=== PATIENT | female | born 1950 | race Caucasian/White ===

== ENCOUNTER 2020-02-06 14:15 | Inpatient (IN) ==
--- NOTE | 2020-02-06 14:40 | Emergency Department Note ---
History of Present Illness General Chief complaint: Hypertension Time Seen by Provider: 02/06/20 14:18 Source: patient Mode of arrival: EMS Limitations: altered mental status History of Present Illness Provider complaint: chest pain Onset (ago): hour(s) 2 Location: chest Radiation: back and extremity Severity: moderate Pain Consistency: + now resolved Maximum Pain Intensity: 4 Current Pain Intensity: 0 Relieved By: + none Exacerbated By: + none Associated symptoms: + denies other symptoms Treatments prior to arrival: none This is a 69-year-old female from [facility] with a history of schizophrenia and bipolar disorder who presents after an episode of chest pain. Patient states shortly after eating lunch between 12:31 PM she developed central chest pain which lasted several minutes and then began to resolve spontaneously. She states during the episode of chest pain she did not feel short of breath, nauseated, or dizzy. Patient states the pain did radiate into her left arm and her back. Patient states she does intermittently have episodes of chest pain and she refers to these as "attacks". No exacerbating or alleviating factors, she has never noticed any trigger or pattern to them. Patient states when staff checked her out there she was found to have an elevated blood pressure reading and was sent in. Patient is unaware of any recent medication changes. She states she has not recently been ill. No known exposure to any coronavirus positive individuals. History is limited due to patient's cognitive status. Pt seen during a time of high acuity and national emergency pandemic while wearing PPE. Home Medications Home Medications Medication Instructions Recorded Confirmed Type Latuda 120 mg PO DAILY 02/06/20 02/06/20 History Therems-M 1 tab PO DAILY 02/06/20 02/06/20 History acetaminophen 650 mg PO QID PRN 02/06/20 02/06/20 History atorvastatin 80 mg PO HS 02/06/20 02/06/20 History calcium carbonate [Oyster Shell 500 mg PO BID 02/06/20 02/06/20 History Calcium 500] cholecalciferol (vitamin D3) 50 mcg PO DAILY 02/06/20 02/06/20 History [Vitamin D3] divalproex 250 mg PO DAILY 02/06/20 02/06/20 History divalproex 500 mg PO HS 02/06/20 02/06/20 History docusate sodium 100 mg PO BID PRN 02/06/20 02/06/20 History fluticasone propionate 1 spray INTRANASAL BID 02/06/20 02/06/20 History glipizide 5 mg PO DAILY 02/06/20 02/06/20 History levothyroxine 137 mcg PO DAILY 02/06/20 02/06/20 History olanzapine 5 mg PO HS 02/06/20 02/06/20 History perphenazine 8 mg PO BID 02/06/20 02/06/20 History trazodone 100 mg PO HS 02/06/20 02/06/20 History amlodipine [Norvasc] 10 mg PO DAILY #30 tab 02/09/20 Rx aspirin 81 mg PO HS #90 tab 02/09/20 Rx losartan 50 mg PO QAM #30 tab 02/09/20 Rx metoprolol tartrate 25 mg PO BID #60 tab 02/09/20 Rx Allergies Allergy/AdvReac Type Severity Reaction Status Date / Time No Known Allergies Allergy Unverified 02/06/20 14:44 Past Med/Surg History Medical History (Updated 02/09/20 @ 19:51 by Molly Worley DO) Bipolar disorder DM2 (diabetes mellitus, type 2) Hypertension (Acute) Hypothyroidism Leukopenia (Acute) Schizophrenia Surgical History Surgical history unknown Family History Unknown Unknown family medical history Social History Smoking Status: Former smoker Hx Alcohol Use: No Hx Substance Use: No Preferred Language: Arabic Communication Ability: Impaired Beliefs That Will Affect Care: None marital status: Single Current Living Situation: Detention How many Children do You have: 0 Feels Safe at Home: Yes Review of Systems See HPI for pertinent positives & negatives. and A total of 10 systems reviewed and were otherwise negative Physical Exam Vital Signs Vital Signs - 24 hr 02/06/20 14:21 02/06/20 14:41 02/06/20 14:58 Temperature 36.5 C Temperature Source Oral Pulse Rate 83 73 74 Pulse Rate from SpO2 Sensor 74 Respiratory Rate 20 19 19 Respiratory Effort / Characteristics Non-Labored Spontaneous Respiratory Depth Normal Respiratory Pattern Regular Blood Pressure 215/112 H 192/87 H 192/87 H Blood Pressure Mean 146 110 110 Blood Pressure Position Lying Pulse Oximetry 96 98 96 Oxygen Delivery Method Room Air Sepsis Recent Fever Within 48 Hours No Sepsis New/Unexplained Change in Mental Status No Sepsis Action Taken by Nursing No Action Required 02/06/20 15:00 02/06/20 15:30 02/06/20 16:00 Temperature Temperature Source Pulse Rate 74 73 76 Pulse Rate from SpO2 Sensor 74 73 78 Respiratory Rate 19 18 21 Respiratory Effort / Characteristics Respiratory Depth Respiratory Pattern Blood Pressure 165/82 H 168/87 H 186/95 H Blood Pressure Mean 114 130 129 Blood Pressure Position Pulse Oximetry 97 97 98 Oxygen Delivery Method Sepsis Recent Fever Within 48 Hours Sepsis New/Unexplained Change in Mental Status Sepsis Action Taken by Nursing 02/06/20 16:30 02/06/20 17:00 Temperature Temperature Source Pulse Rate 74 79 Pulse Rate from SpO2 Sensor 80 Respiratory Rate 21 20 Respiratory Effort / Characteristics Respiratory Depth Respiratory Pattern Blood Pressure 191/94 H 218/109 H Blood Pressure Mean 140 115 Blood Pressure Position Pulse Oximetry 98 100 Oxygen Delivery Method Sepsis Recent Fever Within 48 Hours Sepsis New/Unexplained Change in Mental Status Sepsis Action Taken by Nursing GENERAL: alert, well appearing, well nourished, no distress, non-toxic, obese EYE EXAM: normal conjunctiva, PERRL and EOM's grossly intact OROPHARYNX: no exudate, no erythema, lips, buccal mucosa, and tongue normal and mucous membranes are moist NECK: supple, no nuchal rigidity, no adenopathy, non-tender LUNGS: Clear to auscultation. Normal chest wall mechanics, no w/r/r HEART: no murmurs, S1 normal and S2 normal ABDOMEN: abdomen soft, non-tender, normo-active bowel sounds, no masses, no rebound or guarding. BACK: Back is symmetrical on inspection and there is no deformity, no midline tenderness, no CVA tenderness. SKIN: no rashes and no bruising UPPER EXTREMITIES: upper extremities are grossly normal. FROM, nml pulses b/l. LOWER EXTREMITIES: No pitting edema. FROM, nml pulses b/l. NEURO EXAM: Normal sensorium, cranial nerves II-XII grossly intact, normal speech, no gross weakness of arms, no gross weakness of legs. Gross sensation intact. Course Course 1801: Patient states she feels fine here and is asking to eat. Patient is still significantly hypertensive. Her blood pressure does respond to doses of labetalol, however then he continues to increase. Patient denies any recurrent episodes of chest pain or other symptoms while here. 1832: Case discussed with Dr. Carlos. Would like a CT head added additionally. Administered Medications Discontinued Medications Amlodipine Besylate (Norvasc) 10 mg PO NOW ONE Stop: 02/06/20 19:54 Last Admin: 02/06/20 20:40 Dose: 10 mg Documented by: [id number] Amlodipine Besylate (Norvasc) 10 mg PO [facility] Stop: 03/08/20 08:59 Last Admin: 02/09/20 08:15 Dose: 10 mg Documented by: [id number] Admin: 02/08/20 09:19 Dose: 10 mg Documented by: [id number] Admin: 02/07/20 09:17 Dose: 10 mg Documented by: [id number] Aspirin (Ecotrin Ectab) 81 mg PO [facility] Stop: 03/07/20 21:59 Last Admin: 02/08/20 20:24 Dose: 81 mg Documented by: [id number] Admin: 02/07/20 22:09 Dose: 81 mg Documented by: [id number] Admin: 02/06/20 22:51 Dose: 81 mg Documented by: [id number] Atorvastatin Calcium (Lipitor) 80 mg PO [facility] Stop: 03/07/20 21:40 Last Admin: 02/08/20 20:25 Dose: 80 mg Documented by: [id number] Admin: 02/07/20 22:07 Dose: 80 mg Documented by: [id number] Admin: 02/06/20 22:51 Dose: 80 mg Documented by: [id number] Divalproex Sodium (Depakote Sprinkle) 250 mg PO DAILY [facility] Stop: 03/08/20 08:59 Last Admin: 02/09/20 08:16 Dose: 250 mg Documented by: [id number] Admin: 02/08/20 09:19 Dose: 250 mg Documented by: [id number] Admin: 02/07/20 09:18 Dose: 250 mg Documented by: [id number] Divalproex Sodium (Depakote Sprinkle) 500 mg PO [facility] Stop: 03/07/20 21:40 Last Admin: 02/08/20 20:20 Dose: 500 mg Documented by: [id number] Admin: 02/07/20 22:09 Dose: 500 mg Documented by: [id number] Admin: 02/06/20 22:50 Dose: 500 mg Documented by: [id number] Fluticasone Propionate (Flonase) 1 sprays NA BID [facility] Stop: 03/07/20 21:40 Last Admin: 02/09/20 08:32 Dose: 1 sprays Documented by: [id number] Admin: 02/08/20 20:22 Dose: 1 sprays Documented by: [id number] Admin: 02/08/20 09:20 Dose: 1 sprays Documented by: [id number] Admin: 02/07/20 22:09 Dose: 1 sprays Documented by: [id number] Admin: 02/07/20 09:19 Dose: 1 sprays Documented by: [id number] Admin: 02/06/20 22:49 Dose: 1 sprays Documented by: [id number] Heparin Sodium (Porcine) (Heparin Sodium (Porcine)) 5,000 units SQ Q8 [facility] Stop: 03/07/20 21:59 Last Admin: 02/09/20 13:46 Dose: Not Given Documented by: [id number] Admin: 02/09/20 05:29 Dose: Not Given Documented by: [id number] Admin: 02/08/20 20:30 Dose: Not Given Documented by: [id number] Admin: 02/08/20 14:33 Dose: 5,000 units Documented by: [id number] Cosigned by: [id number] Admin: 02/08/20 05:33 Dose: 5,000 units Documented by: [id number] Cosigned by: [id number] Admin: 02/07/20 22:10 Dose: 5,000 units Documented by: [id number] Cosigned by: [id number] Admin: 02/07/20 14:16 Dose: 5,000 units Documented by: [id number] Cosigned by: [id number] Admin: 02/07/20 06:31 Dose: 5,000 units Documented by: [id number] Cosigned by: [id number] Admin: 02/06/20 23:11 Dose: 5,000 units Documented by: [id number] Cosigned by: [id number] Insulin Aspart (Novolog Flexpen) 0 units SC ACHS [facility] Stop: 03/07/20 21:40 Last Admin: 02/09/20 11:51 Dose: 4 units Documented by: [id number] Cosigned by: [id number] Admin: 02/09/20 08:31 Dose: 2 units Documented by: [id number] Cosigned by: [id number] Admin: 02/08/20 20:34 Dose: 1 units Documented by: [id number] Cosigned by: [id number] Admin: 02/08/20 17:27 Dose: 3 units Documented by: [id number] Cosigned by: [id number] Admin: 02/08/20 12:05 Dose: 2 units Documented by: [id number] Cosigned by: [id number] Admin: 02/08/20 08:00 Dose: 3 units Documented by: [id number] Cosigned by: [id number] Admin: 02/07/20 22:10 Dose: Not Given Documented by: [id number] Cosigned by: [id number] Admin: 02/07/20 17:57 Dose: 1 units Documented by: [id number] Cosigned by: [id number] Admin: 02/07/20 12:40 Dose: 1 units Documented by: [id number] Cosigned by: [id number] Admin: 02/07/20 09:18 Dose: 1 units Documented by: [id number] Cosigned by: [id number] Admin: 02/06/20 23:10 Dose: 3 units Documented by: [id number] Cosigned by: [id number] Insulin Glargine (Lantus Solostar Pen) 7 units SC BID [facility] Stop: 03/07/20 21:40 Last Admin: 02/09/20 08:31 Dose: 7 units Documented by: [id number] Cosigned by: [id number] Admin: 02/08/20 20:31 Dose: 7 units Documented by: [id number] Cosigned by: [id number] Admin: 02/08/20 08:00 Dose: 7 units Documented by: [id number] Cosigned by: [id number] Admin: 02/07/20 22:10 Dose: 7 units Documented by: [id number] Cosigned by: [id number] Admin: 02/07/20 09:18 Dose: 7 units Documented by: [id number] Cosigned by: [id number] Admin: 02/06/20 23:09 Dose: 7 units Documented by: [id number] Cosigned by: [id number] Labetalol HCl (Normodyne) 5 mg IV NOW STA Stop: 02/06/20 14:49 Last Admin: 02/06/20 14:55 Dose: 5 mg Documented by: [id number] Cosigned by: [id number] Labetalol HCl (Normodyne) 5 mg IV NOW STA Stop: 02/06/20 16:53 Last Admin: 02/06/20 16:59 Dose: 5 mg Documented by: [id number] Cosigned by: [id number] Labetalol HCl (Normodyne) 10 mg IV NOW STA Stop: 02/06/20 18:18 Last Admin: 02/06/20 18:38 Dose: 10 mg Documented by: [id number] Cosigned by: [id number] Levothyroxine Sodium (Levothyroxine Sodium) 137 mcg PO DAILYBB [facility] Stop: 03/08/20 06:29 Last Admin: 02/09/20 05:46 Dose: 137 mcg Documented by: [id number] Admin: 02/08/20 05:26 Dose: 137 mcg Documented by: [id number] Admin: 02/07/20 05:59 Dose: 137 mcg Documented by: [id number] Losartan Potassium (Cozaar) 50 mg PO QAM [facility] Stop: 03/08/20 09:29 Last Admin: 02/09/20 08:16 Dose: 50 mg Documented by: [id number] Admin: 02/08/20 09:20 Dose: 50 mg Documented by: [id number] Admin: 02/07/20 10:30 Dose: 50 mg Documented by: [id number] Lurasidone HCl (Latuda) 120 mg PO DAILY [facility] Stop: 03/08/20 08:59 Last Admin: 02/09/20 08:14 Dose: 120 mg Documented by: [id number] Admin: 02/08/20 09:20 Dose: 120 mg Documented by: [id number] Admin: 02/07/20 09:18 Dose: 120 mg Documented by: [id number] Metoprolol Tartrate (Lopressor) 25 mg PO BID [facility] Stop: 03/07/20 20:59 Last Admin: 02/09/20 08:16 Dose: 25 mg Documented by: [id number] Admin: 02/08/20 20:26 Dose: 25 mg Documented by: [id number] Admin: 02/08/20 09:19 Dose: 25 mg Documented by: [id number] Admin: 02/07/20 22:09 Dose: 25 mg Documented by: [id number] Admin: 02/07/20 10:35 Dose: 25 mg Documented by: [id number] Admin: 02/06/20 20:40 Dose: 25 mg Documented by: [id number] Olanzapine (Zyprexa) 5 mg PO HS [facility] Stop: 03/07/20 21:40 Last Admin: 02/08/20 20:28 Dose: 5 mg Documented by: [id number] Admin: 02/07/20 22:08 Dose: 5 mg Documented by: [id number] Admin: 02/06/20 22:52 Dose: 5 mg Documented by: [id number] Perphenazine (Trilafon) 8 mg PO BID [facility] Stop: 03/07/20 21:59 Last Admin: 02/09/20 08:15 Dose: 8 mg Documented by: [id number] Admin: 02/08/20 20:26 Dose: 8 mg Documented by: [id number] Admin: 02/08/20 09:20 Dose: 8 mg Documented by: [id number] Admin: 02/07/20 22:08 Dose: 8 mg Documented by: [id number] Admin: 02/07/20 09:18 Dose: 8 mg Documented by: [id number] Admin: 02/06/20 22:52 Dose: 8 mg Documented by: [id number] Trazodone HCl (Desyrel) 100 mg PO HS [facility] Stop: 03/07/20 21:40 Last Admin: 02/08/20 20:22 Dose: 100 mg Documented by: [id number] Admin: 02/07/20 22:08 Dose: 100 mg Documented by: [id number] Admin: 02/06/20 22:50 Dose: 100 mg Documented by: [id number] Critical Care Time Critical Care Time: Yes Total Critical Care Time: 46 Critical care of 46 min performed to assess and manage high likelihood of life- threatening hypertension, involving labs/imaging performed with assessment to evaluate hypertension diagnosis with frequent reassessment. This time includes bedside time, treatment discussions with patient/family/consultants, documentation time and excludes procedure time. Medical Decision Making Differential Diagnosis Differential diagnoses includes but is not limited to acute coronary syndrome, myocardial infarction, pericarditis, pulmonary embolus, aortic dissection, pneumonia, pneumothorax, musculoskeletal, shingles, esophageal. Medical Records Attestation: I reviewed the patient's medical records. Home Medications Current Medication List: was personally reviewed by me Laboratory Data Attestation: I reviewed the patient's lab results. Result diagrams: 02/08/20 07:32 02/08/20 07:32 Lab Results 02/06/20 02/06/20 02/06/20 Range/Units 14:46 14:46 14:46 WBC 2.71 L (4.8-10.8) K/uL RBC 4.16 L (4.2-5.4) M/uL Hgb 12.5 (12.0-16.0) g/dL Hct 36.0 L (37-47) % MCV 86.5 (80-100) fL MCH 30.0 (25-34) pg MCHC 34.7 (32-36) g/dL RDW Std Deviation 41.3 (36.4-46.3) fL RDW Coeff of Joe 13.0 (11.5-14.5) % Plt Count 208 (130-400) K/uL MPV 9.1 (7.4-10.4) fL Immature Gran % (Auto) 0.0 % Neut % (Auto) 24.0 % Lymph % (Auto) 49.4 % Ocean % (Auto) 22.9 % Eos % (Auto) 3.0 % Baso % (Auto) 0.7 % Neut # (Auto) 0.65 L* (1.4-6.5) K/uL Lymph # (Auto) 1.34 (1.2-3.4) K/uL Ocean # (Auto) 0.62 H (0.11-0.59) K/uL Eos # (Auto) 0.08 (0-0.5) K/uL Baso # (Auto) 0.02 (0-0.2) K/uL Immature Gran # (Auto) 0.00 (0.00-0.02) K/uL D-Dimer 270 (0-500) ug/L FEU Sodium 135 L (136-145) mmol/L Potassium 4.0 (3.5-5.1) mmol/L Chloride 102 (98-107) mmol/L Carbon Dioxide 28 (21-32) mmol/L Anion Gap 5.0 (3-11) BUN 8 (7-18) mg/dl Creatinine 0.76 (0.6-1.2) mg/dl Est Cr Clr Drug Dosing 80.9 ml/min Est GFR ( Amer) 94.1 Est GFR (Non-Af Amer) 81.2 BUN/Creatinine Ratio 10.3 (10-20) Glucose 117 H (70-99) mg/dl Calcium 9.2 (8.5-10.1) mg/dl Magnesium 1.8 (1.8-2.4) mg/dl Total Bilirubin 0.7 (0.2-1) mg/dl AST 15 (15-37) U/L ALT 29 (12-78) U/L Alkaline Phosphatase 91 (45-117) U/L Troponin I < 0.015 (0-0.045) ng/ml NT-Pro-B Natriuret Pep 77 (0-900) pg/ml Total Protein 7.5 (6.4-8.2) gm/dl Albumin 3.6 (3.4-5.0) gm/dl Globulin 3.9 (2.5-4.0) gm/dl Albumin/Globulin Ratio 0.9 (0.9-2) Lipase 104 (73-393) U/L TSH 1.240 (0.300-4.500) uIu/ml / Range/Units 17:30 WBC (4.8-10.8) K/uL RBC (4.2-5.4) M/uL Hgb (12.0-16.0) g/dL Hct (37-47) % MCV (80-100) fL MCH (25-34) pg MCHC (32-36) g/dL RDW Std Deviation (36.4-46.3) fL RDW Coeff of Joe (11.5-14.5) % Plt Count (130-400) K/uL MPV (7.4-10.4) fL Immature Gran % (Auto) % Neut % (Auto) % Lymph % (Auto) % Ocean % (Auto) % Eos % (Auto) % Baso % (Auto) % Neut # (Auto) (1.4-6.5) K/uL Lymph # (Auto) (1.2-3.4) K/uL Ocean # (Auto) (0.11-0.59) K/uL Eos # (Auto) (0-0.5) K/uL Baso # (Auto) (0-0.2) K/uL Immature Gran # (Auto) (0.00-0.02) K/uL D-Dimer (0-500) ug/L FEU Sodium (136-145) mmol/L Potassium (3.5-5.1) mmol/L Chloride (98-107) mmol/L Carbon Dioxide (21-32) mmol/L Anion Gap (3-11) BUN (7-18) mg/dl Creatinine (0.6-1.2) mg/dl Est Cr Clr Drug Dosing ml/min Est GFR ( Amer) Est GFR (Non-Af Amer) BUN/Creatinine Ratio (10-20) Glucose (70-99) mg/dl Calcium (8.5-10.1) mg/dl Magnesium (1.8-2.4) mg/dl Total Bilirubin (0.2-1) mg/dl AST (15-37) U/L ALT (12-78) U/L Alkaline Phosphatase (45-117) U/L Troponin I < 0.015 (0-0.045) ng/ml NT-Pro-B Natriuret Pep (0-900) pg/ml Total Protein (6.4-8.2) gm/dl Albumin (3.4-5.0) gm/dl Globulin (2.5-4.0) gm/dl Albumin/Globulin Ratio (0.9-2) Lipase (73-393) U/L TSH (0.300-4.500) uIu/ml Imaging Data Radiologist's Impression: XR chest 1V portable CLINICAL HISTORY: chest pain COMPARISON STUDY: No previous studies for comparison. FINDINGS: The bones soft tissues and hemidiaphragms are normal. The c ardiomediastinal silhouette is normal. The lungs are clear. The pulmonary vasculature is normal. IMPRESSION: Negative chest. ACT 112: Negative or not required by law. The above report was generated using voice recognition software. It may contain grammatical, syntax or spelling errors. Electronically signed by: Ulises Kenney M.D. 02/06/2020 2:57 PM ECG Data Attestation: I personally reviewed and interpreted this ECG as follows: Indication: + chest pain Rate (beats per minute): 75 Rhythm: + normal sinus ECG Intervals/blocks: + Normal QRS and + Normal QT ECG Taylor: + Normal ECG ST segments: + Normal ST segments Blood Pressure Blood Pressure Findings: Elevated blood pressure Blood Pressure Disposition: further management by hospitalist RG Mosley Patient here after episode of chest pain at [facility] and found to be significantly hypertensive. Patient's symptoms resolved prior to arrival. Patient had no recurrent chest pain or other symptoms while here. Patient's blood pressure would respond temporarily to labetalol however then it would increase again. Due to persistent hypertension despite IV medications, discussed with the hospitalist for additional inpatient management. Patient had a normal and nonfocal neuro exam, no other complaints of headaches, vision changes, dizziness. It is unclear if patient had an episode of high blood pressure that contributed to her symptoms thus suggesting a hypertensive urgency versus if the blood pressure was reactive to her pain and other ongoing process. Patient is a difficult historian due to mental health history and possible cognitive delay. Vital signs were otherwise stable. I do not suspect occult infectious etiology. Patient's troponin and dimer were negative. No evidence of hypertensive emergency. I do not suspect dissection, PE, ACS, tampo nade, effusion, perforation, GI bleed. Patient was found to have leukopenia which she has had previously. No other focal symptoms to suggest infectious etiology. An order was placed for continuous cardiac monitoring. The monitor shows a rate of _80 with normal sinus_ rhythm. Impression & Plan Hypertension, Chest pain, Leukopenia, Obesity Discharge Plan Visit Data *Final* Discharge Date/Time: 02/06/20 20:59 Chief Complaint: Hypertension ED Provider: Molly Worley Discharge Problem: Hypertension, Chest pain, Leukopenia, Obesity Patient Disposition: Admitted As Inpatient Condition: Good Discharge Instructions Interventions: ED Discharge Assessment Last Done: 02/06/20 20:59 Discharge Problem: Hypertension Qualifiers: Hypertension type: essential hypertension Qualified Code(s): I10 - Essential (primary) hypertension Chest pain Qualifiers: Chest pain type: unspecified Qualified Code(s): R07.9 - Chest pain, unspecified Leukopenia Qualifiers: Leukopenia type: neutropenia Neutropenia type: unspecified Qualified Code(s): D70.9 - Neutropenia, unspecified Obesity Qualifiers: Obesity type: unspecified obesity type Obesity classification: unspecified obesity classification Serious obesity comorbidity presence: unspecified whether serious comorbidity present Qualified Code(s): E66.9 - Obesity, unspecified
[2020-02-06] MEDS ORDERED: LABETALOL HCL IV 5 MG/ML 20ML IV STA ×3 (14:48→18:17)
--- NOTE | 2020-02-06 14:58 | XRay Report ---
XR chest 1V portable CLINICAL HISTORY: chest pain COMPARISON STUDY: No previous studies for comparison. FINDINGS: The bones soft tissues and hemidiaphragms are normal. The cardiomediastinal silhouette is n ormal. The lungs are clear. The pulmonary vasculature is normal. IMPRESSION: Negative chest. ACT 112: Negative or not required by law. The above report was generated using voice recognition software. It may contain grammatical, syntax or spelling errors. Electronically signed by: Ulises Kenney M.D. 02/06/2020 2:57 PM
[2020-02-06 15:00] LABS: Hemoglobin 12.5 g/dL (12.0-16.0); Mean Corpuscular Hgb Conc 34.7 g/dL (32-36); Mean Corpuscular Volume 86.5 fL (80-100); Mean Platelet Volume 9.1 fL (7.4-10.4); Platelet Count 208 K/uL (130-400); RDW Standard Deviation 41.3 fL (36.4-46.3); Red Blood Count 4.16 M/uL (4.2-5.4); White Blood Count 2.71 K/uL (4.8-10.8)
[2020-02-06 15:15] LABS: Alanine Aminotransferase 29 U/L (12-78); Albumin Level 3.6 gm/dl (3.4-5.0); Aspartate Aminotransferase 15 U/L (15-37); BUN Creatinine Ratio 10.3 (10-20); Blood Urea Nitrogen 8 mg/dl (7-18); Calcium 9.2 mg/dl (8.5-10.1); Carbon Dioxide 28 mmol/L (21-32); Chloride 102 mmol/L (98-107); Creatinine Clr Calc Pharmacy 80.9 ml/min; Est GFR (African American) 94.1; Est GFR (Non-African American) 81.2; Glucose 117 mg/dl (70-99); Lipase 104 U/L (73-393); Magnesium 1.8 mg/dl (1.8-2.4); Sodium 135 mmol/L (136-145)
[2020-02-06 15:24] LABS: Basophils # (auto) 0.02 K/uL (0-0.2); Basophils % (auto) 0.7 %; Eosinophils # (auto) 0.08 K/uL (0-0.5); Lymphocytes # (auto) 1.34 K/uL (1.2-3.4); Lymphocytes % (auto) 49.4 %; Monocytes # (auto) 0.62 K/uL (0.11-0.59); Monocytes % (auto) 22.9 %; Neutrophils # (auto) 0.65 K/uL (1.4-6.5)
[2020-02-06 15:26] LABS: Albumin Globulin Ratio 0.9 (0.9-2); Alkaline Phosphatase 91 U/L (45-117); Bilirubin,Total 0.7 mg/dl (0.2-1); Globulin 3.9 gm/dl (2.5-4.0); NT Pro B Type Natriuretic Pept 77 pg/ml (0-900); Total Protein 7.5 gm/dl (6.4-8.2); Troponin I < 0.015 ng/ml (0-0.045)
[2020-02-06 16:04] LABS: D Dimer 270 ug/L FEU (0-500)
--- NOTE | 2020-02-06 18:05 | Electrocardiogram Report ---
Test Reason : Blood Pressure : / mmHG Vent. Rate : 075 BPM Atrial Rate : 075 BPM P-R Int : 162 ms QRS Dur : 082 ms QT Int : 406 ms P-R-T Axes : 055 065 053 degrees QTc Int : 453 ms Normal sinus rhythm Normal ECG No previous ECGs available Confirmed by Derek Herrera ([id number]) on 02/06/2020 6:05:09 PM Referred By: PROTOCOL Confirmed By:Celso Herrera
--- NOTE | 2020-02-06 19:40 | CT Scan Report ---
CT head/brain wo con CLINICAL HISTORY: 69 years-old Female with hypertension. TECHNIQUE: Multiple axial CT images of the head were obtained without contrast. A dose lowering tech nique was utilized adhering to the principles of ALARA. CT DOSE: 537.48 mGy.cm COMPARISON: None. FINDINGS: No acute intracranial hemorrhage, midline shift, intracranial mass, hydrocephalus, territorial ischem ia or abnormal extra-axial collection. Age-related involutional changes. Mild patchy white matter hyp odensities suggest probable chronic microvascular ischemic disease. The calvarium is intact. Prior bilateral lens replacement. The paranasal sinuses, mastoid air cells, and middle ear cavities are clear. IMPRESSION: No acute intracranial abnormality. ACT 112: Negative or not required by law. The above report was generated using voice recognition software. It may contain grammatical, syntax o r spelling errors. Electronically signed by: Hubert Crowell M.D. 02/06/2020 7:38 PM
[2020-02-06] MEDS ORDERED: AMLODIPINE BESYLATE 5 MG TAB PO ONE (19:53)
--- NOTE | 2020-02-06 20:05 | History & Physical Report ---
Date of Service February 06, 2020 Assessment & Plan (1) Chest pain: Chest Pain: R/O ACS Risk factors: H/O HTN, HLP, DM II, Obesity Initial troponin:Negative EKG shows: No acute signs of Ischemia CXR: Negative chest. Trend serial cardiac enzymes, repeat EKG, fasting lipid panel in AM Start Aspirin 81mg daily Continue Metoprolol, statins Oxygen PRN NPO after midnight Cardiology consult Hypertensive Urgency CT head:No acute intracranial abnormality. Received IV labetalol in ED, which only transiently controlled BP Will increase Metoprolol to 25mg BID Added Amlodipine 10mg daily IV Vasotec PRN Leukopenia/Neutropenia--Chronic No signs of infection H/O autoimmune mediated neutropenia Followed with Dr. Rodriguez previously Monitor Schizophrenia Mood disorder Stable Continue home medications Hyperlipidemia Continue Statin Hypothyroidism TSH:1.2 Continue levothyroxine Diabetes mellitus Type II Will hold oral diabetic meds Last A1c:8.2 ISS, Accu checks, Diabetic diet update HbA1C DVT Px: Heparin SQ Code Status Full Code Disposition Expected discharge back to personal care facility when medically stable. History of Present Illness Chief Complaint: Chest Pain Primary Care Provider: Billy Eloyosmar Patient is a 69-year-old female with history of schizophrenia, mood disorder hyperlipidemia, hypothyroidism, diabetes mellitus, vitamin D deficiency and other medical problems presents with history of chest pain. Patient is a poor historian and likely have an underlying mild intellectual disability. Patient states that she had retrosternal chest pain after having lunch today afternoon. Chest pain is associated with brief shortness of breath, lasting for about 5 minutes, spontaneously resolved. Chest pain radiated to the back as per patient. Currently while in ED, patient is chest pain-free. She was noted to have uncontrolled blood pressure. She admits to having had dry cough intermitt ently for the last few days. She reports having similar chest pain episode 1 month ago. He denies any aggravating or alleviating factors. Denies any history of palpitations, dizziness, pedal edema, diaphoresis, wheezing, hemoptysis, fever, chills, headache, weakness, change in vision, nausea, vomiting, abdominal pain, diarrhea, change in appetite, weight loss, dysuria, hematuria, recent travel, sick contact, recent change in medications. Allergies Allergy/AdvReac Type Severity Reaction Status Date / Time No Known Allergies Allergy Unverified 02/06/20 14:44 Home Medications Home Medications Medication Instructions Recorded Confirmed Type acetaminophen 650 mg PO QID PRN 02/06/20 02/06/20 History atorvastatin 80 mg PO HS 02/06/20 02/06/20 History calcium carbonate [Oyster Shell 500 mg PO BID 02/06/20 02/06/20 History Calcium 500] cholecalciferol (vitamin D3) 50 mcg PO DAILY 02/06/20 02/06/20 History [Vitamin D3] divalproex 250 mg PO DAILY 02/06/20 02/06/20 History divalproex 500 mg PO HS 02/06/20 02/06/20 History docusate sodium 100 mg PO BID PRN 02/06/20 02/06/20 History fluticasone propionate 1 spray INTRANASAL BID 02/06/20 02/06/20 History glipizide 5 mg PO DAILY 02/06/20 02/06/20 History levothyroxine 137 mcg PO DAILY 02/06/20 02/06/20 History lurasidone [Latuda] 120 mg PO DAILY 02/06/20 02/06/20 History metoprolol tartrate 12.5 mg PO BID 02/06/20 02/06/20 History multivitamin,[id number] 1 tab PO DAILY 02/06/20 02/06/20 History [Therems-M] olanzapine 5 mg PO HS 02/06/20 02/06/20 History perphenazine 8 mg PO BID 02/06/20 02/06/20 History trazodone 100 mg PO HS 02/06/20 02/06/20 History Past Med/Surg History Medical History Bipolar disorder Schizophrenia Surgical History Surgical history unknown Family History Unknown Unknown family medical history Social History Feels Safe at Home: Yes Smoking Status: Former smoker Review of Systems Review of Systems: All systems reviewed & are unremarkable except as noted in HPI & below Physical Exam Physical Exam: Physical Exam: Vitals signs as noted above General Appearance:Obese, no apparent distress Head: normocephalic, Atraumatic Eyes: normal inspection, EOMI Neck: supple, Trachea midline Respiratory/Chest: Normal breath sounds, CTA, No accessory muscle use Cardiovascular: S1, S2, + murmur Abdomen/GI:Soft, Non tender, Bowel sounds present Extremities/Musculoskelatal:normal inspection, Trace edema Neurologic/Psych:AAOX3, grossly no focal neurological deficits Skin: normal color, warm Results & Data Results & Data ([facility]) Vital Signs (Past 12 Hours) Vital Signs Temp Pulse Resp BP Pulse Ox 02/06/20 19:34 95 H 18 204/100 H 98 02/06/20 18:38 87 21 190/99 H 97 02/06/20 18:31 212/114 H 02/06/20 18:13 228/123 H 02/06/20 18:01 82 20 181/98 H 98 02/06/20 17:56 79 20 180/95 H 99 02/06/20 17:31 80 20 204/97 H 99 02/06/20 17:00 79 20 218/109 H 100 02/06/20 16:30 74 21 191/94 H 98 02/06/20 16:00 76 21 186/95 H 98 02/06/20 15:30 73 18 168/87 H 97 02/06/20 15:00 74 19 165/82 H 97 02/06/20 14:58 74 19 192/87 H 96 02/06/20 14:41 73 19 192/87 H 98 02/06/20 14:21 36.5 C 83 20 215/112 H 96 Laboratory Results Short CBC 02/06/20 Range/Units 14:46 WBC 2.71 L (4.8-10.8) K/uL Hgb 12.5 (12.0-16.0) g/dL Hct 36.0 L (37-47) % Plt Count 208 (130-400) K/uL BMP 02/06/20 14:46 Sodium 135 L Potassium 4.0 Chloride 102 Carbon Dioxide 28 BUN 8 Creatinine 0.76 Glucose 117 H Calcium 9.2 Cardiac Enzymes 02/06/20 02/06/20 Range/Units 14:46 17:30 Troponin I < 0.015 < 0.015 (0-0.045) ng/ml Liver Function 02/06/20 Range/Units 14:46 Total Bilirubin 0.7 (0.2-1) mg/dl AST 15 (15-37) U/L ALT 29 (12-78) U/L Alkaline Phosphatase 91 (45-117) U/L Albumin 3.6 (3.4-5.0) gm/dl Diagnostic Findings head CT:No acute intracranial abnormality. CXR:Negative chest. ECG Additional Comments: EKG:Normal sinus rhythm, QTC:453 Code Status & VTE Plan VTE Prophylaxis Plan VTE Prophylaxis will be ordered: Yes (1) Chest pain Chest pain type: unspecified Qualified Code(s): R07.9 - Chest pain, unspecified
[2020-02-06] MEDS: METOPROLOL TARTRATE 25 MG TAB PO SCH (20:40)
[2020-02-06] MEDS ORDERED: DEXTROSE 50% 50 ML SYRINGE IV PRN (21:41)
[2020-02-06] MEDS ORDERED: CARBOHYDRATES FOR HYPOGLYCEMIA PO PRN (21:41)
[2020-02-06] MEDS ORDERED: DOCUSATE SODIUM 100 MG CAP PO PRN (21:41)
[2020-02-06] MEDS ORDERED: GLUCOSE 10 TABS/TUBE PO PRN (21:41)
[2020-02-06] MEDS ORDERED: GLUCOSE 40% GEL 15 GM TUBE PO PRN (21:41)
[2020-02-06] MEDS ORDERED: ONDANSETRON INJ 2 MG/ML 2 ML VIAL IV PRN (21:41)
[2020-02-06] MEDS ORDERED: ENALAPRILAT 1.25 MG in DEXTROSE 5% 25 ML IV PRN (21:41)
[2020-02-06] MEDS ORDERED: GLUCAGON FOR INJ 1 MG VIAL SQ PRN (21:41)
[2020-02-06] MEDS ORDERED: ACETAMINOPHEN 325 MG TAB PO PRN (21:41)
[2020-02-06] MEDS ORDERED: NITROGLYCERIN SL 0.4 MG/TAB TAB SL PRN (21:41)
[2020-02-06] MEDS ORDERED: POLYETHYLENE (MIRALAX) 17 GM PACK PO PRN (21:41)
[2020-02-06] MEDS: FLUTICASONE PROPIONATE NA SPR 16 GM BTL SCH (22:49)
[2020-02-06] MEDS: DIVALPROEX SODIUM SPRINKLE 125 MG CAP PO SCH (22:50)
[2020-02-06] MEDS: TRAZODONE HCL 100 MG TAB PO SCH (22:50)
[2020-02-06] MEDS: ATORVASTATIN 40 MG TAB PO SCH (22:51)
[2020-02-06] MEDS: ASPIRIN 81 MG ECTAB PO SCH (22:51)
[2020-02-06] MEDS: OLANZapine 5 MG TABLET PO SCH (22:52)
[2020-02-06] MEDS: PERPHENAZINE 2 MG TABLET PO SCH (22:52)
[2020-02-06] MEDS: INSULIN GLARGINE SOLOSTAR 100 UNITS/ML 3 ML PEN SC SCH (23:09)
[2020-02-06] MEDS: INSULIN ASPART 100 UNITS/ML 3 ML PEN SC SCH (23:10)
[2020-02-06] MEDS: HEPARIN SOD 5,000 UNIT/0.5 ML VIAL SQ SCH (23:11)
[2020-02-07] MEDS: LEVOTHYROXINE SODIUM 137 MCG TABLET PO SCH (05:59)
[2020-02-07] MEDS: HEPARIN SOD 5,000 UNIT/0.5 ML VIAL SQ SCH ×3 (06:31→22:10)
[2020-02-07] MEDS: AMLODIPINE BESYLATE 5 MG TAB PO SCH (09:17)
[2020-02-07] MEDS: PERPHENAZINE 2 MG TABLET PO SCH ×2 (09:18→22:08)
[2020-02-07] MEDS: DIVALPROEX SODIUM SPRINKLE 125 MG CAP PO SCH ×2 (09:18→22:09)
[2020-02-07] MEDS: LURASIDONE HCL 40 MG TAB PO SCH (09:18)
[2020-02-07] MEDS: INSULIN GLARGINE SOLOSTAR 100 UNITS/ML 3 ML PEN SC SCH ×2 (09:18→22:10)
[2020-02-07] MEDS: INSULIN ASPART 100 UNITS/ML 3 ML PEN SC SCH ×4 (09:18→22:10)
[2020-02-07] MEDS: FLUTICASONE PROPIONATE NA SPR 16 GM BTL SCH ×2 (09:19→22:09)
[2020-02-07 09:27] LABS: Hematocrit (blood only) 37.5 % (37-47); Hemoglobin 12.9 g/dL (12.0-16.0); Mean Corpuscular Hemoglobin 30.4 pg (25-34); Mean Corpuscular Hgb Conc 34.4 g/dL (32-36); Mean Corpuscular Volume 88.2 fL (80-100); Mean Platelet Volume 9.2 fL (7.4-10.4); Platelet Count 189 K/uL (130-400); RDW Coefficient of Variation 13.6 % (11.5-14.5); RDW Standard Deviation 43.6 fL (36.4-46.3); Red Blood Count 4.25 M/uL (4.2-5.4); White Blood Count 2.76 K/uL (4.8-10.8)
[2020-02-07 09:40] LABS: Estimated Average Glucose 134 mg/dl; Hemoglobin A1C 6.3 % (4.5-5.6)
[2020-02-07 09:54] LABS: BUN Creatinine Ratio 10.8 (10-20); Blood Urea Nitrogen 9 mg/dl (7-18); Calcium 9.2 mg/dl (8.5-10.1); Carbon Dioxide 26 mmol/L (21-32); Chloride 105 mmol/L (98-107); Cholesterol 170 mg/dl (0-200); Creatinine Clr Calc Pharmacy 75.1 ml/min; Est GFR (African American) 85.8; Glucose 155 mg/dl (70-99); Magnesium 1.9 mg/dl (1.8-2.4); Potassium 4.2 mmol/L (3.5-5.1); Sodium 138 mmol/L (136-145); Triglycerides 373 mg/dl (0-150); VLDL Cholesterol 75 mg/dl
[2020-02-07 09:55] LABS: Basophils # (auto) 0.01 K/uL (0-0.2); Basophils % (auto) 0.4 %; Eosinophils % (auto) 3.6 %; Lymphocytes % (auto) 43.5 %; Monocytes # (auto) 0.62 K/uL (0.11-0.59); Monocytes % (auto) 22.5 %; Neutrophils # (auto) 0.83 K/uL (1.4-6.5)
[2020-02-07 09:58] LABS: Chol HDL Ratio 5; HDL Cholesterol 37 mg/dl; LDL Cholesterol Calculated 58 mg/dl; Troponin I < 0.015 ng/ml (0-0.045)
[2020-02-07] MEDS: LOSARTAN POTASSIUM 50 MG TAB PO SCH (10:30)
[2020-02-07] MEDS: METOPROLOL TARTRATE 25 MG TAB PO SCH ×2 (10:35→22:09)
--- NOTE | 2020-02-07 13:32 | Cardiology Consultation ---
Date of Consultation February 07, 2020 Assessment & Plan (1) Hypertensive urgency: (2) Schizophrenia: (3) Bipolar disorder: (4) DM2 (diabetes mellitus, type 2): Patient presents with complaints of chest pain in the setting of elevated BP No further episodes of chest pain reported to nursing overnight. BP significantly improved with medication titration No signs of active ischemia with EKG or negative troponins. Echocardiogram to be performed once COVID ruled out I do not believe this represents an ischemic event rather hypertensive urgency. Her blood pressure is now well controlled with the addition of amlodipine, losartan and metoprolol Continue current medical regimen, okay to uptitrate losartan if necessary Continue to monitor on telemetry overnight Anticipate likely outpatient ischemic work-up History of Present Illness Reason for Consultation: chest pain Requesting Physician: Dr. Carlos Attending Physician: Jodi Zavala DO History of Present Illness Patient seen and examined, chart reviewed. Patient is a poor historian, majority of history obtained through review of medical records. Patient denies complaint currently. Reportedly complained of chest pain at the half-way and was brought into the ER. Upon arrival she was found to be significantly hypertensive which was treated medically and she was admitted to telemetry. EKG and cardiac enzymes have been unremarkable thus far. No further episodes of chest plain voiced Allergies Allergy/AdvReac Type Severity Reaction Status Date / Time No Known Allergies Allergy Unverified 02/06/20 14:44 Home Medications Home Medications Medication Instructions Recorded Confirmed Type acetaminophen 650 mg PO QID PRN 02/06/20 02/06/20 History atorvastatin 80 mg PO HS 02/06/20 02/06/20 History calcium carbonate [Oyster Shell 500 mg PO BID 02/06/20 02/06/20 History Calcium 500] cholecalciferol (vitamin D3) 50 mcg PO DAILY 02/06/20 02/06/20 History [Vitamin D3] divalproex 250 mg PO DAILY 02/06/20 02/06/20 History divalproex 500 mg PO HS 02/06/20 02/06/20 History docusate sodium 100 mg PO BID PRN 02/06/20 02/06/20 History fluticasone propionate 1 spray INTRANASAL BID 02/06/20 02/06/20 History glipizide 5 mg PO DAILY 02/06/20 02/06/20 History levothyroxine 137 mcg PO DAILY 02/06/20 02/06/20 History lurasidone [Latuda] 120 mg PO DAILY 02/06/20 02/06/20 History metoprolol tartrate 12.5 mg PO BID 02/06/20 02/06/20 History multivitamin,wk-jhaq-[id number] 1 tab PO DAILY 02/06/20 02/06/20 History [Therems-M] olanzapine 5 mg PO HS 02/06/20 02/06/20 History perphenazine 8 mg PO BID 02/06/20 02/06/20 History trazodone 100 mg PO HS 02/06/20 02/06/20 History Patient History Medical History Bipolar disorder Schizophrenia Surgical History Surgical history unknown Family History Unknown Unknown family medical history Social History Preferred Language: Serbian Communication Ability: Impaired Beliefs That Will Affect Care: None Current Living Situation: Care Home Other Information That Helps Us Care for You: No Feels Safe at Home: Yes Safety Concerns: Feels Safe At This Time Smoking Status: Former smoker Hx Alcohol Use: No Hx Substance Use: No Review of Systems Review of Systems: All systems reviewed & are unremarkable except as noted in HPI & below Physical Exam Physical Exam: General: Awake, alert and oriented x 3. No acute distress. HEENT: Normocephalic, atraumatic. Pupils equal, round and reactive to light and accommodation. Extraocular muscles are intact. Anicteric sclera. Moist mucous membranes. Neck: No JVD. No bruit. Cardiovascular: Regular. Positive S-4. Normal S-1 and S-2. No S-3. No murmurs or rubs. Pulmonary: Clear to auscultation B/L. No rales, rhonchi or wheezing Abdomen: Bowel sounds x 4, soft. No rebound, guarding or tenderness. No or ganomegaly. Extremities: No clubbing, cyanosis or edema. +2 pedal pulses bilaterally. Skin: Warm and dry. Results & Data ([facility]) Vital Signs (Past 12 Hours) Vital Signs Temp Pulse Resp BP BP Pulse Ox 02/07/20 08:30 36.7 C 82 18 125/78 97 02/07/20 04:00 36.6 C 78 18 163/77 H 97
--- NOTE | 2020-02-07 14:23 | Hospitalist Progress Note ---
Date of Service February 07, 2020 Assessment & Plan (1) Chest pain: ACS ruled out overnight. Outpatient stress test. Chest pain has resolved but was likely related to her uncontrolled blood pressure. According to her reports, she was getting upset with her roommate, and she frequently gets angry and upset. Would work with therapist on different coping strategies to deal with her current situation at home. Low salt diet. (2) Hypertensive urgency: BP improved after the addition of Norvasc and Losartan. Cont to monitor. BMP and recheck BP in two weeks. (3) DM2 (diabetes mellitus, type 2): Around goal. Cont basal bolus insulin while hospitalized. Carb control diet. (4) Schizophrenia: No active delusions at this time. Cont home mood stabilizing medications as ordered. (5) Bipolar disorder: appears stable. Cont home meds. (6) Obesity: Lifestyle modifications encouraged. (7) Hypothyroidism: Synthroid per home regimen. (8) Leukopenia: Chronic, follows with Hematology (9) DVT prophylaxis: Heparin Full Code Dispo-[facility] back to [facility] am. Monitor overnight on telemetry. Jodi Zavala DO [facility] Hospitalist Admission and Anticipated Discharge Date Admission Date: February 06, 2020 Subjective Feels well schizophrenic patient who states she hears voices that are nasty to her and this causes her BP to go up She reports frequent chest pain and points to substernal region. She said this episode was different, however, its not clear exactly how She became emotional and let me know she was done talking about the episode. No pain today and she is feeling better. BP is improved. Review of Systems Review of Systems: All systems reviewed & are unremarkable except as noted in Subjective Physical Exam Physical Exam: CONSTITUTIONAL: obese, vitals as above, generally well- appearing EYES: normal conjunctivae, no scleral icterus ENT: external ear and nose normal, oropharynx clear, MMM, poor dentition RESPIRATORY: clear to auscultation bilaterally, no crackles, rales or wheezes, normal respiratory effort CARDIOVASCULAR: regular rate and rhythm, S1 and 2 heard without murmurs, gallops or rubs, no JVD, no peripheral edema CHEST: inspection of chest was normal, no pain to palpation GASTROINTESTINAL: soft, nontender, nondistended MUSCULOSKELETAL: strength 5/5 throughout, head is normocephalic and atraumatic, ambulatory SKIN: warm and dry NEUROLOGIC: CN 2-12 grossly intact, normal cognition, normal speech, no tremor. No gross focal deficits. PSYCHIATRIC: alert cooperative and oriented to person, place and time. Results & Data Results & Data ([facility]) Vital Signs (Past 12 Hours) Vital Signs Temp Pulse Resp BP BP Pulse Ox 02/07/20 08:30 36.7 C 82 18 125/78 97 02/07/20 04:00 36.6 C 78 18 163/77 H 97 Laboratory Results Short CBC 02/06/20 02/07/20 Range/Units 14:46 09:14 WBC 2.71 L 2.76 L (4.8-10.8) K/uL Hgb 12.5 12.9 (12.0-16.0) g/dL Hct 36.0 L 37.5 (37-47) % Plt Count 208 189 (130-400) K/uL BMP 02/06/20 02/07/20 14:46 09:14 Sodium 135 L 138 Potassium 4.0 4.2 Chloride 102 105 Carbon Dioxide 28 26 BUN 8 9 Creatinine 0.76 0.82 Glucose 117 H 155 H Calcium 9.2 9.2 Cardiac Enzymes 02/06/20 02/06/20 02/07/20 Range/Units 14:46 17:30 09:14 Troponin I < 0.015 < 0.015 < 0.015 (0-0.045) ng/ml Liver Function 02/06/20 Range/Units 14:46 Total Bilirubin 0.7 (0.2-1) mg/dl AST 15 (15-37) U/L ALT 29 (12-78) U/L Alkaline Phosphatase 91 (45-117) U/L Albumin 3.6 (3.4-5.0) gm/dl Medications Administered Current Inpatient Medications Acetaminophen (Tylenol) 650 mg PO Q4H PRN PRN Reason: Pain or Fever Stop: 03/07/20 21:40 Amlodipine Besylate (Norvasc) 10 mg PO [facility] Stop: 03/08/20 08:59 Last Admin: 02/07/20 09:17 Dose: 10 mg Documented by: Aspirin (Ecotrin Ectab) 81 mg PO [facility] Stop: 03/07/20 21:59 Last Admin: 02/06/20 22:51 Dose: 81 mg Documented by: Atorvastatin Calcium (Lipitor) 80 mg PO [facility] Stop: 03/07/20 21:40 Last Admin: 02/06/20 22:51 Dose: 80 mg Documented by: Dextrose (Dextrose 50%) 25 - 50 ml IV UD PRN; Protocol PRN Reason: Hypoglycemia Protocol Stop: 03/07/20 21:40 Divalproex Sodium (Depakote Sprinkle) 250 mg PO DAILY [facility] Stop: 03/08/20 08:59 Last Admin: 02/07/20 09:18 Dose: 250 mg Documented by: Divalproex Sodium (Depakote Sprinkle) 500 mg PO HS [facility] Stop: 03/07/20 21:40 Last Admin: 02/06/20 22:50 Dose: 500 mg Documented by: Docusate Sodium (Colace) 100 mg PO BID PRN PRN Reason: Constipation Stop: 03/07/20 21:40 Fluticasone Propionate (Flonase) 1 sprays NA BID [facility] Stop: 03/07/20 21:40 Last Admin: 02/07/20 09:19 Dose: 1 sprays Documented by: Glucagon (Glucagen) 1 mg SQ UD PRN; Protocol PRN Reason: Hypoglycemia Protocol Stop: 03/07/20 21:40 Glucose (Dex4 Glucose) 4 - 8 tabs PO UD PRN; Protocol PRN Reason: Hypoglycemia Protocol Stop: 03/07/20 21:40 Glucose (Glucose 40%) 15 - 30 gm PO UD PRN; Protocol PRN Reason: Hypoglycemia Protocol Stop: 03/07/20 21:40 Heparin Sodium (Porcine) (Heparin Sodium (Porcine)) 5,000 units SQ Q8 [facility] Stop: 03/07/20 21:59 Last Admin: 02/07/20 14:16 Dose: 5,000 units Documented by: Enalaprilat 1.25 mg/ Dextrose 26 mls @ 100 mls/hr IV Q6H PRN PRN Reason: Hypertension Stop: 03/07/20 21:40 Insulin Aspart (Novolog Flexpen) 0 units SC ACHS [facility] Stop: 03/07/20 21:40 Last Admin: 02/07/20 12:40 Dose: 1 units Documented by: Insulin Glargine (Lantus Solostar Pen) 7 units SC BID [facility] Stop: 03/07/20 21:40 Last Admin: 02/07/20 09:18 Dose: 7 units Documented by: Levothyroxine Sodium (Levothyroxine Sodium) 137 mcg PO DAILYBB [facility] Stop: 03/08/20 06:29 Last Admin: 02/07/20 05:59 Dose: 137 mcg Documented by: Losartan Potassium (Cozaar) 50 mg PO QAM [facility] Stop: 03/08/20 09:29 Last Admin: 02/07/20 10:30 Dose: 50 mg Documented by: Lurasidone HCl (Latuda) 120 mg PO DAILY [facility] Stop: 03/08/20 08:59 Last Admin: 02/07/20 09:18 Dose: 120 mg Documented by: Metoprolol Tartrate (Lopressor) 25 mg PO BID [facility] Stop: 03/07/20 20:59 Last Admin: 02/07/20 10:35 Dose: 25 mg Documented by: Miscellaneous (Carbohydrates For Hypoglycemia) 15 - 30 gm PO UD PRN PRN Reason: Hypoglycemia Protocol Stop: 03/07/20 21:40 Nitroglycerin (Nitrostat) 0.4 mg SL UD PRN PRN Reason: Chest Pain Stop: 03/07/20 21:40 Olanzapine (Zyprexa) 5 mg PO HS [facility] Stop: 03/07/20 21:40 Last Admin: 02/06/20 22:52 Dose: 5 mg Documented by: Ondansetron HCl (Zofran) 4 mg IV Q6H PRN PRN Reason: Nausea Stop: 03/07/20 21:40 Perphenazine (Trilafon) 8 mg PO BID [facility] Stop: 03/07/20 21:59 Last Admin: 02/07/20 09:18 Dose: 8 mg Documented by: Polyethylene Glycol (Miralax Powder Packet) 17 gm PO DAILY PRN PRN Reason: Constipation Stop: 03/07/20 21:40 Trazodone HCl (Desyrel) 100 mg PO HS [facility] Stop: 03/07/20 21:40 Last Admin: 02/06/20 22:50 Dose: 100 mg Documented by: (1) Chest pain Chest pain type: unspecified Qualified Code(s): R07.9 - Chest pain, unspecified
[2020-02-07] MEDS: ATORVASTATIN 40 MG TAB PO SCH (22:07)
[2020-02-07] MEDS: OLANZapine 5 MG TABLET PO SCH (22:08)
[2020-02-07] MEDS: TRAZODONE HCL 100 MG TAB PO SCH (22:08)
[2020-02-07] MEDS: ASPIRIN 81 MG ECTAB PO SCH (22:09)
[2020-02-08] MEDS: LEVOTHYROXINE SODIUM 137 MCG TABLET PO SCH (05:26)
[2020-02-08] MEDS: HEPARIN SOD 5,000 UNIT/0.5 ML VIAL SQ SCH ×3 (05:33→20:30)
[2020-02-08 07:54] LABS: Hemoglobin 12.1 g/dL (12.0-16.0); Mean Corpuscular Hemoglobin 30.2 pg (25-34); Mean Corpuscular Hgb Conc 34.6 g/dL (32-36); Mean Corpuscular Volume 87.3 fL (80-100); Mean Platelet Volume 9.2 fL (7.4-10.4); Platelet Count 187 K/uL (130-400); RDW Coefficient of Variation 13.1 % (11.5-14.5); RDW Standard Deviation 42.5 fL (36.4-46.3); Red Blood Count 4.01 M/uL (4.2-5.4)
[2020-02-08] MEDS: INSULIN GLARGINE SOLOSTAR 100 UNITS/ML 3 ML PEN SC SCH ×2 (08:00→20:31)
[2020-02-08] MEDS: INSULIN ASPART 100 UNITS/ML 3 ML PEN SC SCH ×4 (08:00→20:34)
[2020-02-08 08:29] LABS: BUN Creatinine Ratio 15.3 (10-20); Calcium 8.8 mg/dl (8.5-10.1); Creatinine Clr Calc Pharmacy 81.1 ml/min; Est GFR (African American) 94.1; Est GFR (Non-African American) 81.2; Potassium 3.9 mmol/L (3.5-5.1)
[2020-02-08] MEDS: AMLODIPINE BESYLATE 5 MG TAB PO SCH (09:19)
[2020-02-08] MEDS: METOPROLOL TARTRATE 25 MG TAB PO SCH ×2 (09:19→20:26)
[2020-02-08] MEDS: DIVALPROEX SODIUM SPRINKLE 125 MG CAP PO SCH ×2 (09:19→20:20)
[2020-02-08] MEDS: LOSARTAN POTASSIUM 50 MG TAB PO SCH (09:20)
[2020-02-08] MEDS: PERPHENAZINE 2 MG TABLET PO SCH ×2 (09:20→20:26)
[2020-02-08] MEDS: LURASIDONE HCL 40 MG TAB PO SCH (09:20)
[2020-02-08] MEDS: FLUTICASONE PROPIONATE NA SPR 16 GM BTL SCH ×2 (09:20→20:22)
--- NOTE | 2020-02-08 14:47 | Hospitalist Progress Note ---
Date of Service February 08, 2020 Assessment & Plan (1) Chest pain: ACS ruled out this admission. Outpatient stress test. Chest pain has resolved but was likely related to her uncontrolled blood pressure. According to her reports, she was getting upset with her roommate, and she frequently gets angry and upset. She has felt improved today. Would work with therapist on different coping strategies to deal with her current situation at home. Low salt diet. (2) Hypertensive urgency: BP improved after the addition of Norvasc and Losartan. Cont to monitor on current therapy. BMP and recheck BP in two weeks. (3) DM2 (diabetes mellitus, type 2): At inpatient goal. A1C 6.3. Cont basal bolus insulin while hospitalized. Carb control diet. (4) Schizophrenia: No active delusions at this time. Cont home mood stabilizing medications as ordered. (5) Bipolar disorder: appears stable. Cont home meds. (6) Obesity: Lifestyle modifications encouraged. (7) Hypothyroidism: Synthroid per home regimen. (8) Leukopenia: Chronic, follows with Hematology (9) DVT prophylaxis: Heparin Full Code Dispo-likely back to personal senior living in am. Transfer to floor. Awaiting COVID-19 serology result. DO [facility] Hospitalist Admission and Anticipated Discharge Date Admission Date: February 06, 2020 Subjective Pt is feeling well today Denies any chest pain BP has remained controlled on current therapy Tolerating PO Ambulatory Still awaiting COVID serology to return Review of Systems Review of Systems: All systems reviewed & are unremarkable except as noted in Subjective Physical Exam Physical Exam: CONSTITUTIONAL: obese, vitals as above, generally well- appearing EYES: normal conjunctivae, no scleral icterus ENT: external ear and nose normal, oropharynx clear, MMM, poor dentition RESPIRATORY: clear to auscultation bilaterally, no crackles, rales or wheezes, normal respiratory effort CARDIOVASCULAR: regular rate and rhythm, S1 and 2 heard without murmurs, gallops or rubs, no JVD, no peripheral edema CHEST: inspection of chest was normal, no pain to palpation GASTROINTESTINAL: soft, nontender, nondistended MUSCULOSKELETAL: strength 5/5 throughout, head is normocephalic and atraumatic, ambulatory SKIN: warm and dry NEUROLOGIC: CN 2-12 grossly intact, normal cognition, normal speech, no tremor. No gross focal deficits. PSYCHIATRIC: alert cooperative and oriented to person, place and time. Results & Data Results & Data ([facility]) Vital Signs (Past 12 Hours) Vital Signs Temp Pulse Resp BP Pulse Ox 02/08/20 11:52 36.9 C 74 16 139/82 96 02/08/20 07:45 36.8 C 85 16 125/74 97 02/08/20 03:15 36.6 C 76 16 146/62 H 96 Laboratory Results Short CBC 02/08/20 Range/Units 07:32 WBC 2.60 L (4.8-10.8) K/uL Hgb 12.1 (12.0-16.0) g/dL Hct 35.0 L (37-47) % Plt Count 187 (130-400) K/uL BMP 02/08/20 07:32 Sodium 133 L Potassium 3.9 Chloride 100 Carbon Dioxide 25 BUN 12 Creatinine 0.76 Glucose 134 H Calcium 8.8 Medications Administered Current Inpatient Medications Acetaminophen (Tylenol) 650 mg PO Q4H PRN PRN Reason: Pain or Fever Stop: 03/07/20 21:40 [facility] Stop: 03/08/20 08:59 Last Admin: 02/08/20 09:19 Dose: 10 mg Documented by: Aspirin (Ecotrin Ectab) 81 mg PO HS [facility] Stop: 03/07/20 21:59 Last Admin: 02/07/20 22:09 Dose: 81 mg Documented by: Atorvastatin Calcium (Lipitor) 80 mg PO HS [facility] Stop: 03/07/20 21:40 Last Admin: 02/07/20 22:07 Dose: 80 mg Documented by: Dextrose (Dextrose 50%) 25 - 50 ml IV UD PRN; Protocol PRN Reason: Hypoglycemia Protocol Stop: 03/07/20 21:40 Divalproex Sodium (Depakote Sprinkle) 250 mg PO DAILY [facility] Stop: 03/08/20 08:59 Last Admin: 02/08/20 09:19 Dose: 250 mg Documented by: Divalproex Sodium (Depakote Sprinkle) 500 mg PO HS [facility] Stop: 03/07/20 21:40 Last Admin: 02/07/20 22:09 Dose: 500 mg Documented by: Docusate Sodium (Colace) 100 mg PO BID PRN PRN Reason: Constipation Stop: 03/07/20 21:40 Fluticasone Propionate (Flonase) 1 sprays NA BID [facility] Stop: 03/07/20 21:40 Last Admin: 02/08/20 09:20 Dose: 1 sprays Documented by: Glucagon (Glucagen) 1 mg SQ UD PRN; Protocol PRN Reason: Hypoglycemia Protocol Stop: 03/07/20 21:40 Glucose (Dex4 Glucose) 4 - 8 tabs PO UD PRN; Protocol PRN Reason: Hypoglycemia Protocol Stop: 03/07/20 21:40 Glucose (Glucose 40%) 15 - 30 gm PO UD PRN; Protocol PRN Reason: Hypoglycemia Protocol Stop: 03/07/20 21:40 Heparin Sodium (Porcine) (Heparin Sodium (Porcine)) 5,000 units SQ Q8 [facility] Stop: 03/07/20 21:59 Last Admin: 02/08/20 14:33 Dose: 5,000 units Documented by: Enalaprilat 1.25 mg/ Dextrose 26 mls @ 100 mls/hr IV Q6H PRN PRN Reason: Hypertension Stop: 03/07/20 21:40 Insulin Aspart (Novolog Flexpen) 0 units SC ACHS [facility] Stop: 03/07/20 21:40 Last Admin: 02/08/20 12:05 Dose: 2 units Documented by: Insulin Glargine (Lantus Solostar Pen) 7 units SC BID [facility] Stop: 03/07/20 21:40 Last Admin: 02/08/20 08:00 Dose: 7 units Documented by: Levothyroxine Sodium (Levothyroxine Sodium) 137 mcg PO DAILYBB [facility] Stop: 03/08/20 06:29 Last Admin: 02/08/20 05:26 Dose: 137 mcg Documented by: Losartan Potassium (Cozaar) 50 mg PO QAM [facility] Stop: 03/08/20 09:29 Last Admin: 02/08/20 09:20 Dose: 50 mg Documented by: Lurasidone HCl (Latuda) 120 mg PO DAILY [facility] Stop: 03/08/20 08:59 Last Admin: 02/08/20 09:20 Dose: 120 mg Documented by: Metoprolol Tartrate (Lopressor) 25 mg PO BID [facility] Stop: 03/07/20 20:59 Last Admin: 02/08/20 09:19 Dose: 25 mg Documented by: Miscellaneous (Carbohydrates For Hypoglycemia) 15 - 30 gm PO UD PRN PRN Reason: Hypoglycemia Protocol Stop: 03/07/20 21:40 Nitroglycerin (Nitrostat) 0.4 mg SL UD PRN PRN Reason: Chest Pain Stop: 03/07/20 21:40 Olanzapine (Zyprexa) 5 mg PO HS [facility] Stop: 03/07/20 21:40 Last Admin: 02/07/20 22:08 Dose: 5 mg Documented by: Ondansetron HCl (Zofran) 4 mg IV Q6H PRN PRN Reason: Nausea Stop: 03/07/20 21:40 Perphenazine (Trilafon) 8 mg PO BID [facility] Stop: 03/07/20 21:59 Last Admin: 02/08/20 09:20 Dose: 8 mg Documented by: Polyethylene Glycol (Miralax Powder Packet) 17 gm PO DAILY PRN PRN Reason: Constipation Stop: 03/07/20 21:40 Trazodone HCl (Desyrel) 100 mg PO HS [facility] Stop: 03/07/20 21:40 Last Admin: 02/07/20 22:08 Dose: 100 mg Documented by: (1) Chest pain Chest pain type: unspecified Qualified Code(s): R07.9 - Chest pain, unspecified
[2020-02-08] MEDS: TRAZODONE HCL 100 MG TAB PO SCH (20:22)
[2020-02-08] MEDS: ASPIRIN 81 MG ECTAB PO SCH (20:24)
[2020-02-08] MEDS: ATORVASTATIN 40 MG TAB PO SCH (20:25)
[2020-02-08] MEDS: OLANZapine 5 MG TABLET PO SCH (20:28)
[2020-02-09] MEDS: HEPARIN SOD 5,000 UNIT/0.5 ML VIAL SQ SCH ×2 (05:29→13:46)
[2020-02-09] MEDS: LEVOTHYROXINE SODIUM 137 MCG TABLET PO SCH (05:46)
[2020-02-09] MEDS: LURASIDONE HCL 40 MG TAB PO SCH (08:14)
[2020-02-09] MEDS: AMLODIPINE BESYLATE 5 MG TAB PO SCH (08:15)
[2020-02-09] MEDS: PERPHENAZINE 2 MG TABLET PO SCH (08:15)
[2020-02-09] MEDS: DIVALPROEX SODIUM SPRINKLE 125 MG CAP PO SCH (08:16)
[2020-02-09] MEDS: METOPROLOL TARTRATE 25 MG TAB PO SCH (08:16)
[2020-02-09] MEDS: LOSARTAN POTASSIUM 50 MG TAB PO SCH (08:16)
[2020-02-09] MEDS: INSULIN GLARGINE SOLOSTAR 100 UNITS/ML 3 ML PEN SC SCH (08:31)
[2020-02-09] MEDS: INSULIN ASPART 100 UNITS/ML 3 ML PEN SC SCH ×2 (08:31→11:51)
[2020-02-09] MEDS: FLUTICASONE PROPIONATE NA SPR 16 GM BTL SCH (08:32)
--- NOTE | 2020-02-09 08:50 | Cardiology Progress Note ---
Date of Service February 08, 2020 Assessment & Plan (1) Hypertensive urgency: (2) Schizophrenia: (3) Bipolar disorder: (4) DM2 (diabetes mellitus, type 2): BP significantly improved and no further symptoms. I do believe this represents an episode of hypertensive urgency but for completeness sake an ischemic work-up should be undertaken as an outpatient. We will arrange an outpatient nuclear stress test after discharge. Echo pending once COVID screen comes back negative Patient has a history of diabetes and not previously on PAM or ARB, losartan started with good blood pressure response. Will need to follow renal function. Continue current doses of aspirin, atorvastatin, metoprolol, amlodipine and losartan. Okay to DC telemetry from a cardiac standpoint. Subjective Late entry for 02/08/20: Patient seen and examined, chart reviewed. States that she feels relatively well today. And denies any complaints of chest pain, shortness of breath, palpitations, lightheadedness, dizziness or syncope. Is tolerating her new medical regimen well without any issues. Telemetry reviewed: Normal sinus rhythm without arrhythmia or significant ectopy. Review of Systems Review of Systems: All systems reviewed & are unremarkable except as noted in HPI & below Physical Exam Physical Exam: General: Awake, alert and oriented x 3. No acute distress. HEENT: Normocephalic, atraumatic. Pupils equal, round and reactive to light and accommodation. Extraocular muscles are intact. Anicteric sclera. Moist mucous membranes. Neck: No JVD. No bruit. Cardiovascular: Regular. Positive S-4. Normal S-1 and S-2. No S-3. No murmurs or rubs. Pulmonary: Clear to auscultation B/L. No rales, rhonchi or wheezing Abdomen: Bowel sounds x 4, soft. No rebound, guarding or tenderness. No organomegaly. Extremities: No clubbing, cyanosis or edema. +2 pedal pulses bilaterally. Skin: Warm and dry. Results & Data Vital Signs (Past 12 Hours) Vital Signs Temp Pulse Resp BP Pulse Ox 02/09/20 08:05 86 20 122/75 96 02/08/20 23:05 36.6 C 73 16 127/80 94
--- NOTE | 2020-02-09 12:36 | Discharge Summary ---
Date of Service February 09, 2020 Admission HPI Per Admitting Provider Patient is a 69-year-old female with history of schizophrenia, mood disorder hyperlipidemia, hypothyroidism, diabetes mellitus, vitamin D deficiency and other medical problems presents with history of chest pain. Patient is a poor historian and likely have an underlying mild intellectual disability. Patient states that she had retrosternal chest pain after having lunch today afternoon. Chest pain is associated with brief shortness of breath, lasting for about 5 minutes, spontaneously resolved. Chest pain radiated to the back as per patient. Currently while in ED, patient is chest pain-free. She was noted to have uncontrolled blood pressure. She admits to having had dry cough intermittently for the last few days. She reports having similar chest pain episode 1 month ago. He denies any aggravating or alleviating factors. Denies any history of palpitations, dizziness, pedal edema, diaphoresis, wheezing, hemoptysis, fever, chills, headache, weakness, change in vision, nausea, vomiting, abdominal pain, diarrhea, change in appetite, weight loss, dysuria, hematuria, recent travel, sick contact, recent change in medications. Admission Exam Per Admitting Provider Physical Exam: Vitals signs as noted above General Appearance:Obese, no apparent distress Head: normocephalic, Atraumatic Eyes: normal inspection, EOMI Neck: supple, Trachea midline Respiratory/Chest: Normal breath sounds, CTA, No accessory muscle use Cardiovascular: S1, S2, + murmur Abdomen/GI:Soft, Non tender, Bowel sounds present Extremities/Musculoskelatal:normal inspection, Trace edema Neurologic/Psych:AAOX3, grossly no focal neurological deficits Skin: normal color, warm Principal Diagnosis Hypertensive Urgency Discharge Exam CONSTITUTIONAL: obese, vitals as above, generally well-appearing EYES: normal conjunctivae, no scleral icterus ENT: external ear and nose normal, oropharynx clear, MMM, poor dentition RESPIRATORY: clear to auscultation bilaterally, no crackles, rales or wheezes, normal respiratory effort CARDIOVASCULAR: regular rate and rhythm, S1 and 2 heard without murmurs, gallops or rubs, no JVD, no peripheral edema CHEST: inspection of chest was normal, no pain to palpation GASTROINTESTINAL: soft, nontender, nondistended MUSCULOSKELETAL: strength 5/5 throughout, head is normocephalic and atraumatic, ambulatory SKIN: warm and dry NEUROLOGIC: CN 2-12 grossly intact, normal cognition, normal speech, no tremor. No gross focal deficits. PSYCHIATRIC: alert cooperative and oriented to person, place and time. Discharge Data Allergies Allergy/AdvReac Type Severity Reaction Status Date / Time No Known Allergies Allergy Unverified 02/06/20 14:44 Consultations 02/06/20 18:41 ED Decision to Admit Stat 02/06/20 21:41 Consult Case Management - Discharge Planning Routine 02/07/20 07:00 Consult Cardiology Routine Ordered Studies 02/06/20 18:35 CT head/brain wo con Stat Hospital Course (1) Chest pain: ACS ruled out this admission. Outpatient stress test is recommended. Chest pain has resolved but was likely related to her uncontrolled blood pressure. According to her reports, she was getting upset with her roommate, and she frequently gets angry and upset. She continued to feel better as her hospitalization progressed. Would recommend working with a therapist on different coping strategies to deal with her current situation at home. Low salt diet. (2) Hypertensive urgency: BP improved after the addition of Norvasc and Losartan. Cont to monitor on current therapy. BMP and recheck BP in two weeks. (3) DM2 (diabetes mellitus, type 2): At inpatient goal. A1C 6.3. Cont basal bolus insulin while hospitalized. Restarted home medications on discharge without changes. Carb control diet. (4) Schizophrenia: No active delusions at this time. Cont home mood stabilizing medications as ordered. (5) Bipolar disorder: appears stable. Cont home meds. (6) Obesity: Lifestyle modifications encouraged. (7) Hypothyroidism: Synthroid per home regimen. (8) Leukopenia: Chronic, follows with Hematology At time of discharge she was hemodynamically stable and afebrile. She was afebrile and oxygenating well on room air. She was mentating nad ambulating at baseline which was independently at time of discharge and was tolerating PO. She was sent back to personal group home in stable condition with close primary care follow-up recommended. Total Time Total Time Spent Total Time Spent (In Minutes): 60 Total Time Includes: Examination of the Patient, Discharge Planning, Medication Reconciliation and Communication With Other Providers Discharge Plan Discharge Items Patient Disposition: Personal [facility] Reason For Visit: CHEST PAIN Discharge Diagnosis: Hypertensive Urgency Condition on Discharge: Good Activity: Resume your previous activity Non-emergency contact: Primary Care Provider Call non-emergency contact if: you have any medication questions, your symptoms worsen, your pain is worsening and you have a fever Follow-up/Referrals: Billy Fuller [Primary Care Provider] - Diet: Carb Consistent or DM2 and Low Sodium (2gm) Addtl Attending Provider Instructions: Please take all medications as instructed below. Please note new medication changes, which requier close follow-up with primary care physician (PCP) within the next 1-2 weeks and repeat BASIC METABOLIC PANEL ordered by PCP for monitoring on these medications. It was a pleasure taking care of you! Please call if you have any questions or problems. You can reach a [facility] hospitalist on duty at [facility] 24 hours a day by calling [phone]. Take care of yourself. Jodi Zavala, [facility] Pending Studies at Discharge: No Stand-Alone Forms: My [facility] [employer], Smoking Cessation Skilled Items Patient informed of condition?: Yes DNR: No Discharge Level of Care: Other Communicable Disease: No Discharge Prognosis: Stable Lines: None Urinary Catheter: No Medications and DC Order Prescriptions: New metoprolol tartrate 25 mg Tablet 25 mg PO BID Qty: 60 RF: 1 amlodipine [Norvasc] 10 mg tablet 10 mg PO DAILY Qty: 30 RF: 1 losartan 50 mg Tablet 50 mg PO QAM Qty: 30 RF: 1 aspirin 81 mg Tablet,Delayed Release (Dr/Ec) 81 mg PO HS Qty: 90 RF: 1 Continued levothyroxine 137 mcg tablet 137 mcg PO DAILY RF: 0 atorvastatin 80 mg Tablet 80 mg PO HS RF: 0 acetaminophen 325 mg Tablet 650 mg PO QID PRN (Reason: Pain) RF: 0 olanzapine 5 mg tablet 5 mg PO HS RF: 0 glipizide 5 mg tablet extended release 24hr 5 mg PO DAILY RF: 0 calcium carbonate [Oyster Shell Calcium 500] 500 mg calcium (1,250 mg) Tablet 500 mg PO BID RF: 0 trazodone 100 mg tablet 100 mg PO HS RF: 0 docusate sodium 100 mg Capsule 100 mg PO BID PRN (Reason: Constipation) RF: 0 perphenazine 8 mg tablet 8 mg PO BID RF: 0 fluticasone propionate 50 mcg/actuation spray,suspension 1 spray INTRANASAL BID RF: 0 divalproex 125 mg capsule, delayed rel sprinkle 250 mg PO DAILY RF: 0 divalproex 125 mg capsule, delayed rel sprinkle 500 mg PO HS RF: 0 Therems-M 27-0.4 mg Tablet 1 tab PO DAILY RF: 0 cholecalciferol (vitamin D3) [Vitamin D3] 50 mcg (2,000 unit) Capsule 50 mcg PO DAILY RF: 0 Latuda 120 mg tablet 120 mg PO DAILY RF: 0 Discontinued metoprolol tartrate 25 mg tablet 12.5 mg PO BID RF: 0 Discharge Orders: Discharge Order (Routine); Ordered 02/09/20 Ordered By: Jodi Ma/Other Patient Handouts: Managing Type 2 Diabetes Admission Data Admit Date/Time: 02/06/20 19:52 Attending Provider: Jodi Zavala Admit Provider: Elvis Carlos Primary Care Provider: Billy Fuller Other Providers: Elvis Carlos ; Nelson Brown Other Interventions: Discharge Summary Assessment (RN) Last Done: 02/09/20 15:38 DC Date/Time DO NOT enter until pt leaves facility: 02/09/20 15:55
--- NOTE | 2020-02-09 13:20 | Cardiology Progress Note ---
Date of Service February 09, 2020 Assessment & Plan (1) Hypertensive urgency: (2) Schizophrenia: (3) Bipolar disorder: (4) DM2 (diabetes mellitus, type 2): BP significantly improved and no further symptoms. I do believe this represents an episode of hypertensive urgency but for completeness sake an ischemic work-up should be undertaken as an outpatient. We will arrange an outpatient nuclear stress test after discharge. Echo pending once COVID screen comes back negative Patient has a history of diabetes and not previously on PAM or ARB, losartan started with good blood pressure response. Will need to follow renal function. Continue current doses of aspirin, atorvastatin, metoprolol, amlodipine and losartan. Okay to DC telemetry from a cardiac standpoint. Subjective Patient seen and examined, chart reviewed. States that she feels relatively well today. And denies any complaints of chest pain, shortness of breath, palpitations, lightheadedness, dizziness or syncope. Is tolerating her new medical regimen well without any issues. Telemetry reviewed: Normal sinus rhythm without arrhythmia or significant ectopy. Review of Systems Review of Systems: All systems reviewed & are unremarkable except as noted in HPI & below Physical Exam Physical Exam: General: Awake, alert and oriented x 3. No acute distress. HEENT: Normocephalic, atraumatic. Pupils equal, round and reactive to light and accommodation. Extraocular muscles are intact. Anicteric sclera. Moist mucous membranes. Neck: No JVD. No bruit. Cardiovascular: Regular. Positive S-4. Normal S-1 and S-2. No S-3. No murmurs or rubs. Pulmonary: Clear to auscultation B/L. No rales, rhonchi or wheezing Abdomen: Bowel sounds x 4, soft. No rebound, guarding or tenderness. No organomegaly. Extremities: No clubbing, cyanosis or edema. +2 pedal pulses bilaterally. Skin: Warm and dry. Results & Data Vital Signs (Past 12 Hours) Vital Signs Pulse Resp BP Pulse Ox 02/09/20 08:05 86 20 122/75 96
--- NOTE | 2020-02-09 15:20 | Electrocardiogram Report ---
Test Reason : Blood Pressure : / mmHG Vent. Rate : 078 BPM Atrial Rate : 078 BPM P-R Int : 156 ms QRS Dur : 082 ms QT Int : 396 ms P-R-T Axes : 040 060 050 degrees QTc Int : 451 ms Normal sinus rhythm Normal ECG When compared with ECG of 06-FEB-2020 14:23, No significant change was found Confirmed by Espinoza Mcgraw ([id number]) on 02/09/2020 3:19:47 PM Referred By: Brendan Riddle [place] Confirmed By:Espinoza Mcgraw
== END 2020-02-09 15:55 | disposition home or self-care (01) | DRG 305 ==
LOC: ED 14:15 → 2S 19:52 → SUATTDRO 19:52 → 2S 20:59 → 2W 02-08 16:46

== ENCOUNTER 2024-07-01 00:37 | Inpatient (IN) ==
--- NOTE | 2024-07-01 01:33 | Emergency Department Note ---
Impression & Plan Acute electrocardiogram changes, Elevated troponin, Thought disorder, Aggressive behavior Admit to the [facility] ED Provider Note NAME: GARY NOE AGE: 73 SEX: Female INFORMANT: Patient And EMS ED PROVIDER(S): Linn Rodriguez DO CHIEF COMPLAINT: aggressive behavior; delusional behavior PLAN: Disposition: admit for inpatient psych care MEDICAL DECISION MAKING: this is a 73-year-old female patient with history of schizoaffective disorder presents to the emergency department from [facility] [place] after explaining that she has been "tormented by the devil." Patient has been running around naked at the facility and has been aggressive towards staff and hitting them according to EMS. Patient describes delusional thoughts to me. On physical exam, she has a cardiac murmur. EKG shows evidence of T wave inversions in the anterior and lateral leads which is a new finding. The patient has an elevated troponin. Other laboratory values reveal a glucose of 188. White blood cell count of 3.5. Patient is mildly anemic with a hemoglobin of 11.7. TSH is 13.2 but free T4 is0.9. The patient will require a medical admission initially and then psychiatric evaluation. Care/management discussed with: ED psychiatric block and case maker EKG interpreted by me: Normal sinus rhythm at 77 bpm with T wave inversions in the anterior and lateral leads which is a new finding Triage Nursing notes: reviewed and agree with them. Vital Signs: reviewed and unremarkable Additional History obtained from: EMS Chronic Medical/Social Conditions affecting care: patient was just here a couple of days ago on a 302 with similar presentation. Differential Diagnosis: Thought disorder, electrolyte abnormality, hypoglycemia HPI: 73 year old Female arrives for evaluation of aggressive behavior. patient tells me that she feels tormented by the devil. PAST MEDICAL HISTORY: See Below, PAST SURGICAL HISTORY: See Below, SOCIAL HISTORY: See Below, HOME MEDICATIONS: See Below ALLERGIES: See Below VITALS: See Below PHYSICAL EXAMINATION: HEENT: Head - normocephalic and atraumatic. Pupils are equal, round, and reactive to light. Extraocular eye muscles are intact, and sclera are anicteric. Nose - moist nasal mucosa without discharge. Mouth - moist buccal mucosa. Patient has scabbed over lesions to her upper lip. Oropharynx is nonerythematous and there is no tonsillar exudate or edema noted. Neck: Supple; no JVD, nuchal rigidity, cervical lymphadenopathy Heart: Regular rate and rhythm. There is a normal S1 and S2 with 3/6 systolic ejection murmur, clicks, or gallops appreciated. Lungs: Clear to auscultation bilaterally with no wheezes, rales, or rhonchi. Abdomen: Soft, completely nontender, nondistended, with good bowel sounds. There are no palpable pulsatile masses or hepatosplenomegaly. There is no guarding, rigidity, or rebound noted. Extremities: No evidence of cyanosis, clubbing, or edema. There are easily palpable peripheral pulses. Skin: warm and dry with good turgor and no rashes. Psych: Patient appears distracted and at times has difficulty answering questions. She is not aggressive on my exam. She admits that the devil has been telling her to do certain things. Emergency department course: The patient was evaluated in room A-8. A complete history and physical was performed. Laboratory studies were drawn as above. Portable chest x-ray was performed as described above. Twelve-lead EKG was obtained. CT scan of the brain was performed. I discussed case with the [facility] Hospitalist and they will admit the patient medically because of the EKG changes and positive troponin. The patient will then be evaluated by psychiatry. Past Med/Surg History Problem List (Updated 07/01/24 @ 16:54 by Linn Rodriguez DO) Aggressive behavior (Acute) Thought disorder (Acute) Elevated troponin (Acute) Acute electrocardiogram changes (Acute) Hallucinations Schizoaffective disorder Abnormal EKG Mental health disorder Schizophrenia (Acute) Delusional disorder (Acute) Hypertension (Acute) DM2 (diabetes mellitus, type 2) Leukopenia (Acute) Hypothyroidism Obesity (Acute) DVT prophylaxis Hypertensive urgency Surgical history unknown Chest pain (Acute) Schizophrenia Bipolar disorder Family History Unknown Unknown family medical history Social History Smoking Status: Former smoker Tobacco Type: Cigarettes Preferred Language: Indian Communication Ability: Impaired Hand Tube Bender Required: No Beliefs That Will Affect Care: None marital status: Single Current Living Situation: Personal Care Facility How many Children do You have: 0 Other Information That Helps Us Care for You: No Feels Safe at Home: Yes Safety Concerns: Feels Safe At This Time Assistive Devices: None Allergies Allergies Allergy/AdvReac Type Severity Reaction Status Date / Time No Known Allergies Allergy Unverified 02/06/20 14:44 Home Meds Home Medications Medication Instructions Recorded Confirmed acetaminophen 325 mg tablet 650 mg PO QID PRN Pain 02/06/20 07/01/24 atorvastatin 80 mg tablet 80 mg PO HS 02/06/20 07/01/24 calcium carbonate (Oyster Shell 500 mg PO BID 02/06/20 07/01/24 Calcium 500) cholecalciferol (vitamin D3) 50 50 mcg PO DAILY 02/06/20 07/01/24 mcg (2,000 unit) capsule (Vitamin D3) divalproex 125 mg capsule,delayed 250 mg PO BID 02/06/20 07/01/24 release sprinkle docusate sodium 100 mg capsule 100 mg PO BID Constipation 02/06/20 07/01/24 fluticasone propionate 50 1 spray intranasal BID 02/06/20 07/01/24 mcg/actuation nasal spray,suspension glipizide 5 mg tablet, extended 10 mg PO DAILY 02/06/20 07/01/24 release 24 hr levothyroxine 137 mcg tablet 175 mcg PO DAILY 02/06/20 07/01/24 lurasidone 120 mg tablet (Latuda) 160 mg PO DAILY 02/06/20 07/01/24 multivitamin,sb-wmbb-qoemrlwl 27 1 tab PO DAILY 02/06/20 07/01/24 mg-0.4 mg tablet (Therems-M) trazodone 100 mg tablet 50 mg PO HS 02/06/20 07/01/24 Calcium Antacid 1,000 mg PO TID PRN 06/28/24 07/01/24 heartburn/indigestion amantadine HCl 100 mg tablet 50 mg PO BID 06/28/24 07/01/24 biotin 1,000 mcg chewable tablet 1,000 mcg PO DAILY 06/28/24 07/01/24 cyanocobalamin (vitamin B-12) 1,000 mcg PO DAILY 06/28/24 07/01/24 1,000 mcg tablet dextromethorphan-guaifenesin 10 10 ml PO Q4H PRN Cough 06/28/24 07/01/24 mg-100 mg/5 mL oral syrup (Tussin DM) diphenhydramine HCl 25 mg capsule 25 mg PO HS 06/28/24 07/01/24 (Banophen) glipizide 5 mg tablet 2.5 mg PO DAILY 06/28/24 07/01/24 haloperidol 10 mg tablet 10 mg PO HS 06/28/24 07/01/24 haloperidol 2 mg tablet 2 mg PO DAILY 06/28/24 07/01/24 haloperidol 5 mg tablet 5 mg PO QAM 06/28/24 07/01/24 loperamide 2 mg capsule 2 mg PO Q4H PRN loose stools 06/28/24 07/01/24 melatonin 5 mg tablet 5 mg PO HS 06/28/24 07/01/24 nystatin 100,000 unit/gram topical 1 applic topical BID PRN Rash 06/28/24 07/01/24 cream Previous Rx's Medication Instructions Recorded amlodipine 10 mg tablet (Norvasc) 10 mg PO DAILY #30 tabs 02/09/20 aspirin 81 mg tablet,delayed 81 mg PO HS #90 tabs 02/09/20 release losartan 50 mg tablet 50 mg PO QAM #30 tabs 02/09/20 metoprolol tartrate 25 mg tablet 25 mg PO BID #60 tabs 02/09/20 Results & Data (ED) Vital Signs Vital Signs - 24 hr 07/01/24 00:33 07/01/24 00:52 07/01/24 04:00 Temperature 36.8 C 36.8 C Temperature Source Oral Oral Pulse Rate 78 Pulse Rate [Right Finger] 81 90 Pulse Rhythm Regular Pulse Rhythm [Right Finger] Regular Respiratory Rate 17 17 18 Respiratory Effort / Characteristics Non-Labored Non-Labored Non-Labored Spontaneous Respiratory Depth Normal Normal Normal Respiratory Pattern Regular Regular Regular Blood Pressure 146/87 H Blood Pressure [Right Arm] 146/87 H 154/81 H Blood Pressure Mean 106 Blood Pressure Mean [Right Arm] 106 105 Blood Pressure Position Lying Pulse Oximetry 95 98 96 Oxygen Delivery Method Room Air Room Air Room Air Sepsis Recent Fever Within 48 Hours No Sepsis New/Unexplained Change in Mental Status Yes Sepsis Action Taken by Nursing No Action Required Laboratory Data 07/01/24 10:16 07/01/24 10:16 Lab Results 07/01/24 07/01/24 07/01/24 Range/Units 01:17 01:29 01:46 WBC 3.59 L (4.8-10.8) K/ul RBC 3.84 L (4.20-5.40) M/uL Hgb 11.7 L (12.0-16.0) g/dl Hct 33.7 L (37.0-47.0) % MCV 87.8 (80.0-100.0) fL MCH 30.5 (25.0-34.0) pg MCHC 34.7 (32.0-36.0) g/dL RDW Std Deviation 41.2 (36.4-46.3) fL RDW Coeff of Joe 12.9 (11.5-14.5) % Plt Count 242 (130-400) K/uL MPV 9.2 L (9.4-12.4) fL Immature Gran % (Auto) 0.0 % Neut % (Auto) 29.9 % Lymph % (Auto) 42.3 % Ector % (Auto) 22.8 % Eos % (Auto) 3.3 % Baso % (Auto) 1.7 % Neut # (Auto) 1.07 L (1.40-6.50) K/uL Lymph # (Auto) 1.52 (1.20-3.40) K/uL Ector # (Auto) 0.82 H (0.11-0.59) K/uL Eos # (Auto) 0.12 (0.00-0.50) K/uL Baso # (Auto) 0.06 (0.00-0.20) K/uL Immature Gran # (Auto) 0.00 L (0.01-0.20) K/uL Sodium 132 L (136-145) mmol/L Potassium 3.9 (3.5-5.1) mmol/L Chloride 98 (98-107) mmol/L Carbon Dioxide 28 (21-32) mmol/L Anion Gap 6 (3-11) BUN 8 (6-23) mg/dl Creatinine 0.81 (0.6-1.2) mg/dl Est Cr Clr Drug Dosing Not Reportable eGFR 77.56 BUN/Creatinine Ratio 9.9 L (10-20) Glucose 188 H (70-99(Fasting)) mg/dl Calcium 9.1 (8.6-10.3) mg/dl Total Bilirubin 0.9 (0.2-1.0) mg/dl AST 14 (13-39) U/L ALT 15 (7-52) U/L Alkaline Phosphatase 79 (34-104) U/L Troponin I High Sens 16.6 H (0-14) pg/ml Total Protein 6.5 (6.0-8.3) gm/dl Albumin 3.8 (3.4-5.0) gm/dl Globulin 2.7 (2.5-4.0) gm/dl Albumin/Globulin Ratio 1.4 (0.9-2) TSH 13.260 H (0.300-4.500) uIu/ml Free T4 0.99 (0.61-1.60) ng/dl Urine Color Urine Appearance (Clear) Urine pH (4.5-7.5) Ur Specific Alderson (1.000-1.030) Urine Protein (Negative) Urine Glucose (UA) (Negative) Urine Ketones (Negative) Urine Blood (Negative) Urine Nitrite (Negative) Urine Bilirubin (Negative) Urine Urobilinogen (Negative) Ur Leukocyte Esterase (Negative) Urine RBC (0-2) /hpf Urine WBC (0-5) /hpf Ur Epithelial Cells (0-2) /hpf Calcium Oxalate Crystal (None Prsent) Urine Bacteria (None Seen) Salicylates < 3.0 L (3.0-30) mg/dl Urine Opiates Screen (Neg) Ur Methadone, Qual (Neg) Urine Fentanyl Screen (Neg) Acetaminophen < 3 L (10-30) ug/ml Urine Barbiturates (Neg) Ur Phencyclidine (PCP) (Neg) U Amphetamin/Meth Scrn (Neg) MDMA (Ecstasy) Screen (Neg) U Benzodiazepines Scrn (Neg) Ur Cocaine Metabolite (Neg) U Marijuana (THC) Screen (Neg) Ethyl Alcohol mg/dL < 10.0 (<10.0) mg/dl SARS-CoV-2 (PCR) NEGATIVE (Negative) 07/01/24 Range/Units 04:14 WBC (4.8-10.8) K/ul RBC (4.20-5.40) M/uL Hgb (12.0-16.0) g/dl Hct (37.0-47.0) % MCV (80.0-100.0) fL MCH (25.0-34.0) pg MCHC (32.0-36.0) g/dL RDW Std Deviation (36.4-46.3) fL RDW Coeff of Joe (11.5-14.5) % Plt Count (130-400) K/uL MPV (9.4-12.4) fL Immature Gran % (Auto) % Neut % (Auto) % Lymph % (Auto) % Ector % (Auto) % Eos % (Auto) % Baso % (Auto) % Neut # (Auto) (1.40-6.50) K/uL Lymph # (Auto) (1.20-3.40) K/uL Ector # (Auto) (0.11-0.59) K/uL Eos # (Auto) (0.00-0.50) K/uL Baso # (Auto) (0.00-0.20) K/uL Immature Gran # (Auto) (0.01-0.20) K/uL Sodium (136-145) mmol/L Potassium (3.5-5.1) mmol/L Chloride (98-107) mmol/L Carbon Dioxide (21-32) mmol/L Anion Gap (3-11) BUN (6-23) mg/dl Creatinine (0.6-1.2) mg/dl Est Cr Clr Drug Dosing eGFR BUN/Creatinine Ratio (10-20) Glucose (70-99(Fasting)) mg/dl Calcium (8.6-10.3) mg/dl Total Bilirubin (0.2-1.0) mg/dl AST (13-39) U/L ALT (7-52) U/L Alkaline Phosphatase (34-104) U/L Troponin I High Sens (0-14) pg/ml Total Protein (6.0-8.3) gm/dl Albumin (3.4-5.0) gm/dl Globulin (2.5-4.0) gm/dl Albumin/Globulin Ratio (0.9-2) TSH (0.300-4.500) uIu/ml Free T4 (0.61-1.60) ng/dl Urine Color Yellow Urine Appearance Slightly Cloudy (Clear) Urine pH 7.0 (4.5-7.5) Ur Specific Alderson 1.010 (1.000-1.030) Urine Protein Negative (Negative) Urine Glucose (UA) Negative (Negative) Urine Ketones Negative (Negative) Urine Blood Trace-intact H (Negative) Urine Nitrite Positive A (Negative) Urine Bilirubin Negative (Negative) Urine Urobilinogen Negative (Negative) Ur Leukocyte Esterase 2+ H (Negative) Urine RBC 0-2 (0-2) /hpf Urine WBC 21-50 H (0-5) /hpf Ur Epithelial Cells 0-2 (0-2) /hpf Calcium Oxalate Crystal Present A (None Prsent) Urine Bacteria 2+ H (None Seen) Salicylates (3.0-30) mg/dl Urine Opiates Screen Neg (Neg) Ur Methadone, Qual Neg (Neg) Urine Fentanyl Screen Neg (Neg) Acetaminophen (10-30) ug/ml Urine Barbiturates Neg (Neg) Ur Phencyclidine (PCP) Neg (Neg) U Amphetamin/Meth Scrn Neg (Neg) MDMA (Ecstasy) Screen Neg (Neg) U Benzodiazepines Scrn Neg (Neg) Ur Cocaine Metabolite Neg (Neg) U Marijuana (THC) Screen Neg (Neg) Ethyl Alcohol mg/dL (<10.0) mg/dl SARS-CoV-2 (PCR) (Negative) Administered Medications Amantadine HCl (Amantadine Hcl Syrup 50 Mg/5 Ml Udp) 50 mg PO BID@0600,1300 [facility] Stop: 07/31/24 08:29 Last Admin: 07/01/24 14:30 Dose: Not Given Documented By: Admin: 07/01/24 12:15 Dose: 50 mg Documented By: VALERIE Amlodipine Besylate (Amlodipine Besylate 5 Mg Tab) 10 mg PO DAILY [facility] Stop: 07/31/24 08:59 Last Admin: 07/01/24 09:23 Dose: 10 mg Documented By: VALERIE Calcium Carbonate (Calcium Carbonate 1250mg Tab) 1 tab PO BID [facility] Stop: 07/31/24 08:59 Last Admin: 07/01/24 09:24 Dose: 1 tab Documented By: VALERIE Cyanocobalamin (Cyanocobalamin (B-12) 500 Mcg Tablet) 1,000 mcg PO DAILY [facility] Stop: 07/31/24 08:59 Last Admin: 07/01/24 09:22 Dose: 1,000 mcg Documented By: VALERIE Divalproex Sodium (Divalproex Sodium Sprinkle/Del-Rel 125 Mg Cap) 250 mg PO BID [facility] Stop: 07/31/24 08:59 Last Admin: 07/01/24 09:24 Dose: 250 mg Documented By: VALERIE Docusate Sodium (Docusate Sodium 100 Mg Cap) 100 mg PO BID [facility] Stop: 07/31/24 08:59 Last Admin: 07/01/24 12:03 Dose: 100 mg Documented By: VALERIE Fluticasone Propionate (Fluticasone Propionate Na Spr 16 Gm Btl) 1 sprays NA BID [facility] Stop: 07/31/24 08:59 Last Admin: 07/01/24 09:24 Dose: 1 sprays Documented By: VALERIE Haloperidol (Haloperidol 5 Mg Tab) 5 mg PO QAM [facility] Stop: 07/31/24 08:59 Last Admin: 07/01/24 09:23 Dose: 5 mg Documented By: VALERIE Haloperidol (Haloperidol 1 Mg Tab) 2 mg PO DAILY@1300 [facility] Stop: 07/31/24 12:59 Last Admin: 07/01/24 12:03 Dose: 2 mg Documented By: VALERIE Ceftriaxone Sodium (Rocephin) 2,000 mg in 50 mls @ 100 mls/hr IV Q24H [facility] Stop: 07/06/24 08:29 Last Infusion: 07/01/24 09:50 Dose: Infused Documented By: Admin: 07/01/24 09:19 Dose: 100 mls/hr Documented By: VALERIE Insulin Aspart (Insulin Aspart Per Unit Charge) 0 units SC Q6 [facility] Stop: 07/31/24 08:29 Last Admin: 07/01/24 12:12 Dose: 1 units Documented By: VALERIE Co-signed By: ABRAHAM Levothyroxine Sodium (Levothyroxine Sodium 175 Mcg Tablet) 175 mcg PO DAILYBB [facility] Stop: 07/31/24 08:14 Last Admin: 07/01/24 09:23 Dose: 175 mcg Documented By: VALERIE Losartan Potassium (Losartan Potassium 50 Mg Tab) 50 mg PO QAM [facility] Stop: 07/31/24 08:59 Last Admin: 07/01/24 09:23 Dose: 50 mg Documented By: VALERIE Metoprolol Tartrate (Metoprolol Tartrate 25 Mg Tab) 25 mg PO BID [facility] Stop: 07/31/24 08:59 Last Admin: 07/01/24 09:22 Dose: 25 mg Documented By: KAB Multivitamins/Minerals (Cerovite Adv Formula Tab) 1 tab PO DAILY [facility] Stop: 07/31/24 08:59 Last Admin: 07/01/24 09:22 Dose: 1 tab Documented By: VALERIE Olanzapine (Olanzapine 2.5 Mg Tab) 2.5 mg PO QAM [facility] Stop: 07/31/24 14:29 Last Admin: 07/01/24 14:38 Dose: 2.5 mg Documented By: VALERIE Vitamin D (Cholecalciferol 25 Mcg (1000 Units) Tab) 50 mcg PO DAILY [facility] Stop: 07/31/24 08:59 Last Admin: 07/01/24 09:22 Dose: 50 mcg Documented By: VALERIE Discontinued Medications Insulin Aspart (Insulin Aspart Per Unit Charge) 0 units SC ACHS [facility] Stop: 07/31/24 08:29 Last Admin: 07/01/24 10:42 Dose: Not Given Documented By: VALERIE Imaging Data Radiologist's Impression: Head CT 07/01/24 02:05 EXAM: CT head/brain wo con CLINICAL HISTORY: altered ms best images due to pt condition TECHNIQUE: Axial non-contrast CT scan of the brain was performed from the skull base to the high parietal region. One of the following dose reduction techniques were utilized for this exam: Automated exposure control, adjustment of the mA and/or kV according to patient size, use of iterative reconstruction. COMPARISON: 06/27/2022. FINDINGS: Brain Parenchyma: Age-related parenchymal volume loss with capacious CSF spaces. Bilateral periventricular hypodensities, likely related to small vessel disease. Focal hypodensity in the left frontal lobe.(Appears nearly stable since the previous study) No definite acute brain hemorrhage. Ventricular System: No evidence of hydrocephalus or ventricular enlargement. Subarachnoid Spaces: No evidence of subarachnoid hemorrhage or extra-axial fluid collections. Cerebellum and Brainstem: No masses, lesions, or areas of abnormal density. Orbits: No evidence of orbital masses or abnormal density. Sinuses: Minimal mucosal thickening of the left maxillary antrum. Clear other paranasal sinuses. Mastoid Air Cells: Clear mastoid air cells. No evidence of mastoiditis. Skull and Meninges: Hyperostosis frontalis interna. IMPRESSION: 1. Age-related parenchymal volume loss with periventricular likely small vessel disease. 2. No definite acute brain hemorrhage. 3. Minimal mucosal thickening of the left maxillary antrum. For clinical correlation. 4. Compared to the previous CT scan: A resolution of the previously noted frontal hematoma and soft tissue swelling associated with the nasal fractures. Electronically signed by Sam Clark 07-01-2024 03:53 AM Discharge Plan Visit Data Chief Complaint: Mental Health Evaluation Stated Complaint: HITTING STAFF AND RESIDENTS ED Provider: Linn Rodriguez Discharge Problem: Acute electrocardiogram changes, Elevated troponin, Thought disorder, Aggressive behavior Patient Disposition: Admitted As Inpatient Discharge Instructions Interventions: ED Discharge Assessment Last Done: 07/01/24 08:11
[2024-07-01 01:44] LABS: Basophils # (auto) 0.06 K/uL (0.00-0.20); Basophils % (auto) 1.7 %; Eosinophils # (auto) 0.12 K/uL (0.00-0.50); Eosinophils % (auto) 3.3 %; Hematocrit (blood only) 33.7 % (37.0-47.0); Hemoglobin 11.7 g/dl (12.0-16.0); Lymphocytes # (auto) 1.52 K/uL (1.20-3.40); Lymphocytes % (auto) 42.3 %; Mean Corpuscular Hemoglobin 30.5 pg (25.0-34.0); Mean Corpuscular Hgb Conc 34.7 g/dL (32.0-36.0); Mean Corpuscular Volume 87.8 fL (80.0-100.0); Mean Platelet Volume 9.2 fL (9.4-12.4); Monocytes # (auto) 0.82 K/uL (0.11-0.59); Monocytes % (auto) 22.8 %; Neutrophils # (auto) 1.07 K/uL (1.40-6.50); Neutrophils % (auto) 29.9 %; Platelet Count 242 K/uL (130-400); RDW Coefficient of Variation 12.9 % (11.5-14.5); RDW Standard Deviation 41.2 fL (36.4-46.3); Red Blood Count 3.84 M/uL (4.20-5.40); White Blood Count 3.59 K/ul (4.8-10.8)
[2024-07-01 02:03] LABS: Acetaminophen < 3 ug/ml (10-30); Alanine Aminotransferase 15 U/L (7-52); Albumin Globulin Ratio 1.4 (0.9-2); Albumin Level 3.8 gm/dl (3.4-5.0); Alkaline Phosphatase 79 U/L (34-104); Anion Gap 6 (3-11); Aspartate Aminotransferase 14 U/L (13-39); BUN Creatinine Ratio 9.9 (10-20); Bilirubin,Total 0.9 mg/dl (0.2-1.0); Blood Urea Nitrogen 8 mg/dl (6-23); Calcium 9.1 mg/dl (8.6-10.3); Carbon Dioxide 28 mmol/L (21-32); Chloride 98 mmol/L (98-107); Globulin 2.7 gm/dl (2.5-4.0); Glucose 188 mg/dl (70-99(Fasting)); Potassium 3.9 mmol/L (3.5-5.1); Salicylate < 3.0 mg/dl (3.0-30); Sodium 132 mmol/L (136-145); Total Protein 6.5 gm/dl (6.0-8.3)
[2024-07-01 03:05] LABS: Troponin I High Sensitivity 16.6 pg/ml (0-14)
[2024-07-01 03:09] LABS: T4 Free Thyroxine 0.99 ng/dl (0.61-1.60)
--- NOTE | 2024-07-01 04:27 | XRay Report ---
EXAM: XR chest 1V portable CLINICAL HISTORY: AMS WTW TECHNIQUE: An X-ray image of the chest is obtained in AP projection. COMPARISON: CR: 02/06/2020 FINDINGS: Pulmonary Parenchyma: Both lungs show prominent broncho vascular markings. Otherwise, the lungs are clear bilaterally. No evidence of consolidation, collapse, or focal opacities. No pulmonary nodules are identified. No evidence of pleural effusion or pleural thickening. Heart and Mediastinum: Heart size is increased. No mediastinal widening or masses. No hilar or mediastinal lymphadenopathy. Bony Thorax: The bony thorax appears intact without fractures or deformities. Soft Tissues: Soft tissues overlying the chest wall are unremarkable. IMPRESSION: 1. Bilateral prominent broncho vascular markings, which might be suggestive of congestion. Please correlate clinically. Interval new. 2. Cardiomegaly. Stable. Electronically signed by Carlo Franco 07-01-2024 03:18 AM
[2024-07-01 04:39] LABS: Appearance Urine Slightly Cloudy (Clear); Bilirubin Urine Negative (Negative); Blood Urine Trace-intact (Negative); Color Urine Yellow; Glucose Urine UA Negative (Negative); Ketones Urine Negative (Negative); Leukocyte Esterase Urine 2+ (Negative); Nitrite Urine Positive (Negative); Protein Urine Negative (Negative); Urobilinogen Urine Negative (Negative)
--- NOTE | 2024-07-01 04:54 | CT Scan Report ---
EXAM: CT head/brain wo con CLINICAL HISTORY: altered ms best images due to pt condition TECHNIQUE: Axial non-contrast CT scan of the brain was performed from the skull base to the high parietal region. One of the following dose reduction techniques were utilized for this exam: Automated exposure control, adjustment of the mA and/or kV according to patient size, use of iterative reconstruction. COMPARISON: 06/27/2022. FINDINGS: Brain Parenchyma: Age-related parenchymal volume loss with capacious CSF spaces. Bilateral periventricular hypodensities, likely related to small vessel disease. Focal hypodensity in the left frontal lobe.(Appears nearly stable since the previous study) No definite acute brain hemorrhage. Ventricular System: No evidence of hydrocephalus or ventricular enlargement. Subarachnoid Spaces: No evidence of subarachnoid hemorrhage or extra-axial fluid collections. Cerebellum and Brainstem: No masses, lesions, or areas of abnormal density. Orbits: No evidence of orbital masses or abnormal density. Sinuses: Minimal mucosal thickening of the left maxillary antrum. Clear other paranasal sinuses. Mastoid Air Cells: Clear mastoid air cells. No evidence of mastoiditis. Skull and Meninges: Hyperostosis frontalis interna. IMPRESSION: 1. Age-related parenchymal volume loss with periventricular likely small vessel disease. 2. No definite acute brain hemorrhage. 3. Minimal mucosal thickening of the left maxillary antrum. For clinical correlation. 4. Compared to the previous CT scan: A resolution of the previously noted frontal hematoma and soft tissue swelling associated with the nasal fractures. Electronically signed by Sam Clark 07-01-2024 03:53 AM
[2024-07-01 05:03] LABS: Epithelial Cell Urine 0-2 /hpf (0-2)
[2024-07-01 05:04] LABS: Bacteria Urine 2+ (None Seen); RBC Urine 0-2 /hpf (0-2); WBC Urine 21-50 /hpf (0-5)
[2024-07-01 05:05] LABS: Calcium Oxalate Crystals Urine Present (None Prsent)
[2024-07-01 05:10] LABS: Amphetamines+Metham, Urine Neg (Neg); Barbiturates, Urine Neg (Neg); Benzodiazepine, Urine Neg (Neg); Cocaine, Urine Neg (Neg); Fentanyl, Urine Neg (Neg); MDMA (Ecstacy), Urine Neg (Neg); Marijuana, Urine Neg (Neg); Methadone, Urine Neg (Neg); Opiate, Urine Neg (Neg); Phencyclidine, Urine Neg (Neg)
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
[2024-07-01] MEDS ORDERED: LOPERAMIDE HCL 2 MG CAP PO PRN (08:01)
[2024-07-01] MEDS ORDERED: GLUCOSE 40% GEL 15 GM TUBE PO PRN (08:01)
[2024-07-01] MEDS ORDERED: CARBOHYDRATES FOR HYPOGLYCEMIA PO PRN (08:01)
[2024-07-01] MEDS ORDERED: POLYETHYLENE (MIRALAX) 17 GM PACK PO PRN (08:01)
[2024-07-01] MEDS ORDERED: NITROGLYCERIN SL 0.4 MG/TAB TAB SL PRN (08:01)
[2024-07-01] MEDS ORDERED: DEXTROSE 50% 50 ML SYRINGE IV PRN (08:01)
[2024-07-01] MEDS ORDERED: GLUCOSE 10 TAB/TUBE PO PRN (08:01)
[2024-07-01] MEDS ORDERED: GLUCAGON FOR INJ 1 MG VIAL SQ PRN (08:01)
--- NOTE | 2024-07-01 08:35 | Electrocardiogram Report ---
Test Reason : Blood Pressure : */* mmHG Vent. Rate : 77 BPM Atrial Rate : 77 BPM P-R Int : 164 ms QRS Dur : 80 ms QT Int : 396 ms P-R-T Axes : 54 63 83 degrees QTcB Int : 448 ms Normal sinus rhythm T wave abnormality, consider anterolateral ischemia Abnormal ECG When compared with ECG of 09-Feb-2020 09:09, T wave inversion now evident in Anterolateral leads Confirmed by Tejas Amaral ([id number]) on 07/01/2024 8:35:27 AM Referred By: Brendan Riddle Allen Confirmed By: Tejas Amaral
[2024-07-01] MEDS ORDERED: NON-FORMULARY MEDICATION (Biotin 1,000 mcg Tablet,Chewable) PO SCH (09:00)
[2024-07-01] MEDS: cefTRIAXone SODIUM 2,000 MG/50 ML BAG IV SCH (09:19)
[2024-07-01] MEDS: CEROVITE ADV FORMULA TAB PO SCH (09:22)
[2024-07-01] MEDS: METOPROLOL TARTRATE 25 MG TAB PO SCH (09:22)
[2024-07-01] MEDS: CHOLECALCIFEROL 25 MCG (1000 UNITS) TAB PO SCH (09:22)
[2024-07-01] MEDS: CYANOCOBALAMIN (B-12) 500 MCG TABLET PO SCH (09:22)
[2024-07-01] MEDS: amLODIPine BESYLATE 5 MG TAB PO SCH (09:23)
[2024-07-01] MEDS: LEVOTHYROXINE SODIUM 175 MCG TABLET PO SCH (09:23)
[2024-07-01] MEDS: LOSARTAN POTASSIUM 50 MG TAB PO SCH (09:23)
[2024-07-01] MEDS: haloperidoL 5 MG TAB PO SCH ×2 (09:23→22:15)
[2024-07-01] MEDS: FLUTICASONE PROPIONATE NA SPR 16 GM BTL SCH (09:24)
[2024-07-01] MEDS: DIVALPROEX SODIUM SPRINKLE/DEL-REL 125 MG CAP PO SCH (09:24)
[2024-07-01] MEDS: CALCIUM CARBONATE 1250MG TAB PO SCH (09:24)
[2024-07-01] MEDS ORDERED: Nursing to Pharmacy Communication SCH ×3 (10:30→17:15)
[2024-07-01] MEDS: INSULIN ASPART PER UNIT CHARGE SC SCH ×3 (10:42→17:40)
[2024-07-01 10:43] LABS: Hemoglobin 11.2 g/dl (12.0-16.0); Mean Corpuscular Hemoglobin 29.6 pg (25.0-34.0); Mean Corpuscular Hgb Conc 33.9 g/dL (32.0-36.0); Mean Corpuscular Volume 87.3 fL (80.0-100.0); Mean Platelet Volume 9.1 fL (9.4-12.4); Platelet Count 226 K/uL (130-400); RDW Coefficient of Variation 13.1 % (11.5-14.5); RDW Standard Deviation 41.1 fL (36.4-46.3); Red Blood Count 3.78 M/uL (4.20-5.40); White Blood Count 2.79 K/ul (4.8-10.8)
[2024-07-01 10:54] LABS: Estimated Average Glucose 177 mg/dl; Hemoglobin A1C 7.8 % (4.5-5.6)
[2024-07-01 11:05] LABS: BUN Creatinine Ratio 11.3 (10-20); Calcium 8.7 mg/dl (8.6-10.3); Creatinine Clr Calc Pharmacy 76.9 ml/min; Magnesium 1.7 mg/dl (1.7-2.4)
[2024-07-01 11:12] LABS: Troponin I High Sensitivity 10.6 pg/ml (0-14)
[2024-07-01 11:18] LABS: Polychromasia 1+
[2024-07-01 11:19] LABS: Basophils # (auto) 0.03 K/uL (0.00-0.20); Basophils % (auto) 1.1 %; Eosinophils # (auto) 0.09 K/uL (0.00-0.50); Eosinophils % (auto) 3.2 %; Lymphocytes % (auto) 39.4 %; Monocytes % (auto) 25.1 %; Neutrophils # (auto) 0.87 K/uL (1.40-6.50); Neutrophils % (auto) 31.2 %
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
[2024-07-01] MEDS: DOCUSATE SODIUM 100 MG CAP PO SCH (12:03)
[2024-07-01] MEDS: haloperidoL 1 MG TAB PO SCH (12:03)
[2024-07-01] MEDS: AMANTADINE HCL SYRUP 50 MG/5 ML UDP PO SCH (12:15)
--- NOTE | 2024-07-01 12:23 | Cardiology Consultation ---
Date of Consultation July 01, 2024 Assessment & Plan (1) Abnormal EKG: Patient presents with hallucinations. Urinalysis is suggestive of possible urinary tract infection. She is on empiric treatment with Rocephin for now and urine culture results are pending. Elevated TSH raises concerns of medication nonadherence. She certainly has underlying risk factors for coronary heart disease given her age, and history of hypertension, diabetes, and dyslipidemia. Her initial high sensitive troponin was minimally elevated at 16.6 PG per mL (upper limit of normal 14 PG per mL), with 2 subsequent normal measurements of 12.7 and 10.6. Her EKG is abnormal and suggestive of possible anterolateral ischemia. Findings related to hypertensive heart disease and LVH is also a consideration. Patient without any symptoms to suggest angina, and I do not think her mental status issues are due to myocardial ischemia. A resting echocardiogram has been completed and will be reviewed. Continue medication management from a cardiac perspective including aspirin, atorvastatin, losartan, and metoprolol. Patient is not a candidate for stress testing or other cardiac testing due to her mental status. History of Present Illness Attending Physician: Chris Stauffer MD History of Present Illness Jinny Garcia is a 73-year-old female seen in cardiology consultation per the request of Dr. Phan the evaluation of abnormal findings on her EKG. The patient denies any cardiac complaint. Subjectively, no helpful cardiac history could be obtained. Patient is currently on one-to-one supervision with a nursing program coordinator. Had apparently been reporting hallucinations but has no such complaints at present. Based on review of her record, she has a past history of hypertension, d iabetes, and dyslipidemia. Allergies Allergy/AdvReac Type Severity Reaction Status Date / Time No Known Allergies Allergy Unverified 02/06/20 14:44 Home Medications Medication Instructions Recorded Confirmed Type acetaminophen 325 mg tablet 650 mg PO QID PRN Pain 02/06/20 07/01/24 History atorvastatin 80 mg tablet 80 mg PO HS 02/06/20 07/01/24 History calcium carbonate (Oyster Shell 500 mg PO BID 02/06/20 07/01/24 History Calcium 500) cholecalciferol (vitamin D3) 50 50 mcg PO DAILY 02/06/20 07/01/24 History mcg (2,000 unit) capsule (Vitamin D3) divalproex 125 mg capsule,delayed 250 mg PO BID 02/06/20 07/01/24 History release sprinkle docusate sodium 100 mg capsule 100 mg PO BID Constipation 02/06/20 07/01/24 History fluticasone propionate 50 1 spray intranasal BID 02/06/20 07/01/24 History mcg/actuation nasal spray,suspension glipizide 5 mg tablet, extended 10 mg PO DAILY 02/06/20 07/01/24 History release 24 hr levothyroxine 137 mcg tablet 175 mcg PO DAILY 02/06/20 07/01/24 History lurasidone 120 mg tablet (Latuda) 160 mg PO DAILY 02/06/20 07/01/24 History multivitamin,vn-jrrk-xmzbuhos 27 1 tab PO DAILY 02/06/20 07/01/24 History mg-0.4 mg tablet (Therems-M) trazodone 100 mg tablet 50 mg PO HS 02/06/20 07/01/24 History amlodipine 10 mg tablet (Norvasc) 10 mg PO DAILY #30 tabs 02/09/20 07/01/24 Rx aspirin 81 mg tablet,delayed 81 mg PO HS #90 tabs 02/09/20 07/01/24 Rx release losartan 50 mg tablet 50 mg PO QAM #30 tabs 02/09/20 07/01/24 Rx metoprolol tartrate 25 mg tablet 25 mg PO BID #60 tabs 02/09/20 07/01/24 Rx Calcium Antacid 1,000 mg PO TID PRN 06/28/24 07/01/24 History heartburn/indigestion amantadine HCl 100 mg tablet 50 mg PO BID 06/28/24 07/01/24 History biotin 1,000 mcg chewable tablet 1,000 mcg PO DAILY 06/28/24 07/01/24 History cyanocobalamin (vitamin B-12) 1,000 mcg PO DAILY 06/28/24 07/01/24 History 1,000 mcg tablet dextromethorphan-guaifenesin 10 10 ml PO Q4H PRN Cough 06/28/24 07/01/24 History mg-100 mg/5 mL oral syrup (Tussin DM) diphenhydramine HCl 25 mg capsule 25 mg PO HS 06/28/24 07/01/24 History (Banophen) glipizide 5 mg tablet 2.5 mg PO DAILY 06/28/24 07/01/24 History haloperidol 10 mg tablet 10 mg PO HS 06/28/24 07/01/24 History haloperidol 2 mg tablet 2 mg PO DAILY 06/28/24 07/01/24 History haloperidol 5 mg tablet 5 mg PO QAM 06/28/24 07/01/24 History loperamide 2 mg capsule 2 mg PO Q4H PRN loose stools 06/28/24 07/01/24 History melatonin 5 mg tablet 5 mg PO HS 06/28/24 07/01/24 History nystatin 100,000 unit/gram topical 1 applic topical BID PRN Rash 06/28/24 07/01/24 History cream Patient History Family History Unknown Unknown family medical history Social History Smoking Status: Former smoker Tobacco Type: Cigarettes Preferred Language: Maori Communication Ability: Impaired Snuff Drier Required: No Beliefs That Will Affect Care: None marital status: Single Current Living Situation: Personal Care Facility How many Children do You have: 0 Other Information That Helps Us Care for You: No Feels Safe at Home: Yes Safety Concerns: Feels Safe At This Time Assistive Devices: None Review of Systems Review of Systems: All systems reviewed & are unremarkable except as noted in HPI & below Physical Exam Physical Exam: General: no acute distress and stated age Eyes: conjunctiva are pink and non-injected, sclera clear Neck: normal jugular venous pulse, no hepatojugular reflux Chest: normal shape and normal respiratory effort Lungs: clear to auscultation and percussion Cardiac Exam: - regular heart sounds, no murmurs, rubs, or gallops, no jugular venous distention Abdomen: abdomen soft, non-tender, no abnormal masses and no hepatosplenomegaly Extremities: no edema and no cyanosis Neuro:no focal motor deficits Results & Data Vital Signs (Past 12 Hours) Vital Signs Temp Pulse Pulse Resp BP BP Pulse Ox 07/01/24 11:19 37.0 C 80 20 114/68 96 07/01/24 10:35 07/01/24 08:36 90 07/01/24 08:11 07/01/24 08:01 36.9 C 93 H 137/84 96 07/01/24 07:44 89 18 169/100 H 96 07/01/24 04:00 90 18 154/81 H 96 07/01/24 00:52 36.8 C 78 17 146/87 H 98 07/01/24 00:33 36.8 C 81 17 146/87 H 95 O2 Del Method 07/01/24 11:19 Room Air 07/01/24 10:35 Room Air 07/01/24 08:36 07/01/24 08:11 Room Air 07/01/24 08:01 Room Air 07/01/24 07:44 Room Air 07/01/24 04:00 Room Air 07/01/24 00:52 Room Air 07/01/24 00:33 Room Air Laboratory Results Cardiac Enzymes 07/01/24 07/01/24 07/01/24 Range/Units 01:17 05:30 10:16 AST 14 (13-39) U/L Troponin I High Sens 16.6 H 12.7 10.6 (0-14) pg/ml CBC 07/01/24 07/01/24 Range/Units 01:17 10:16 WBC 3.59 L 2.79 L (4.8-10.8) K/ul RBC 3.84 L 3.78 L (4.20-5.40) M/uL Hgb 11.7 L 11.2 L (12.0-16.0) g/dl Hct 33.7 L 33.0 L (37.0-47.0) % Plt Count 242 226 (130-400) K/uL Neut # (Auto) 1.07 L 0.87 L* (1.40-6.50) K/uL Lymph # (Auto) 1.52 1.10 L (1.20-3.40) K/uL Schley # (Auto) 0.82 H 0.70 H (0.11-0.59) K/uL Eos # (Auto) 0.12 0.09 (0.00-0.50) K/uL Baso # (Auto) 0.06 0.03 (0.00-0.20) K/uL Comprehensive Metabolic Panel 07/01/24 07/01/24 Range/Units 01:17 10:16 Sodium 132 L 133 L (136-145) mmol/L Potassium 3.9 4.0 (3.5-5.1) mmol/L Chloride 98 99 (98-107) mmol/L Carbon Dioxide 28 27 (21-32) mmol/L BUN 8 8 (6-23) mg/dl Creatinine 0.81 0.71 (0.6-1.2) mg/dl Glucose 188 H 182 H (70-99(Fasting)) mg/dl Calcium 9.1 8.7 (8.6-10.3) mg/dl AST 14 (13-39) U/L ALT 15 (7-52) U/L Alkaline Phosphatase 79 (34-104) U/L Total Protein 6.5 (6.0-8.3) gm/dl Albumin 3.8 (3.4-5.0) gm/dl Intake and Output 06/30/24 07/01/24 07/01/24 22:59 06:59 14:59 Intake Total 50 / 50 Balance 50 / 50 Intake: IV 50 / 50 cefTRIAXone SODIUM 2,000 mg In 50 / 50 50 ml @ 100 mls/hr IV Q24H [facility] Rx#:[id number] Other: Weight 82 kg 82 kg Weight Measurement Method Built in [facility] Stated by Patient Patient Weight 07/02/24 06:59 Weight 82 kg Diagnostic Findings EKG performed 07/01/2024 at 2:24 AM and reviewed/interpreted independently: Sinus rhythm at 77 bpm, T wave inversions noted in the anterolateral leads V2 to V5 suggestive of possible ischemia. Compared to the previous tracing dating back to January, the T wave inversions are new. Repeat tracing performed 07/01/2024 at 8:11 AM and interpreted independently: Sinus rhythm 85 bpm, ongoing anterolateral T wave inversions.
--- NOTE | 2024-07-01 13:41 | Electrocardiogram Report ---
Test Reason : Blood Pressure : */* mmHG Vent. Rate : 85 BPM Atrial Rate : 85 BPM P-R Int : 152 ms QRS Dur : 90 ms QT Int : 366 ms P-R-T Axes : 53 64 93 degrees QTcB Int : 435 ms Poor data quality, interpretation may be adversely affected Normal sinus rhythm Abnormal ECG When compared with ECG of 01-Jul-2024 02:24, No significant change was found Confirmed by Tejas Amaral ([id number]) on 07/01/2024 1:40:53 PM Referred By: Brendan Riddle [place] Confirmed By: Tejas Amaral
[2024-07-01] MEDS ORDERED: OLANZAPINE 2.5 MG TAB PO PRN (14:19)
[2024-07-01] MEDS: OLANZAPINE 2.5 MG TAB PO SCH (14:38)
[2024-07-01] MEDS ORDERED: LURASIDONE HCL 20 MG TAB PO SCH (16:30)
--- NOTE | 2024-07-01 19:04 | Communication Note ---
Date of Service: July 01, 2024 Pt admitted this AM. Currently laying in bed in NAD, cooperative, sitter present at the bedside. Phys. exam notable for harsh syst. murmur. Cardiology already consulted, as well as psychiatry and psych meds adjusted. Later in a day notified that pt was getting agitated and even pulling on her IV site. 2.5 mg po zyprexa given and pt seemed to calm down after that. Communicated w/ RN multiple times. Cont. to closely monitor. MD Eh
[2024-07-01] MEDS: MELATONIN 3 MG TAB PO SCH (22:08)
[2024-07-01] MEDS: diphenhydrAMINE Capsule 25 MG CAP PO SCH (22:08)
[2024-07-01] MEDS: traZODone HCL 50 MG TAB PO SCH (22:08)
[2024-07-01] MEDS: ATORVASTATIN 40 MG TAB PO SCH (22:12)
[2024-07-01] MEDS: ASPIRIN 81 MG ECTAB PO SCH (22:12)
[2024-07-01] MEDS: OLANZapine 10 MG TAB PO SCH (22:16)
[2024-07-02 06:09] LABS: Hematocrit (blood only) 33.9 % (37.0-47.0); Hemoglobin 11.5 g/dl (12.0-16.0); Mean Corpuscular Hemoglobin 29.9 pg (25.0-34.0); Mean Corpuscular Hgb Conc 33.9 g/dL (32.0-36.0); Mean Corpuscular Volume 88.1 fL (80.0-100.0); Mean Platelet Volume 9.3 fL (9.4-12.4); Platelet Count 249 K/uL (130-400); RDW Coefficient of Variation 13.1 % (11.5-14.5); RDW Standard Deviation 41.7 fL (36.4-46.3); Red Blood Count 3.85 M/uL (4.20-5.40); White Blood Count 3.02 K/ul (4.8-10.8)
[2024-07-02 06:27] LABS: BUN Creatinine Ratio 15.8 (10-20); Calcium 9.1 mg/dl (8.6-10.3); Creatinine Clr Calc Pharmacy 71.8 ml/min; Magnesium 1.7 mg/dl (1.7-2.4); Phosphorus 4.2 mg/dl (2.5-4.9); Potassium 4.1 mmol/L (3.5-5.1)
[2024-07-02 07:25] LABS: Polychromasia 1+
[2024-07-02 07:28] LABS: Basophils # (auto) 0.05 K/uL (0.00-0.20); Basophils % (auto) 1.7 %; Eosinophils # (auto) 0.11 K/uL (0.00-0.50); Eosinophils % (auto) 3.6 %; Lymphocytes # (auto) 1.56 K/uL (1.20-3.40); Lymphocytes % (auto) 51.7 %; Monocytes # (auto) 0.68 K/uL (0.11-0.59); Monocytes % (auto) 22.5 %; Neutrophils # (auto) 0.62 K/uL (1.40-6.50); Neutrophils % (auto) 20.5 %
--- NOTE | 2024-07-02 08:20 | Electrocardiogram Report ---
Test Reason : Blood Pressure : */* mmHG Vent. Rate : 72 BPM Atrial Rate : 72 BPM P-R Int : 166 ms QRS Dur : 88 ms QT Int : 396 ms P-R-T Axes : 59 63 94 degrees QTcB Int : 433 ms Normal sinus rhythm T wave abnormality, consider anterolateral ischemia Abnormal ECG When compared with ECG of 01-Jul-2024 08:11, No significant change was found Confirmed by Tejas Amaral ([id number]) on 07/02/2024 8:19:29 AM Referred By: Brendan Riddel [place] Confirmed By: Tejas Amaral
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
--- NOTE | 2024-07-02 13:30 | Cardiology Progress Note ---
Date of Service July 02, 2024 Assessment & Plan (1) Abnormal EKG: Plan: Repeat EKG on 07/02/2024 and interpreted independently reveals normal sinus rhythm at 72 bpm with T wave inversions in the anterolateral leads suggestive of possible underlying ischemia versus underlying left ventricular hypertrophy. Echocardiogram performed 07/01/2024 revealed moderate concentric left ventricular hypertrophy with hyperdynamic left ventricular systolic function, le ft ventricular ejection fraction greater than 70%. The 2D assessment and Doppler assessment of aortic stenosis are discordant. The aortic valve is suboptimally visualized but appears to be trileaflet in morphology without significant restriction of cusp excursion. I significant left ventricular outflow tract gradient was detected on continuous-wave Doppler with peak velocity 4 m/s, mean gradient 49 mmHg which appears to be related to hypertrophy of the basal septum and hyperdynamic left ventricular systolic function with a prominent adjacent papillary muscle rather than valvular aortic stenosis. The patient however was not able to cooperate with the echocardiogram exam, and better data would likely be obtained once her mental status improves. Her initial high sensitive troponin was minimally elevated at 16.6 PG per mL (upper limit of normal 14 PG per mL), with Although her initial troponin I was minimally elevated for subsequent normal measurements. No subjective symptoms of angina. Continue medication management from a cardiac perspective including aspirin, atorvastatin, losartan, and metoprolol. Patient is not a candidate for stress testing or other cardiac testing due to her mental status. Urine culture has yielded E. coli and Klebsiella. Continue IV Rocephin. Continue antipsychotics. Patient unable to tolerate pharmacologic DVT prophylaxis. Consider SCDs. Admission and Anticipated Discharge Date Admission Date: July 01, 2024 Subjective Patient seen in cardiology follow-up. She was not able to provide any helpful history. She stated words that basically did not answer the questions I asked. Telemetry reveals sinus rhythm. She is sitting supine and appears comfortable without respiratory distress. Physical Exam Physical Exam: General: no acute distress and stated age Eyes: conjunctiva are pink and non-injected, sclera clear Neck: normal jugular venous pulse, no hepatojugular reflux Chest: normal shape and normal respiratory effort Lungs: clear to auscultation and percussion Cardiac Exam: - regular heart sounds, no murmurs, rubs, or gallops, no jugular venous distention Abdomen: abdomen soft, non-tender, no abnormal masses and no hepatosplenomegaly Extremities: no edema and no cyanosis Neuro:no focal motor deficits Results & Data Vital Signs (Past 12 Hours) Vital Signs Temp Pulse Pulse Resp BP Pulse Ox O2 Del Method 07/02/24 11:33 36.7 C 77 18 150/67 H 96 Room Air 07/02/24 07:39 74 07/02/24 07:28 36.5 C 78 18 158/87 H 97 Room Air 07/02/24 02:54 36.4 C L 66 18 124/74 96 Room Air
[2024-07-03 08:05] LABS: Hematocrit (blood only) 34.5 % (37.0-47.0); Hemoglobin 11.9 g/dl (12.0-16.0); Mean Corpuscular Hemoglobin 30.4 pg (25.0-34.0); Mean Corpuscular Hgb Conc 34.5 g/dL (32.0-36.0); Mean Platelet Volume 9.3 fL (9.4-12.4); Platelet Count 246 K/uL (130-400); RDW Coefficient of Variation 13.2 % (11.5-14.5); RDW Standard Deviation 42.8 fL (36.4-46.3); Red Blood Count 3.92 M/uL (4.20-5.40); White Blood Count 2.97 K/ul (4.8-10.8)
[2024-07-03 08:22] LABS: Albumin Globulin Ratio 1.4 (0.9-2); Albumin Level 3.6 gm/dl (3.4-5.0); BUN Creatinine Ratio 18.7 (10-20); Bilirubin,Total 0.6 mg/dl (0.2-1.0); Calcium 9.3 mg/dl (8.6-10.3); Creatinine Clr Calc Pharmacy 72.8 ml/min; Globulin 2.5 gm/dl (2.5-4.0); Magnesium 1.8 mg/dl (1.7-2.4); Phosphorus 4.4 mg/dl (2.5-4.9); Potassium 4.3 mmol/L (3.5-5.1); Total Protein 6.1 gm/dl (6.0-8.3)
[2024-07-03 08:35] LABS: ALC (manual) 1.46 K/uL (1.2-3.4); ANC (manual) 0.98 K/uL (1.4-6.5); Eosinophils # (manual) 0.09 K/uL (0-0.50); Eosinophils % (manual) 3 %; Lymphocytes # (manual) 1.13 K/uL (1.2-3.4); Lymphocytes % (manual) 38 %; Monocytes # (manual) 0.45 K/uL (0.11-0.59); Monocytes % (manual) 15 %; Neutrophils # (manual) 0.98 K/uL (1.40-6.50); Neutrophils % (manual) 33 %; RBC Morphology Unremarkable; Reactive Lymphocytes # (manual) 0.33 K/uL; Reactive Lymphocytes % (manual) 11 %
--- NOTE | 2024-07-03 08:59 | Electrocardiogram Report ---
Test Reason : Blood Pressure : */* mmHG Vent. Rate : 73 BPM Atrial Rate : 73 BPM P-R Int : 168 ms QRS Dur : 90 ms QT Int : 372 ms P-R-T Axes : 71 77 88 degrees QTcB Int : 409 ms Normal sinus rhythm T wave abnormality, consider anterior ischemia Abnormal ECG When compared with ECG of 02-Jul-2024 05:30, No significant change was found Confirmed by Tejas Amaral ([id number]) on 07/03/2024 8:58:45 AM Referred By: Brendan Riddle Pearblossom Confirmed By: Tejas Amaral
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
[2024-07-03] MEDS: NYSTATIN CR 15 GM TUBE EXT PRN (17:14)
[2024-07-03] MEDS: guaiFENesin/DEXTROM SYRUP 100MG/10MG 5ML UDC PO PRN (20:29)
[2024-07-03] MEDS: CEFDINIR 300 MG CAP PO SCH (20:53)
[2024-07-04 09:56] LABS: Basophils # (auto) 0.04 K/uL (0.00-0.20); Basophils % (auto) 1.1 %; Eosinophils # (auto) 0.14 K/uL (0.00-0.50); Eosinophils % (auto) 3.9 %; Hemoglobin 11.7 g/dl (12.0-16.0); Lymphocytes # (auto) 0.99 K/uL (1.20-3.40); Lymphocytes % (auto) 27.4 %; Mean Corpuscular Hemoglobin 30.5 pg (25.0-34.0); Mean Corpuscular Hgb Conc 34.4 g/dL (32.0-36.0); Mean Corpuscular Volume 88.8 fL (80.0-100.0); Mean Platelet Volume 9.2 fL (9.4-12.4); Monocytes # (auto) 0.64 K/uL (0.11-0.59); Monocytes % (auto) 17.7 %; Neutrophils % (auto) 49.9 %; Platelet Count 248 K/uL (130-400); RDW Standard Deviation 42.3 fL (36.4-46.3); Red Blood Count 3.83 M/uL (4.20-5.40); White Blood Count 3.61 K/ul (4.8-10.8)
[2024-07-04 10:18] LABS: Albumin Globulin Ratio 1.4 (0.9-2); Albumin Level 3.4 gm/dl (3.4-5.0); BUN Creatinine Ratio 15.5 (10-20); Bilirubin,Total 0.6 mg/dl (0.2-1.0); Calcium 8.8 mg/dl (8.6-10.3); Creatinine Clr Calc Pharmacy 76.7 ml/min; Globulin 2.5 gm/dl (2.5-4.0); Magnesium 1.7 mg/dl (1.7-2.4); Phosphorus 3.4 mg/dl (2.5-4.9); Potassium 4.1 mmol/L (3.5-5.1); Total Protein 5.9 gm/dl (6.0-8.3)
--- NOTE | 2024-07-04 10:30 | Cardiology Progress Note ---
Date of Service July 04, 2024 Assessment & Plan (1) Abnormal EKG: Plan: EKG on 07/02/2024 and interpreted independently reveals normal sinus rhythm at 72 bpm with T wave inversions in the anterolateral leads suggestive of possible underlying ischemia versus underlying left ventricular hypertrophy. Repeat EKG tracing on 07/03/2024 at 5:38 AM revealed normal sinus rhythm at [address]-T wave changes in the precordial leads suggestive of possible ischemia versus LVH. Echocardiogram performed 07/01/2024 revealed moderate concentric left ventricular hypertrophy with hyperdynamic left ventricular systolic function, left ventricular ejection fraction greater than 70%. The 2D assessment and Doppler assessment of aortic stenosis are discordant. The aortic valve is suboptimally visualized but appears to be trileaflet in morphology without significant restriction of cusp excursion. I significant left ventricular outflow tract gradient was detected on continuous-wave Doppler with peak velocity 4 m/s, mean gradient 49 mmHg which appears to be related to hypertrophy of the basal septum and hyperdynamic left ventricular systolic function with a prominent adjacent papillary muscle rather than valvular aortic stenosis. The patient however was not able to cooperate with the echocardiogram exam, and better data would likely be obtained once her mental status improves. Her initial high sensitive troponin was minimally elevated at 16.6 PG per mL (upper limit of normal 14 PG per mL), with Although her initial troponin I was minimally elevated for subsequent normal measurements. No subjective symptoms of angina. Continue medication management from a cardiac perspective including aspirin, atorvastatin, losartan, and metoprolol. Patient is not a candidate for stress testing or other cardiac testing due to her mental status. Urine culture has yielded E. coli and Klebsiella. Has been transitioned to oral cefdinir Continue antipsychotics. Would recommend outpatient cardiology follow-up and consideration of repeat transthoracic echocardiogram as outpatient when patient better able to comply with the exam. Patient unable to tolerate pharmacologic DVT prophylaxis. Consider SCDs. Cardiology to sign off. Call with questions or concerns. Admission and Anticipated Discharge Date Admission Date: July 01, 2024 Subjective Patient seen in cardiology follow up. Only subjective input from patient is that she is "sad". Telemetry reveals sinus rhythm in the 60s to 80s with occasional PVCs. Patient remains on one-to-one supervision with a practical nursing instructor. Soft wrist restraints in place bilaterally. Physical Exam Physical Exam: Temp Pulse Resp BP Pulse Ox O2 Del Method 36.7 C 78 14 133/79 96 Room Air 12/13/24 06:54 07/04/24 06:54 07/04/24 06:54 07/04/24 06:54 07/04/24 06:54 07/04/24 07:38 General: no acute distress and stated age Eyes: conjunctiva are pink and non-injected, sclera clear Neck: normal jugular venous pulse, no hepatojugular reflux Chest: normal shape and normal respiratory effort Lungs: clear to auscultation and percussion Cardiac Exam: - regular heart sounds, 1/6 systolic mumur, rubs, or gallops, no jugular venous distention Abdomen: abdomen soft, non-tender, no abnormal masses and no hepatosplenomegaly Extremities: no edema and no cyanosis Neuro:no focal motor deficits
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
[2024-07-05 06:10] LABS: Hematocrit (blood only) 34.9 % (37.0-47.0); Hemoglobin 11.8 g/dl (12.0-16.0); Mean Corpuscular Hemoglobin 29.8 pg (25.0-34.0); Mean Corpuscular Hgb Conc 33.8 g/dL (32.0-36.0); Mean Corpuscular Volume 88.1 fL (80.0-100.0); Mean Platelet Volume 9.3 fL (9.4-12.4); Platelet Count 247 K/uL (130-400); RDW Coefficient of Variation 13.1 % (11.5-14.5); RDW Standard Deviation 42.3 fL (36.4-46.3); Red Blood Count 3.96 M/uL (4.20-5.40); White Blood Count 3.21 K/ul (4.8-10.8)
[2024-07-05 06:39] LABS: Albumin Globulin Ratio 1.4 (0.9-2); Albumin Level 3.6 gm/dl (3.4-5.0); BUN Creatinine Ratio 12.4 (10-20); Basophils # (auto) 0.04 K/uL (0.00-0.20); Basophils % (auto) 1.2 %; Bilirubin,Total 0.8 mg/dl (0.2-1.0); Calcium 9.6 mg/dl (8.6-10.3); Creatinine Clr Calc Pharmacy 56.2 ml/min; Eosinophils # (auto) 0.12 K/uL (0.00-0.50); Eosinophils % (auto) 3.7 %; Globulin 2.6 gm/dl (2.5-4.0); Immature Granulocytes # (auto) 0.01 K/uL (0.01-0.20); Immature Granulocytes % (auto) 0.3 %; Lymphocytes # (auto) 1.36 K/uL (1.20-3.40); Lymphocytes % (auto) 42.4 %; Magnesium 1.8 mg/dl (1.7-2.4); Monocytes # (auto) 0.86 K/uL (0.11-0.59); Monocytes % (auto) 26.8 %; Neutrophils # (auto) 0.82 K/uL (1.40-6.50); Neutrophils % (auto) 25.6 %; Phosphorus 4.7 mg/dl (2.5-4.9); Potassium 4.3 mmol/L (3.5-5.1); Total Protein 6.2 gm/dl (6.0-8.3)
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
[2024-07-06 07:32] LABS: Hematocrit (blood only) 33.1 % (37.0-47.0); Hemoglobin 11.4 g/dl (12.0-16.0); Mean Corpuscular Hemoglobin 30.3 pg (25.0-34.0); Mean Corpuscular Hgb Conc 34.4 g/dL (32.0-36.0); Mean Platelet Volume 9.5 fL (9.4-12.4); Platelet Count 253 K/uL (130-400); RDW Coefficient of Variation 13.2 % (11.5-14.5); RDW Standard Deviation 42.7 fL (36.4-46.3); Red Blood Count 3.76 M/uL (4.20-5.40); White Blood Count 2.89 K/ul (4.8-10.8)
[2024-07-06 07:47] LABS: BUN Creatinine Ratio 16.2 (10-20); Calcium 9.3 mg/dl (8.6-10.3); Creatinine Clr Calc Pharmacy 73.6 ml/min; Potassium 4.1 mmol/L (3.5-5.1)
[2024-07-06 07:54] LABS: Basophils # (auto) 0.03 K/uL (0.00-0.20); Eosinophils # (auto) 0.14 K/uL (0.00-0.50); Eosinophils % (auto) 4.8 %; Lymphocytes # (auto) 1.45 K/uL (1.20-3.40); Lymphocytes % (auto) 50.2 %; Monocytes # (auto) 0.72 K/uL (0.11-0.59); Monocytes % (auto) 24.9 %; Neutrophils # (auto) 0.55 K/uL (1.40-6.50); Neutrophils % (auto) 19.1 %
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
[2024-07-06] MEDS: OLANZapine 5 MG TABLET PO SCH (20:48)
[2024-07-07 08:15] LABS: Hematocrit (blood only) 32.2 % (37.0-47.0); Hemoglobin 11.1 g/dl (12.0-16.0); Mean Corpuscular Hemoglobin 30.5 pg (25.0-34.0); Mean Corpuscular Hgb Conc 34.5 g/dL (32.0-36.0); Mean Corpuscular Volume 88.5 fL (80.0-100.0); Mean Platelet Volume 9.5 fL (9.4-12.4); Platelet Count 240 K/uL (130-400); RDW Coefficient of Variation 13.2 % (11.5-14.5); Red Blood Count 3.64 M/uL (4.20-5.40); White Blood Count 2.59 K/ul (4.8-10.8)
[2024-07-07 08:25] LABS: BUN Creatinine Ratio 17.6 (10-20); Creatinine Clr Calc Pharmacy 73.6 ml/min; Potassium 4.1 mmol/L (3.5-5.1)
[2024-07-07 08:49] LABS: Basophils # (auto) 0.04 K/uL (0.00-0.20); Basophils % (auto) 1.5 %; Eosinophils # (auto) 0.15 K/uL (0.00-0.50); Eosinophils % (auto) 5.8 %; Lymphocytes # (auto) 1.34 K/uL (1.20-3.40); Lymphocytes % (auto) 51.7 %; Monocytes # (auto) 0.65 K/uL (0.11-0.59); Monocytes % (auto) 25.1 %; Neutrophils # (auto) 0.41 K/uL (1.40-6.50); Neutrophils % (auto) 15.9 %
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
[2024-07-07] MEDS: OLANZapine 10 MG/2.1 ML SDV IM STA (12:56)
[2024-07-07] MEDS: ACETAMINOPHEN 325 MG TAB PO PRN (21:43)
[2024-07-08 07:53] LABS: Hematocrit (blood only) 34.5 % (37.0-47.0); Hemoglobin 11.7 g/dl (12.0-16.0); Mean Corpuscular Hemoglobin 30.4 pg (25.0-34.0); Mean Corpuscular Hgb Conc 33.9 g/dL (32.0-36.0); Mean Corpuscular Volume 89.6 fL (80.0-100.0); Mean Platelet Volume 9.6 fL (9.4-12.4); Platelet Count 244 K/uL (130-400); RDW Coefficient of Variation 13.2 % (11.5-14.5); RDW Standard Deviation 43.3 fL (36.4-46.3); Red Blood Count 3.85 M/uL (4.20-5.40); White Blood Count 2.72 K/ul (4.8-10.8)
[2024-07-08 08:13] LABS: BUN Creatinine Ratio 16.9 (10-20); Calcium 9.1 mg/dl (8.6-10.3); Creatinine Clr Calc Pharmacy 83.8 ml/min; Potassium 4.3 mmol/L (3.5-5.1)
[2024-07-08 08:49] LABS: ALC (manual) 1.47 K/uL (1.2-3.4); ANC (manual) 0.52 K/uL (1.4-6.5); Basophils # (manual) 0.16 K/uL (0-0.2); Basophils % (manual) 6 %; Eosinophils # (manual) 0.22 K/uL (0-0.50); Eosinophils % (manual) 8 %; Lymphocytes # (manual) 1.47 K/uL (1.2-3.4); Lymphocytes % (manual) 54 %; Monocytes # (manual) 0.35 K/uL (0.11-0.59); Monocytes % (manual) 13 %; Neutrophils % (manual) 19 %; Polychromasia 1+
[2024-07-08 08:55] LABS: Neutrophils # (manual) 0.52 K/uL (1.40-6.50)
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
[2024-07-09 05:08] LABS: Hematocrit (blood only) 31.9 % (37.0-47.0); Hemoglobin 10.7 g/dl (12.0-16.0); Mean Corpuscular Hemoglobin 29.9 pg (25.0-34.0); Mean Corpuscular Hgb Conc 33.5 g/dL (32.0-36.0); Mean Corpuscular Volume 89.1 fL (80.0-100.0); Mean Platelet Volume 9.4 fL (9.4-12.4); Platelet Count 237 K/uL (130-400); RDW Coefficient of Variation 13.2 % (11.5-14.5); RDW Standard Deviation 42.9 fL (36.4-46.3); Red Blood Count 3.58 M/uL (4.20-5.40); White Blood Count 3.09 K/ul (4.8-10.8)
[2024-07-09 05:20] LABS: Albumin Globulin Ratio 1.4 (0.9-2); Albumin Level 3.5 gm/dl (3.4-5.0); BUN Creatinine Ratio 22.2 (10-20); Bilirubin,Total 0.8 mg/dl (0.2-1.0); Calcium 8.9 mg/dl (8.6-10.3); Creatinine Clr Calc Pharmacy 67.3 ml/min; Globulin 2.5 gm/dl (2.5-4.0); Potassium 4.2 mmol/L (3.5-5.1)
[2024-07-09 05:59] LABS: Basophils # (auto) 0.03 K/uL (0.00-0.20); Eosinophils # (auto) 0.11 K/uL (0.00-0.50); Eosinophils % (auto) 3.6 %; Immature Granulocytes # (auto) 0.01 K/uL (0.01-0.20); Immature Granulocytes % (auto) 0.3 %; Lymphocytes % (auto) 42.1 %; Monocytes # (auto) 0.92 K/uL (0.11-0.59); Monocytes % (auto) 29.8 %; Neutrophils # (auto) 0.72 K/uL (1.40-6.50); Neutrophils % (auto) 23.2 %; Polychromasia 1+
--- NOTE | 2024-07-09 14:12 | Psychiatric Progress Note ---
Date of Service July 09, 2024 Impression / Recommendations Impression Diagnostically consistent with acute exacerbation of psychosis, differential includes worsening episode of schizoaffective disorder vs delirium from recent COVID infection/hyponatremia/alternative cause. Labwork notable for elevated TSH but normal T4. Acute risk of self-harm and harm of others is elevated and high given command AH telling her to harm herself and harm others. Overnight has not required agitation medication. Neutrophil counts are improving. Concern for continued auditory hallucinations, hyperreligiosity, disorientation. Pursuing 303 involuntary commitment due to concern of inability to maintain personal safety and manage basic needs and potential risk of harm to others. Would benefit from geriatric psychiatry admission given severity of her symptoms and on-going behavioral problems. Overall, I spent a total of 30 minutes with this case including review of chart records, nursing report, review of lab work, direct evaluation of the patient at bedside, counseling the patient, discussion of the patient with the hospitalist provider, discussion with the psychiatric liaison during clinical rounds, and documentation in the electronic health record. (1) Schizoaffective disorder: (2) Hallucinations: Plan -1:1 due to safety concerns -302 involuntary for geriatric psychiatry transfer, 303 petition filed -Safe tray and suicide precautions -Continue haldol, Depakote DR and trazodone as ordered -Continue olanzapine 5mg HS -For behavioral emergency: Thorazine 12.5mg PO/IM Q8hr PRN for agitation. Do not exceed 50mg/daily. Interval History Chief Complaint Psychosis Subjective Subjective Nursing reports patient has been religiously preoccupied. Has had some crying spells. Eating her meals well. On interview patient appears disoriented. She reports being "happy". Says that "Maxi for our sins". When asked about pain she reports that "pain on Maxi". Says that she is in [facility] and that it is 1950. When asked for the current president as she replies President Jayla. Has difficulty engaging in the conversation. Physical Exam Psychiatric Orientation: alert, oriented to person and cooperative Apperance: + disheveled Eye Contact: + fair eye contact Motor Behavior: + EPS (TD of lips and hands) Speech: + abnormal rate/rhythm/volume of speech (latent) Affect: + blunted affect Mood: + depressed mood Thought Process: + thought blocking and + concrete thought process Thought Content: + preoccupation Suicidal Thoughts: denies suicidal plan Homicidal Thoughts: denies homicidal plan Hallucinations: + auditory hallucinations Insight: + poor insight Judgment: + poor judgement Vital Signs (Past 24 Hours) Last Vital Signs Temp 36.9 C 07/09/24 07:42 Pulse 82 07/08/24 20:55 Resp 16 07/09/24 07:42 BP 127/69 07/09/24 07:42 Pulse Ox 95 07/09/24 07:42 O2 Del Method Room Air 07/09/24 08:00 Results & Data ([facility]) Laboratory Results Laboratory Results - last 24 hr 07/08/24 07/08/24 07/09/24 16:45 19:52 04:39 WBC 3.09 L RBC 3.58 L Hgb 10.7 L Hct 31.9 L MCV 89.1 MCH 29.9 MCHC 33.5 RDW Std Deviation 42.9 RDW Coeff of Joe 13.2 Plt Count 237 MPV 9.4 Immature Gran % (Auto) 0.3 Neut % (Auto) 23.2 Lymph % (Auto) 42.1 [place] % (Auto) 29.8 Eos % (Auto) 3.6 Baso % (Auto) 1.0 Neut # (Auto) 0.72 L* Lymph # (Auto) 1.30 [place] # (Auto) 0.92 H Eos # (Auto) 0.11 Baso # (Auto) 0.03 Immature Gran # (Auto) 0.01 Polychromasia 1+ Sodium 134 L Potassium 4.2 Chloride 101 Carbon Dioxide 25 Anion Gap 8 BUN 18 Creatinine 0.81 Est Cr Clr Drug Dosing 67.3 eGFR 77.56 BUN/Creatinine Ratio 22.2 H Glucose 130 H POC Glucose 112 H 169 H Calcium 8.9 Total Bilirubin 0.8 AST 14 ALT 11 Alkaline Phosphatase 73 Total Protein 6.0 Albumin 3.5 Globulin 2.5 Albumin/Globulin Ratio 1.4 07/09/24 07/09/24 07:54 11:23 WBC RBC Hgb Hct MCV MCH MCHC RDW Std Deviation RDW Coeff of Joe Plt Count MPV Immature Gran % (Auto) Neut % (Auto) Lymph % (Auto) [place] % (Auto) Eos % (Auto) Baso % (Auto) Neut # (Auto) Lymph # (Auto) [place] # (Auto) Eos # (Auto) Baso # (Auto) Immature Gran # (Auto) Polychromasia Sodium Potassium Chloride Carbon Dioxide Anion Gap BUN Creatinine Est Cr Clr Drug Dosing eGFR BUN/Creatinine Ratio Glucose POC Glucose 143 H 215 H Calcium Total Bilirubin AST ALT Alkaline Phosphatase Total Protein Albumin Globulin Albumin/Globulin Ratio Current Inpatient Medications Current Inpatient Medications: Current Inpatient Medications Acetaminophen (Acetaminophen 325 Mg Tab) 650 mg PO Q4H PRN PRN Reason: Pain or Fever Stop: 07/31/24 08:00 Last Admin: 07/07/24 21:43 Dose: 650 mg Amantadine HCl (Amantadine Hcl Syrup 50 Mg/5 Ml Udp) 50 mg PO BID@0600,1300 [facility] Stop: 07/31/24 08:29 Last Admin: 07/09/24 12:47 Dose: Not Given Amlodipine Besylate (Amlodipine Besylate 5 Mg Tab) 10 mg PO DAILY [facility] Stop: 07/31/24 08:59 Last Admin: 07/09/24 07:45 Dose: 10 mg Aspirin (Aspirin 81 Mg Ectab) 81 mg PO HS [facility] Stop: 07/31/24 20:59 Last Admin: 07/08/24 21:58 Dose: 81 mg Atorvastatin Calcium (Atorvastatin 40 Mg Tab) 80 mg PO HS [facility] Stop: 07/31/24 20:59 Last Admin: 07/08/24 21:58 Dose: 80 mg Calcium Carbonate (Calcium Carbonate 500 Mg Chewable Tab) 1,000 mg PO TID PRN PRN Reason: heartburn/indigestion Calcium Carbonate (Calcium Carbonate 1250mg Tab) 1 tab PO BID [facility] Stop: 07/31/24 08:59 Last Admin: 07/09/24 07:46 Dose: 1 tab Cefdinir (Cefdinir 300 Mg Cap) 300 mg PO BID [facility]; Protocol Stop: 07/13/24 20:59 Last Admin: 07/09/24 07:46 Dose: 300 mg Chlorpromazine HCl (Chlorpromazine Hcl 25 Mg/Ml Amp) 12.5 mg IM TID PRN PRN Reason: Agitation Stop: 08/06/24 17:46 Cyanocobalamin (Cyanocobalamin (B-12) 500 Mcg Tablet) 1,000 mcg PO DAILY [facility] Stop: 07/31/24 08:59 Last Admin: 07/09/24 07:46 Dose: 1,000 mcg Dextrose (Dextrose 50% 50 Ml Syringe) 25 - 50 ml IV UD PRN; Protocol PRN Reason: Hypoglycemia Protocol Stop: 07/31/24 08:00 Diphenhydramine HCl (Diphenhydramine Capsule 25 Mg Cap) 25 mg PO HS [facility] Stop: 07/31/24 20:59 Last Admin: 07/08/24 21:58 Dose: 25 mg Divalproex Sodium (Divalproex Sodium Sprinkle/Del-Rel 125 Mg Cap) 250 mg PO BID [facility] Stop: 07/31/24 08:59 Last Admin: 07/09/24 09:28 Dose: 250 mg Docusate Sodium (Docusate Sodium 100 Mg Cap) 100 mg PO BID [facility] Stop: 07/31/24 08:59 Last Admin: 07/09/24 07:44 Dose: 100 mg Fluticasone Propionate (Fluticasone Propionate Na Spr 16 Gm Btl) 1 sprays NA BID [facility] Stop: 07/31/24 08:59 Last Admin: 07/09/24 07:45 Dose: 1 sprays Glucagon (Glucagon For Inj 1 Mg Vial) 1 mg SQ UD PRN; Protocol PRN Reason: Hypoglycemia Protocol Stop: 07/31/24 08:00 Glucose (Glucose 40% Gel 15 Gm Tube) 15 - 30 gm PO UD PRN; Protocol PRN Reason: Hypoglycemia Protocol Stop: 07/31/24 08:00 Glucose (Glucose 10 Tab/Tube) 4 - 8 tab PO UD PRN; Protocol PRN Reason: Hypoglycemia Protocol Stop: 07/31/24 08:00 Guaifenesin/Dextromethorphan (Guaifenesin/Dextrom Syrup 100mg/10mg 5ml Udc) 10 ml PO Q4H PRN PRN Reason: Cough Stop: 07/31/24 08:00 Last Admin: 07/03/24 20:29 Dose: 10 ml Haloperidol (Haloperidol 5 Mg Tab) 5 mg PO QAM [facility] Stop: 07/31/24 08:59 Last Admin: 07/09/24 07:45 Dose: 5 mg Haloperidol (Haloperidol 5 Mg Tab) 10 mg PO HS [facility] Stop: 07/31/24 20:59 Last Admin: 07/08/24 21:58 Dose: 10 mg Haloperidol (Haloperidol 1 Mg Tab) 2 mg PO DAILY@1300 [facility] Stop: 07/31/24 12:59 Last Admin: 07/09/24 12:37 Dose: 2 mg Insulin Aspart (Insulin Aspart Per Unit Charge) 0 units SC ACHS [facility] Stop: 07/31/24 11:59 Last Admin: 07/09/24 12:22 Dose: 7 units Levothyroxine Sodium (Levothyroxine Sodium 175 Mcg Tablet) 175 mcg PO DAILYBB [facility] Stop: 07/31/24 08:14 Last Admin: 07/09/24 05:55 Dose: 175 mcg Loperamide HCl (Loperamide Hcl 2 Mg Cap) 2 mg PO Q4H PRN PRN Reason: loose stools Stop: 07/31/24 08:00 Losartan Potassium (Losartan Potassium 50 Mg Tab) 50 mg PO QAM [facility] Stop: 07/31/24 08:59 Last Admin: 07/09/24 07:44 Dose: 50 mg Melatonin (Melatonin 3 Mg Tab) 6 mg PO HS [facility] Stop: 07/31/24 20:59 Last Admin: 07/08/24 21:58 Dose: 6 mg Metoprolol Tartrate (Metoprolol Tartrate 25 Mg Tab) 25 mg PO BID [facility] Stop: 07/31/24 08:59 Last Admin: 07/09/24 07:44 Dose: 25 mg Miscellaneous (Carbohydrates For Hypoglycemia ) 15 - 30 gm PO UD PRN PRN Reason: Hypoglycemia Protocol Stop: 07/31/24 08:00 Multivitamins/Minerals (Cerovite Adv Formula Tab) 1 tab PO DAILY [facility] Stop: 07/31/24 08:59 Last Admin: 07/09/24 07:44 Dose: 1 tab Nitroglycerin (Nitroglycerin Sl 0.4 Mg/Tab Tab) 0.4 mg SL Q5M PRN PRN Reason: Chest Pain Stop: 07/31/24 08:00 Nystatin (Nystatin Cr 15 Gm Tube) 1 appln EXT BID PRN PRN Reason: Rash Stop: 07/31/24 08:00 Last Admin: 07/03/24 20:29 Dose: 1 appln Olanzapine (Olanzapine 2.5 Mg Tab) 2.5 mg PO QAM [facility] Stop: 07/31/24 14:29 Last Admin: 07/09/24 07:46 Dose: 2.5 mg Olanzapine (Olanzapine 5 Mg Tablet) 5 mg PO HS [facility] Stop: 08/05/24 20:59 Last Admin: 07/08/24 21:58 Dose: 5 mg Polyethylene Glycol (Polyethylene (Miralax) 17 Gm Pack) 17 gm PO DAILY PRN PRN Reason: Constipation Stop: 07/31/24 08:00 Trazodone HCl (Trazodone Hcl 50 Mg Tab) 50 mg PO [facility] Stop: 07/31/24 20:59 Last Admin: 07/08/24 21:58 Dose: 50 mg Vitamin D (Cholecalciferol 25 Mcg (1000 Units) Tab) 50 mcg PO DAILY [facility] Stop: 07/31/24 08:59 Last Admin: 07/09/24 07:44 Dose: 50 mcg
--- NOTE | 2024-07-09 17:06 | Hospitalist Progress Note ---
Date of Service July 09, 2024 Assessment & Plan (1) Mental health disorder: Plan Ms. Garcia is a 73-year-old female currently living at [facility] with past medical history significant for schizophrenia, bipolar disorder, mood disorder, hyperlipidemia, hypothyroidism, diabetes, hypertension who was brought in because of ongoing worsening hallucinations and agitation. Patient sustpected to be experiencing an acute exacerbation of psychosis. ER planned for geriatric psychiatric unit but her EKG was abnormal and had mild elevation of troponin so medicine team called for admission. Pt is stable for discharge to Geriatric Psych facility #Acute exacerbation of psychosis #schizophrenia and bipolar disorder Acute on chronic metabolic/toxic encephalopathy Worsening mental status recently with hallucinations and agitation Patient on haloperidol, divalproex and Latuda CT head unremarkable Tox screen negative COVID negative One-on-one sitter Delirium precautions. Frequent reorientation, avoid sedating medications as able Psych consult, appreciate recs. Recommended/stated the following: "1:1 due to safety concerns She may not leave AMA, would meet 302 criteria, if attempts to leave call psych liason and security Safe tray and suicide precautions Continue Shamar locke DR and trazodone as ordered Discontinue Latuda Start olanzapine 2.5mg qAM and 10mg HS For behavioral emergency: olanzapine 5mg po/IM BID prn (DO NOT exceed 10mg via IM sources per 24 hours, check EKG if IM dose required, NEVER co-administer with IM or IV benzodiazepines)." Plan for geriatric psych unit CM to help with discharge planning 07/06/24- Psych in search of geriatric psych placement #Abnormal EKG Mild elevation of troponin at 16.6 before downtrending EKG with concern for t wave inversions Echo with EF greater than 70%, moderate left ventricular hypertrophy, no wall motion abnormalities, grade 1 diastolic dysfunction Complaints of some chest discomfort on admission Cardiology was consulted, recommended/stated the following - continue with cardiac medical management with aspirin, atorvastatin, metoprolol, losartan -Notes patient is not a candidate for stress testing or other cardiac testing due to current mental state continue to monitor on telemetry #Uncomplicated UTI UA suggestive of infection, urine culture currently growing E. coli and Klebsiella varicola UTI could be contributing to the acute exacerbation of her symptoms noted above Treated with empiric Rocephin- switched to po cefdinir based on cultures Stable for discharge #Neutropenia Noted on labs Peripheral smear from 07/01/24 noting "No overt changes of a myelodysplastic syndrome or hemolytic anemia are seen. The reviewed findings are consistent with a non-specific normochromic, normocytic anemia (potentially anemia of chronic disease) and leukopenia due to neutropenia. Neutropenia may be secondary to a variety of medications." Discussed with Psychiatry- meds olanzapine, Haldol and depakote can all cause a neutropenia. Recommended decreasing qhs dose of olanzapine to 5mg to see if there is any improvement. -Per psychiatrist Dr Fall on 07/07/24, -iso neutropenia, Thorazine 12.5mg IM for agitation CBC w/ diff in am #Diabetes Hold home p.o. medications Sliding scale Will monitor #Hypertension On amlodipine and losartan and metoprolol tartrate Will monitor #Hyperlipidemia On statin #Hypothyroidism On Synthroid TSH is 13 but free T4 is normal at 0.9 Needs follow-up after acute illness Diet: DMII, HH/safe tray DVT prophylaxis: SCDs for now CODE STATUS: Full code for now . Per [facility] no paperwork for CODE STATUS seen. Dispo:pending [facility] psych bed Admission and Anticipated Discharge Date Admission Date: July 01, 2024 Subjective NAEO Evaluated after voiding bowels--reports feeling "good" and "so happy" Denies any medical concerns at time of exam and seemingly in a calm state at time of visit Physical Exam Constitutional: WD/WN, vitals as above repitive habits--washed hands 10 times, fast rapid breathing ongoing during exam, but able to redirect Respiratory: normal respiratory effort, lungs clear to auscultation Cardiovascular: +RENATA Results & Data Results & Data Vital Signs (Past 12 Hours) Vital Signs Temp Resp BP Pulse Ox O2 Del Method 07/09/24 08:00 Room Air 07/09/24 07:42 36.9 C 16 127/69 95 Room Air Laboratory Results Short CBC 07/09/24 Range/Units 04:39 WBC 3.09 L (4.8-10.8) K/ul Hgb 10.7 L (12.0-16.0) g/dl Hct 31.9 L (37.0-47.0) % Plt Count 237 (130-400) K/uL BMP 07/09/24 04:39 Sodium 134 L Potassium 4.2 Chloride 101 Carbon Dioxide 25 BUN 18 Creatinine 0.81 Glucose 130 H Calcium 8.9 Liver Function 12/18/24 Range/Units 04:39 Total Bilirubin 0.8 (0.2-1.0) mg/dl AST 14 (13-39) U/L ALT 11 (7-52) U/L Alkaline Phosphatase 73 (34-104) U/L Albumin 3.5 (3.4-5.0) gm/dl Medications Administered Home Medications Medication Instructions Recorded Confirmed Last Taken acetaminophen 325 mg tablet 650 mg PO QID PRN Pain 02/06/20 07/01/24 Unknown atorvastatin 80 mg tablet 80 mg PO HS 02/06/20 07/01/24 Unknown calcium carbonate (Oyster Shell 500 mg PO BID 02/06/20 07/01/24 Unknown Calcium 500) cholecalciferol (vitamin D3) 50 50 mcg PO DAILY 02/06/20 07/01/24 Unknown mcg (2,000 unit) capsule (Vitamin D3) divalproex 125 mg capsule,delayed 250 mg PO BID 02/06/20 07/01/24 Unknown release sprinkle docusate sodium 100 mg capsule 100 mg PO BID Constipation 02/06/20 07/01/24 Unknown fluticasone propionate 50 1 spray intranasal BID 02/06/20 07/01/24 Unknown mcg/actuation nasal spray,suspension glipizide 5 mg tablet, extended 10 mg PO DAILY 02/06/20 07/01/24 Unknown release 24 hr levothyroxine 137 mcg tablet 175 mcg PO DAILY 02/06/20 07/01/24 Unknown lurasidone 120 mg tablet (Latuda) 160 mg PO DAILY 02/06/20 07/01/24 Unknown multivitamin,jz-xxxm-uobtezba 27 1 tab PO DAILY 02/06/20 07/01/24 Unknown mg-0.4 mg tablet (Therems-M) trazodone 100 mg tablet 50 mg PO HS 02/06/20 07/01/24 Unknown amlodipine 10 mg tablet (Norvasc) 10 mg PO DAILY #30 tabs 02/09/20 07/01/24 Unknown aspirin 81 mg tablet,delayed 81 mg PO HS #90 tabs 02/09/20 07/01/24 Unknown release losartan 50 mg tablet 50 mg PO QAM #30 tabs 02/09/20 07/01/24 Unknown metoprolol tartrate 25 mg tablet 25 mg PO BID #60 tabs 02/09/20 07/01/24 Unknown Calcium Antacid 1,000 mg PO TID PRN 06/28/24 07/01/24 Unknown heartburn/indigestion amantadine HCl 100 mg tablet 50 mg PO BID 06/28/24 07/01/24 06/30/24 06:00 biotin 1,000 mcg chewable tablet 1,000 mcg PO DAILY 06/28/24 07/01/24 Unknown cyanocobalamin (vitamin B-12) 1,000 mcg PO DAILY 06/28/24 07/01/24 Unknown 1,000 mcg tablet dextromethorphan-guaifenesin 10 10 ml PO Q4H PRN Cough 06/28/24 07/01/24 Unknown mg-100 mg/5 mL oral syrup (Tussin DM) diphenhydramine HCl 25 mg capsule 25 mg PO HS 06/28/24 07/01/24 Unknown (Banophen) glipizide 5 mg tablet 2.5 mg PO DAILY 06/28/24 07/01/24 Unknown haloperidol 10 mg tablet 10 mg PO HS 06/28/24 07/01/24 Unknown haloperidol 2 mg tablet 2 mg PO DAILY 06/28/24 07/01/24 Unknown haloperidol 5 mg tablet 5 mg PO QAM 06/28/24 07/01/24 Unknown loperamide 2 mg capsule 2 mg PO Q4H PRN loose stools 06/28/24 07/01/24 Unknown melatonin 5 mg tablet 5 mg PO HS 06/28/24 07/01/24 Unknown nystatin 100,000 unit/gram topical 1 applic topical BID PRN Rash 06/28/24 07/01/24 Unknown cream Active Medications Generic Name Dose Route Start Last Admin Trade Name Freq PRN Reason Stop Dose Admin Acetaminophen 650 mg 07/01/24 08:01 07/07/24 21:43 Acetaminophen 325 Mg Tab PO 07/31/24 08:00 650 mg Q4H PRN Administration Pain or Fever Amantadine HCl 50 mg 07/01/24 08:30 07/09/24 12:47 Amantadine Hcl Syrup 50 Mg/5 Ml Udp PO 07/31/24 08:29 Not Given BID@0600,1300 PENELOPE Amlodipine Besylate 10 mg 07/01/24 09:00 07/09/24 07:45 Amlodipine Besylate 5 Mg Tab PO 07/31/24 08:59 10 mg DAILY PENELOPE Administration Aspirin 81 mg 07/01/24 21:00 07/08/24 21:58 Aspirin 81 Mg Ectab PO 07/31/24 20:59 81 mg HS PENELOPE Administration Atorvastatin Calcium 80 mg 07/01/24 21:00 07/08/24 21:58 Atorvastatin 40 Mg Tab PO 07/31/24 20:59 80 mg HS PENELOPE Administration Calcium Carbonate 1 tab 07/01/24 09:00 07/09/24 07:46 Calcium Carbonate 1250mg Tab PO 07/31/24 08:59 1 tab BID PENELOPE Administration Cefdinir 300 mg 07/03/24 21:00 07/09/24 07:46 Cefdinir 300 Mg Cap PO 07/13/24 20:59 300 mg BID PENELOPE Administration Protocol Cyanocobalamin 1,000 mcg 07/01/24 09:00 07/09/24 07:46 Cyanocobalamin (B-12) 500 Mcg Tablet PO 07/31/24 08:59 1,000 mcg DAILY PENELOPE Administration Diphenhydramine HCl 25 mg 07/01/24 21:00 07/08/24 21:58 Diphenhydramine Capsule 25 Mg Cap PO 07/31/24 20:59 25 mg HS PENELOPE Administration Divalproex Sodium 250 mg 07/01/24 09:00 07/09/24 09:28 Divalproex Sodium Sprinkle/Del-Rel 125 Mg Cap PO 07/31/24 08:59 250 mg BID PENELOPE Administration Docusate Sodium 100 mg 07/01/24 09:00 07/09/24 07:44 Docusate Sodium 100 Mg Cap PO 07/31/24 08:59 100 mg BID PENELOPE Administration Fluticasone Propionate 1 sprays 07/01/24 09:00 07/09/24 07:45 Fluticasone Propionate Na Spr 16 Gm Btl NA 07/31/24 08:59 1 sprays BID PENELOPE Administration Guaifenesin/Dextromethorphan 10 ml 07/01/24 08:01 07/03/24 20:29 Guaifenesin/Dextrom Syrup 100mg/10mg 5ml Udc PO 07/31/24 08:00 10 ml Q4H PRN Administration Cough Haloperidol 5 mg 07/01/24 09:00 07/09/24 07:45 Haloperidol 5 Mg Tab PO 07/31/24 08:59 5 mg QAM PENELOPE Administration Haloperidol 10 mg 07/01/24 21:00 07/08/24 21:58 Haloperidol 5 Mg Tab PO 07/31/24 20:59 10 mg HS PENELOPE Administration Haloperidol 2 mg 07/01/24 13:00 07/09/24 12:37 Haloperidol 1 Mg Tab PO 07/31/24 12:59 2 mg DAILY@1300 PENELOPE Administration Insulin Aspart 0 units 07/01/24 17:15 07/09/24 12:22 Insulin Aspart Per Unit Charge SC 07/31/24 11:59 7 units ACHS PENELOPE Administration Levothyroxine Sodium 175 mcg 07/01/24 08:15 07/09/24 05:55 Levothyroxine Sodium 175 Mcg Tablet PO 07/31/24 08:14 175 mcg DAILYBB PENELOPE Administration Losartan Potassium 50 mg 07/01/24 09:00 07/09/24 07:44 Losartan Potassium 50 Mg Tab PO 07/31/24 08:59 50 mg QAM PENELOPE Administration Melatonin 6 mg 07/01/24 21:00 07/08/24 21:58 Melatonin 3 Mg Tab PO 07/31/24 20:59 6 mg HS PENELOPE Administration Metoprolol Tartrate 25 mg 07/01/24 09:00 07/09/24 07:44 Metoprolol Tartrate 25 Mg Tab PO 07/31/24 08:59 25 mg BID PENELOPE Administration Multivitamins/Minerals 1 tab 07/01/24 09:00 07/09/24 07:44 Cerovite Adv Formula Tab PO 07/31/24 08:59 1 tab DAILY PENELOPE Administration Nystatin 1 appln 07/01/24 08:01 07/03/24 20:29 Nystatin Cr 15 Gm Tube EXT 07/31/24 08:00 1 appln BID PRN Administration Rash Olanzapine 2.5 mg 07/01/24 14:30 07/09/24 07:46 Olanzapine 2.5 Mg Tab PO 07/31/24 14:29 2.5 mg QAM PENELOPE Administration Olanzapine 5 mg 07/06/24 21:00 07/08/24 21:58 Olanzapine 5 Mg Tablet PO 08/05/24 20:59 5 mg HS PENELOPE Administration Trazodone HCl 50 mg 07/01/24 21:00 07/08/24 21:58 Trazodone Hcl 50 Mg Tab PO 07/31/24 20:59 50 mg HS PENELOPE Administration Vitamin D 50 mcg 07/01/24 09:00 07/09/24 07:44 Cholecalciferol 25 Mcg (1000 Units) Tab PO 07/31/24 08:59 50 mcg DAILY PENELOPE Administration
[2024-07-09] MEDS: chlorproMAZINE HCL 25 MG/ML AMP IM PRN (21:02)
[2024-07-10 08:22] LABS: Hematocrit (blood only) 30.8 % (37.0-47.0); Hemoglobin 10.3 g/dl (12.0-16.0); Mean Corpuscular Hemoglobin 29.8 pg (25.0-34.0); Mean Corpuscular Hgb Conc 33.4 g/dL (32.0-36.0); Mean Platelet Volume 9.7 fL (9.4-12.4); Platelet Count 231 K/uL (130-400); RDW Coefficient of Variation 13.2 % (11.5-14.5); Red Blood Count 3.46 M/uL (4.20-5.40); White Blood Count 2.39 K/ul (4.8-10.8)
[2024-07-10 08:34] LABS: BUN Creatinine Ratio 19.7 (10-20); Calcium 8.8 mg/dl (8.6-10.3); Creatinine Clr Calc Pharmacy 82.5 ml/min; Potassium 4.3 mmol/L (3.5-5.1)
[2024-07-10 08:53] LABS: Basophils # (auto) 0.03 K/uL (0.00-0.20); Basophils % (auto) 1.3 %; Eosinophils # (auto) 0.14 K/uL (0.00-0.50); Eosinophils % (auto) 5.9 %; Lymphocytes # (auto) 1.28 K/uL (1.20-3.40); Lymphocytes % (auto) 53.6 %; Monocytes # (auto) 0.64 K/uL (0.11-0.59); Monocytes % (auto) 26.8 %; Neutrophils % (auto) 12.4 %
--- NOTE | 2024-07-10 11:53 | Hospitalist Progress Note ---
Date of Service July 10, 2024 Assessment & Plan (1) Mental health disorder: Plan Ms. Garcia is a 73-year-old female currently living at [facility] with past medical history significant for schizophrenia, bipolar disorder, mood disorder, hyperlipidemia, hypothyroidism, diabetes, hypertension who was brought in because of ongoing worsening hallucinations and agitation. Patient sustpected to be experiencing an acute exacerbation of psychosis. ER planned for geriatric psychiatric unit but her EKG was abnormal and had mild elevation of troponin so medicine team called for admission. Patient remains stable with no acute changes to plan. Pt is stable for discharge to Geriatric Psych facility #Acute exacerbation of psychosis #schizophrenia and bipolar disorder Acute on chronic metabolic/toxic encephalopathy Worsening mental status recently with hallucinations and agitation Patient on haloperidol, divalproex and Latuda CT head unremarkable Tox screen negative COVID negative One-on-one sitter Delirium precautions. Frequent reorientation, avoid sedating medications as able Psych consult, appreciate recs. Recommended/stated the following: "1:1 due to safety concerns She may not leave AMA, would meet 302 criteria, if attempts to leave call psych liason and security Safe tray and suicide precautions Continue Shamar locke DR and trazodone as ordered Discontinue Latuda Start olanzapine 2.5mg qAM and 10mg HS For behavioral emergency: olanzapine 5mg po/IM BID prn (DO NOT exceed 10mg via IM sources per 24 hours, check EKG if IM dose required, NEVER co-administer with IM or IV benzodiazepines)." Plan for geriatric psych unit CM to help with discharge planning 07/06/24- Psych in search of geriatric psych placement #Abnormal EKG Mild elevation of troponin at 16.6 before downtrending EKG with concern for t wave inversions Echo with EF greater than 70%, moderate left ventricular hypertrophy, no wall motion abnormalities, grade 1 diastolic dysfunction Complaints of some chest discomfort on admission Cardiology was consulted, recommended/stated the following - continue with cardiac medical management with aspirin, atorvastatin, metoprolol, losartan -Notes patient is not a candidate for stress testing or other cardiac testing due to current mental state continue to monitor on telemetry #Uncomplicated UTI UA suggestive of infection, urine culture currently growing E. coli and Klebsiella varicola UTI could be contributing to the acute exacerbation of her symptoms noted above Treated with empiric Rocephin- switched to po cefdinir based on cultures Stable for discharge #Chronic Neutropenia Noted on labs Peripheral smear from 07/01/24 noting "No overt changes of a myelodysplastic syndrome or hemolytic anemia are seen. The reviewed findings are consistent with a non-specific normochromic, normocytic anemia (potentially anemia of chronic disease) and leukopenia due to neutropenia. Neutropenia may be secondary to a variety of medications." Discussed with Psychiatry- meds olanzapine, Haldol and depakote can all cause a neutropenia. Recommended decreasing qhs dose of olanzapine to 5mg to see if there is any improvement. -Per psychiatrist Dr Fall on 07/07/24, -iso neutropenia, Thorazine 12.5mg IM for agitation CBC w/ diff in am #Diabetes Hold home p.o. medications Sliding scale Will monitor #Hypertension On amlodipine and losartan and metoprolol tartrate Will monitor #Hyperlipidemia On statin #Hypothyroidism On Synthroid TSH is 13 but free T4 is normal at 0.9 Needs follow-up after acute illness Diet: DMII, HH/safe tray DVT prophylaxis: SCDs for now CODE STATUS: Full code for now . Per intermediate no paperwork for CODE STATUS seen. Dispo:pending [facility] bed Admission and Anticipated Discharge Date Admission Date: July 01, 2024 Subjective NAEO Reports sleeping well and continues to "feel good" no chest pain, sob, or other concerns Physical Exam Constitutional: WD/WN, vitals as above Respiratory: normal respiratory effort, lungs clear to auscultation Cardiovascular: RRR, no murmur, no edema Gastrointestinal (Abdomen): normal bowel sounds, soft, nontender, no hepatosplenomegaly Results & Data Results & Data Vital Signs (Past 12 Hours) Vital Signs Temp Pulse Resp BP Pulse Ox O2 Del Method 07/10/24 08:02 36.8 C 73 18 129/72 93 Room Air
--- NOTE | 2024-07-11 14:44 | Hospitalist Progress Note ---
Date of Service July 11, 2024 Assessment & Plan (1) Mental health disorder: Plan Ms. Garcia is a 73-year-old female currently living at [facility] with past medical history significant for schizophrenia, bipolar disorder, mood disorder, hyperlipidemia, hypothyroidism, diabetes, hypertension who was brought in because of ongoing worsening hallucinations and agitation. Patient sustpected to be experiencing an acute exacerbation of psychosis. ER planned for geriatric psychiatric unit but her EKG was abnormal and had mild elevation of troponin so medicine team called for admission. Patient remains stable with no acute changes to plan. 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 Frequent reorientation, avoid sedating medications as able Psych consult, appreciate recs. Recommended/stated the following: "1:1 due to safety concerns She may not leave AMA, would meet 302 criteria, if attempts to leave call psych liason and security Safe tray and suicide precautions Continue haldol, Depakote DR and trazodone as ordered Discontinue Latuda Start olanzapine 2.5mg qAM and 10mg HS For behavioral emergency: olanzapine 5mg po/IM BID prn (DO NOT exceed 10mg via IM sources per 24 hours, check EKG if IM dose required, NEVER co-administer with IM or IV benzodiazepines)." Plan for geriatric psych unit CM to help with discharge planning 07/06/24- Psych in search of geriatric psych placement #Abnormal EKG Mild elevation of troponin at 16.6 before downtrending EKG with concern for t wave inversions Echo with EF greater than 70%, moderate left ventricular hypertrophy, no wall motion abnormalities, grade 1 diastolic dysfunction Complaints of some chest discomfort on admission Cardiology was consulted, recommended/stated the following - continue with cardiac medical management with aspirin, atorvastatin, metoprolol, losartan -Notes patient is not a candidate for stress testing or other cardiac testing due to current mental state continue to monitor on telemetry #Uncomplicated UTI UA suggestive of infection, urine culture currently growing E. coli and Klebsiella varicola UTI could be contributing to the acute exacerbation of her symptoms noted above Treated with empiric Rocephin- switched to po cefdinir based on cultures Stable for discharge #Chronic Neutropenia Noted on labs Peripheral smear from 07/01/24 noting "No overt changes of a myelodysplastic syndrome or hemolytic anemia are seen. The reviewed findings are consistent with a non-specific normochromic, normocytic anemia (potentially anemia of chronic disease) and leukopenia due to neutropenia. Neutropenia may be secondary to a variety of medications." Discussed with Psychiatry- meds olanzapine, Haldol and depakote can all cause a neutropenia. Recommended decreasing qhs dose of olanzapine to 5mg to see if there is any improvement. -Per psychiatrist Dr Fall on 07/07/24, -iso neutropenia, Thorazine 12.5mg IM for agitation CBC w/ diff in am #Diabetes Hold home p.o. medications Sliding scale Will monitor #Hypertension On amlodipine and losartan and metoprolol tartrate Will monitor #Hyperlipidemia On statin #Hypothyroidism On Synthroid TSH is 13 but free T4 is normal at 0.9 Needs follow-up after acute illness Diet: DMII, HH/safe tray DVT prophylaxis: SCDs for now CODE STATUS: Full code for now . Per residential no paperwork for CODE STATUS seen. Dispo:pending [facility]rian psych bed Admission and Anticipated Discharge Date Admission Date: July 01, 2024 Subjective NAEO Physical Exam Constitutional: WD/WN, vitals as above Respiratory: normal respiratory effort, lungs clear to auscultation Cardiovascular: RENATA+ Results & Data Results & Data Vital Signs (Past 12 Hours) Vital Signs Temp Pulse BP Pulse Ox O2 Del Method 07/11/24 07:50 36.7 C 77 158/82 H 97 Room Air 07/11/24 07:35 Room Air Medications Administered Home Medications Medication Instructions Recorded Confirmed Last Taken acetaminophen 325 mg tablet 650 mg PO QID PRN Pain 02/06/20 07/01/24 Unknown atorvastatin 80 mg tablet 80 mg PO HS 02/06/20 07/01/24 Unknown calcium carbonate (Oyster Shell 500 mg PO BID 02/06/20 07/01/24 Unknown Calcium 500) cholecalciferol (vitamin D3) 50 50 mcg PO DAILY 02/06/20 07/01/24 Unknown mcg (2,000 unit) capsule (Vitamin D3) divalproex 125 mg capsule,delayed 250 mg PO BID 02/06/20 07/01/24 Unknown release sprinkle docusate sodium 100 mg capsule 100 mg PO BID Constipation 02/06/20 07/01/24 Unknown fluticasone propionate 50 1 spray intranasal BID 02/06/20 07/01/24 Unknown mcg/actuation nasal spray,suspension glipizide 5 mg tablet, extended 10 mg PO DAILY 02/06/20 07/01/24 Unknown release 24 hr levothyroxine 137 mcg tablet 175 mcg PO DAILY 02/06/20 07/01/24 Unknown lurasidone 120 mg tablet (Latuda) 160 mg PO DAILY 02/06/20 07/01/24 Unknown multivitamin,js-tjaw-yevbhkxr 27 1 tab PO DAILY 02/06/20 07/01/24 Unknown mg-0.4 mg tablet (Therems-M) trazodone 100 mg tablet 50 mg PO HS 02/06/20 07/01/24 Unknown amlodipine 10 mg tablet (Norvasc) 10 mg PO DAILY #30 tabs 02/09/20 07/01/24 Unknown aspirin 81 mg tablet,delayed 81 mg PO HS #90 tabs 02/09/20 07/01/24 Unknown release losartan 50 mg tablet 50 mg PO QAM #30 tabs 02/09/20 07/01/24 Unknown metoprolol tartrate 25 mg tablet 25 mg PO BID #60 tabs 02/09/20 07/01/24 Unknown Calcium Antacid 1,000 mg PO TID PRN 06/28/24 07/01/24 Unknown heartburn/indigestion amantadine HCl 100 mg tablet 50 mg PO BID 06/28/24 07/01/24 06/30/24 06:00 biotin 1,000 mcg chewable tablet 1,000 mcg PO DAILY 06/28/24 07/01/24 Unknown cyanocobalamin (vitamin B-12) 1,000 mcg PO DAILY 06/28/24 07/01/24 Unknown 1,000 mcg tablet dextromethorphan-guaifenesin 10 10 ml PO Q4H PRN Cough 06/28/24 07/01/24 Unknown mg-100 mg/5 mL oral syrup (Tussin DM) diphenhydramine HCl 25 mg capsule 25 mg PO HS 06/28/24 07/01/24 Unknown (Banophen) glipizide 5 mg tablet 2.5 mg PO DAILY 06/28/24 07/01/24 Unknown haloperidol 10 mg tablet 10 mg PO HS 06/28/24 07/01/24 Unknown haloperidol 2 mg tablet 2 mg PO DAILY 06/28/24 07/01/24 Unknown haloperidol 5 mg tablet 5 mg PO QAM 06/28/24 07/01/24 Unknown loperamide 2 mg capsule 2 mg PO Q4H PRN loose stools 06/28/24 07/01/24 Unknown melatonin 5 mg tablet 5 mg PO HS 06/28/24 07/01/24 Unknown nystatin 100,000 unit/gram topical 1 applic topical BID PRN Rash 06/28/24 07/01/24 Unknown cream Active Medications Generic Name Dose Route Start Last Admin Trade Name Freq PRN Reason Stop Dose Admin Acetaminophen 650 mg 07/01/24 08:01 07/10/24 04:18 Acetaminophen 325 Mg Tab PO 07/31/24 08:00 650 mg Q4H PRN Administration Pain or Fever Amantadine HCl 50 mg 07/01/24 08:30 07/11/24 12:44 Amantadine Hcl Syrup 50 Mg/5 Ml Udp PO 07/31/24 08:29 50 mg BID@0600,1300 PENELOPE Administration Amlodipine Besylate 10 mg 07/01/24 09:00 07/11/24 08:12 Amlodipine Besylate 5 Mg Tab PO 07/31/24 08:59 10 mg DAILY PENELOPE Administration Aspirin 81 mg 07/01/24 21:00 07/10/24 21:56 Aspirin 81 Mg Ectab PO 07/31/24 20:59 81 mg HS PENELOPE Administration Atorvastatin Calcium 80 mg 07/01/24 21:00 07/10/24 21:55 Atorvastatin 40 Mg Tab PO 07/31/24 20:59 80 mg HS PENELOPE Administration Calcium Carbonate 1 tab 07/01/24 09:00 07/11/24 08:12 Calcium Carbonate 1250mg Tab PO 07/31/24 08:59 1 tab BID PENELOEP Administration Cefdinir 300 mg 07/03/24 21:00 07/11/24 08:12 Cefdinir 300 Mg Cap PO 07/13/24 20:59 300 mg BID PENELOPE Administration Protocol Chlorpromazine HCl 12.5 mg 07/07/24 17:47 07/09/24 21:02 Chlorpromazine Hcl 25 Mg/Ml Amp IM 08/06/24 17:46 12.5 mg TID PRN Administration Agitation Cyanocobalamin 1,000 mcg 07/01/24 09:00 07/11/24 08:13 Cyanocobalamin (B-12) 500 Mcg Tablet PO 07/31/24 08:59 1,000 mcg DAILY PENELOPE Administration Diphenhydramine HCl 25 mg 07/01/24 21:00 07/10/24 21:48 Diphenhydramine Capsule 25 Mg Cap PO 07/31/24 20:59 25 mg HS PENELOPE Administration Divalproex Sodium 250 mg 07/01/24 09:00 07/11/24 08:13 Divalproex Sodium Sprinkle/Del-Rel 125 Mg Cap PO 07/31/24 08:59 250 mg BID PENELOPE Administration Docusate Sodium 100 mg 07/01/24 09:00 07/11/24 08:21 Docusate Sodium 100 Mg Cap PO 07/31/24 08:59 100 mg BID PENELOPE Administration Fluticasone Propionate 1 sprays 07/01/24 09:00 07/11/24 08:13 Fluticasone Propionate Na Spr 16 Gm Btl NA 07/31/24 08:59 1 sprays BID PENELOPE Administration Guaifenesin/Dextromethorphan 10 ml 07/01/24 08:01 07/03/24 20:29 Guaifenesin/Dextrom Syrup 100mg/10mg 5ml Udc PO 07/31/24 08:00 10 ml Q4H PRN Administration Cough Haloperidol 5 mg 07/01/24 09:00 07/11/24 08:13 Haloperidol 5 Mg Tab PO 07/31/24 08:59 5 mg QAM PENELOPE Administration Haloperidol 10 mg 07/01/24 21:00 07/10/24 21:58 Haloperidol 5 Mg Tab PO 07/31/24 20:59 10 mg HS PENELOPE Administration Haloperidol 2 mg 07/01/24 13:00 07/11/24 12:44 Haloperidol 1 Mg Tab PO 07/31/24 12:59 2 mg DAILY@1300 PENELOPE Administration Insulin Aspart 0 units 07/01/24 17:15 07/11/24 12:39 Insulin Aspart Per Unit Charge SC 07/31/24 11:59 6 units ACHS PENELOPE Administration Levothyroxine Sodium 175 mcg 07/01/24 08:15 07/11/24 06:07 Levothyroxine Sodium 175 Mcg Tablet PO 07/31/24 08:14 175 mcg DAILYBB PENELOPE Administration Losartan Potassium 50 mg 07/01/24 09:00 07/11/24 08:13 Losartan Potassium 50 Mg Tab PO 07/31/24 08:59 50 mg QAM PENELOPE Administration Melatonin 6 mg 07/01/24 21:00 07/10/24 21:48 Melatonin 3 Mg Tab PO 07/31/24 20:59 6 mg HS PENELOPE Administration Metoprolol Tartrate 25 mg 07/01/24 09:00 07/11/24 08:14 Metoprolol Tartrate 25 Mg Tab PO 07/31/24 08:59 25 mg BID PENELOPE Administration Multivitamins/Minerals 1 tab 07/01/24 09:00 07/11/24 08:14 Cerovite Adv Formula Tab PO 07/31/24 08:59 1 tab DAILY PENELOPE Administration Nystatin 1 appln 07/01/24 08:01 07/03/24 20:29 Nystatin Cr 15 Gm Tube EXT 07/31/24 08:00 1 appln BID PRN Administration Rash Olanzapine 2.5 mg 07/01/24 14:30 07/11/24 08:14 Olanzapine 2.5 Mg Tab PO 07/31/24 14:29 2.5 mg QAM PENELOPE Administration Olanzapine 5 mg 07/06/24 21:00 07/10/24 22:00 Olanzapine 5 Mg Tablet PO 08/05/24 20:59 5 mg HS PENELOPE Administration Trazodone HCl 50 mg 07/01/24 21:00 07/10/24 21:48 Trazodone Hcl 50 Mg Tab PO 07/31/24 20:59 50 mg HS PENELOPE Administration Vitamin D 50 mcg 07/01/24 09:00 07/11/24 08:13 Cholecalciferol 25 Mcg (1000 Units) Tab PO 07/31/24 08:59 50 mcg DAILY PENELOPE Administration
[2024-07-12 06:49] LABS: Hemoglobin 11.7 g/dl (12.0-16.0); Mean Corpuscular Hemoglobin 29.8 pg (25.0-34.0); Mean Corpuscular Hgb Conc 33.4 g/dL (32.0-36.0); Mean Corpuscular Volume 89.1 fL (80.0-100.0); Mean Platelet Volume 9.6 fL (9.4-12.4); Platelet Count 254 K/uL (130-400); RDW Coefficient of Variation 13.2 % (11.5-14.5); RDW Standard Deviation 43.1 fL (36.4-46.3); Red Blood Count 3.93 M/uL (4.20-5.40); White Blood Count 2.78 K/ul (4.8-10.8)
--- NOTE | 2024-07-12 11:56 | Hospitalist Progress Note ---
Date of Service July 12, 2024 Assessment & Plan (1) Mental health disorder: Plan Ms. Garcia is a 73-year-old female currently living at [facility] with past medical history significant for schizophrenia, bipolar disorder, mood disorder, hyperlipidemia, hypothyroidism, diabetes, hypertension who was brought in because of ongoing worsening hallucinations and agitation. Patient sustpected to be experiencing an acute exacerbation of psychosis. ER planned for geriatric psychiatric unit but her EKG was abnormal and had mild elevation of troponin so medicine team called for admission. Patient remains stable with no acute changes to plan. Pt is stable for discharge to Geriatric Psych facility Review of liaison notes reveal multiple referrals pending at this time #Diarrhea completed abx, will hold stool softener and CTM #Acute exacerbation of psychosis #schizophrenia and bipolar disorder Acute on chronic metabolic/toxic encephalopathy Worsening mental status recently with hallucinations and agitation Patient on haloperidol, divalproex and Latuda CT head unremarkable Tox screen negative COVID negative One-on-one sitter Delirium precautions. Frequent reorientation, avoid sedating medications as able Psych consult, appreciate recs. Recommended/stated the following: "1:1 due to safety concerns She may not leave AMA, would meet 302 criteria, if attempts to leave call psych liason and security Safe tray and suicide precautions Continue haldol, Depakote DR and trazodone as ordered continue olanzapine 2.5mg qAM and 10mg HS Plan for geriatric psych unit CM to help with discharge planning 07/06/24- Psych in search of geriatric psych placement #Abnormal EKG Mild elevation of troponin at 16.6 before downtrending EKG with concern for t wave inversions Echo with EF greater than 70%, moderate left ventricular hypertrophy, no wall motion abnormalities, grade 1 diastolic dysfunction Complaints of some chest discomfort on admission Cardiology was consulted, recommended/stated the following - continue with cardiac medical management with aspirin, atorvastatin, metoprolol, losartan -Notes patient is not a candidate for stress testing or other cardiac testing due to current mental state continue to monitor on telemetry #Uncomplicated UTI UA suggestive of infection, urine culture currently growing E. coli and Klebsiella varicola UTI could be contributing to the acute exacerbation of her symptoms noted above completed abx #Chronic Neutropenia Noted on labs Peripheral smear from 07/01/24 noting "No overt changes of a myelodysplastic syndrome or hemolytic anemia are seen. The reviewed findings are consistent with a non-specific normochromic, normocytic anemia (potentially anemia of chronic disease) and leukopenia due to neutropenia. Neutropenia may be secondary to a variety of medications." Discussed with Psychiatry- meds olanzapine, Haldol and depakote can all cause a neutropenia. Recommended decreasing qhs dose of olanzapine to 5mg to see if there is any improvement. -Per psychiatrist Dr Fall on 07/07/24, -iso neutropenia, Thorazine 12.5mg IM for agitation CBC w/ diff in am #Diabetes Hold home p.o. medications Sliding scale Will monitor #Hypertension On amlodipine and losartan and metoprolol tartrate Will monitor #Hyperlipidemia On statin #Hypothyroidism On Synthroid TSH is 13 but free T4 is normal at 0.9 Needs follow-up after acute illness Diet: DMII, HH/safe tray DVT prophylaxis: SCDs for now CODE STATUS: Full code for now . Per [facility] no paperwork for CODE STATUS seen. Dispo:pending brian psych bed Admission and Anticipated Discharge Date Admission Date: July 01, 2024 Subjective Denies any concerns this am, resting in bed Reports of an episode of diarrhea Physical Exam Constitutional: WD/WN, vitals as above Respiratory: normal respiratory effort, lungs clear to auscultation Cardiovascular: RENATA Results & Data Results & Data Vital Signs (Past 12 Hours) Vital Signs Temp Pulse Resp BP Pulse Ox O2 Del Method 07/12/24 07:26 36.5 C 73 16 120/74 96 Room Air Laboratory Results Short CBC 07/12/24 Range/Units 06:23 WBC 2.78 L (4.8-10.8) K/ul Hgb 11.7 L (12.0-16.0) g/dl Hct 35.0 L (37.0-47.0) % Plt Count 254 (130-400) K/uL Medications Administered Home Medications Medication Instructions Recorded Confirmed Last Taken acetaminophen 325 mg tablet 650 mg PO QID PRN Pain 02/06/20 07/01/24 Unknown atorvastatin 80 mg tablet 80 mg PO HS 02/06/20 07/01/24 Unknown calcium carbonate (Oyster Shell 500 mg PO BID 02/06/20 07/01/24 Unknown Calcium 500) cholecalciferol (vitamin D3) 50 50 mcg PO DAILY 02/06/20 07/01/24 Unknown mcg (2,000 unit) capsule (Vitamin D3) divalproex 125 mg capsule,delayed 250 mg PO BID 02/06/20 07/01/24 Unknown release sprinkle docusate sodium 100 mg capsule 100 mg PO BID Constipation 02/06/20 07/01/24 Unknown fluticasone propionate 50 1 spray intranasal BID 02/06/20 07/01/24 Unknown mcg/actuation nasal spray,suspension glipizide 5 mg tablet, extended 10 mg PO DAILY 02/06/20 07/01/24 Unknown release 24 hr levothyroxine 137 mcg tablet 175 mcg PO DAILY 02/06/20 07/01/24 Unknown lurasidone 120 mg tablet (Latuda) 160 mg PO DAILY 02/06/20 07/01/24 Unknown multivitamin,ut-nowq-gatfscoc 27 1 tab PO DAILY 02/06/20 07/01/24 Unknown mg-0.4 mg tablet (Therems-M) trazodone 100 mg tablet 50 mg PO HS 02/06/20 07/01/24 Unknown amlodipine 10 mg tablet (Norvasc) 10 mg PO DAILY #30 tabs 02/09/20 07/01/24 Unknown aspirin 81 mg tablet,delayed 81 mg PO HS #90 tabs 02/09/20 07/01/24 Unknown release losartan 50 mg tablet 50 mg PO QAM #30 tabs 02/09/20 07/01/24 Unknown metoprolol tartrate 25 mg tablet 25 mg PO BID #60 tabs 02/09/20 07/01/24 Unknown Calcium Antacid 1,000 mg PO TID PRN 06/28/24 07/01/24 Unknown heartburn/indigestion amantadine HCl 100 mg tablet 50 mg PO BID 06/28/24 07/01/24 06/30/24 06:00 biotin 1,000 mcg chewable tablet 1,000 mcg PO DAILY 06/28/24 07/01/24 Unknown cyanocobalamin (vitamin B-12) 1,000 mcg PO DAILY 06/28/24 07/01/24 Unknown 1,000 mcg tablet dextromethorphan-guaifenesin 10 10 ml PO Q4H PRN Cough 06/28/24 07/01/24 Unknown mg-100 mg/5 mL oral syrup (Tussin DM) diphenhydramine HCl 25 mg capsule 25 mg PO HS 06/28/24 07/01/24 Unknown (Banophen) glipizide 5 mg tablet 2.5 mg PO DAILY 06/28/24 07/01/24 Unknown haloperidol 10 mg tablet 10 mg PO HS 06/28/24 07/01/24 Unknown haloperidol 2 mg tablet 2 mg PO DAILY 06/28/24 07/01/24 Unknown haloperidol 5 mg tablet 5 mg PO QAM 06/28/24 07/01/24 Unknown loperamide 2 mg capsule 2 mg PO Q4H PRN loose stools 06/28/24 07/01/24 Unknown melatonin 5 mg tablet 5 mg PO HS 06/28/24 07/01/24 Unknown nystatin 100,000 unit/gram topical 1 applic topical BID PRN Rash 06/28/24 07/01/24 Unknown cream Active Medications Generic Name Dose Route Start Last Admin Trade Name Freq PRN Reason Stop Dose Admin Acetaminophen 650 mg 07/01/24 08:01 07/12/24 07:17 Acetaminophen 325 Mg Tab PO 07/31/24 08:00 650 mg Q4H PRN Administration Pain or Fever Amantadine HCl 50 mg 07/01/24 08:30 07/12/24 05:37 Amantadine Hcl Syrup 50 Mg/5 Ml Udp PO 07/31/24 08:29 50 mg BID@0600,1300 PENELOPE Administration Amlodipine Besylate 10 mg 07/01/24 09:00 07/12/24 08:40 Amlodipine Besylate 5 Mg Tab PO 07/31/24 08:59 10 mg DAILY PENELOPE Administration Aspirin 81 mg 07/01/24 21:00 07/11/24 21:14 Aspirin 81 Mg Ectab PO 07/31/24 20:59 81 mg HS PENELOPE Administration Atorvastatin Calcium 80 mg 07/01/24 21:00 07/11/24 21:14 Atorvastatin 40 Mg Tab PO 07/31/24 20:59 80 mg HS PENELOPE Administration Calcium Carbonate 1 tab 07/01/24 09:00 07/12/24 09:08 Calcium Carbonate 1250mg Tab PO 07/31/24 08:59 1 tab BID PENELOPE Administration Chlorpromazine HCl 12.5 mg 07/07/24 17:47 07/09/24 21:02 Chlorpromazine Hcl 25 Mg/Ml Amp IM 08/06/24 17:46 12.5 mg TID PRN Administration Agitation Cyanocobalamin 1,000 mcg 07/01/24 09:00 07/12/24 08:40 Cyanocobalamin (B-12) 500 Mcg Tablet PO 07/31/24 08:59 1,000 mcg DAILY PENELOPE Administration Diphenhydramine HCl 25 mg 07/01/24 21:00 07/11/24 21:15 Diphenhydramine Capsule 25 Mg Cap PO 07/31/24 20:59 25 mg HS PENELOPE Administration Divalproex Sodium 250 mg 07/01/24 09:00 07/12/24 08:41 Divalproex Sodium Sprinkle/Del-Rel 125 Mg Cap PO 07/31/24 08:59 250 mg BID PENELOPE Administration Docusate Sodium 100 mg 07/01/24 09:00 07/12/24 08:44 Docusate Sodium 100 Mg Cap PO 07/31/24 08:59 Not Given BID PENELOPE Fluticasone Propionate 1 sprays 07/01/24 09:00 07/12/24 08:41 Fluticasone Propionate Na Spr 16 Gm Btl NA 07/31/24 08:59 1 sprays BID PENELOPE Administration Guaifenesin/Dextromethorphan 10 ml 07/01/24 08:01 07/03/24 20:29 Guaifenesin/Dextrom Syrup 100mg/10mg 5ml Udc PO 07/31/24 08:00 10 ml Q4H PRN Administration Cough Haloperidol 5 mg 07/01/24 09:00 07/12/24 08:42 Haloperidol 5 Mg Tab PO 07/31/24 08:59 5 mg QAM PENELOPE Administration Haloperidol 10 mg 07/01/24 21:00 07/11/24 21:17 Haloperidol 5 Mg Tab PO 07/31/24 20:59 10 mg HS PENELOPE Administration Haloperidol 2 mg 07/01/24 13:00 07/11/24 12:44 Haloperidol 1 Mg Tab PO 07/31/24 12:59 2 mg DAILY@1300 PENELOPE Administration Insulin Aspart 0 units 07/01/24 17:15 07/12/24 08:55 Insulin Aspart Per Unit Charge SC 07/31/24 11:59 8 units ACHS PENELOPE Administration Levothyroxine Sodium 175 mcg 07/01/24 08:15 07/12/24 05:37 Levothyroxine Sodium 175 Mcg Tablet PO 07/31/24 08:14 175 mcg DAILYBB PENELOPE Administration Losartan Potassium 50 mg 07/01/24 09:00 07/12/24 08:43 Losartan Potassium 50 Mg Tab PO 07/31/24 08:59 50 mg QAM PENELOPE Administration Melatonin 6 mg 07/01/24 21:00 07/11/24 21:17 Melatonin 3 Mg Tab PO 07/31/24 20:59 6 mg HS PENELOPE Administration Metoprolol Tartrate 25 mg 07/01/24 09:00 07/12/24 08:43 Metoprolol Tartrate 25 Mg Tab PO 07/31/24 08:59 25 mg BID PENELOPE Administration Multivitamins/Minerals 1 tab 07/01/24 09:00 07/12/24 08:43 Cerovite Adv Formula Tab PO 07/31/24 08:59 1 tab DAILY PENELOPE Administration Nystatin 1 appln 07/01/24 08:01 07/03/24 20:29 Nystatin Cr 15 Gm Tube EXT 07/31/24 08:00 1 appln BID PRN Administration Rash Olanzapine 2.5 mg 07/01/24 14:30 07/12/24 08:44 Olanzapine 2.5 Mg Tab PO 07/31/24 14:29 2.5 mg QAM PENELOPE Administration Olanzapine 5 mg 07/06/24 21:00 07/11/24 21:18 Olanzapine 5 Mg Tablet PO 08/05/24 20:59 5 mg HS PENELOPE Administration Trazodone HCl 50 mg 07/01/24 21:00 07/11/24 21:18 Trazodone Hcl 50 Mg Tab PO 07/31/24 20:59 50 mg HS PENELOPE Administration Vitamin D 50 mcg 07/01/24 09:00 07/12/24 08:40 Cholecalciferol 25 Mcg (1000 Units) Tab PO 07/31/24 08:59 50 mcg DAILY PENELOPE Administration
[2024-07-12] MEDS: CALCIUM CARBONATE 500 MG CHEWABLE TAB PO PRN (20:58)
[2024-07-13 07:28] LABS: Hematocrit (blood only) 33.1 % (37.0-47.0); Mean Corpuscular Hemoglobin 29.6 pg (25.0-34.0); Mean Corpuscular Hgb Conc 33.2 g/dL (32.0-36.0); Mean Corpuscular Volume 89.2 fL (80.0-100.0); Mean Platelet Volume 9.8 fL (9.4-12.4); Platelet Count 251 K/uL (130-400); RDW Coefficient of Variation 13.2 % (11.5-14.5); RDW Standard Deviation 43.5 fL (36.4-46.3); Red Blood Count 3.71 M/uL (4.20-5.40); White Blood Count 2.45 K/ul (4.8-10.8)
[2024-07-13 07:41] LABS: BUN Creatinine Ratio 15.4 (10-20); Creatinine Clr Calc Pharmacy 83.8 ml/min; Potassium 4.3 mmol/L (3.5-5.1)
--- NOTE | 2024-07-13 12:58 | Psychiatric Progress Note ---
Date of Service July 13, 2024 Impression / Recommendations Impression Diagnostically consistent with acute exacerbation of psychosis, differential includes worsening episode of schizoaffective disorder vs delirium from recent COVID infection/hyponatremia/alternative cause. Labwork notable for elevated TSH but normal T4. Acute risk of self-harm and harm of others is elevated and high given command AH telling her to harm herself and harm others. A: Continues to be disoriented, agitated and unable to be redirected at times. Geriatric psychiatry bed search pending. Request previously made to home facility for medication history and pending. CBCs reviewed and neutrophil counts decreased since initiation of olanzapine; recommend to discontinue olanzapine and check CBC daily for improvement. Recommend repeat UA to confirmation UTI resolution. Additional concern that Thorazine may also contribute to neutropenia and pt may benefit from alternate agent to control agitation. Recommend Lorazepam PRN, however if disinhibiting to the patient recommend to d/c and utilize Haloperidol PRN for agitation. Overall, I spent a total of 30 minutes with this case including review of chart records, nursing report, review of lab work, direct evaluation of the patient at bedside, counseling the patient, discussion of the patient with the hospitalist provider, discussion with the psychiatric liaison during clinical rounds, and documentation in the electronic health record. (1) Schizoaffective disorder: (2) Hallucinations: (3) Neutropenia: Plan -Repeat UA, CBC with diff -D/C Olanzapine 2.5mg QAM, 5mg HS d/t neutropenia concerns -Increase nightly Depakote to 500mg HS -D/C Diphenhydramine 25mg HS -Continue Haldol, Trazodone -1:1 due to safety concerns -303 involuntary commitment, geriatric psychiatry bed search pending -Safe tray and suicide precautions -For behavioral emergency: Lorazepam 1mg PO/IM Q8hr PRN for agitation, anxiety. If ineffective Haloperidol 2.5 PO/IM Q8hr PRN for agitation. Interval History Chief Complaint Agitation, AMS Subjective Subjective Recently has required Thorazine PRN for agitation. Difficult to redirect. On interview, AO to self only. "1961". Slurred speech. C/o hearing voices saying she "wasn't there." Endorses elevated mood. Denies pain. Unable to engage meaningfully in the conversation. Physical Exam Psychiatric Orientation: alert, oriented to person, oriented to place and cooperative Apperance: + disheveled Eye Contact: + fair eye contact Motor Behavior: + EPS (TD of lips and hands) Speech: + abnormal rate/rhythm/volume of speech (latent) Affect: + flat affect and + blunted affect Mood: + depressed mood Thought Process: + thought blocking and + concrete thought process Thought Content: + preoccupation Suicidal Thoughts: denies suicidal plan; + reports suicidal thoughts (d/t command AH) Homicidal Thoughts: denies homicidal plan; + reports homicidal thoughts (d/t command AH) Hallucinations: + auditory hallucinations Insight: + poor insight Judgment: + poor judgement Vital Signs (Past 24 Hours) Last Vital Signs Temp 36.9 C 07/13/24 07:02 Pulse 77 07/13/24 07:02 Resp 20 07/13/24 07:02 BP 160/82 H 07/13/24 07:02 Pulse Ox 94 07/13/24 07:02 O2 Del Method Room Air 07/13/24 07:02 Results & Data ([facility]) Laboratory Results Laboratory Results - last 24 hr 07/12/24 07/12/24 07/13/24 16:51 20:20 06:54 WBC 2.45 L RBC 3.71 L Hgb 11.0 L Hct 33.1 L MCV 89.2 MCH 29.6 MCHC 33.2 RDW Std Deviation 43.5 RDW Coeff of Joe 13.2 Plt Count 251 MPV 9.8 Sodium 138 Potassium 4.3 Chloride 104 Carbon Dioxide 28 Anion Gap 6 BUN 10 Creatinine 0.65 Est Cr Clr Drug Dosing 83.8 eGFR 94.07 BUN/Creatinine Ratio 15.4 Glucose 149 H POC Glucose 147 H 218 H Calcium 9.0 07/13/24 07/13/24 07:31 11:25 WBC RBC Hgb Hct MCV MCH MCHC RDW Std Deviation RDW Coeff of Joe Plt Count MPV Sodium Potassium Chloride Carbon Dioxide Anion Gap BUN Creatinine Est Cr Clr Drug Dosing eGFR BUN/Creatinine Ratio Glucose POC Glucose 156 H 212 H Calcium Current Inpatient Medications Current Inpatient Medications: Current Inpatient Medications Acetaminophen (Acetaminophen 325 Mg Tab) 650 mg PO Q4H PRN PRN Reason: Pain or Fever Stop: 07/31/24 08:00 Last Admin: 07/13/24 08:56 Dose: 650 mg Amantadine HCl (Amantadine Hcl Syrup 50 Mg/5 Ml Udp) 50 mg PO BID@0600,1300 [facility] Stop: 07/31/24 08:29 Last Admin: 07/13/24 12:09 Dose: 50 mg Amlodipine Besylate (Amlodipine Besylate 5 Mg Tab) 10 mg PO DAILY [facility] Stop: 07/31/24 08:59 Last Admin: 07/13/24 08:37 Dose: 10 mg Aspirin (Aspirin 81 Mg Ectab) 81 mg PO HS [facility] Stop: 07/31/24 20:59 Last Admin: 07/12/24 21:28 Dose: 81 mg Atorvastatin Calcium (Atorvastatin 40 Mg Tab) 80 mg PO HS [facility] Stop: 07/31/24 20:59 Last Admin: 07/12/24 21:25 Dose: 80 mg Calcium Carbonate (Calcium Carbonate 500 Mg Chewable Tab) 1,000 mg PO TID PRN PRN Reason: heartburn/indigestion Last Admin: 07/12/24 20:58 Dose: 1,000 mg Calcium Carbonate (Calcium Carbonate 1250mg Tab) 1 tab PO BID [facility] Stop: 07/31/24 08:59 Last Admin: 07/13/24 08:39 Dose: 1 tab Cyanocobalamin (Cyanocobalamin (B-12) 500 Mcg Tablet) 1,000 mcg PO DAILY [facility] Stop: 07/31/24 08:59 Last Admin: 07/13/24 08:37 Dose: 1,000 mcg Dextrose (Dextrose 50% 50 Ml Syringe) 25 - 50 ml IV UD PRN; Protocol PRN Reason: Hypoglycemia Protocol Stop: 07/31/24 08:00 Diphenhydramine HCl (Diphenhydramine Capsule 25 Mg Cap) 25 mg PO HS [facility] Stop: 07/31/24 20:59 Last Admin: 07/12/24 20:59 Dose: 25 mg Divalproex Sodium (Divalproex Sodium Sprinkle/Del-Rel 125 Mg Cap) 250 mg PO QAM [facility] Stop: 08/13/24 08:59 Divalproex Sodium (Divalproex Sodium Sprinkle/Del-Rel 125 Mg Cap) 500 mg PO QPM [facility] Stop: 08/12/24 20:59 Docusate Sodium (Docusate Sodium 100 Mg Cap) 100 mg PO BID [facility] Stop: 07/31/24 08:59 Last Admin: 07/12/24 08:44 Dose: Not Given Fluticasone Propionate (Fluticasone Propionate Na Spr 16 Gm Btl) 1 sprays NA BID [facility] Stop: 07/31/24 08:59 Last Admin: 07/13/24 08:36 Dose: 1 sprays Glucagon (Glucagon For Inj 1 Mg Vial) 1 mg SQ UD PRN; Protocol PRN Reason: Hypoglycemia Protocol Stop: 07/31/24 08:00 Glucose (Glucose 40% Gel 15 Gm Tube) 15 - 30 gm PO UD PRN; Protocol PRN Reason: Hypoglycemia Protocol Stop: 07/31/24 08:00 Glucose (Glucose 10 Tab/Tube) 4 - 8 tab PO UD PRN; Protocol PRN Reason: Hypoglycemia Protocol Stop: 07/31/24 08:00 Guaifenesin/Dextromethorphan (Guaifenesin/Dextrom Syrup 100mg/10mg 5ml Udc) 10 ml PO Q4H PRN PRN Reason: Cough Stop: 07/31/24 08:00 Last Admin: 07/03/24 20:29 Dose: 10 ml Haloperidol (Haloperidol 5 Mg Tab) 5 mg PO QAM [facility] Stop: 07/31/24 08:59 Last Admin: 07/13/24 08:36 Dose: 5 mg Haloperidol (Haloperidol 5 Mg Tab) 10 mg PO HS [facility] Stop: 07/31/24 20:59 Last Admin: 07/12/24 21:25 Dose: 10 mg Haloperidol (Haloperidol 1 Mg Tab) 2 mg PO DAILY@1300 [facility] Stop: 07/31/24 12:59 Last Admin: 07/13/24 12:26 Dose: 2 mg Insulin Aspart (Insulin Aspart Per Unit Charge) 0 units SC ACHS [facility] Stop: 07/31/24 11:59 Last Admin: 07/13/24 12:13 Dose: 4 units Levothyroxine Sodium (Levothyroxine Sodium 175 Mcg Tablet) 175 mcg PO DAILYBB [facility] Stop: 07/31/24 08:14 Last Admin: 07/13/24 05:22 Dose: 175 mcg Loperamide HCl (Loperamide Hcl 2 Mg Cap) 2 mg PO Q4H PRN PRN Reason: loose stools Stop: 07/31/24 08:00 Losartan Potassium (Losartan Potassium 50 Mg Tab) 50 mg PO QAM [facility] Stop: 07/31/24 08:59 Last Admin: 07/13/24 08:40 Dose: 50 mg Melatonin (Melatonin 3 Mg Tab) 6 mg PO HS [facility] Stop: 07/31/24 20:59 Last Admin: 07/12/24 20:57 Dose: 6 mg Metoprolol Tartrate (Metoprolol Tartrate 25 Mg Tab) 25 mg PO BID [facility] Stop: 07/31/24 08:59 Last Admin: 07/13/24 08:36 Dose: 25 mg Miscellaneous (Carbohydrates For Hypoglycemia ) 15 - 30 gm PO UD PRN PRN Reason: Hypoglycemia Protocol Stop: 07/31/24 08:00 Multivitamins/Minerals (Cerovite Adv Formula Tab) 1 tab PO DAILY [facility] Stop: 07/31/24 08:59 Last Admin: 07/13/24 08:35 Dose: 1 tab Nitroglycerin (Nitroglycerin Sl 0.4 Mg/Tab Tab) 0.4 mg SL Q5M PRN PRN Reason: Chest Pain Stop: 07/31/24 08:00 Nystatin (Nystatin Cr 15 Gm Tube) 1 appln EXT BID PRN PRN Reason: Rash Stop: 07/31/24 08:00 Last Admin: 07/03/24 20:29 Dose: 1 appln Olanzapine (Olanzapine 2.5 Mg Tab) 2.5 mg PO QAM [facility] Stop: 07/31/24 14:29 Last Admin: 07/13/24 08:34 Dose: 2.5 mg Polyethylene Glycol (Polyethylene (Miralax) 17 Gm Pack) 17 gm PO DAILY PRN PRN Reason: Constipation Stop: 07/31/24 08:00 Trazodone HCl (Trazodone Hcl 50 Mg Tab) 50 mg PO HS [facility] Stop: 07/31/24 20:59 Last Admin: 07/12/24 20:59 Dose: 50 mg Vitamin D (Cholecalciferol 25 Mcg (1000 Units) Tab) 50 mcg PO DAILY [facility] Stop: 07/31/24 08:59 Last Admin: 07/13/24 08:35 Dose: 50 mcg
[2024-07-13] MEDS: chlorproMAZINE HCL 25 MG/ML AMP IM ONE (12:59)
--- NOTE | 2024-07-13 13:02 | Hospitalist Progress Note ---
Date of Service July 13, 2024 Assessment & Plan (1) Mental health disorder: Plan Ms. Garcia is a 73-year-old female currently living at [facility] with past medical history significant for schizophrenia, bipolar disorder, mood disorder, hyperlipidemia, hypothyroidism, diabetes, hypertension who was brought in because of ongoing worsening hallucinations and agitation. Patient sustpected to be experiencing an acute exacerbation of psychosis. ER planned for geriatric psychiatric unit but her EKG was abnormal and had mild elevation of troponin so medicine team called for admission. 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 Frequent reorientation, avoid sedating medications as able Psych consult, appreciate recs. Recommended/stated the following: "1:1 due to safety concerns, remains 302 at this time Safe tray and suicide precautions Continue haldol, and trazodone as ordered Plan for geriatric psych unit Exacerbation of symptoms noted to be progressive over 48 hours requiring thorazine 07/13: Increasing depakote to 250mg qam, 500 mg qpm Discontinue olanzapine 2.5qam/5qpm Avoid further Thorazine 2/2 persistent neutropenia can consider ativan but concern for paradoxical agitation Behavioral emergency: ativan 1mg po/1IM q8h agitation/anxiety; if unsuccessful, haldol 2.5mg PO/IM q8h prn refractory agitation #Diarrhea *resolved completed abx, will hold stool softener and CTM #Abnormal EKG Mild elevation of troponin at 16.6 before downtrending EKG with concern for t wave inversions Echo with EF greater than 70%, moderate left ventricular hypertrophy, no wall motion abnormalities, grade 1 diastolic dysfunction Complaints of some chest discomfort on admission Cardiology was consulted, recommended/stated the following - continue with cardiac medical management with aspirin, atorvastatin, metoprolol, losartan -Notes patient is not a candidate for stress testing or other cardiac testing due to current mental state continue to monitor on telemetry #Uncomplicated UTI UA suggestive of infection, urine culture currently growing E. 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 The reviewed findings are consistent with a non-specific normochromic, normocytic anemia (potentially anemia of chronic disease) and leukopenia due to neutropenia. Neutropenia may be secondary to a variety of medications." Discussed with Psychiatry Risk for agranulocytosis 2/2 all meds and patient with ongoing psychiatric disturbance discontinue olanzapine, diphenhydramine and prn thorazine Liaison working to CBC w/ diff in am #Diabetes Hold home p.o. medications Sliding scale Will monitor #Hypertension On amlodipine and losartan and metoprolol tartrate Will monitor #Hyperlipidemia On statin #Hypothyroidism On Synthroid TSH is 13 but free T4 is normal at 0.9 Needs follow-up after acute illness Diet: DMII, HH/safe tray DVT prophylaxis: SCDs for now CODE STATUS: Full code for now . Per skilled nursing no paperwork for CODE STATUS seen. Dispo:pending brian psych bed Admission and Anticipated Discharge Date Admission Date: July 01, 2024 Subjective Agitated and not easily redirected religiously fixated requiring prn for agitation Physical Exam Constitutional: agitated, laying in bed thrashing arms Respiratory: normal respiratory effort, lungs clear to auscultation Cardiovascular: RENATA+ Results & Data Results & Data Vital Signs (Past 12 Hours) Vital Signs Temp Pulse Resp BP Pulse Ox O2 Del Method 07/13/24 07:02 36.9 C 77 20 160/82 H 94 Room Air Laboratory Results Short CBC 07/13/24 Range/Units 06:54 WBC 2.45 L (4.8-10.8) K/ul Hgb 11.0 L (12.0-16.0) g/dl Hct 33.1 L (37.0-47.0) % Plt Count 251 (130-400) K/uL BMP 07/13/24 06:54 Sodium 138 Potassium 4.3 Chloride 104 Carbon Dioxide 28 BUN 10 Creatinine 0.65 Glucose 149 H Calcium 9.0 Medications Administered Home Medications Medication Instructions Recorded Confirmed Last Taken acetaminophen 325 mg tablet 650 mg PO QID PRN Pain 02/06/20 07/01/24 Unknown atorvastatin 80 mg tablet 80 mg PO HS 02/06/20 07/01/24 Unknown calcium carbonate (Oyster Shell 500 mg PO BID 02/06/20 07/01/24 Unknown Calcium 500) cholecalciferol (vitamin D3) 50 50 mcg PO DAILY 02/06/20 07/01/24 Unknown mcg (2,000 unit) capsule (Vitamin D3) divalproex 125 mg capsule,delayed 250 mg PO BID 02/06/20 07/01/24 Unknown release sprinkle docusate sodium 100 mg capsule 100 mg PO BID Constipation 02/06/20 07/01/24 Unknown fluticasone propionate 50 1 spray intranasal BID 02/06/20 07/01/24 Unknown mcg/actuation nasal spray,suspension glipizide 5 mg tablet, extended 10 mg PO DAILY 02/06/20 07/01/24 Unknown release 24 hr levothyroxine 137 mcg tablet 175 mcg PO DAILY 02/06/20 07/01/24 Unknown lurasidone 120 mg tablet (Latuda) 160 mg PO DAILY 02/06/20 07/01/24 Unknown multivitamin,[id number] 27 1 tab PO DAILY 02/06/20 07/01/24 Unknown mg-0.4 mg tablet (Therems-M) trazodone 100 mg tablet 50 mg PO HS 02/06/20 07/01/24 Unknown amlodipine 10 mg tablet (Norvasc) 10 mg PO DAILY #30 tabs 02/09/20 07/01/24 Unknown aspirin 81 mg tablet,delayed 81 mg PO HS #90 tabs 02/09/20 07/01/24 Unknown release losartan 50 mg tablet 50 mg PO QAM #30 tabs 02/09/20 07/01/24 Unknown metoprolol tartrate 25 mg tablet 25 mg PO BID #60 tabs 02/09/20 07/01/24 Unknown Calcium Antacid 1,000 mg PO TID PRN 06/28/24 07/01/24 Unknown heartburn/indigestion amantadine HCl 100 mg tablet 50 mg PO BID 06/28/24 07/01/24 06/30/24 06:00 biotin 1,000 mcg chewable tablet 1,000 mcg PO DAILY 06/28/24 07/01/24 Unknown cyanocobalamin (vitamin B-12) 1,000 mcg PO DAILY 06/28/24 07/01/24 Unknown 1,000 mcg tablet dextromethorphan-guaifenesin 10 10 ml PO Q4H PRN Cough 06/28/24 07/01/24 Unknown mg-100 mg/5 mL oral syrup (Tussin DM) diphenhydramine HCl 25 mg capsule 25 mg PO HS 06/28/24 07/01/24 Unknown (Banophen) glipizide 5 mg tablet 2.5 mg PO DAILY 06/28/24 07/01/24 Unknown haloperidol 10 mg tablet 10 mg PO HS 06/28/24 07/01/24 Unknown haloperidol 2 mg tablet 2 mg PO DAILY 06/28/24 07/01/24 Unknown haloperidol 5 mg tablet 5 mg PO QAM 06/28/24 07/01/24 Unknown loperamide 2 mg capsule 2 mg PO Q4H PRN loose stools 06/28/24 07/01/24 Unknown melatonin 5 mg tablet 5 mg PO HS 06/28/24 07/01/24 Unknown nystatin 100,000 unit/gram topical 1 applic topical BID PRN Rash 06/28/24 07/01/24 Unknown cream Active Medications Generic Name Dose Route Start Last Admin Trade Name Freq PRN Reason Stop Dose Admin Acetaminophen 650 mg 07/01/24 08:01 07/13/24 08:56 Acetaminophen 325 Mg Tab PO 07/31/24 08:00 650 mg Q4H PRN Administration Pain or Fever Amantadine HCl 50 mg 07/01/24 08:30 07/13/24 12:09 Amantadine Hcl Syrup 50 Mg/5 Ml Udp PO 07/31/24 08:29 50 mg BID@0600,1300 [facility] Administration Amlodipine Besylate 10 mg 07/01/24 09:00 07/13/24 08:37 Amlodipine Besylate 5 Mg Tab PO 07/31/24 08:59 10 mg DAILY [facility] Administration Aspirin 81 mg 07/01/24 21:00 07/12/24 21:28 Aspirin 81 Mg Ectab PO 07/31/24 20:59 81 mg HS [facility] Administration Atorvastatin Calcium 80 mg 07/01/24 21:00 07/12/24 21:25 Atorvastatin 40 Mg Tab PO 07/31/24 20:59 80 mg HS [facility] Administration Calcium Carbonate 1,000 mg 07/01/24 08:01 07/12/24 20:58 Calcium Carbonate 500 Mg Chewable Tab PO 1,000 mg TID PRN Administration heartburn/indigestion Calcium Carbonate 1 tab 07/01/24 09:00 07/13/24 08:39 Calcium Carbonate 1250mg Tab PO 07/31/24 08:59 1 tab BID [facility] Administration Cyanocobalamin 1,000 mcg 07/01/24 09:00 07/13/24 08:37 Cyanocobalamin (B-12) 500 Mcg Tablet PO 07/31/24 08:59 1,000 mcg DAILY [facility] Administration Diphenhydramine HCl 25 mg 07/01/24 21:00 07/12/24 20:59 Diphenhydramine Capsule 25 Mg Cap PO 07/31/24 20:59 25 mg HS [facility] Administration Docusate Sodium 100 mg 07/01/24 09:00 07/12/24 08:44 Docusate Sodium 100 Mg Cap PO 07/31/24 08:59 Not Given BID [facility] Fluticasone Propionate 1 sprays 07/01/24 09:00 07/13/24 08:36 Fluticasone Propionate Na Spr 16 Gm Btl NA 07/31/24 08:59 1 sprays BID [facility] Administration Guaifenesin/Dextromethorphan 10 ml 07/01/24 08:01 07/03/24 20:29 Guaifenesin/Dextrom Syrup 100mg/10mg 5ml Udc PO 07/31/24 08:00 10 ml Q4H PRN Administration Cough Haloperidol 5 mg 07/01/24 09:00 07/13/24 08:36 Haloperidol 5 Mg Tab PO 07/31/24 08:59 5 mg QAM [facility] Administration Haloperidol 10 mg 07/01/24 21:00 07/12/24 21:25 Haloperidol 5 Mg Tab PO 07/31/24 20:59 10 mg HS [facility] Administration Haloperidol 2 mg 07/01/24 13:00 07/13/24 12:26 Haloperidol 1 Mg Tab PO 07/31/24 12:59 2 mg DAILY@1300 [facility] Administration Insulin Aspart 0 units 07/01/24 17:15 07/13/24 12:13 Insulin Aspart Per Unit Charge SC 07/31/24 11:59 4 units ACHS [facility] Administration Levothyroxine Sodium 175 mcg 07/01/24 08:15 07/13/24 05:22 Levothyroxine Sodium 175 Mcg Tablet PO 07/31/24 08:14 175 mcg DAILYBB [facility] Administration Losartan Potassium 50 mg 07/01/24 09:00 07/13/24 08:40 Losartan Potassium 50 Mg Tab PO 07/31/24 08:59 50 mg QAM [facility] Administration Melatonin 6 mg 07/01/24 21:00 07/12/24 20:57 Melatonin 3 Mg Tab PO 07/31/24 20:59 6 mg HS [facility] Administration Metoprolol Tartrate 25 mg 07/01/24 09:00 07/13/24 08:36 Metoprolol Tartrate 25 Mg Tab PO 07/31/24 08:59 25 mg BID [facility] Administration Multivitamins/Minerals 1 tab 07/01/24 09:00 07/13/24 08:35 Cerovite Adv Formula Tab PO 07/31/24 08:59 1 tab DAILY [facility] Administration Nystatin 1 appln 07/01/24 08:01 07/03/24 20:29 Nystatin Cr 15 Gm Tube EXT 07/31/24 08:00 1 appln BID PRN Administration Rash Olanzapine 2.5 mg 07/01/24 14:30 07/13/24 08:34 Olanzapine 2.5 Mg Tab PO 07/31/24 14:29 2.5 mg QAM [facility] Administration Trazodone HCl 50 mg 07/01/24 21:00 07/12/24 20:59 Trazodone Hcl 50 Mg Tab PO 07/31/24 20:59 50 mg HS [facility] Administration Vitamin D 50 mcg 07/01/24 09:00 07/13/24 08:35 Cholecalciferol 25 Mcg (1000 Units) Tab PO 07/31/24 08:59 50 mcg DAILY [facility] Administration
[2024-07-13 13:46] LABS: Ovalocytes 1+
[2024-07-13 13:47] LABS: Basophils # (auto) 0.04 K/uL (0.00-0.20); Basophils % (auto) 1.6 %; Eosinophils # (auto) 0.14 K/uL (0.00-0.50); Eosinophils % (auto) 5.5 %; Lymphocytes # (auto) 1.31 K/uL (1.20-3.40); Lymphocytes % (auto) 51.8 %; Monocytes # (auto) 0.58 K/uL (0.11-0.59); Monocytes % (auto) 22.9 %; Neutrophils # (auto) 0.46 K/uL (1.40-6.50); Neutrophils % (auto) 18.2 %
[2024-07-13 14:38] LABS: Hematocrit (blood only) 32.8 % (37.0-47.0); Hemoglobin 11.2 g/dl (12.0-16.0); Mean Corpuscular Hemoglobin 30.4 pg (25.0-34.0); Mean Corpuscular Hgb Conc 34.1 g/dL (32.0-36.0); Mean Corpuscular Volume 88.9 fL (80.0-100.0); Mean Platelet Volume 9.6 fL (9.4-12.4); Platelet Count 259 K/uL (130-400); RDW Standard Deviation 41.9 fL (36.4-46.3); Red Blood Count 3.69 M/uL (4.20-5.40); White Blood Count 2.97 K/ul (4.8-10.8)
[2024-07-13 14:54] LABS: BUN Creatinine Ratio 16.7 (10-20); Creatinine Clr Calc Pharmacy 82.5 ml/min; Magnesium 1.5 mg/dl (1.7-2.4); Phosphorus 3.1 mg/dl (2.5-4.9); Potassium 4.4 mmol/L (3.5-5.1)
[2024-07-13 15:30] LABS: Adenovirus PCR Not Detected (NotDetected); Bordetella parapertussis PCR Not Detected (NotDetected); Bordetella pertussis PCR Not Detected (NotDetected); Chlamydia pneumoniae PCR Not Detected (NotDetected); Coronavirus 229E PCR Not Detected (NotDetected); Coronavirus CoV-2 (COVID19)PCR Not Detected (NotDetected); Coronavirus HKU1 PCR Not Detected (NotDetected); Coronavirus NL63 PCR Not Detected (NotDetected); Coronavirus OC43PCR Not Detected (NotDetected); Human Metapneumovirus PCR Not Detected (NotDetected); Influenza A PCR Not Detected (NotDetected); Influenza B PCR Not Detected (NotDetected); Mycoplasma pneumoniae PCR Not Detected (NotDetected); Parainfluenza Virus 1 PCR Not Detected (NotDetected); Parainfluenza Virus 2 PCR Not Detected (NotDetected); Parainfluenza Virus 3 PCR Not Detected (NotDetected); Parainfluenza Virus 4 PCR Not Detected (NotDetected); Respiratory Syncytial VirusPCR Not Detected (NotDetected); Rhinovirus/Enterovirus PCR Not Detected (NotDetected)
[2024-07-13 17:28] LABS: Appearance Urine Clear (Clear); Bilirubin Urine Negative (Negative); Blood Urine Negative (Negative); Color Urine Yellow; Glucose Urine UA Negative (Negative); Ketones Urine Negative (Negative); Leukocyte Esterase Urine Negative (Negative); Nitrite Urine Negative (Negative); Protein Urine Negative (Negative); Specific Gravity Urine 1.007 (1.000-1.030); Urobilinogen Urine Negative (Negative)
[2024-07-13] MEDS: DIVALPROEX SODIUM SPRINKLE/DEL-REL 125 MG CAP PO SCH (20:21)
[2024-07-14] MEDS: DIVALPROEX SODIUM SPRINKLE/DEL-REL 125 MG CAP PO SCH (08:58)
--- NOTE | 2024-07-14 09:40 | Hospitalist Progress Note ---
Date of Service July 14, 2024 Assessment & Plan (1) Mental health disorder: Plan Ms. Garcia is a 73-year-old female currently living at [facility] with past medical history significant for schizophrenia, bipolar disorder, mood disorder, hyperlipidemia, hypothyroidism, diabetes, hypertension who was brought in because of ongoing worsening hallucinations and agitation. Patient sustpected to be experiencing an acute exacerbation of psychosis. ER planned for geriatric psychiatric unit but her EKG was abnormal and had mild elevation of troponin so medicine team called for admission. Patient was treated for UTI with EOT 07/12; however, over the last few days patient with increased delusions, delirium and agitation Working to adjust medications, however, limited 2/2 neutropenia; UA and labs unrevealing Stable this am overall. 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 Frequent reorientation, avoid sedating medications as able Psych consult, appreciate recs. Recommended/stated the following: "1:1 due to safety concerns, remains 302 at this time Safe tray and suicide precautions Continue haldol, and trazodone as ordered Plan for geriatric psych unit Exacerbation of symptoms noted to be progressive over 48 hours requiring thorazine 07/13: Increasing depakote to 250mg qam, 500 mg qpm Discontinued olanzapine 2.5qam/5qpm Avoid further Thorazine 2/2 persistent neutropenia can consider ativan but concern for paradoxical agitation Behavioral emergency: ativan 1mg po/1IM q8h agitation/anxiety; if unsuccessful, haldol 2.5mg PO/IM q8h prn refractory agitation #Diarrhea *resolved completed abx, will hold stool softener and CTM #Abnormal EKG Mild elevation of troponin at 16.6 before downtrending EKG with concern for t wave inversions Echo with EF greater than 70%, moderate left ventricular hypertrophy, no wall motion abnormalities, grade 1 diastolic dysfunction Complaints of some chest discomfort on admission Cardiology was consulted, recommended/stated the following - continue with cardiac medical management with aspirin, atorvastatin, metoprolol, losartan -Notes patient is not a candidate for stress testing or other cardiac testing due to current mental state continue to monitor on telemetry #Uncomplicated UTI UA suggestive of infection, urine culture currently growing E. 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 The reviewed findings are consistent with a non-specific normochromic, normocytic anemia (potentially anemia of chronic disease) and leukopenia due to neutropenia. Neutropenia may be secondary to a variety of medications." Discussed with Psychiatry Risk for agranulocytosis 2/2 all meds and patient with ongoing psychiatric disturbance discontinue olanzapine, diphenhydramine and prn thorazine Liaison working to get information about recent med changes CBC w/ diff in am #Diabetes Hold home p.o. medications Sliding scale Will monitor #Hypertension On amlodipine and losartan and metoprolol tartrate Will monitor #Hyperlipidemia On statin #Hypothyroidism On Synthroid TSH is 13 but free T4 is normal at 0.9 Needs follow-up after acute illness Diet: DMII, HH/safe tray DVT prophylaxis: SCDs for now CODE STATUS: Full code for now . Per [place] [facility] no paperwork for CODE STATUS seen. Dispo:pending brian psych bed Admission and Anticipated Discharge Date Admission Date: July 01, 2024 Subjective Seemingly more calm this morning Using bathroom, more controlled behaviors, easier to redirect than day prior More calm per nursing staff Physical Exam Constitutional: WD/WN, vitals as above Respiratory: normal respiratory effort, lungs clear to auscultation Cardiovascular: RENATA+ Results & Data Results & Data Vital Signs (Past 12 Hours) Vital Signs Temp Pulse Resp BP Pulse Ox O2 Del Method 07/14/24 07:47 36.5 C 71 16 119/74 94 Room Air Laboratory Results Short CBC 07/13/24 07/13/24 Range/Units 06:54 14:12 WBC 2.45 L 2.97 L (4.8-10.8) K/ul Hgb 11.0 L 11.2 L (12.0-16.0) g/dl Hct 33.1 L 32.8 L (37.0-47.0) % Plt Count 251 259 (130-400) K/uL BMP 07/13/24 14:12 Sodium 134 L Potassium 4.4 Chloride 101 Carbon Dioxide 27 BUN 11 Creatinine 0.66 Glucose 195 H Calcium 9.0 Urine 07/13/24 Range/Units 17:15 Urine Color Yellow Urine Appearance Clear (Clear) Urine pH 8.0 H (4.5-7.5) Ur Specific [place] 1.007 (1.000-1.030) Urine Protein Negative (Negative) Urine Glucose (UA) Negative (Negative) Medications Administered Home Medications Medication Instructions Recorded Confirmed Last Taken acetaminophen 325 mg tablet 650 mg PO QID PRN Pain 02/06/20 07/01/24 Unknown atorvastatin 80 mg tablet 80 mg PO HS 02/06/20 07/01/24 Unknown calcium carbonate ([place] 500 mg PO BID 02/06/20 07/01/24 Unknown Calcium 500) cholecalciferol (vitamin D3) 50 50 mcg PO DAILY 02/06/20 07/01/24 Unknown mcg (2,000 unit) capsule (Vitamin D3) divalproex 125 mg capsule,delayed 250 mg PO BID 02/06/20 07/01/24 Unknown release sprinkle docusate sodium 100 mg capsule 100 mg PO BID Constipation 02/06/20 07/01/24 Unknown fluticasone propionate 50 1 spray intranasal BID 02/06/20 07/01/24 Unknown mcg/actuation nasal spray,suspension glipizide 5 mg tablet, extended 10 mg PO DAILY 02/06/20 07/01/24 Unknown release 24 hr levothyroxine 137 mcg tablet 175 mcg PO DAILY 02/06/20 07/01/24 Unknown lurasidone 120 mg tablet (Latuda) 160 mg PO DAILY 02/06/20 07/01/24 Unknown multivitamin,cj-cggi-nqnmjroi 27 1 tab PO DAILY 02/06/20 07/01/24 Unknown mg-0.4 mg tablet (Therems-M) trazodone 100 mg tablet 50 mg PO HS 02/06/20 07/01/24 Unknown amlodipine 10 mg tablet (Norvasc) 10 mg PO DAILY #30 tabs 02/09/20 07/01/24 Unknown aspirin 81 mg tablet,delayed 81 mg PO HS #90 tabs 02/09/20 07/01/24 Unknown release losartan 50 mg tablet 50 mg PO QAM #30 tabs 02/09/20 07/01/24 Unknown metoprolol tartrate 25 mg tablet 25 mg PO BID #60 tabs 02/09/20 07/01/24 Unknown Calcium Antacid 1,000 mg PO TID PRN 06/28/24 07/01/24 Unknown heartburn/indigestion amantadine HCl 100 mg tablet 50 mg PO BID 06/28/24 07/01/24 06/30/24 06:00 biotin 1,000 mcg chewable tablet 1,000 mcg PO DAILY 06/28/24 07/01/24 Unknown cyanocobalamin (vitamin B-12) 1,000 mcg PO DAILY 06/28/24 07/01/24 Unknown 1,000 mcg tablet dextromethorphan-guaifenesin 10 10 ml PO Q4H PRN Cough 06/28/24 07/01/24 Unknown mg-100 mg/5 mL oral syrup (Tussin DM) diphenhydramine HCl 25 mg capsule 25 mg PO HS 06/28/24 07/01/24 Unknown (Banophen) glipizide 5 mg tablet 2.5 mg PO DAILY 06/28/24 07/01/24 Unknown haloperidol 10 mg tablet 10 mg PO HS 06/28/24 07/01/24 Unknown haloperidol 2 mg tablet 2 mg PO DAILY 06/28/24 07/01/24 Unknown haloperidol 5 mg tablet 5 mg PO QAM 06/28/24 07/01/24 Unknown loperamide 2 mg capsule 2 mg PO Q4H PRN loose stools 06/28/24 07/01/24 Unknown melatonin 5 mg tablet 5 mg PO HS 06/28/24 07/01/24 Unknown nystatin 100,000 unit/gram topical 1 applic topical BID PRN Rash 06/28/24 07/01/24 Unknown cream Active Medications Generic Name Dose Route Start Last Admin Trade Name Tonyq PRN Reason Stop Dose Admin Acetaminophen 650 mg 07/01/24 08:01 07/13/24 08:56 Acetaminophen 325 Mg Tab PO 07/31/24 08:00 650 mg Q4H PRN Administration Pain or Fever Amantadine HCl 50 mg 07/01/24 08:30 07/14/24 06:28 Amantadine Hcl Syrup 50 Mg/5 Ml Udp PO 07/31/24 08:29 50 mg BID@0600,1300 [facility] Administration Amlodipine Besylate 10 mg 07/01/24 09:00 07/14/24 09:00 Amlodipine Besylate 5 Mg Tab PO 07/31/24 08:59 10 mg DAILY P[facility]ELOPE Administration Aspirin 81 mg 07/01/24 21:00 07/13/24 20:24 Aspirin 81 Mg Ectab PO 07/31/24 20:59 81 mg HS PENELOPE Administration Atorvastatin Calcium 80 mg 07/01/24 21:00 07/13/24 20:23 Atorvastatin 40 Mg Tab PO 07/31/24 20:59 80 mg HS PENELOPE Administration Calcium Carbonate 1,000 mg 07/01/24 08:01 07/12/24 20:58 Calcium Carbonate 500 Mg Chewable Tab PO 1,000 mg TID PRN Administration heartburn/indigestion Calcium Carbonate 1 tab 07/01/24 09:00 07/14/24 08:59 Calcium Carbonate 1250mg Tab PO 07/31/24 08:59 1 tab BID [facility]ELOPE Administration Cyanocobalamin 1,000 mcg 07/01/24 09:00 07/14/24 09:00 Cyanocobalamin (B-12) 500 Mcg Tablet PO 07/31/24 08:59 1,000 mcg DAILY [facility]OPE Administration Divalproex Sodium 250 mg 07/14/24 09:00 07/14/24 08:58 Divalproex Sodium Sprinkle/Del-Rel 125 Mg Cap PO 08/13/24 08:59 250 mg QAM P[facility]OPE Administration Divalproex Sodium 500 mg 07/13/24 21:00 07/13/24 20:21 Divalproex Sodium Sprinkle/Del-Rel 125 Mg Cap PO 08/12/24 20:59 500 mg QPM PENELOPE Administration Docusate Sodium 100 mg 07/01/24 09:00 07/12/24 08:44 Docusate Sodium 100 Mg Cap PO 07/31/24 08:59 Not Given BID PENELOPE Fluticasone Propionate 1 sprays 07/01/24 09:00 07/14/24 09:01 Fluticasone Propionate Na Spr 16 Gm Btl NA 07/31/24 08:59 1 sprays BID P[facility]ELOPE Administration Guaifenesin/Dextromethorphan 10 ml 07/01/24 08:01 07/03/24 20:29 Guaifenesin/Dextrom Syrup 100mg/10mg 5ml Udc PO 07/31/24 08:00 10 ml Q4H PRN Administration Cough Haloperidol 5 mg 07/01/24 09:00 07/14/24 08:59 Haloperidol 5 Mg Tab PO 07/31/24 08:59 5 mg QAM P[facility]ELOPE Administration Haloperidol 10 mg 07/01/24 21:00 07/13/24 20:20 Haloperidol 5 Mg Tab PO 07/31/24 20:59 10 mg HS PENELOPE Administration Haloperidol 2 mg 07/01/24 13:00 07/13/24 12:26 Haloperidol 1 Mg Tab PO 07/31/24 12:59 2 mg DAILY@1300 P[facility]ELOPE Administration Insulin Aspart 0 units 07/01/24 17:15 07/14/24 08:31 Insulin Aspart Per Unit Charge SC 07/31/24 11:59 7 units ACHS PENELOPE Administration Levothyroxine Sodium 175 mcg 07/01/24 08:15 07/14/24 06:28 Levothyroxine Sodium 175 Mcg Tablet PO 07/31/24 08:14 175 mcg DAILYBB PENELOPE Administration Losartan Potassium 50 mg 07/01/24 09:00 07/14/24 09:00 Losartan Potassium 50 Mg Tab PO 07/31/24 08:59 50 mg QAM P[facility]ELOPE Administration Melatonin 6 mg 07/01/24 21:00 07/13/24 20:25 Melatonin 3 Mg Tab PO 07/31/24 20:59 6 mg HS PENELOPE Administration Metoprolol Tartrate 25 mg 07/01/24 09:00 07/14/24 08:59 Metoprolol Tartrate 25 Mg Tab PO 07/31/24 08:59 25 mg BID PENELOPE Administration Multivitamins/Minerals 1 tab 07/01/24 09:00 07/14/24 08:58 Cerovite Adv Formula Tab PO 07/31/24 08:59 1 tab DAILY P[facility]ELOPE Administration Nystatin 1 appln 07/01/24 08:01 07/03/24 20:29 Nystatin Cr 15 Gm Tube EXT 07/31/24 08:00 1 appln BID PRN Administration Rash Trazodone HCl 50 mg 07/01/24 21:00 07/13/24 20:24 Trazodone Hcl 50 Mg Tab PO 07/31/24 20:59 50 mg HS PENELOPE Administration Vitamin D 50 mcg 07/01/24 09:00 07/14/24 08:58 Cholecalciferol 25 Mcg (1000 Units) Tab PO 07/31/24 08:59 50 mcg DAILY PENELOPE Administration
[2024-07-14] MEDS: MAGNESIUM SULFATE / D5W 1 GM/100 ML BAG IV ONE (10:46)
--- NOTE | 2024-07-14 11:23 | Psychiatric Progress Note ---
Date of Service July 14, 2024 Impression / Recommendations Impression Diagnostically consistent with acute exacerbation of psychosis, differential includes worsening episode of schizoaffective disorder vs delirium from recent COVID infection/hyponatremia/alternative cause. Labwork notable for elevated TSH but normal T4. Acute risk of self-harm and harm of others is elevated and high given command AH telling her to harm herself and harm others. A: Continues to be disoriented; behaviors improved overnight and patient slept well. Labs reviewed and UA unremarkable, UTI resolved. Neutrophil counts remain low and recommend to get CBC with diff Q1-2 days to trend. Home facility c ontacted for medication history and expected to be faxed; will review. Recommend to continue current plan. Overall, I spent a total of 40 minutes with this case including review of chart records, nursing report, review of lab work, direct evaluation of the patient at bedside, counseling the patient, discussion of the patient with the hospitalist provider, discussion with the psychiatric liaison during clinical rounds, and documentation in the electronic health record. (1) Schizoaffective disorder: (2) Hallucinations: (3) Neutropenia: Plan -CBC with diff Q1-2D -1:1 due to safety concerns -303 involuntary commitment, geriatric psychiatry bed search pending -Safe tray and suicide precautions -For behavioral emergency: Lorazepam 1mg PO/IM Q8hr PRN for agitation, anxiety. If ineffective Haloperidol 2.5 PO/IM Q8hr PRN for agitation. 07/13/24 -Increase nightly Depakote to 500mg HS -D/C Olanzapine 2.5mg QAM, 5mg HS d/t neutropenia concerns -D/C Diphenhydramine 25mg HS d/t anticholinergic effects -Continue Haldol, Trazodone -D/C Thorazine PRN d/t neutropenia concerns Interval History Chief Complaint AMS Subjective Subjective Overnight no agitation PRNs given. Per chart slept well last night, no awakenings. On interview Pt is appears cheerful. AO to self only. Says she is in "heaven." Denies pain, anxiety, or sad mood. Feels "happy". Says "Maxi likes the way you are." Sitter indicates no combativeness this AM and pt has been pleasant. Physical Exam Psychiatric Orientation: alert, oriented to person and cooperative Apperance: + disheveled Eye Contact: + fair eye contact Motor Behavior: + EPS (TD of lips and hands) Speech: + abnormal rate/rhythm/volume of speech (latent) Affect: + flat affect and + blunted affect Mood: + depressed mood Thought Process: + thought blocking and + concrete thought process Thought Content: + preoccupation Suicidal Thoughts: denies suicidal plan; + reports suicidal thoughts (d/t command AH) Homicidal Thoughts: denies homicidal plan; + reports homicidal thoughts (d/t command AH) Hallucinations: + auditory hallucinations Insight: + poor insight Judgment: + poor judgement Vital Signs (Past 24 Hours) Last Vital Signs Temp 36.5 C 07/14/24 07:47 Pulse 71 07/14/24 07:47 Resp 16 07/14/24 07:47 BP 119/74 07/14/24 07:47 Pulse Ox 94 07/14/24 07:47 O2 Del Method Room Air 07/14/24 07:47 Results & Data ([facility]) Laboratory Results Laboratory Results - last 24 hr 07/13/24 07/13/24 07/13/24 06:54 11:25 14:12 WBC 2.45 L 2.97 L RBC 3.71 L 3.69 L Hgb 11.0 L 11.2 L Hct 33.1 L 32.8 L MCV 89.2 88.9 MCH 29.6 30.4 MCHC 33.2 34.1 RDW Std Deviation 43.5 41.9 RDW Coeff of Joe 13.2 13.0 Plt Count 251 259 MPV 9.8 9.6 Immature Gran % (Auto) 0.0 Neut % (Auto) 18.2 Lymph % (Auto) 51.8 [place] % (Auto) 22.9 Eos % (Auto) 5.5 Baso % (Auto) 1.6 Neut # (Auto) 0.46 L* Lymph # (Auto) 1.31 [place] # (Auto) 0.58 Eos # (Auto) 0.14 Baso # (Auto) 0.04 Immature Gran # (Auto) 0.00 L Ovalocytes 1+ Sodium 134 L Potassium 4.4 Chloride 101 Carbon Dioxide 27 Anion Gap 6 BUN 11 Creatinine 0.66 Est Cr Clr Drug Dosing 82.5 eGFR 93.73 BUN/Creatinine Ratio 16.7 Glucose 195 H POC Glucose 212 H Lactate 1.1 Calcium 9.0 Phosphorus 3.1 Magnesium 1.5 L Procalcitonin < 0.02 Urine Color Urine Appearance Urine pH Ur Specific [place] Urine Protein Urine Glucose (UA) Urine Ketones Urine Blood Urine Nitrite Urine Bilirubin Urine Urobilinogen Ur Leukocyte Esterase Adenovirus (PCR) B. pertussis DNA (PCR) B.parapertussis DNA PCR C. pneumoniae DNA (PCR) Coronavirus OC43 (PCR) Coronavirus HKU1 (PCR) Coronavirus 229E (PCR) SARS-CoV-2 (PCR) Coronavirus NL63 (PCR) Human Metapneumovir PCR Influenza Type A (PCR) Influenza Type B (PCR) M. pneumoniae (PCR) Parainfluenza 1 (PCR) Parainfluenza 2 (PCR) Parainfluenza 3 (PCR) Parainfluenza 4 (PCR) RSV (PCR) Entero/Rhino (PCR) 07/13/24 07/13/24 07/13/24 14:20 16:40 17:15 WBC RBC Hgb Hct MCV MCH MCHC RDW Std Deviation RDW Coeff of Joe Plt Count MPV Immature Gran % (Auto) Neut % (Auto) Lymph % (Auto) [place] % (Auto) Eos % (Auto) Baso % (Auto) Neut # (Auto) Lymph # (Auto) [place] # (Auto) Eos # (Auto) Baso # (Auto) Immature Gran # (Auto) Ovalocytes Sodium Potassium Chloride Carbon Dioxide Anion Gap BUN Creatinine Est Cr Clr Drug Dosing eGFR BUN/Creatinine Ratio Glucose POC Glucose 128 H Lactate Calcium Phosphorus Magnesium Procalcitonin Urine Color Yellow Urine Appearance Clear Urine pH 8.0 H Ur Specific [place] 1.007 Urine Protein Negative Urine Glucose (UA) Negative Urine Ketones Negative Urine Blood Negative Urine Nitrite Negative Urine Bilirubin Negative Urine Urobilinogen Negative Ur Leukocyte Esterase Negative Adenovirus (PCR) Not Detected B. pertussis DNA (PCR) Not Detected B.parapertussis DNA PCR Not Detected C. pneumoniae DNA (PCR) Not Detected Coronavirus OC43 (PCR) Not Detected Coronavirus HKU1 (PCR) Not Detected Coronavirus 229E (PCR) Not Detected SARS-CoV-2 (PCR) Not Detected Coronavirus NL63 (PCR) Not Detected Human Metapneumovir PCR Not Detected Influenza Type A (PCR) Not Detected Influenza Type B (PCR) Not Detected M. pneumoniae (PCR) Not Detected Parainfluenza 1 (PCR) Not Detected Parainfluenza 2 (PCR) Not Detected Parainfluenza 3 (PCR) Not Detected Parainfluenza 4 (PCR) Not Detected RSV (PCR) Not Detected Entero/Rhino (PCR) Not Detected 07/13/24 07/14/24 20:56 07:11 WBC RBC Hgb Hct MCV MCH MCHC RDW Std Deviation RDW Coeff of Joe Plt Count MPV Immature Gran % (Auto) Neut % (Auto) Lymph % (Auto) [place] % (Auto) Eos % (Auto) Baso % (Auto) Neut # (Auto) Lymph # (Auto) [place] # (Auto) Eos # (Auto) Baso # (Auto) Immature Gran # (Auto) Ovalocytes Sodium Potassium Chloride Carbon Dioxide Anion Gap BUN Creatinine Est Cr Clr Drug Dosing eGFR BUN/Creatinine Ratio Glucose POC Glucose 130 H 202 H Lactate Calcium Phosphorus Magnesium Procalcitonin Urine Color Urine Appearance Urine pH Ur Specific [place] Urine Protein Urine Glucose (UA) Urine Ketones Urine Blood Urine Nitrite Urine Bilirubin Urine Urobilinogen Ur Leukocyte Esterase Adenovirus (PCR) B. pertussis DNA (PCR) B.parapertussis DNA PCR C. pneumoniae DNA (PCR) Coronavirus OC43 (PCR) Coronavirus HKU1 (PCR) Coronavirus 229E (PCR) SARS-CoV-2 (PCR) Coronavirus NL63 (PCR) Human Metapneumovir PCR Influenza Type A (PCR) Influenza Type B (PCR) M. pneumoniae (PCR) Parainfluenza 1 (PCR) Parainfluenza 2 (PCR) Parainfluenza 3 (PCR) Parainfluenza 4 (PCR) RSV (PCR) Entero/Rhino (PCR) Current Inpatient Medications Current Inpatient Medications: Current Inpatient Medications Acetaminophen (Acetaminophen 325 Mg Tab) 650 mg PO Q4H PRN PRN Reason: Pain or Fever Stop: 07/31/24 08:00 Last Admin: 07/13/24 08:56 Dose: 650 mg Amantadine HCl (Amantadine Hcl Syrup 50 Mg/5 Ml Udp) 50 mg PO BID@0600,1300 [facility] Stop: 07/31/24 08:29 Last Admin: 07/14/24 06:28 Dose: 50 mg Amlodipine Besylate (Amlodipine Besylate 5 Mg Tab) 10 mg PO DAILY [facility] Stop: 07/31/24 08:59 Last Admin: 07/14/24 09:00 Dose: 10 mg Aspirin (Aspirin 81 Mg Ectab) 81 mg PO HS [facility] Stop: 07/31/24 20:59 Last Admin: 07/13/24 20:24 Dose: 81 mg Atorvastatin Calcium (Atorvastatin 40 Mg Tab) 80 mg PO HS [facility] Stop: 07/31/24 20:59 Last Admin: 07/13/24 20:23 Dose: 80 mg Calcium Carbonate (Calcium Carbonate 500 Mg Chewable Tab) 1,000 mg PO TID PRN PRN Reason: heartburn/indigestion Last Admin: 07/12/24 20:58 Dose: 1,000 mg Calcium Carbonate (Calcium Carbonate 1250mg Tab) 1 tab PO BID [facility] Stop: 07/31/24 08:59 Last Admin: 07/14/24 08:59 Dose: 1 tab Cyanocobalamin (Cyanocobalamin (B-12) 500 Mcg Tablet) 1,000 mcg PO DAILY [facility] Stop: 07/31/24 08:59 Last Admin: 07/14/24 09:00 Dose: 1,000 mcg Dextrose (Dextrose 50% 50 Ml Syringe) 25 - 50 ml IV UD PRN; Protocol PRN Reason: Hypoglycemia Protocol Stop: 07/31/24 08:00 Divalproex Sodium (Divalproex Sodium Sprinkle/Del-Rel 125 Mg Cap) 250 mg PO QAM [facility] Stop: 08/13/24 08:59 Last Admin: 07/14/24 08:58 Dose: 250 mg Divalproex Sodium (Divalproex Sodium Sprinkle/Del-Rel 125 Mg Cap) 500 mg PO QPM [facility] Stop: 08/12/24 20:59 Last Admin: 07/13/24 20:21 Dose: 500 mg Docusate Sodium (Docusate Sodium 100 Mg Cap) 100 mg PO BID [facility] Stop: 07/31/24 08:59 Last Admin: 07/12/24 08:44 Dose: Not Given Fluticasone Propionate (Fluticasone Propionate Na Spr 16 Gm Btl) 1 sprays NA BID [facility] Stop: 07/31/24 08:59 Last Admin: 07/14/24 09:01 Dose: 1 sprays Glucagon (Glucagon For Inj 1 Mg Vial) 1 mg SQ UD PRN; Protocol PRN Reason: Hypoglycemia Protocol Stop: 07/31/24 08:00 Glucose (Glucose 40% Gel 15 Gm Tube) 15 - 30 gm PO UD PRN; Protocol PRN Reason: Hypoglycemia Protocol Stop: 07/31/24 08:00 Glucose (Glucose 10 Tab/Tube) 4 - 8 tab PO UD PRN; Protocol PRN Reason: Hypoglycemia Protocol Stop: 07/31/24 08:00 Guaifenesin/Dextromethorphan (Guaifenesin/Dextrom Syrup 100mg/10mg 5ml Udc) 10 ml PO Q4H PRN PRN Reason: Cough Stop: 07/31/24 08:00 Last Admin: 07/03/24 20:29 Dose: 10 ml Haloperidol (Haloperidol 5 Mg Tab) 5 mg PO QAM [facility] Stop: 07/31/24 08:59 Last Admin: 07/14/24 08:59 Dose: 5 mg Haloperidol (Haloperidol 5 Mg Tab) 10 mg PO [facility] Stop: 07/31/24 20:59 Last Admin: 07/13/24 20:20 Dose: 10 mg Haloperidol (Haloperidol 1 Mg Tab) 2 mg PO DAILY@1300 [facility] Stop: 07/31/24 12:59 Last Admin: 07/13/24 12:26 Dose: 2 mg Magnesium Sulfate/Dextrose (Magnesium Sulfate / D5w) 1 gm in 100 mls @ 50 mls/hr IV ONE ONE Stop: 07/14/24 11:41 Last Admin: 07/14/24 10:46 Dose: 50 mls/hr Insulin Aspart (Insulin Aspart Per Unit Charge) 0 units SC [facility] Stop: 07/31/24 11:59 Last Admin: 07/14/24 08:31 Dose: 7 units Levothyroxine Sodium (Levothyroxine Sodium 175 Mcg Tablet) 175 mcg PO DAILYBB [facility] Stop: 07/31/24 08:14 Last Admin: 07/14/24 06:28 Dose: 175 mcg Loperamide HCl (Loperamide Hcl 2 Mg Cap) 2 mg PO Q4H PRN PRN Reason: loose stools Stop: 07/31/24 08:00 Lorazepam (Lorazepam 2 Mg/1 Ml Vial) 1 mg IM Q8H PRN PRN Reason: Agitation Stop: 08/12/24 13:14 Losartan Potassium (Losartan Potassium 50 Mg Tab) 50 mg PO QAM [facility] Stop: 07/31/24 08:59 Last Admin: 07/14/24 09:00 Dose: 50 mg Melatonin (Melatonin 3 Mg Tab) 6 mg PO [facility] Stop: 07/31/24 20:59 Last Admin: 07/13/24 20:25 Dose: 6 mg Metoprolol Tartrate (Metoprolol Tartrate 25 Mg Tab) 25 mg PO BID [facility] Stop: 07/31/24 08:59 Last Admin: 07/14/24 08:59 Dose: 25 mg Miscellaneous (Carbohydrates For Hypoglycemia ) 15 - 30 gm PO UD PRN PRN Reason: Hypoglycemia Protocol Stop: 07/31/24 08:00 Multivitamins/Minerals (Cerovite Adv Formula Tab) 1 tab PO DAILY [facility] Stop: 07/31/24 08:59 Last Admin: 07/14/24 08:58 Dose: 1 tab Nitroglycerin (Nitroglycerin Sl 0.4 Mg/Tab Tab) 0.4 mg SL Q5M PRN PRN Reason: Chest Pain Stop: 07/31/24 08:00 Nystatin (Nystatin Cr 15 Gm Tube) 1 appln EXT BID PRN PRN Reason: Rash Stop: 07/31/24 08:00 Last Admin: 07/03/24 20:29 Dose: 1 appln Polyethylene Glycol (Polyethylene (Miralax) 17 Gm Pack) 17 gm PO DAILY PRN PRN Reason: Constipation Stop: 07/31/24 08:00 Trazodone HCl (Trazodone Hcl 50 Mg Tab) 50 mg PO HS [facility] Stop: 07/31/24 20:59 Last Admin: 07/13/24 20:24 Dose: 50 mg Vitamin D (Cholecalciferol 25 Mcg (1000 Units) Tab) 50 mcg PO DAILY [facility] Stop: 07/31/24 08:59 Last Admin: 07/14/24 08:58 Dose: 50 mcg
[2024-07-14 12:45] LABS: Basophils # (auto) 0.04 K/uL (0.00-0.20); Basophils % (auto) 1.2 %; Eosinophils % (auto) 2.9 %; Lymphocytes # (auto) 1.06 K/uL (1.20-3.40); Lymphocytes % (auto) 30.5 %; Mean Corpuscular Hemoglobin 29.7 pg (25.0-34.0); Mean Corpuscular Hgb Conc 33.3 g/dL (32.0-36.0); Mean Corpuscular Volume 89.2 fL (80.0-100.0); Mean Platelet Volume 9.9 fL (9.4-12.4); Monocytes # (auto) 0.66 K/uL (0.11-0.59); Neutrophils # (auto) 1.61 K/uL (1.40-6.50); Neutrophils % (auto) 46.4 %; Platelet Count 250 K/uL (130-400); RDW Coefficient of Variation 13.2 % (11.5-14.5); RDW Standard Deviation 43.2 fL (36.4-46.3); White Blood Count 3.47 K/ul (4.8-10.8)
--- NOTE | 2024-07-14 16:57 | Electrocardiogram Report ---
Test Reason : Blood Pressure : */* mmHG Vent. Rate : 73 BPM Atrial Rate : 73 BPM P-R Int : 166 ms QRS Dur : 88 ms QT Int : 380 ms P-R-T Axes : 70 82 121 degrees QTcB Int : 418 ms Normal sinus rhythm Abnormal ECG When compared with ECG of 03-Jul-2024 05:38, T wave inversion now evident in Lateral leads Confirmed by Derek Herrera [id number] on 07/14/2024 4:56:44 PM Referred By: Brendan Riddle [place] Confirmed By: Derek Herrera
[2024-07-14] MEDS: LORazepam 2 MG/1 ML VIAL IM PRN (19:55)
--- NOTE | 2024-07-15 16:06 | Hospitalist Progress Note ---
Date of Service July 15, 2024 Assessment & Plan (1) Mental health disorder: Plan Ms. Garcia is a 73-year-old female currently living at [facility] with past medical history significant for schizophrenia, bipolar disorder, mood disorder, hyperlipidemia, hypothyroidism, diabetes, hypertension who was brought in because of ongoing worsening hallucinations and agitation. Patient sustpected to be experiencing an acute exacerbation of psychosis. ER planned for geriatric psychiatric unit but her EKG was abnormal and had mild elevation of troponin so medicine team called for admission. Patient was treated for UTI with EOT 07/12; however, over the last few days patient with increased delusions, delirium and agitation Working to adjust medications, however, limited 2/2 neutropenia; UA and labs unrevealing Stable this am overall. No changes to management at this time. 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 Frequent reorientation, avoid sedating medications as able Psych consult, appreciate recs. Recommended/stated the following: "1:1 due to safety concerns, remains 302 at this time Safe tray and suicide precautions Continue haldol, and trazodone as ordered Plan for geriatric psych unit Exacerbation of symptoms noted to be progressive over 48 hours requiring thorazine 07/13: Increasing depakote to 250mg qam, 500 mg qpm Discontinued olanzapine 2.5qam/5qpm Avoid further Thorazine 2/2 persistent neutropenia can consider ativan but concern for paradoxical agitation 07/15: stable on current regimen at this time, no paradoxical behavior noted with ativan Behavioral emergency: ativan 1mg po/1IM q8h agitation/anxiety; if unsuccessful, haldol 2.5mg PO/IM q8h prn refractory agitation #Diarrhea *resolved completed abx, will hold stool softener and CTM #Abnormal EKG Mild elevation of troponin at 16.6 before downtrending EKG with concern for t wave inversions Echo with EF greater than 70%, moderate left ventricular hypertrophy, no wall motion abnormalities, grade 1 diastolic dysfunction Complaints of some chest discomfort on admission Cardiology was consulted, recommended/stated the following - continue with cardiac medical management with aspirin, atorvastatin, metoprolol, losartan -Notes patient is not a candidate for stress testing or other cardiac testing due to current mental state continue to monitor on telemetry #Uncomplicated UTI UA suggestive of infection, urine culture currently growing E. 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 The reviewed findings are consistent with a non-specific normochromic, normocytic anemia (potentially anemia of chronic disease) and leukopenia due to neutropenia. Neutropenia may be secondary to a variety of medications." Discussed with Psychiatry Risk for agranulocytosis 2/2 all meds and patient with ongoing psychiatric disturbance discontinue olanzapine, diphenhydramine and prn thorazine Liaison working to get information about recent med changes CBC w/ diff in am #Diabetes Hold home p.o. medications Sliding scale Will monitor #Hypertension On amlodipine and losartan and metoprolol tartrate Will monitor #Hyperlipidemia On statin #Hypothyroidism On Synthroid TSH is 13 but free T4 is normal at 0.9 Needs follow-up after acute illness Diet: DMII, HH/safe tray DVT prophylaxis: SCDs for now CODE STATUS: Full code for now . Per half-way no paperwork for CODE STATUS seen. Dispo:pending jennifer psych bed Admission and Anticipated Discharge Date Admission Date: July 01, 2024 Subjective NAEO calm this morning, evaluated bedside No complaints this am, no reported agitation Physical Exam Constitutional: WD/WN, vitals as above Respiratory: normal respiratory effort, lungs clear to auscultation Cardiovascular: RENATA+ Gastrointestinal (Abdomen): normal bowel sounds, soft, nontender, no hepatosplenomegaly Results & Data Results & Data Vital Signs (Past 12 Hours) Vital Signs Temp Pulse Resp BP Pulse Ox O2 Del Method 07/15/24 14:12 36.6 C 79 16 109/68 95 Room Air 07/15/24 09:30 Room Air Medications Administered Home Medications Medication Instructions Recorded Confirmed Last Taken acetaminophen 325 mg tablet 650 mg PO QID PRN Pain 02/06/20 07/01/24 Unknown atorvastatin 80 mg tablet 80 mg PO HS 02/06/20 07/01/24 Unknown calcium carbonate (Oyster Shell 500 mg PO BID 02/06/20 07/01/24 Unknown Calcium 500) cholecalciferol (vitamin D3) 50 50 mcg PO DAILY 02/06/20 07/01/24 Unknown mcg (2,000 unit) capsule (Vitamin D3) divalproex 125 mg capsule,delayed 250 mg PO BID 02/06/20 07/01/24 Unknown release sprinkle docusate sodium 100 mg capsule 100 mg PO BID Constipation 02/06/20 07/01/24 Unknown fluticasone propionate 50 1 spray intranasal BID 02/06/20 07/01/24 Unknown mcg/actuation nasal spray,suspension glipizide 5 mg tablet, extended 10 mg PO DAILY 02/06/20 07/01/24 Unknown release 24 hr levothyroxine 137 mcg tablet 175 mcg PO DAILY 02/06/20 07/01/24 Unknown lurasidone 120 mg tablet (Latuda) 160 mg PO DAILY 02/06/20 07/01/24 Unknown multivitamin,vh-znmi-gmbxvjjs 27 1 tab PO DAILY 02/06/20 07/01/24 Unknown mg-0.4 mg tablet (Therems-M) trazodone 100 mg tablet 50 mg PO HS 02/06/20 07/01/24 Unknown amlodipine 10 mg tablet (Norvasc) 10 mg PO DAILY #30 tabs 02/09/20 07/01/24 Unknown aspirin 81 mg tablet,delayed 81 mg PO HS #90 tabs 02/09/20 07/01/24 Unknown release losartan 50 mg tablet 50 mg PO QAM #30 tabs 02/09/20 07/01/24 Unknown metoprolol tartrate 25 mg tablet 25 mg PO BID #60 tabs 02/09/20 07/01/24 Unknown Calcium Antacid 1,000 mg PO TID PRN 06/28/24 07/01/24 Unknown heartburn/indigestion amantadine HCl 100 mg tablet 50 mg PO BID 06/28/24 07/01/24 06/30/24 06:00 biotin 1,000 mcg chewable tablet 1,000 mcg PO DAILY 06/28/24 07/01/24 Unknown cyanocobalamin (vitamin B-12) 1,000 mcg PO DAILY 06/28/24 07/01/24 Unknown 1,000 mcg tablet dextromethorphan-guaifenesin 10 10 ml PO Q4H PRN Cough 06/28/24 07/01/24 Unknown mg-100 mg/5 mL oral syrup (Tussin DM) diphenhydramine HCl 25 mg capsule 25 mg PO HS 06/28/24 07/01/24 Unknown (Banophen) glipizide 5 mg tablet 2.5 mg PO DAILY 06/28/24 07/01/24 Unknown haloperidol 10 mg tablet 10 mg PO HS 06/28/24 07/01/24 Unknown haloperidol 2 mg tablet 2 mg PO DAILY 06/28/24 07/01/24 Unknown haloperidol 5 mg tablet 5 mg PO QAM 06/28/24 07/01/24 Unknown loperamide 2 mg capsule 2 mg PO Q4H PRN loose stools 06/28/24 07/01/24 Unknown melatonin 5 mg tablet 5 mg PO HS 06/28/24 07/01/24 Unknown nystatin 100,000 unit/gram topical 1 applic topical BID PRN Rash 06/28/24 07/01/24 Unknown cream Active Medications Generic Name Dose Route Start Last Admin Trade Name Tonyq PRN Reason Stop Dose Admin Acetaminophen 650 mg 07/01/24 08:01 07/15/24 04:11 Acetaminophen 325 Mg Tab PO 07/31/24 08:00 650 mg Q4H PRN Administration Pain or Fever Amantadine HCl 50 mg 07/01/24 08:30 07/15/24 12:45 Amantadine Hcl Syrup 50 Mg/5 Ml Udp PO 07/31/24 08:29 50 mg BID@0600,1300 PENELOPE Administration Amlodipine Besylate 10 mg 07/01/24 09:00 07/15/24 09:03 Amlodipine Besylate 5 Mg Tab PO 07/31/24 08:59 10 mg DAILY PENELOPE Administration Aspirin 81 mg 07/01/24 21:00 07/14/24 20:30 Aspirin 81 Mg Ectab PO 07/31/24 20:59 81 mg HS PENELOPE Administration Atorvastatin Calcium 80 mg 07/01/24 21:00 07/14/24 20:30 Atorvastatin 40 Mg Tab PO 07/31/24 20:59 80 mg HS PENELOPE Administration Calcium Carbonate 1,000 mg 07/01/24 08:01 07/12/24 20:58 Calcium Carbonate 500 Mg Chewable Tab PO 1,000 mg TID PRN Administration heartburn/indigestion Calcium Carbonate 1 tab 07/01/24 09:00 07/15/24 09:03 Calcium Carbonate 1250mg Tab PO 07/31/24 08:59 1 tab BID PENELOPE Administration Cyanocobalamin 1,000 mcg 07/01/24 09:00 07/15/24 09:04 Cyanocobalamin (B-12) 500 Mcg Tablet PO 07/31/24 08:59 1,000 mcg DAILY PENELOPE Administration Divalproex Sodium 250 mg 07/14/24 09:00 07/15/24 09:04 Divalproex Sodium Sprinkle/Del-Rel 125 Mg Cap PO 08/13/24 08:59 250 mg QAM PENELOPE Administration Divalproex Sodium 500 mg 07/13/24 21:00 07/14/24 20:30 Divalproex Sodium Sprinkle/Del-Rel 125 Mg Cap PO 08/12/24 20:59 500 mg QPM PENELOPE Administration Docusate Sodium 100 mg 07/01/24 09:00 07/12/24 08:44 Docusate Sodium 100 Mg Cap PO 07/31/24 08:59 Not Given BID PENELOPE Fluticasone Propionate 1 sprays 07/01/24 09:00 07/15/24 09:05 Fluticasone Propionate Na Spr 16 Gm Btl NA 07/31/24 08:59 1 sprays BID PENELOPE Administration Guaifenesin/Dextromethorphan 10 ml 07/01/24 08:01 07/03/24 20:29 Guaifenesin/Dextrom Syrup 100mg/10mg 5ml Udc PO 07/31/24 08:00 10 ml Q4H PRN Administration Cough Haloperidol 5 mg 07/01/24 09:00 07/15/24 09:05 Haloperidol 5 Mg Tab PO 07/31/24 08:59 5 mg QAM PENELOPE Administration Haloperidol 10 mg 07/01/24 21:00 07/14/24 20:30 Haloperidol 5 Mg Tab PO 07/31/24 20:59 10 mg HS PENELOPE Administration Haloperidol 2 mg 07/01/24 13:00 07/15/24 12:43 Haloperidol 1 Mg Tab PO 07/31/24 12:59 2 mg DAILY@1300 PENELOPE Administration Insulin Aspart 0 units 07/01/24 17:15 07/15/24 12:45 Insulin Aspart Per Unit Charge SC 07/31/24 11:59 8 units ACHS PENELOPE Administration Levothyroxine Sodium 175 mcg 07/01/24 08:15 07/15/24 06:19 Levothyroxine Sodium 175 Mcg Tablet PO 07/31/24 08:14 175 mcg DAILYBB PENELOPE Administration Lorazepam 1 mg 07/13/24 13:12 07/14/24 19:55 Lorazepam 2 Mg/1 Ml Vial IM 08/12/24 13:14 1 mg Q8H PRN Administration Agitation Losartan Potassium 50 mg 07/01/24 09:00 07/15/24 09:05 Losartan Potassium 50 Mg Tab PO 07/31/24 08:59 50 mg QAM PENELOPE Administration Melatonin 6 mg 07/01/24 21:00 07/14/24 20:31 Melatonin 3 Mg Tab PO 07/31/24 20:59 6 mg HS PENELOPE Administration Metoprolol Tartrate 25 mg 07/01/24 09:00 07/15/24 09:05 Metoprolol Tartrate 25 Mg Tab PO 07/31/24 08:59 25 mg BID PENELOPE Administration Multivitamins/Minerals 1 tab 07/01/24 09:00 07/15/24 09:06 Cerovite Adv Formula Tab PO 07/31/24 08:59 1 tab DAILY PENELOPE Administration Nystatin 1 appln 07/01/24 08:01 07/03/24 20:29 Nystatin Cr 15 Gm Tube EXT 07/31/24 08:00 1 appln BID PRN Administration Rash Trazodone HCl 50 mg 07/01/24 21:00 07/14/24 22:04 Trazodone Hcl 50 Mg Tab PO 07/31/24 20:59 50 mg HS PENELOPE Administration Vitamin D 50 mcg 07/01/24 09:00 07/15/24 09:03 Cholecalciferol 25 Mcg (1000 Units) Tab PO 07/31/24 08:59 50 mcg DAILY PENELOPE Administration
[2024-07-16 06:04] LABS: Hematocrit (blood only) 30.8 % (37.0-47.0); Hemoglobin 10.3 g/dl (12.0-16.0); Mean Corpuscular Hemoglobin 29.9 pg (25.0-34.0); Mean Corpuscular Hgb Conc 33.4 g/dL (32.0-36.0); Mean Corpuscular Volume 89.5 fL (80.0-100.0); Mean Platelet Volume 9.5 fL (9.4-12.4); Platelet Count 234 K/uL (130-400); RDW Coefficient of Variation 13.2 % (11.5-14.5); RDW Standard Deviation 43.3 fL (36.4-46.3); Red Blood Count 3.44 M/uL (4.20-5.40); White Blood Count 2.55 K/ul (4.8-10.8)
[2024-07-16 06:25] LABS: BUN Creatinine Ratio 18.2 (10-20); Calcium 8.7 mg/dl (8.6-10.3); Creatinine Clr Calc Pharmacy 82.5 ml/min; Potassium 4.2 mmol/L (3.5-5.1)
[2024-07-16 06:28] LABS: RBC Morphology Unremarkable
[2024-07-16 06:29] LABS: Basophils # (auto) 0.04 K/uL (0.00-0.20); Basophils % (auto) 1.6 %; Eosinophils # (auto) 0.17 K/uL (0.00-0.50); Eosinophils % (auto) 6.7 %; Lymphocytes # (auto) 1.49 K/uL (1.20-3.40); Lymphocytes % (auto) 58.4 %; Monocytes # (auto) 0.59 K/uL (0.11-0.59); Monocytes % (auto) 23.1 %; Neutrophils # (auto) 0.26 K/uL (1.40-6.50); Neutrophils % (auto) 10.2 %
--- NOTE | 2024-07-16 15:15 | Hospitalist Progress Note ---
Date of Service July 16, 2024 Assessment & Plan (1) Mental health disorder: Plan Ms. Garcia is a 73-year-old female currently living at [facility] with past medical history significant for schizophrenia, bipolar disorder, mood disorder, hyperlipidemia, hypothyroidism, diabetes, hypertension who was brought in because of ongoing worsening hallucinations and agitation. Patient sustpected to be experiencing an acute exacerbation of psychosis. As per prior provider: ER planned for geriatric psychiatric unit but her EKG was abnormal and had mild elevation of troponin so medicine team called for admission. 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 Compared to the previous CT scan: A resolution of the previously noted frontal hematoma and soft tissue swelling associated with the nasal fractures. -- Toxicology screen negative --BioFire negative --UA Normal continue One-on-one sitter Delirium precautions Appreciate psychiatry input:Recommended/stated the followin:1 due to safety concerns, remains 302 at this time Safe tray and suicide precautions Increase nightly Depakote to 500 mg at bedtime Discontinue olanzapine due to neutropenia consults Discontinue diphenhydramine due to anticholinergic side effects Continue Haldol, trazodone Discontinue Thorazine due to neutropenia concerns Lorazepam as needed for agitation, if ineffective, haloperidol as needed Plan for geriatric psych unit Case management to help with discharge planning Diarrhea--resolved completed abx, will hold stool softener Monitor Abnormal EKG Mild elevation of troponin at 16.6 before downtrending EKG with concern for t wave inversions Echo with EF greater than 70%, moderate left ventricular hypertrophy, no wall motion abnormalities, grade 1 diastolic dysfunction Complaints of some chest discomfort on admission Cardiology was consulted, recommended/stated the following - continue with cardiac medical management with aspirin, atorvastatin, metoprolol, losartan -Notes patient is not a candidate for stress testing or other cardiac testing due to current mental state continue to monitor on telemetry Uncomplicated UTI UA suggestive of infection, urine culture currently growing E. 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 The reviewed findings are consistent with a non-specific normochromic, normocytic anemia (potentially anemia of chronic disease) and leukopenia due to neutropenia. Neutropenia may be secondary to a variety of medications." Discussed with Psychiatry Risk for agranulocytosis 2/2 all meds and patient with ongoing psychiatric disturbance Olanzapine, Thorazine discontinued Monitor CBC DM II Last HbA1c 7.8 Hold home p.o. medications Sliding scale monitor blood glucose levels Hypertension Continue amlodipine, losartan and metoprolol tartrate Monitor blood pressure Hyperlipidemia Continue statin Hypothyroidism Elevated TSH, normal free T4 Continue levothyroxine ? Compliance Needs repeat thyroid function test as outpatient DVT Px: SCDs CODE STATUS: Full code Admission and Anticipated Discharge Date Admission Date: July 01, 2024 Subjective Patient is seen and examined at bedside No agitation today Sitter at bedside Poor historian Denies any chest pain, dyspnea Review of Systems Review of Systems: Other Physical Exam Physical Exam: Physical Exam: Vitals signs as noted above General Appearance:Obese, no apparent distress Head: normocephalic, Atraumatic Eyes: normal inspection, EOMI Neck: supple, Trachea midline Respiratory/Chest: Normal breath sounds, CTA, No accessory muscle use Cardiovascular: S1, S2, ? murmur Abdomen/GI:Soft, Non tender, Bowel sounds present Extremities/Musculoskeletal:normal inspection, no edema Neurologic/Psych:AAOX1, grossly no focal neurological deficits Skin: normal color, warm Results & Data Results & Data Vital Signs (Past 12 Hours) Vital Signs Temp Pulse Resp BP Pulse Ox O2 Del Method 07/16/24 08:42 36.3 C L 90 16 132/66 94 Room Air Laboratory Results Short CBC 07/16/24 Range/Units 05:50 WBC 2.55 L (4.8-10.8) K/ul Hgb 10.3 L (12.0-16.0) g/dl Hct 30.8 L (37.0-47.0) % Plt Count 234 (130-400) K/uL [facility] 07/16/24 05:50 Sodium 136 Potassium 4.2 Chloride 104 Carbon Dioxide 27 BUN 12 Creatinine 0.66 Glucose 149 H Calcium 8.7
--- NOTE | 2024-07-17 14:41 | Hospitalist Progress Note ---
Date of Service July 17, 2024 Assessment & Plan (1) Mental health disorder: Plan Ms. Garcia is a 73-year-old female currently living at [facility] with past medical history significant for schizophrenia, bipolar disorder, mood disorder, hyperlipidemia, hypothyroidism, diabetes, hypertension who was brought in because of ongoing worsening hallucinations and agitation. Patient sustpected to be experiencing an acute exacerbation of psychosis. As per prior provider: ER planned for geriatric psychiatric unit but her EKG was abnormal and had mild elevation of troponin so medicine team called for admission. 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 Compared to the previous CT scan: A resolution of the previously noted frontal hematoma and soft tissue swelling associated with the nasal fractures. -- Toxicology screen negative --BioFire negative --UA Normal continue One-on-one sitter Delirium precautions Appreciate psychiatry input:Recommended/stated the followin:1 due to safety concerns, remains 302 at this time Safe tray and suicide precautions Increase nightly Depakote to 500 mg at bedtime Discontinue olanzapine due to neutropenia consults Discontinue diphenhydramine due to anticholinergic side effects Continue Haldol, trazodone Discontinue Thorazine due to neutropenia concerns Lorazepam as needed for agitation, if ineffective, haloperidol as needed Plan for geriatric psych unit Case management to help with discharge planning Will recheck CBC tomorrow to monitor for neutropenia Diarrhea--resolved completed abx, will hold stool softener Monitor Nausea Will obtain KUB if nausea persist Abnormal EKG Mild elevation of troponin at 16.6 before downtrending EKG with concern for t wave inversions Echo with EF greater than 70%, moderate left ventricular hypertrophy, no wall motion abnormalities, grade 1 diastolic dysfunction Complaints of some chest discomfort on admission Cardiology was consulted, recommended/stated the following - continue with cardiac medical management with aspirin, atorvastatin, metoprolol, losartan -Notes patient is not a candidate for stress testing or other cardiac testing due to current mental state continue to monitor on telemetry Uncomplicated UTI UA suggestive of infection, urine culture currently growing E. 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 The reviewed findings are consistent with a non-specific normochromic, normocytic anemia (potentially anemia of chronic disease) and leukopenia due to neutropenia. Neutropenia may be secondary to a variety of medications." Discussed with Psychiatry Risk for agranulocytosis 2/2 all meds and patient with ongoing psychiatric disturbance Olanzapine, Thorazine discontinued Monitor CBC DM II Last HbA1c 7.8 Hold home p.o. medications Sliding scale monitor blood glucose levels Hypertension Continue amlodipine, losartan and metoprolol tartrate Monitor blood pressure Hyperlipidemia Continue statin Hypothyroidism Elevated TSH, normal free T4 Continue levothyroxine ? Compliance Needs repeat thyroid function test as outpatient DVT Px: SCDs CODE STATUS: Full code Admission and Anticipated Discharge Date Admission Date: July 01, 2024 Subjective Patient is seen and examined at bedside History unreliable due to cognitive issues Reports nausea this morning Poor sleep over night Sitter at bedside Denies any chest pain, dyspnea, abdominal pain Review of Systems Review of Systems: Other Physical Exam Physical Exam: Physical Exam: Vitals signs as noted above General Appearance:Obese, no apparent distress Head: normocephalic, Atraumatic Eyes: normal inspection, EOMI Neck: supple, Trachea midline Respiratory/Chest: Normal breath sounds, CTA, No accessory muscle use Cardiovascular: S1, S2, ? murmur Abdomen/GI:Soft, Non tender, Bowel sounds present Extremities/Musculoskeletal:normal inspection, no edema Neurologic/Psych:AAOX1, grossly no focal neurological deficits Skin: normal color, warm Results & Data Results & Data Vital Signs (Past 12 Hours) Vital Signs Temp Pulse Resp BP Pulse Ox O2 Del Method 07/17/24 09:05 37.3 C 77 18 101/66 96 Room Air
[2024-07-18 06:47] LABS: Hematocrit (blood only) 32.2 % (37.0-47.0); Hemoglobin 10.9 g/dl (12.0-16.0); Mean Corpuscular Hgb Conc 33.9 g/dL (32.0-36.0); Mean Corpuscular Volume 88.7 fL (80.0-100.0); Mean Platelet Volume 9.8 fL (9.4-12.4); Platelet Count 231 K/uL (130-400); RDW Coefficient of Variation 13.2 % (11.5-14.5); RDW Standard Deviation 42.7 fL (36.4-46.3); Red Blood Count 3.63 M/uL (4.20-5.40); White Blood Count 2.72 K/ul (4.8-10.8)
[2024-07-18 07:04] LABS: BUN Creatinine Ratio 21.9 (10-20); Calcium 9.2 mg/dl (8.6-10.3); Creatinine Clr Calc Pharmacy 85.1 ml/min
[2024-07-18 07:05] LABS: RBC Morphology Unremarkable
[2024-07-18 07:07] LABS: Basophils # (auto) 0.03 K/uL (0.00-0.20); Basophils % (auto) 1.1 %; Eosinophils # (auto) 0.17 K/uL (0.00-0.50); Eosinophils % (auto) 6.3 %; Lymphocytes # (auto) 1.53 K/uL (1.20-3.40); Lymphocytes % (auto) 56.3 %; Monocytes # (auto) 0.71 K/uL (0.11-0.59); Monocytes % (auto) 26.1 %; Neutrophils # (auto) 0.28 K/uL (1.40-6.50); Neutrophils % (auto) 10.2 %
--- NOTE | 2024-07-18 08:23 | XRay Report ---
EXAM: XR KUB/Abdomen 1 view CLINICAL HISTORY: NAUSEA KAB [facility] TECHNIQUE: X-ray images of the abdomen were obtained in 1 frontal projection COMPARISON: No prior studies available for comparison. FINDINGS: Gas Pattern: Gas pattern within the abdomen is normal. No evidence of bowel obstruction or distention. Soft Tissues: Soft tissues of the abdomen appear normal without evidence of masses or calcifications. Liver, spleen, and kidneys are of normal size and position. IMPRESSION: Normal abdominal X-ray. No acute abnormalities identified. Electronically signed by Carlo Franco 07-18-2024 08:23 AM
--- NOTE | 2024-07-18 15:48 | Hospitalist Progress Note ---
Date of Service July 18, 2024 Assessment & Plan (1) Mental health disorder: Plan Ms. Garcia is a 73-year-old female currently living at [facility] with past medical history significant for schizophrenia, bipolar disorder, mood disorder, hyperlipidemia, hypothyroidism, diabetes, hypertension who was brought in because of ongoing worsening hallucinations and agitation. Patient sustpected to be experiencing an acute exacerbation of psychosis. As per prior provider: ER planned for geriatric psychiatric unit but her EKG was abnormal and had mild elevation of troponin so medicine team called for admission. 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 Compared to the previous CT scan: A resolution of the previously noted frontal hematoma and soft tissue swelling associated with the nasal fractures. -- Toxicology screen negative --BioFire negative --UA Normal continue One-on-one sitter Delirium precautions Appreciate psychiatry input:Recommended/stated the followin:1 due to safety concerns, remains 302 at this time Safe tray and suicide precautions Increase nightly Depakote to 500 mg at bedtime Discontinue olanzapine due to neutropenia consults Discontinue diphenhydramine due to anticholinergic side effects Continue Haldol, trazodone Discontinue Thorazine due to neutropenia concerns Lorazepam as needed for agitation, if ineffective, haloperidol as needed Plan for geriatric psych unit Case management to help with discharge planning Psychiatry following Continue current medications Diarrhea--resolved completed abx, will hold stool softener Monitor Nausea -KUB showed no acute abnormality Monitor Abnormal EKG Mild elevation of troponin at 16.6 before downtrending EKG with concern for t wave inversions Echo with EF greater than 70%, moderate left ventricular hypertrophy, no wall motion abnormalities, grade 1 diastolic dysfunction Complaints of some chest discomfort on admission Cardiology was consulted, recommended/stated the following - continue with cardiac medical management with aspirin, atorvastatin, metoprolol, losartan -Notes patient is not a candidate for stress testing or other cardiac testing due to current mental state continue to monitor on telemetry Uncomplicated UTI UA suggestive of infection, urine culture currently growing E. 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 The reviewed findings are consistent with a non-specific normochromic, normocytic anemia (potentially anemia of chronic disease) and leukopenia due to neutropenia. Neutropenia may be secondary to a variety of medications." Discussed with Psychiatry Risk for agranulocytosis 2/2 all meds and patient with ongoing psychiatric disturbance Olanzapine, Thorazine discontinued Monitor CBC Given persistent neutropenia, will consult hematology for further input DM II Last HbA1c 7.8 Hold home p.o. medications Sliding scale monitor blood glucose levels Hypertension Continue amlodipine, losartan and metoprolol tartrate Monitor blood pressure Hyperlipidemia Continue statin Hypothyroidism Elevated TSH, normal free T4 Continue levothyroxine ? Compliance Needs repeat thyroid function test as outpatient DVT Px: SCDs CODE STATUS: Full code Admission and Anticipated Discharge Date Admission Date: July 01, 2024 Subjective Patient is seen and examined at bedside History unreliable due to cognitive issues Lying comfortably in bed during my encounter Offers no new complaints today Sitter at bedside Denies any chest pain, dyspnea, abdominal pain KUB today showed no acute abnormality Review of Systems Review of Systems: All systems reviewed & are unremarkable except as noted in Subjective Physical Exam Physical Exam: Physical Exam: Vitals signs as noted above General Appearance:Obese, no apparent distress Head: normocephalic, Atraumatic Eyes: normal inspection, EOMI Neck: supple, Trachea midline Respiratory/Chest: Normal breath sounds, CTA, No accessory muscle use Cardiovascular: S1, S2, ? murmur Abdomen/GI:Soft, Non tender, Bowel sounds present Extremities/Musculoskeletal:normal inspection, no edema Neurologic/Psych:AAOX1, grossly no focal neurological deficits Skin: normal color, warm Results & Data Results & Data Vital Signs (Past 12 Hours) Vital Signs Temp Pulse Resp BP Pulse Ox O2 Del Method 07/18/24 15:11 36.6 C 67 18 123/77 95 Room Air 07/18/24 08:18 36.4 C L 64 18 114/66 92 Room Air Laboratory Results Short CBC 07/18/24 Range/Units 06:14 WBC 2.72 L (4.8-10.8) K/ul Hgb 10.9 L (12.0-16.0) g/dl Hct 32.2 L (37.0-47.0) % Plt Count 231 (130-400) K/uL BMP 07/18/24 06:14 Sodium 137 Potassium 4.0 Chloride 103 Carbon Dioxide 27 BUN 14 Creatinine 0.64 Glucose 151 H Calcium 9.2
--- NOTE | 2024-07-19 06:40 | Oncology Consultation ---
Date of Consultation July 19, 2024 Assessment & Plan (1) Neutropenia: Plan Per review of her records, she has had chronic neutropenia for at least 5 years. Previously followed by hematology at [facility]. Patient indicates that she underwent bone marrow biopsy in the past however, not sure how accurate this information is. 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 -Could consider discussing with her next of kin to see if patient has had bone marrow biopsy in the past. If she has not, could consider obtaining bone marrow biopsy inpatient/outpatient. In the meantime, recommend giving G-CSF with filgrastim for 180 mcg daily x 2 days since ANC is below 500. -Nutritional labs including iron studies, B12 and folate since she is anemic. Thank you for this consult. Please feel free to call if you have any further questions. History of Present Illness Reason for Consultation: Chronic neutropenia/leukopenia Attending Physician: Elvis Carlos MD History of Present Illness 73-year-old female with medical history significant for schizophrenia, bipolar disorder, hypertension, dyslipidemia admitted to [facility] on 07/01/2024 with acute exacerbation of psychosis. Hematology was consulted for neutropenia with labs on 07/18/2024 revealing WBC of 2.7, ANC of 0.28, hemoglobin 10.9, hematocrit 32.2 and platelet count of 2 31,000. Of note, patient has had chronic leukopenia for several years with WBC typically ranging from 7609-2865 and ANC ranging from 0.2-0.8. Per records, she had previously been seen by hematology at [facility] who thought neutropenia was likely autoimmune/benign Allergies Allergy/AdvReac Type Severity Reaction Status Date / Time No Known Allergies Allergy Unverified 02/06/20 14:44 Home Medications Medication Instructions Recorded Confirmed Type acetaminophen 325 mg tablet 650 mg PO QID PRN Pain 02/06/20 07/01/24 History atorvastatin 80 mg tablet 80 mg PO HS 02/06/20 07/01/24 History calcium carbonate (Oyster Shell 500 mg PO BID 02/06/20 07/01/24 History Calcium 500) cholecalciferol (vitamin D3) 50 50 mcg PO DAILY 02/06/20 07/01/24 History mcg (2,000 unit) capsule (Vitamin D3) divalproex 125 mg capsule,delayed 250 mg PO BID 02/06/20 07/01/24 History release sprinkle docusate sodium 100 mg capsule 100 mg PO BID Constipation 02/06/20 07/01/24 History fluticasone propionate 50 1 spray intranasal BID 02/06/20 07/01/24 History mcg/actuation nasal spray,suspension glipizide 5 mg tablet, extended 10 mg PO DAILY 02/06/20 07/01/24 History release 24 hr levothyroxine 137 mcg tablet 175 mcg PO DAILY 02/06/20 07/01/24 History lurasidone 120 mg tablet (Latuda) 160 mg PO DAILY 02/06/20 07/01/24 History multivitamin,dm-uxmu-mmpmxksl 27 1 tab PO DAILY 02/06/20 07/01/24 History mg-0.4 mg tablet (Therems-M) trazodone 100 mg tablet 50 mg PO HS 02/06/20 07/01/24 History amlodipine 10 mg tablet (Norvasc) 10 mg PO DAILY #30 tabs 02/09/20 07/01/24 Rx aspirin 81 mg tablet,delayed 81 mg PO HS #90 tabs 02/09/20 07/01/24 Rx release losartan 50 mg tablet 50 mg PO QAM #30 tabs 02/09/20 07/01/24 Rx metoprolol tartrate 25 mg tablet 25 mg PO BID #60 tabs 02/09/20 07/01/24 Rx Calcium Antacid 1,000 mg PO TID PRN 06/28/24 07/01/24 History heartburn/indigestion amantadine HCl 100 mg tablet 50 mg PO BID 06/28/24 07/01/24 History biotin 1,000 mcg chewable tablet 1,000 mcg PO DAILY 06/28/24 07/01/24 History cyanocobalamin (vitamin B-12) 1,000 mcg PO DAILY 06/28/24 07/01/24 History 1,000 mcg tablet dextromethorphan-guaifenesin 10 10 ml PO Q4H PRN Cough 06/28/24 07/01/24 History mg-100 mg/5 mL oral syrup (Tussin DM) diphenhydramine HCl 25 mg capsule 25 mg PO HS 06/28/24 07/01/24 History (Banophen) glipizide 5 mg tablet 2.5 mg PO DAILY 06/28/24 07/01/24 History haloperidol 10 mg tablet 10 mg PO HS 06/28/24 07/01/24 History haloperidol 2 mg tablet 2 mg PO DAILY 06/28/24 07/01/24 History haloperidol 5 mg tablet 5 mg PO QAM 06/28/24 07/01/24 History loperamide 2 mg capsule 2 mg PO Q4H PRN loose stools 06/28/24 07/01/24 History melatonin 5 mg tablet 5 mg PO HS 06/28/24 07/01/24 History nystatin 100,000 unit/gram topical 1 applic topical BID PRN Rash 06/28/24 07/01/24 History cream Patient History Family History Unknown Unknown family medical history Social History Smoking Status: Former smoker Tobacco Type: Cigarettes Preferred Language: Mohawk Communication Ability: Effective Degreasing Solution Mixer Required: No Beliefs That Will Affect Care: None marital status: Single Current Living Situation: Personal Care Facility How many Children do You have: 0 Other Information That Helps Us Care for You: No Feels Safe at Home: Yes Safety Concerns: Feels Safe At This Time Assistive Devices: Walker Results & Data Vital Signs (Past 12 Hours) Vital Signs Temp Pulse Resp BP Pulse Ox O2 Del Method 07/18/24 20:32 36.9 C 117 H 16 155/85 H 98 Room Air
[2024-07-19 08:24] LABS: Ferritin 464.5 ng/ml (8-388)
[2024-07-19 08:34] LABS: Folate (Folic Acid),Ser orPlas > 22.30 ng/ml (>5.38); Vitamin B12 > 1500 pg/ml (180-914)
[2024-07-19] MEDS: FERROUS SULFATE 325 MG TAB PO SCH (12:33)
--- NOTE | 2024-07-19 16:23 | Hospitalist Progress Note ---
Date of Service July 19, 2024 Assessment & Plan (1) Mental health disorder: Plan Ms. Garcia is a 73-year-old female currently living at [facility] with past medical history significant for schizophrenia, bipolar disorder, mood disorder, hyperlipidemia, hypothyroidism, diabetes, hypertension who was brought in because of ongoing worsening hallucinations and agitation. Patient sustpected to be experiencing an acute exacerbation of psychosis. As per prior provider: ER planned for geriatric psychiatric unit but her EKG was abnormal and had mild elevation of troponin so medicine team called for admission. 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 Compared to the previous CT scan: A resolution of the previously noted frontal hematoma and soft tissue swelling associated with the nasal fractures. -- Toxicology screen negative --BioFire negative --UA Normal continue One-on-one sitter Delirium precautions Appreciate psychiatry input:Recommended/stated the followin:1 due to safety concerns, remains 302 at this time Safe tray and suicide precautions Increase nightly Depakote to 500 mg at bedtime Discontinue olanzapine due to neutropenia consults Discontinue diphenhydramine due to anticholinergic side effects Continue Haldol, trazodone Discontinue Thorazine due to neutropenia concerns Lorazepam as needed for agitation, if ineffective, haloperidol as needed Plan for geriatric psych unit Case management to help with discharge planning Psychiatry following Continue current medications Waiting for placement Diarrhea--resolved completed abx, will hold stool softener Monitor Nausea -KUB showed no acute abnormality Monitor Abnormal EKG Mild elevation of troponin at 16.6 before downtrending EKG with concern for t wave inversions Echo with EF greater than 70%, moderate left ventricular hypertrophy, no wall motion abnormalities, grade 1 diastolic dysfunction Complaints of some chest discomfort on admission Cardiology was consulted, recommended/stated the following - continue with cardiac medical management with aspirin, atorvastatin, metoprolol, losartan -Notes patient is not a candidate for stress testing or other cardiac testing due to current mental state continue to monitor on telemetry Uncomplicated UTI UA suggestive of infection, urine culture currently growing E. 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 The reviewed findings are consistent with a non-specific normochromic, normocytic anemia (potentially anemia of chronic disease) and leukopenia due to neutropenia. Neutropenia may be secondary to a variety of medications." Discussed with Psychiatry Risk for agranulocytosis 2/2 all meds and patient with ongoing psychiatric disturbance Olanzapine, Thorazine discontinued Monitor CBC Given persistent neutropenia, will consult hematology for further input Appreciate hematology input Will give filgrastim for 2 days Consider bone marrow biopsy if not previously done (If family agrees) Iron deficiency anemia Started on iron supplements DM II Last HbA1c 7.8 Hold home p.o. medications Sliding scale monitor blood glucose levels Hypertension Continue amlodipine, losartan and metoprolol tartrate Monitor blood pressure Hyperlipidemia Continue statin Hypothyroidism Elevated TSH, normal free T4 Continue levothyroxine ? Compliance Needs repeat thyroid function test as outpatient DVT Px: SCDs CODE STATUS: Full code Admission and Anticipated Discharge Date Admission Date: July 01, 2024 Subjective Patient is seen and examined at bedside History unreliable due to cognitive issues States feeling well Offers no complaints today Sitter at bedside Denies any chest pain, dyspnea, abdominal pain, nausea, vomiting Review of Systems Review of Systems: All systems reviewed & are unremarkable except as noted in Subjective Physical Exam Physical Exam: Physical Exam: Vitals signs as noted above General Appearance:Obese, no apparent distress Head: normocephalic, Atraumatic Eyes: normal inspection, EOMI Neck: supple, Trachea midline Respiratory/Chest: Normal breath sounds, CTA, No accessory muscle use Cardiovascular: S1, S2, ? murmur Abdomen/GI:Soft, Non tender, Bowel sounds present Extremities/Musculoskeletal:normal inspection, no edema Neurologic/Psych:AAOX1, grossly no focal neurological deficits Skin: normal color, warm Results & Data Results & Data Vital Signs (Past 12 Hours) Vital Signs Temp Pulse Resp BP Pulse Ox O2 Del Method 07/19/24 15:29 36.9 C 90 18 118/71 94 Room Air 07/19/24 11:04 36.7 C 74 16 120/69 97 Room Air 07/19/24 07:05 36.7 C 83 16 109/69 95 Room Air
[2024-07-19] MEDS: FILGRASTIM 300 MCG/ML VIAL SQ SCH (17:45)
[2024-07-20 06:19] LABS: Basophils # (auto) 0.05 K/uL (0.00-0.20); Eosinophils # (auto) 0.09 K/uL (0.00-0.50); Eosinophils % (auto) 1.8 %; Hematocrit (blood only) 31.5 % (37.0-47.0); Hemoglobin 10.6 g/dl (12.0-16.0); Immature Granulocytes # (auto) 0.01 K/uL (0.01-0.20); Immature Granulocytes % (auto) 0.2 %; Lymphocytes # (auto) 1.11 K/uL (1.20-3.40); Lymphocytes % (auto) 22.3 %; Mean Corpuscular Hemoglobin 29.7 pg (25.0-34.0); Mean Corpuscular Hgb Conc 33.7 g/dL (32.0-36.0); Mean Corpuscular Volume 88.2 fL (80.0-100.0); Monocytes # (auto) 0.87 K/uL (0.11-0.59); Monocytes % (auto) 17.5 %; Neutrophils # (auto) 2.84 K/uL (1.40-6.50); Neutrophils % (auto) 57.2 %; Platelet Count 231 K/uL (130-400); RDW Coefficient of Variation 13.3 % (11.5-14.5); RDW Standard Deviation 43.4 fL (36.4-46.3); Red Blood Count 3.57 M/uL (4.20-5.40); White Blood Count 4.97 K/ul (4.8-10.8)
[2024-07-20 06:56] LABS: BUN Creatinine Ratio 16.9 (10-20); Calcium 8.8 mg/dl (8.6-10.3); Creatinine Clr Calc Pharmacy 83.8 ml/min; Potassium 4.1 mmol/L (3.5-5.1)
--- NOTE | 2024-07-20 15:46 | Hospitalist Progress Note ---
Date of Service July 20, 2024 Assessment & Plan (1) Mental health disorder: Plan Ms. Garcia is a 73-year-old female currently living at [facility] with past medical history significant for schizophrenia, bipolar disorder, mood disorder, hyperlipidemia, hypothyroidism, diabetes, hypertension who was brought in because of ongoing worsening hallucinations and agitation. Patient sustpected to be experiencing an acute exacerbation of psychosis. As per prior provider: ER planned for geriatric psychiatric unit but her EKG was abnormal and had mild elevation of troponin so medicine team called for admission. 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 Compared to the previous CT scan: A resolution of the previously noted frontal hematoma and soft tissue swelling associated with the nasal fractures. -- Toxicology screen negative --BioFire negative --UA Normal continue One-on-one sitter Delirium precautions Appreciate psychiatry input:Recommended/stated the followin:1 due to safety concerns, remains 302 at this time Safe tray and suicide precautions Increase nightly Depakote to 500 mg at bedtime Discontinue olanzapine due to neutropenia consults Discontinue diphenhydramine due to anticholinergic side effects Continue Haldol, trazodone Discontinue Thorazine due to neutropenia concerns Lorazepam as needed for agitation, if ineffective, haloperidol as needed Plan for geriatric psych unit Case management to help with discharge planning Psychiatry following Waiting for placement 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 The reviewed findings are consistent with a non-specific normochromic, normocytic anemia (potentially anemia of chronic disease) and leukopenia due to neutropenia. Neutropenia may be secondary to a variety of medications." Discussed with Psychiatry Risk for agranulocytosis 2/2 all meds and patient with ongoing psychiatric disturbance Olanzapine, Thorazine discontinued Given persistent neutropenia, will consult hematology for further input Appreciate hematology input Received filgrastim for 2 days Consider bone marrow biopsy if not previously done (If family agrees)--tried to call family, no answer Neutropenia resolved with filgrastim Monitor CBC Diarrhea--resolved completed abx, will hold stool softener Monitor Nausea -KUB showed no acute abnormality Monitor Abnormal EKG Mild elevation of troponin at 16.6 before downtrending EKG with concern for t wave inversions Echo with EF greater than 70%, moderate left ventricular hypertrophy, no wall motion abnormalities, grade 1 diastolic dysfunction Complaints of some chest discomfort on admission Cardiology was consulted, recommended/stated the following - continue with cardiac medical management with aspirin, atorvastatin, metoprolol, losartan -Notes patient is not a candidate for stress testing or other cardiac testing due to current mental state continue to monitor on telemetry Uncomplicated UTI UA suggestive of infection, urine culture currently growing E. coli and Klebsiella varicola UTI could be contributing to the acute exacerbation of her symptoms noted above completed antibiotic course Iron deficiency anemia Started on iron supplements DM II Last HbA1c 7.8 Hold home p.o. medications Sliding scale monitor blood glucose levels Hypertension Continue amlodipine, losartan and metoprolol tartrate Monitor blood pressure Hyperlipidemia Continue statin Hypothyroidism Elevated TSH, normal free T4 Continue levothyroxine ? Compliance Needs repeat thyroid function test as outpatient DVT Px: SCDs CODE STATUS: Full code Disposition Needs Jennifer psych bed Admission and Anticipated Discharge Date Admission Date: July 01, 2024 Subjective Patient is seen and examined at bedside History unreliable due to cognitive issues Mild distress this morning per RN No issues during my encounter Neutropenia resolved Denies any chest pain, dyspnea, abdominal pain, nausea, vomiting Review of Systems Review of Systems: All systems reviewed & are unremarkable except as noted in Subjective Physical Exam Physical Exam: Physical Exam: Vitals signs as noted above General Appearance:Obese, no apparent distress Head: normocephalic, Atraumatic Eyes: normal inspection, EOMI Neck: supple, Trachea midline Respiratory/Chest: Normal breath sounds, CTA, No accessory muscle use Cardiovascular: S1, S2, + murmur Abdomen/GI:Soft, Non tender, Bowel sounds present Extremities/Musculoskeletal:normal inspection, no edema Neurologic/Psych:AAOX1, grossly no focal neurological deficits Skin: normal color, warm Results & Data Results & Data Vital Signs (Past 12 Hours) Vital Signs Temp Pulse Resp BP Pulse Ox O2 Del Method 07/20/24 07:33 36.5 C 94 H 16 119/74 96 Room Air Laboratory Results Short CBC 07/20/24 Range/Units 05:48 WBC 4.97 (4.8-10.8) K/ul Hgb 10.6 L (12.0-16.0) g/dl Hct 31.5 L (37.0-47.0) % Plt Count 231 (130-400) K/uL [facility] 07/20/24 05:48 Sodium 133 L Potassium 4.1 Chloride 100 Carbon Dioxide 24 BUN 11 Creatinine 0.65 Glucose 145 H Calcium 8.8
[2024-07-21 09:17] VITALS: RESP 18
[2024-07-21 10:32] LABS: Calcium 8.9 mg/dl (8.6-10.3); Creatinine Clr Calc Pharmacy 77.8 ml/min
[2024-07-21 10:33] LABS: Basophils # (auto) 0.04 K/uL (0.00-0.20); Basophils % (auto) 0.9 %; Dohle Bodies 2+; Eosinophils # (auto) 0.15 K/uL (0.00-0.50); Eosinophils % (auto) 3.3 %; Hematocrit (blood only) 32.2 % (37.0-47.0); Immature Granulocytes # (auto) 0.03 K/uL (0.01-0.20); Immature Granulocytes % (auto) 0.7 %; Lymphocytes # (auto) 1.15 K/uL (1.20-3.40); Lymphocytes % (auto) 25.6 %; Mean Corpuscular Hemoglobin 29.9 pg (25.0-34.0); Mean Corpuscular Hgb Conc 34.2 g/dL (32.0-36.0); Mean Corpuscular Volume 87.5 fL (80.0-100.0); Mean Platelet Volume 10.1 fL (9.4-12.4); Monocytes % (auto) 33.3 %; Neutrophils # (auto) 1.63 K/uL (1.40-6.50); Neutrophils % (auto) 36.2 %; Platelet Count 260 K/uL (130-400); Polychromasia 1+; RDW Coefficient of Variation 13.5 % (11.5-14.5); RDW Standard Deviation 43.3 fL (36.4-46.3); Red Blood Count 3.68 M/uL (4.20-5.40)
--- NOTE | 2024-07-21 13:30 | Psychiatric Progress Note ---
Date of Service July 21, 2024 Impression / Recommendations Impression Diagnostically consistent with acute exacerbation of psychosis, differential includes worsening episode of schizoaffective disorder vs delirium from recent COVID infection/hyponatremia/alternative cause. Labwork notable for elevated TSH but normal T4. Acute risk of self-harm and harm of others is elevated and high given command AH telling her to harm herself and harm others. Now on 303 commitment. A: Still with some confusion but significantly improved compared to my last assessment on 07/01/2024. No evidence for overt psychosis today, able to respond to questions, mumbles at times but without evidence of responding to internal stimuli nor thought blocking. Given that neutropenia has improved will resume refers for geriatric psychiatry bed search. If no brian bed placement options become available she may be reaching point of nearing her psychiatric baseline and could potentially return to [facility]. Tolerating her medications and with no behavioral events within the last 2 days. Overall, I spent a total of 55 minutes with this case including review of chart records, review of labwork, direct evaluation of the patient at bedside, counseling the patient, discussion of the patient with the Nurse and with the hospitalist provider, discussion with the psychiatric liason during clinical rounds and documentation in the electronic health record. (1) Schizoaffective disorder: (2) Hallucinations: Plan -1:1 due to 303 commitment -303 involuntary commitment, geriatric psychiatry bed search pending -Safe tray and suicide precautions -Continue current medications as ordered -For behavioral emergency: Lorazepam 1mg PO/IM Q8hr PRN for agitation, anxiety. If ineffective Haloperidol 2.5 PO/IM Q8hr PRN for agitation. Interval History Identifying Information 73 yo woman with a history of schizoaffective disorder, hyperlipidemia, hypothyroidism, diabetes, hypertension brought to the hospital because of ongoing worsening hallucinations and agitations and admitted medically due to abnormal EKG and troponin changes and found to have UTI. Psychiatry consulted for medication recommendations. Chief Complaint "I have to poop". Subjective Subjective Patient was seen & assessed and interval progress reviewed. Required ativan IM on evening of 07/18/2024 for increased agitation, none since then. Interval events: seen by heme-onc and given filgrastim with resolution of neutropenia. Today with some confusion (thinks she is in [place]) but able to read month off from the board. Knows its about to be July. Enjoyed lunch and overate and now reports some stomach pain and feels she needs to use the bathroom. Denies any paranoia. No overt delusions observed or expressed during interview. She did ask to be done speaking after answering multiple questions. Per RN has been cooperative with taking her medications, no vocalized delusions/psychosis, eating well, using her walker to go to the bathroom, cooperative with care. Physical Exam Psychiatric Orientation: alert, oriented to person and cooperative Apperance: appropriately dressed Eye Contact: + fair eye contact Motor Behavior: + EPS (TD of lips and hands) Speech: normal rate/rhythm/volume of speech (mumbled) Affect: + flat affect Mood: + irritable mood Thought Process: + concrete thought process Thought Content: reality based without delusions Suicidal Thoughts: denies suicidal thoughts and denies suicidal plan Homicidal Thoughts: denies homicidal thoughts and denies homicidal plan Hallucinations: + auditory hallucinations (chronic but doesn't appear to be actively responded or thought blocked ) Insight: + poor insight Judgment: + limited judgement Vital Signs (Past 24 Hours) Last Vital Signs Temp 37.2 C 07/21/24 09:00 Pulse 93 H 07/21/24 09:00 Resp 18 07/21/24 09:00 BP 113/65 07/21/24 09:00 Pulse Ox 94 07/21/24 09:00 O2 Del Method Room Air 07/21/24 09:00 Results & Data ([facility]) Laboratory Results Laboratory Results - last 24 hr 07/20/24 07/20/24 07/21/24 16:41 20:28 08:50 WBC RBC Hgb Hct MCV MCH MCHC RDW Std Deviation RDW Coeff of Joe Plt Count MPV Immature Gran % (Auto) Neut % (Auto) Lymph % (Auto) Porter % (Auto) Eos % (Auto) Baso % (Auto) Neut # (Auto) Lymph # (Auto) Porter # (Auto) Eos # (Auto) Baso # (Auto) Immature Gran # (Auto) Dohle Bodies Polychromasia Sodium Potassium Chloride Carbon Dioxide Anion Gap BUN Creatinine Est Cr Clr Drug Dosing eGFR BUN/Creatinine Ratio Glucose POC Glucose 173 H 157 H 146 H Calcium 07/21/24 07/21/24 09:35 12:11 WBC 4.50 L RBC 3.68 L Hgb 11.0 L Hct 32.2 L MCV 87.5 MCH 29.9 MCHC 34.2 RDW Std Deviation 43.3 RDW Coeff of Joe 13.5 Plt Count 260 MPV 10.1 Immature Gran % (Auto) 0.7 Neut % (Auto) 36.2 Lymph % (Auto) 25.6 Porter % (Auto) 33.3 Eos % (Auto) 3.3 Baso % (Auto) 0.9 Neut # (Auto) 1.63 Lymph # (Auto) 1.15 L Porter # (Auto) 1.50 H Eos # (Auto) 0.15 Baso # (Auto) 0.04 Immature Gran # (Auto) 0.03 Dohle Bodies 2+ Polychromasia 1+ Sodium 133 L Potassium 4.0 Chloride 97 L Carbon Dioxide 28 Anion Gap 8 BUN 7 Creatinine 0.70 Est Cr Clr Drug Dosing 77.8 eGFR 92.41 BUN/Creatinine Ratio 10.0 Glucose 241 H POC Glucose 229 H Calcium 8.9 Current Inpatient Medications Current Inpatient Medications: Current Inpatient Medications Acetaminophen (Acetaminophen 325 Mg Tab) 650 mg PO Q4H PRN PRN Reason: Pain or Fever Stop: 07/31/24 08:00 Last Admin: 07/20/24 16:42 Dose: 650 mg Amantadine HCl (Amantadine Hcl Syrup 50 Mg/5 Ml Udp) 50 mg PO BID@0600,1300 [facility] Stop: 07/31/24 08:29 Last Admin: 07/21/24 12:48 Dose: 50 mg Amlodipine Besylate (Amlodipine Besylate 5 Mg Tab) 10 mg PO DAILY [facility] Stop: 07/31/24 08:59 Last Admin: 07/21/24 09:07 Dose: 10 mg Aspirin (Aspirin 81 Mg Ectab) 81 mg PO HS [facility] Stop: 07/31/24 20:59 Last Admin: 07/20/24 21:17 Dose: 81 mg Atorvastatin Calcium (Atorvastatin 40 Mg Tab) 80 mg PO HS [facility] Stop: 07/31/24 20:59 Last Admin: 07/20/24 21:16 Dose: 80 mg Calcium Carbonate (Calcium Carbonate 500 Mg Chewable Tab) 1,000 mg PO TID PRN PRN Reason: heartburn/indigestion Last Admin: 07/12/24 20:58 Dose: 1,000 mg Calcium Carbonate (Calcium Carbonate 1250mg Tab) 1 tab PO BID [facility] Stop: 07/31/24 08:59 Last Admin: 07/21/24 09:00 Dose: 1 tab Cyanocobalamin (Cyanocobalamin (B-12) 500 Mcg Tablet) 1,000 mcg PO DAILY [facility] Stop: 07/31/24 08:59 Last Admin: 07/21/24 09:07 Dose: 1,000 mcg Dextrose (Dextrose 50% 50 Ml Syringe) 25 - 50 ml IV UD PRN; Protocol PRN Reason: Hypoglycemia Protocol Stop: 07/31/24 08:00 Divalproex Sodium (Divalproex Sodium Sprinkle/Del-Rel 125 Mg Cap) 250 mg PO QAM [facility] Stop: 08/13/24 08:59 Last Admin: 07/21/24 09:08 Dose: 250 mg Divalproex Sodium (Divalproex Sodium Sprinkle/Del-Rel 125 Mg Cap) 500 mg PO QPM [facility] Stop: 08/12/24 20:59 Last Admin: 07/20/24 21:17 Dose: 500 mg Docusate Sodium (Docusate Sodium 100 Mg Cap) 100 mg PO BID [facility] Stop: 08/20/24 13:24 Ferrous Sulfate (Ferrous Sulfate 325 Mg Tab) 325 mg PO QAM [facility] Stop: 08/18/24 10:14 Last Admin: 07/21/24 09:08 Dose: 325 mg Fluticasone Propionate (Fluticasone Propionate Na Spr 16 Gm Btl) 1 sprays NA BID [facility] Stop: 07/31/24 08:59 Last Admin: 07/21/24 09:01 Dose: 1 sprays Glucagon (Glucagon For Inj 1 Mg Vial) 1 mg SQ UD PRN; Protocol PRN Reason: Hypoglycemia Protocol Stop: 07/31/24 08:00 Glucose (Glucose 40% Gel 15 Gm Tube) 15 - 30 gm PO UD PRN; Protocol PRN Reason: Hypoglycemia Protocol Stop: 07/31/24 08:00 Glucose (Glucose 10 Tab/Tube) 4 - 8 tab PO UD PRN; Protocol PRN Reason: Hypoglycemia Protocol Stop: 07/31/24 08:00 Guaifenesin/Dextromethorphan (Guaifenesin/Dextrom Syrup 100mg/10mg 5ml Udc) 10 ml PO Q4H PRN PRN Reason: Cough Stop: 07/31/24 08:00 Last Admin: 12/29/24 08:42 Dose: 10 ml Haloperidol (Haloperidol 5 Mg Tab) 5 mg PO QAM [facility] Stop: 07/31/24 08:59 Last Admin: 07/21/24 09:08 Dose: 5 mg Haloperidol (Haloperidol 5 Mg Tab) 10 mg PO HS [facility] Stop: 07/31/24 20:59 Last Admin: 07/20/24 21:16 Dose: 10 mg Haloperidol (Haloperidol 1 Mg Tab) 2 mg PO DAILY@1300 [facility] Stop: 07/31/24 12:59 Last Admin: 07/21/24 12:47 Dose: 2 mg Insulin Aspart (Insulin Aspart Per Unit Charge) 0 units SC ACHS [facility] Stop: 07/31/24 11:59 Last Admin: 07/21/24 12:47 Dose: 5 units Levothyroxine Sodium (Levothyroxine Sodium 175 Mcg Tablet) 175 mcg PO DAILYBB [facility] Stop: 07/31/24 08:14 Last Admin: 07/21/24 05:57 Dose: 175 mcg Loperamide HCl (Loperamide Hcl 2 Mg Cap) 2 mg PO Q4H PRN PRN Reason: loose stools Stop: 07/31/24 08:00 Lorazepam (Lorazepam 2 Mg/1 Ml Vial) 1 mg IM Q8H PRN PRN Reason: Agitation Stop: 08/12/24 13:14 Last Admin: 07/21/24 01:50 Dose: 1 mg Losartan Potassium (Losartan Potassium 50 Mg Tab) 50 mg PO QAM [facility] Stop: 07/31/24 08:59 Last Admin: 07/21/24 09:02 Dose: 50 mg Melatonin (Melatonin 3 Mg Tab) 6 mg PO [facility] Stop: 07/31/24 20:59 Last Admin: 07/20/24 21:16 Dose: 6 mg Metoprolol Tartrate (Metoprolol Tartrate 25 Mg Tab) 25 mg PO BID [facility] Stop: 07/31/24 08:59 Last Admin: 07/21/24 09:02 Dose: 25 mg Miscellaneous (Carbohydrates For Hypoglycemia ) 15 - 30 gm PO UD PRN PRN Reason: Hypoglycemia Protocol Stop: 07/31/24 08:00 Multivitamins/Minerals (Cerovite Adv Formula Tab) 1 tab PO DAILY [facility] Stop: 07/31/24 08:59 Last Admin: 07/21/24 09:09 Dose: 1 tab Nitroglycerin (Nitroglycerin Sl 0.4 Mg/Tab Tab) 0.4 mg SL Q5M PRN PRN Reason: Chest Pain Stop: 07/31/24 08:00 Nystatin (Nystatin Cr 15 Gm Tube) 1 appln EXT BID PRN PRN Reason: Rash Stop: 07/31/24 08:00 Last Admin: 07/20/24 08:44 Dose: 1 appln Polyethylene Glycol (Polyethylene (Miralax) 17 Gm Pack) 17 gm PO DAILY PRN PRN Reason: Constipation Stop: 07/31/24 08:00 Trazodone HCl (Trazodone Hcl 50 Mg Tab) 50 mg PO HS [facility] Stop: 07/31/24 20:59 Last Admin: 07/20/24 21:16 Dose: 50 mg Vitamin D (Cholecalciferol 25 Mcg (1000 Units) Tab) 50 mcg PO DAILY [facility] Stop: 07/31/24 08:59 Last Admin: 07/21/24 09:07 Dose: 50 mcg
--- NOTE | 2024-07-21 16:31 | Hospitalist Progress Note ---
Date of Service July 21, 2024 Assessment & Plan (1) Mental health disorder: Plan Ms. Garcia is a 73-year-old female currently living at [facility] with past medical history significant for schizophrenia, bipolar disorder, mood disorder, hyperlipidemia, hypothyroidism, diabetes, hypertension who was brought in because of ongoing worsening hallucinations and agitation. Patient sustpected to be experiencing an acute exacerbation of psychosis. As per prior provider: ER planned for geriatric psychiatric unit but her EKG was abnormal and had mild elevation of troponin so medicine team called for admission. 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 Compared to the previous CT scan: A resolution of the previously noted frontal hematoma and soft tissue swelling associated with the nasal fractures. -- Toxicology screen negative --BioFire negative --UA Normal continue One-on-one sitter Delirium precautions Appreciate psychiatry input:Recommended/stated the followin:1 due to safety concerns, remains 302 at this time Safe tray and suicide precautions Increase nightly Depakote to 500 mg at bedtime Discontinue olanzapine due to neutropenia consults Discontinue diphenhydramine due to anticholinergic side effects Continue Haldol, trazodone Discontinue Thorazine due to neutropenia concerns Lorazepam as needed for agitation, if ineffective, haloperidol as needed Plan for geriatric psych unit Case management to help with discharge planning Psychiatry following Waiting for placement Continue current management. 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 The reviewed findings are consistent with a non-specific normochromic, normocytic anemia (potentially anemia of chronic disease) and leukopenia due to neutropenia. Neutropenia may be secondary to a variety of medications." Discussed with Psychiatry Risk for agranulocytosis 2/2 all meds and patient with ongoing psychiatric disturbance Olanzapine, Thorazine discontinued Given persistent neutropenia, will consult hematology for further input Appreciate hematology input Received filgrastim for 2 days Consider bone marrow biopsy if not previously done (If family agrees)--tried to call family, no answer Neutropenia resolved with filgrastim Continue to monitor CBC Diarrhea--resolved completed abx, will hold stool softener Monitor Nausea -KUB showed no acute abnormality Monitor Abnormal EKG Mild elevation of troponin at 16.6 before downtrending EKG with concern for t wave inversions Echo with EF greater than 70%, moderate left ventricular hypertrophy, no wall motion abnormalities, grade 1 diastolic dysfunction Complaints of some chest discomfort on admission Cardiology was consulted, recommended/stated the following - continue with cardiac medical management with aspirin, atorvastatin, metoprolol, losartan -Notes patient is not a candidate for stress testing or other cardiac testing due to current mental state continue to monitor on telemetry Uncomplicated UTI UA suggestive of infection, urine culture currently growing E. coli and Klebsiella varicola UTI could be contributing to the acute exacerbation of her symptoms noted above completed antibiotic course Iron deficiency anemia Started on iron supplements DM II Last HbA1c 7.8 Hold home p.o. medications Sliding scale monitor blood glucose levels Hypertension Continue amlodipine, losartan and metoprolol tartrate Monitor blood pressure Hyperlipidemia Continue statin Hypothyroidism Elevated TSH, normal free T4 Continue levothyroxine ? Compliance Needs repeat thyroid function test as outpatient DVT Px: SCDs CODE STATUS: Full code Disposition Needs [facility] bed Admission and Anticipated Discharge Date Admission Date: July 01, 2024 Subjective Patient is seen and examined at bedside History unreliable due to cognitive issues No agitation currently Sleeping comfortably during my encounter Sitter at bedside Poorly slept overnight Feels tired today Discussed with psychiatry today Denies any chest pain, dyspnea, abdominal pain, nausea, vomiting Review of Systems Review of Systems: All systems reviewed & are unremarkable except as noted in Subjective Physical Exam Physical Exam: Physical Exam: Vitals signs as noted above General Appearance:Obese, no apparent distress Head: normocephalic, Atraumatic Eyes: normal inspection, EOMI Neck: supple, Trachea midline Respiratory/Chest: Normal breath sounds, CTA, No accessory muscle use Cardiovascular: S1, S2, + murmur Abdomen/GI:Soft, Non tender, Bowel sounds present Extremities/Musculoskeletal:normal inspection, no edema Neurologic/Psych:AAOX1, grossly no focal neurological deficits Skin: normal color, warm Results & Data Results & Data Vital Signs (Past 12 Hours) Vital Signs Temp Pulse Resp BP Pulse Ox O2 Del Method 07/21/24 15:58 36.7 C 77 18 107/64 97 Room Air 07/21/24 09:00 37.2 C 93 H 18 113/65 94 Room Air Laboratory Results Short CBC 07/21/24 Range/Units 09:35 WBC 4.50 L (4.8-10.8) K/ul Hgb 11.0 L (12.0-16.0) g/dl Hct 32.2 L (37.0-47.0) % Plt Count 260 (130-400) K/uL BMP 07/21/24 09:35 Sodium 133 L Potassium 4.0 Chloride 97 L Carbon Dioxide 28 BUN 7 Creatinine 0.70 Glucose 241 H Calcium 8.9
[2024-07-21] MEDS: DOCUSATE SODIUM 100 MG CAP PO SCH (20:09)
[2024-07-22 08:55] LABS: Hematocrit (blood only) 31.4 % (37.0-47.0); Hemoglobin 10.5 g/dl (12.0-16.0); Mean Corpuscular Hemoglobin 29.6 pg (25.0-34.0); Mean Corpuscular Hgb Conc 33.4 g/dL (32.0-36.0); Mean Corpuscular Volume 88.5 fL (80.0-100.0); Mean Platelet Volume 10.2 fL (9.4-12.4); Platelet Count 238 K/uL (130-400); RDW Coefficient of Variation 13.3 % (11.5-14.5); RDW Standard Deviation 43.5 fL (36.4-46.3); Red Blood Count 3.55 M/uL (4.20-5.40); White Blood Count 3.34 K/ul (4.8-10.8)
[2024-07-22 09:31] LABS: Basophils # (auto) 0.04 K/uL (0.00-0.20); Basophils % (auto) 1.2 %; Eosinophils # (auto) 0.15 K/uL (0.00-0.50); Eosinophils % (auto) 4.5 %; Immature Granulocytes # (auto) 0.03 K/uL (0.01-0.20); Immature Granulocytes % (auto) 0.9 %; Lymphocytes # (auto) 1.22 K/uL (1.20-3.40); Lymphocytes % (auto) 36.5 %; Monocytes # (auto) 1.09 K/uL (0.11-0.59); Monocytes % (auto) 32.6 %; Neutrophils # (auto) 0.81 K/uL (1.40-6.50); Neutrophils % (auto) 24.3 %
--- NOTE | 2024-07-22 13:10 | Hospitalist Progress Note ---
Date of Service July 22, 2024 Assessment & Plan (1) Mental health disorder: Plan Ms. Garcia is a 73-year-old female currently living at [facility] with past medical history significant for schizophrenia, bipolar disorder, mood disorder, hyperlipidemia, hypothyroidism, diabetes, hypertension who was brought in because of ongoing worsening hallucinations and agitation. Patient sustpected to be experiencing an acute exacerbation of psychosis. As per prior provider: ER planned for geriatric psychiatric unit but her EKG was abnormal and had mild elevation of troponin so medicine team called for admission. 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 Compared to the previous CT scan: A resolution of the previously noted frontal hematoma and soft tissue swelling associated with the nasal fractures. -- Toxicology screen negative --BioFire negative --UA Normal continue One-on-one sitter Delirium precautions Appreciate psychiatry input:Recommended/stated the followin:1 due to safety concerns, remains 302 at this time Safe tray and suicide precautions Increase nightly Depakote to 500 mg at bedtime Discontinue olanzapine due to neutropenia consults Discontinue diphenhydramine due to anticholinergic side effects Continue Haldol, trazodone Discontinue Thorazine due to neutropenia concerns Lorazepam as needed for agitation, if ineffective, haloperidol as needed Case management to help with discharge planning Psychiatry following Waiting for placement Continue current management. 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 The reviewed findings are consistent with a non-specific normochromic, normocytic anemia (potentially anemia of chronic disease) and leukopenia due to neutropenia. Neutropenia may be secondary to a variety of medications." Discussed with Psychiatry Risk for agranulocytosis 2/2 all meds and patient with ongoing psychiatric disturbance Olanzapine, Thorazine discontinued Given persistent neutropenia, will consult hematology for further input Appreciate hematology input Received filgrastim for 2 days Consider bone marrow biopsy if not previously done (If family agrees)--tried to call family, no answer Neutropenia resolved with filgrastim only transiently Neutropenia persistent of filgrastim We will advised to follow-up with hematology as outpatient Diarrhea--resolved completed abx, will hold stool softener Monitor Nausea -KUB showed no acute abnormality Monitor Abnormal EKG Mild elevation of troponin at 16.6 before downtrending EKG with concern for t wave inversions Echo with EF greater than 70%, moderate left ventricular hypertrophy, no wall motion abnormalities, grade 1 diastolic dysfunction Complaints of some chest discomfort on admission Cardiology was consulted, recommended/stated the following - continue with cardiac medical management with aspirin, atorvastatin, metoprolol, losartan -Notes patient is not a candidate for stress testing or other cardiac testing due to current mental state continue to monitor on telemetry Uncomplicated UTI UA suggestive of infection, urine culture currently growing E. coli and Klebsiella varicola UTI could be contributing to the acute exacerbation of her symptoms noted above completed antibiotic course Iron deficiency anemia Started on iron supplements DM II Last HbA1c 7.8 Hold home p.o. medications Sliding scale monitor blood glucose levels Hypertension Continue amlodipine, losartan and metoprolol tartrate Monitor blood pressure Hyperlipidemia Continue statin Hypothyroidism Elevated TSH, normal free T4 Continue levothyroxine ? Compliance Needs repeat thyroid function test as outpatient DVT Px: SCDs CODE STATUS: Full code Disposition [facility] Unit Admission and Anticipated Discharge Date Admission Date: July 01, 2024 Subjective Patient is seen and examined at bedside History unreliable due to cognitive issues Lying comfortably on bed during my encounter No new complaints Sitter at bedside Denies any chest pain, dyspnea, abdominal pain Plan to discharge to [facility] unit Review of Systems Review of Systems: All systems reviewed & are unremarkable except as noted in Subjective Physical Exam Physical Exam: Physical Exam: Vitals signs as noted above General Appearance:Obese, no apparent distress Head: normocephalic, Atraumatic Eyes: normal inspection, EOMI Neck: supple, Trachea midline Respiratory/Chest: Normal breath sounds, CTA, No accessory muscle use Cardiovascular: S1, S2, + murmur Abdomen/GI:Soft, Non tender, Bowel sounds present Extremities/Musculoskeletal:normal inspection, no edema Neurologic/Psych:AAOX1, grossly no focal neurological deficits Skin: normal color, warm Results & Data Results & Data Vital Signs (Past 12 Hours) Vital Signs Temp Pulse Resp BP Pulse Ox O2 Del Method 07/22/24 07:30 36.3 C L 90 18 126/75 96 Room Air Laboratory Results Short CBC 07/22/24 Range/Units 08:01 WBC 3.34 L (4.8-10.8) K/ul Hgb 10.5 L (12.0-16.0) g/dl Hct 31.4 L (37.0-47.0) % Plt Count 238 (130-400) K/uL
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
[2024-07-22 15:08] VITALS: BP 122/74; PULSE 93; TEMP 98.6; O2SAT 98
== END 2024-07-22 17:39 | DRG 885 ==
LOC: ED 00:37 → SUATTDRO 05:17 → 2N 05:17 → 3N 07-05 23:57

== ENCOUNTER 2024-09-14 17:10 | Inpatient (IN) ==
--- NOTE | 2024-09-14 17:26 | Emergency Department Note ---
Impression & Plan Acute UTI, Influenza A, Diarrhea, Altered behavior ED Provider Note Provider: José Miguel Jung MD CHIEF COMPLAINT: Altered, diarrhea HISTORY OF PRESENT ILLNESS: Patient is a 73-year-old female past medical history including intellectual disability, schizophrenia/bipolar disorder from records, diabetes presenting here today the ambulance from her [facility] facility evidently for the afternoon shift has not been herself since I arrived around 3 PM. Unsure exactly when change was but he states he was not cooperative. Ambulance crew reported the patient was cooperative with them. She is afebrile upon arrival denies any pain. States maybe she has been a little bit sick recently. Maybe some diarrhea but denies vomiting. States he is hungry. States he did not eat today. No trauma reported. She denies shortness of breath or chest pain. PAST MEDICAL HISTORY: As noted above MEDICATIONS: Reviewed home occasionally is from the facility includes valproic acid and Haldol. SOCIAL HISTORY: From [facility] PHYSICAL EXAM: GENERAL: alert and oriented to person in no acute distress on stretcher Head: Atraumatic EYES: No injection, discharge or icterus. PERRL, EOMI. NECK: Trachea midline. Supple. ENT: Mucous membranes pink and moist. LUNGS: Airway patent. No retractions. Breath sounds clear with good air entry bilaterally. HEART: Regular rate and rhythm. No chest wall tenderness ABDOMEN: Soft and non-tender, without guarding or rebound. SKIN: Acyanotic, warm, dry, without rashes EXTREMITIES: Without swelling, tenderness or deformity NEUROLOGICAL: No focal deficits moving all extremities. No aphasia. No facial droop or slurred speech. EK bpm normal sinus rhythm. No PVC or PAC with some anterior lateral T wave inversions. No ST segment elevation. QTc 426. CONTINUOUS CARDIAC MONITORING: was ordered and showed a heart rate of 70s bpm in normal sinus rhythm Patient's laboratory studies and imaging reviewed. Differential includes Infection, dehydration, metabolic abnormality, hypo/hyperglycemia, electrolyte disturbance, anemia, hypoxia, cardiac sources, intracerebral event, toxicologic, neurologic, as well as other pathologies. IMPRESSION/MEDICAL DECISION MAKING: Patient in no distress. Vitals are reassuring without tachycardia, hypotension, or fever. Immediately upon evaluation she request some food. On further questioning while she is little slow to answer at times and not always the best historian reports maybe little bit illness recently and some diarrhea but denies vomiting. Denies pain. Says like she was uncooperative with staff at her facility which is different than her baseline but she always has some amount of intellectual disability from EMS report. No evidence or history of trauma reported. Does smell of urine upon arrival. EKG basic labs urine sample were obtained. Given the question of maybe some change in mental status a CT of the head was obtained and given the question of some illness and/or diarrhea CT abdomen pelvis to be obtained. Bit difficult as I am not sure in getting entirely perfect history from the patient's will have a broad differential. Patient was covered in feces and was cleaned here by staff upon arrival. Blood work here today with some leukopenia slightly worsened from previous with some neutropenia absolute neutrophils of 0.66. Compared to previous does have some level of this always may be just slightly worse. No significant anemia. CT of the head and abdomen pelvis per radiology report without significant intracranial normality evidence of acute intra-abdominal abnormality. Procalcitonin not detectable. Chest x-ray shows per report no evidence of pneumonia or pneumothorax. No pleural effusion. Electrolytes without significant abnormality signs of renal dysfunction. Normal troponin. Normal LFTs. Respiratory viral panel returns positive for influenza A. Likely explains her generalized illness symptoms. Straight cath urinalysis returns concerning for urinary tract infection. Prior cultures reviewed. She is to be pansensitive. Given dose ceftriaxone here. Lactate and cultures were obtained. Does not appear septic. Given her flu and UTI with her change in behavior according to staff in the diarrheal conditions that she arrived in, believe further care here especially with some neutropenia is reasonable. Hospitalist team contacted. DIAGNOSIS: Influenza A, diarrhea, UTI DISPOSITION: Hospitalist will evaluate Patient was agreeable with this plan. Past Med/Surg History Problem List (Updated 09/14/24 @ 20:12 by José Miguel Jung M.D.) Altered behavior (Acute) Diarrhea (Acute) Influenza A (Acute) Acute UTI (Acute) Aggressive behavior (Acute) Thought disorder (Acute) Elevated troponin (Acute) Acute electrocardiogram changes (Acute) Hallucinations Schizoaffective disorder Abnormal EKG Mental health disorder Hypertension (Acute) DM2 (diabetes mellitus, type 2) Leukopenia (Acute) Hypothyroidism Obesity (Acute) DVT prophylaxis Hypertensive urgency Surgical history unknown Chest pain (Acute) Schizophrenia Bipolar disorder Family History Unknown Unknown family medical history Social History Smoking Status: Former smoker Tobacco Type: Cigarettes Preferred Language: Sudanese Communication Ability: Effective 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 Beliefs That Will Affect Care: None marital status: Single Current Living Situation: Personal Care Facility How many Children do You have: 0 Feels Safe at Home: Yes Assistive Devices: Walker Allergies Allergies Allergy/AdvReac Type Severity Reaction Status Date / Time No Known Allergies Allergy Unverified 09/14/24 18:08 Home Meds Home Medications Medication Instructions Recorded Confirmed acetaminophen 325 mg tablet 650 mg PO QID PRN Pain 02/06/20 09/14/24 atorvastatin 80 mg tablet 80 mg PO HS 02/06/20 09/14/24 calcium carbonate (Oyster Shell 500 mg PO BID 02/06/20 09/14/24 Calcium 500) cholecalciferol (vitamin D3) 50 50 mcg PO DAILY 02/06/20 09/14/24 mcg (2,000 unit) capsule (Vitamin D3) docusate sodium 100 mg capsule 100 mg PO BID Constipation 02/06/20 09/14/24 fluticasone propionate 50 1 spray intranasal BID 02/06/20 09/14/24 mcg/actuation nasal spray,suspension glipizide 5 mg tablet, extended 10 mg PO DAILY 02/06/20 09/14/24 release 24 hr lurasidone 120 mg tablet (Latuda) 160 mg PO DAILY 02/06/20 09/14/24 amantadine HCl 100 mg tablet 50 mg PO BID 06/28/24 09/14/24 biotin 1,000 mcg chewable tablet 1,000 mcg PO DAILY 06/28/24 09/14/24 cyanocobalamin (vitamin B-12) 1,000 mcg PO DAILY 06/28/24 09/14/24 1,000 mcg tablet dextromethorphan-guaifenesin 10 10 ml PO Q4H PRN Cough 06/28/24 09/14/24 mg-100 mg/5 mL oral syrup (Tussin DM) diphenhydramine HCl 25 mg capsule 25 mg PO HS 06/28/24 09/14/24 (Banophen) glipizide 5 mg tablet 2.5 mg PO DAILY 06/28/24 09/14/24 haloperidol 10 mg tablet 10 mg PO HS 06/28/24 09/14/24 haloperidol 2 mg tablet 2 mg PO DAILY 06/28/24 09/14/24 haloperidol 5 mg tablet 5 mg PO QAM 06/28/24 09/14/24 loperamide 2 mg capsule 2 mg PO Q4H PRN loose stools 06/28/24 09/14/24 melatonin 5 mg tablet 5 mg PO HS 06/28/24 09/14/24 nystatin 100,000 unit/gram topical 1 applic topical BID PRN Rash 06/28/24 09/14/24 cream calcium carbonate (Calcium Antacid) 400 mg PO TID PRN 09/14/24 09/14/24 heartburn/indigestion levothyroxine 175 mcg tablet 175 mcg PO DAILYBB 09/14/24 09/14/24 lorazepam 1 mg tablet 1 mg PO Q4 PRN Anxiety 09/14/24 09/14/24 multivitamin,tx-minerals 1 tab PO DAILY 09/14/24 09/14/24 trazodone 50 mg tablet 50 mg PO HS 09/14/24 09/14/24 Previous Rx's Medication Instructions Recorded amlodipine 10 mg tablet (Norvasc) 10 mg PO DAILY #30 tabs 02/09/20 aspirin 81 mg tablet,delayed 81 mg PO HS #90 tabs 02/09/20 release losartan 50 mg tablet 50 mg PO QAM #30 tabs 02/09/20 metoprolol tartrate 25 mg tablet 25 mg PO BID #60 tabs 02/09/20 divalproex 125 mg capsule,delayed 250 mg (2 x 125 mg) PO QAM #60 caps 07/22/24 release sprinkle divalproex 125 mg capsule,delayed 500 mg (4 x 125 mg) PO QPM 30 days 07/22/24 release sprinkle #120 caps ferrous sulfate 325 mg (65 mg 325 mg PO QAM #30 tabs 07/22/24 iron) tablet,delayed release Results & Data (ED) Vital Signs Vital Signs - 24 hr 09/14/24 17:14 09/14/24 17:51 09/14/24 18:54 Temperature 37 C Temperature Source Oral Pulse Rate 76 77 72 Respiratory Rate 20 20 Respiratory Effort / Characteristics Non-Labored Spontaneous Respiratory Depth Normal Respiratory Pattern Regular Blood Pressure 140/64 150/74 H Blood Pressure Mean 89 99 Pulse Oximetry 96 94 Oxygen Delivery Method Room Air Room Air Sepsis Recent Fever Within 48 Hours No Sepsis New/Unexplained Change in Mental Status Yes Sepsis Action Taken by Nursing No Action Required 09/14/24 18:57 09/14/24 19:00 Temperature Temperature Source Pulse Rate 71 Respiratory Rate 24 Respiratory Effort / Characteristics Respiratory Depth Respiratory Pattern Blood Pressure 135/89 Blood Pressure Mean 93 Pulse Oximetry 93 Oxygen Delivery Method Room Air Sepsis Recent Fever Within 48 Hours Sepsis New/Unexplained Change in Mental Status Sepsis Action Taken by Nursing Laboratory Data 09/14/24 17:33 09/14/24 18:28 Lab Results 09/14/24 09/14/24 09/14/24 Range/Units 17:33 18:28 18:49 WBC 2.25 L (4.8-10.8) K/ul RBC 4.32 (4.20-5.40) M/uL Hgb 12.6 (12.0-16.0) g/dl Hct 37.9 (37.0-47.0) % MCV 87.7 (80.0-100.0) fL MCH 29.2 (25.0-34.0) pg MCHC 33.2 (32.0-36.0) g/dL RDW Std Deviation 41.4 (36.4-46.3) fL RDW Coeff of Joe 12.9 (11.5-14.5) % Plt Count 230 (130-400) K/uL MPV 9.6 (9.4-12.4) fL Immature Gran % (Auto) 0.4 % Neut % (Auto) 29.4 % Lymph % (Auto) 36.9 % Ble[place] % (Auto) 23.1 % Eos % (Auto) 9.3 % Baso % (Auto) 0.9 % Neut # (Auto) 0.66 L* (1.40-6.50) K/uL Lymph # (Auto) 0.83 L (1.20-3.40) K/uL Bleckley # (Auto) 0.52 (0.11-0.59) K/uL Eos # (Auto) 0.21 (0.00-0.50) K/uL Baso # (Auto) 0.02 (0.00-0.20) K/uL Immature Gran # (Auto) 0.01 (0.01-0.20) K/uL PT 10.8 (9.0-12.0) Seconds INR 1.0 (0.9-1.1) Sodium 136 (136-145) mmol/L Potassium 4.0 (3.5-5.1) mmol/L Chloride 106 (98-107) mmol/L Carbon Dioxide 24 (21-32) mmol/L Anion Gap 6 (3-11) BUN 10 (6-23) mg/dl Creatinine 0.78 (0.6-1.2) mg/dl Est Cr Clr Drug Dosing 72.5 ml/min eGFR 81.15 BUN/Creatinine Ratio 12.8 (10-20) Glucose 136 H (70-99(Fasting)) mg/dl Lactate (0.4-2.0) mmol/L Calcium 9.2 (8.6-10.3) mg/dl Magnesium 1.9 (1.7-2.4) mg/dl Total Bilirubin 1.0 (0.2-1.0) mg/dl AST 14 (13-39) U/L ALT 12 (7-52) U/L Alkaline Phosphatase 82 (34-104) U/L Troponin I High Sens 13.5 (0-14) pg/ml Total Protein 6.4 (6.0-8.3) gm/dl Albumin 3.7 (3.4-5.0) gm/dl Globulin 2.7 (2.5-4.0) gm/dl Albumin/Globulin Ratio 1.4 (0.9-2) Procalcitonin < 0.02 (0-0.5) ng/ml TSH 4.152 (0.300-4.500) uIu/ml Urine Color Yellow Urine Appearance Cloudy A (Clear) Urine pH 6.5 (4.5-7.5) Ur Specific [place] 1.021 (1.000-1.030) Urine Protein Trace H (Negative) Urine Glucose (UA) Negative (Negative) Urine Ketones 2+ H (Negative) Urine Blood Negative (Negative) Urine Nitrite Positive A (Negative) Urine Bilirubin Negative (Negative) Urine Urobilinogen Negative (Negative) Ur Leukocyte Esterase 1+ H (Negative) Urine WBC (Auto) 21-50 H (0-5) /hpf Urine RBC (Auto) 0-2 (0-2) /hpf U Hyaline Cast (Auto) 3-5 H (0-2) /lpf U Epithel Cells (Auto) 0-2 (0-2) /hpf Urine Bacteria (Auto) 4+ H (None Seen) Valproic Acid 24 L (50-100) mcg/ml Adenovirus (PCR) Not Detected (NotDetected) B. pertussis DNA (PCR) Not Detected (NotDetected) B.parapertussis DNA PCR Not Detected (NotDetected) C. pneumoniae DNA (PCR) Not Detected (NotDetected) Coronavirus OC43 (PCR) Not Detected (NotDetected) Coronavirus HKU1 (PCR) Not Detected (NotDetected) Coronavirus 229E (PCR) Not Detected (NotDetected) SARS-CoV-2 (PCR) Not Detected (NotDetected) Coronavirus NL63 (PCR) Not Detected (NotDetected) Human Metapneumovir PCR Not Detected (NotDetected) Influenza A (H3) PCR DETECTED A (NotDetected) Influenza Type B (PCR) Not Detected (NotDetected) M. pneumoniae (PCR) Not Detected (NotDetected) Parainfluenza 1 (PCR) Not Detected (NotDetected) Parainfluenza 2 (PCR) Not Detected (NotDetected) Parainfluenza 3 (PCR) Not Detected (NotDetected) Parainfluenza 4 (PCR) Not Detected (NotDetected) RSV (PCR) Not Detected (NotDetected) Entero/Rhino (PCR) Not Detected (NotDetected) 09/14/24 Range/Units 19:50 WBC (4.8-10.8) K/ul RBC (4.20-5.40) M/uL Hgb (12.0-16.0) g/dl Hct (37.0-47.0) % MCV (80.0-100.0) fL MCH (25.0-34.0) pg MCHC (32.0-36.0) g/dL RDW Std Deviation (36.4-46.3) fL RDW Coeff of Joe (11.5-14.5) % Plt Count (130-400) K/uL MPV (9.4-12.4) fL Immature Gran % (Auto) % Neut % (Auto) % Lymph % (Auto) % Bleckley % (Auto) % Eos % (Auto) % Baso % (Auto) % Neut # (Auto) (1.40-6.50) K/uL Lymph # (Auto) (1.20-3.40) K/uL [place] # (Auto) (0.11-0.59) K/uL Eos # (Auto) (0.00-0.50) K/uL Baso # (Auto) (0.00-0.20) K/uL Immature Gran # (Auto) (0.01-0.20) K/uL PT (9.0-12.0) Seconds INR (0.9-1.1) Sodium (136-145) mmol/L Potassium (3.5-5.1) mmol/L Chloride (98-107) mmol/L Carbon Dioxide (21-32) mmol/L Anion Gap (3-11) BUN (6-23) mg/dl Creatinine (0.6-1.2) mg/dl Est Cr Clr Drug Dosing ml/min eGFR BUN/Creatinine Ratio (10-20) Glucose (70-99(Fasting)) mg/dl Lactate 0.8 (0.4-2.0) mmol/L Calcium (8.6-10.3) mg/dl Magnesium (1.7-2.4) mg/dl Total Bilirubin (0.2-1.0) mg/dl AST (13-39) U/L ALT (7-52) U/L Alkaline Phosphatase (34-104) U/L Troponin I High Sens (0-14) pg/ml Total Protein (6.0-8.3) gm/dl Albumin (3.4-5.0) gm/dl Globulin (2.5-4.0) gm/dl Albumin/Globulin Ratio (0.9-2) Procalcitonin (0-0.5) ng/ml TSH (0.300-4.500) uIu/ml Urine Color Urine Appearance (Clear) Urine pH (4.5-7.5) Ur Specific [place] (1.000-1.030) Urine Protein (Negative) Urine Glucose (UA) (Negative) Urine Ketones (Negative) Urine Blood (Negative) Urine Nitrite (Negative) Urine Bilirubin (Negative) Urine Urobilinogen (Negative) Ur Leukocyte Esterase (Negative) Urine WBC (Auto) (0-5) /hpf Urine RBC (Auto) (0-2) /hpf U Hyaline Cast (Auto) (0-2) /lpf U Epithel Cells (Auto) (0-2) /hpf Urine Bacteria (Auto) (None Seen) Valproic Acid (50-100) mcg/ml Adenovirus (PCR) (NotDetected) B. pertussis DNA (PCR) (NotDetected) B.parapertussis DNA PCR (NotDetected) C. pneumoniae DNA (PCR) (NotDetected) Coronavirus OC43 (PCR) (NotDetected) Coronavirus HKU1 (PCR) (NotDetected) Coronavirus 229E (PCR) (NotDetected) SARS-CoV-2 (PCR) (NotDetected) Coronavirus NL63 (PCR) (NotDetected) Human Metapneumovir PCR (NotDetected) Influenza A (H3) PCR (NotDetected) Influenza Type B (PCR) (NotDetected) M. pneumoniae (PCR) (NotDetected) Parainfluenza 1 (PCR) (NotDetected) Parainfluenza 2 (PCR) (NotDetected) Parainfluenza 3 (PCR) (NotDetected) Parainfluenza 4 (PCR) (NotDetected) RSV (PCR) (NotDetected) Entero/Rhino (PCR) (NotDetected) Imaging Data Radiologist's Impression: Abdomen/Pelvis CT 09/14/24 17:26 EXAMINATION: CT of the abdomen and pelvis performed without contrast TECHNIQUE: Helical CT images from the lung bases through the symphysis pubis were obtained without contrast. Coronal and sagittal reformatted images were generated at a workstation for further assessment. Dose reduction techniques were achieved by using automatic exposure control and/or adjustment of mA and/or kV according to patient size and/or use of iterative reconstruction technique. COMPARISON: None HISTORY: Diarrhea. Weakness FINDINGS: Lower chest: No consolidation. No pleural effusion or pneumothorax. Trace pericardial effusion. Liver: No suspicious liver lesions. Gallbladder: Small volume of layered calcified gallstones. No evidence of acute cholecystitis. Spleen: Normal size. Pancreas: No suspicious pancreatic lesions. The pancreatic duct is not dilated. Adrenal glands: No adrenal nodules. Kidneys: No hydronephrosis or obstructing renal stones. Bladder / Pelvic organs: Unremarkable. Bowel: No bowel obstruction. No abnormal bowel wall thickening. The appendix is unremarkable. Sigmoid colonic diverticulosis without diverticulitis. Minimal colonic stool. Lymph nodes: No retroperitoneal, mesenteric, or pelvic lymphadenopathy. Peritoneum / Retroperitoneum: No free fluid or air within the abdomen. Vessels: No infrarenal aortic aneurysm. Moderate aortoiliac calcification. Bones and soft tissues: No suspicious lesion in the bones. Chronic deformities of the inferior and superior pubic rami bilaterally. IMPRESSION: Cholelithiasis. Trace pericardial effusion. Electronically signed by Derek Cooley 09-14-2024 6:13 PM Chest X-Ray 09/14/24 17:26 Chest radiograph, one view History: Weakness Comparison: 07/01/2024 Findings: Single AP view of the chest performed. No focal consolidation or pleural effusion. No pneumothorax. The cardiomediastinal silhouette is within normal limits. Normal pulmonary vascularity. No evidence for lymphadenopathy. No visualized bony or soft tissue abnormality. Impression: Normal chest radiograph Electronically signed by Derek Cooley 09-14-2024 6:[address] 09/14/24 17:27 CT head without contrast History: AMS Comparison: 07/01/2024 Technique: Using multidetector thin collimation helical acquisition technique, axial, coronal and sagittal CT images from the skull base to the vertex were obtained without intravenous contrast. Dose reduction techniques were achieved by using automatic exposure control and/or adjustment of mA and/or kV according to patient size and/or use of iterative reconstruction technique. Findings: No intracranial hemorrhage, mass-effect, or midline shift. The ventricles are proportionate to the cerebral sulci. The chatman to white matter differentiation of the cerebral hemispheres is preserved. The basal cisterns are patent. There is mild fluid scattered in the paranasal sinuses. Mastoid air cells are clear. Impression: No acute intracranial pathology. Electronically signed by Derek Cooley 09-14-2024 6:13 PM Discharge Plan Visit Data Chief Complaint: Altered Mental Status ED Provider: José Miguel Jung Discharge Problem: Acute UTI, Influenza A, Diarrhea, Altered behavior Patient Disposition: Being Evaluated by Hospitalist Forms Stand Alone Forms: My [employer] Prescriptions Prescriptions: No Action atorvastatin 80 mg Tablet 80 mg PO HS acetaminophen 325 mg Tablet 650 mg PO QID MDD 3g PRN (Reason: Pain) glipizide 5 mg tablet extended release 24hr 10 mg PO DAILY calcium carbonate [Oyster Shell Calcium 500] 500 mg calcium (1,250 mg) Tablet 500 mg PO BID docusate sodium 100 mg Capsule 100 mg PO BID fluticasone propionate 50 mcg/actuation spray,suspension 1 spray INTRANASAL BID cholecalciferol (vitamin D3) [Vitamin D3] 50 mcg (2,000 unit) Capsule 50 mcg PO DAILY lurasidone [Latuda] 120 mg tablet 160 mg PO DAILY Rx Instructions: take after dinner metoprolol tartrate 25 mg Tablet 25 mg PO BID Qty: 60 1RF amlodipine [Norvasc] 10 mg tablet 10 mg PO DAILY Qty: 30 1RF losartan 50 mg Tablet 50 mg PO QAM Qty: 30 1RF aspirin 81 mg Tablet,Delayed Release (Dr/Ec) 81 mg PO HS Qty: 90 1RF ferrous sulfate 325 mg (65 mg iron) Tablet,Delayed Release (Dr/Ec) 325 mg PO QAM Qty: 30 1RF divalproex 125 mg Capsule, Delayed Rel Sprinkle 250 mg PO QAM Qty: 60 1RF divalproex 125 mg Capsule, Delayed Rel Sprinkle 500 mg PO QPM 30 Days Qty: 120 1RF levothyroxine 175 mcg tablet 175 mcg PO DAILYBB trazodone 50 mg tablet 50 mg PO HS Thera M Tablet 1 tab PO DAILY lorazepam 1 mg Tablet 1 mg PO Q4 PRN (Reason: Anxiety) calcium carbonate [Calcium Antacid] 200 mg calcium (500 mg) Tablet,Chewable 400 mg PO TID PRN (Reason: heartburn/indigestion) amantadine HCl 100 mg tablet 50 mg PO BID Rx Instructions: 0600, 1300 haloperidol 5 mg tablet 5 mg PO QAM loperamide 2 mg Capsule 2 mg PO Q4H PRN (Reason: loose stools) Rx Instructions: administer after each loose stool until symptoms controlled; do not exceed 8 mg per 24 hrs cyanocobalamin (vitamin B-12) 1,000 mcg Tablet 1,000 mcg PO DAILY dextromethorphan-guaifenesin [Tussin DM] 10-100 mg/5 mL Syrup 10 ml PO Q4H PRN (Reason: Cough) diphenhydramine HCl [Banophen] 25 mg Capsule 25 mg PO HS nystatin 100,000 unit/gram Cream 1 applic TOPICAL BID PRN (Reason: Rash) haloperidol 10 mg tablet 10 mg PO HS haloperidol 2 mg tablet 2 mg PO DAILY Rx Instructions: 1300 glipizide 5 mg tablet 2.5 mg PO DAILY melatonin 5 mg Tablet 5 mg PO HS biotin 1,000 mcg Tablet,Chewable 1,000 mcg PO DAILY Referrals Referrals: Brendan Larios [Primary Care Provider] -
[2024-09-14 17:54] LABS: Hematocrit (blood only) 37.9 % (37.0-47.0); Hemoglobin 12.6 g/dl (12.0-16.0); Mean Corpuscular Hemoglobin 29.2 pg (25.0-34.0); Mean Corpuscular Hgb Conc 33.2 g/dL (32.0-36.0); Mean Corpuscular Volume 87.7 fL (80.0-100.0); Mean Platelet Volume 9.6 fL (9.4-12.4); Platelet Count 230 K/uL (130-400); RDW Coefficient of Variation 12.9 % (11.5-14.5); RDW Standard Deviation 41.4 fL (36.4-46.3); Red Blood Count 4.32 M/uL (4.20-5.40); White Blood Count 2.25 K/ul (4.8-10.8)
[2024-09-14 18:12] LABS: Basophils # (auto) 0.02 K/uL (0.00-0.20); Basophils % (auto) 0.9 %; Eosinophils # (auto) 0.21 K/uL (0.00-0.50); Eosinophils % (auto) 9.3 %; Immature Granulocytes # (auto) 0.01 K/uL (0.01-0.20); Immature Granulocytes % (auto) 0.4 %; Lymphocytes # (auto) 0.83 K/uL (1.20-3.40); Lymphocytes % (auto) 36.9 %; Monocytes # (auto) 0.52 K/uL (0.11-0.59); Monocytes % (auto) 23.1 %; Neutrophils # (auto) 0.66 K/uL (1.40-6.50); Neutrophils % (auto) 29.4 %
--- NOTE | 2024-09-14 18:13 | CT Scan Report ---
CT head without contrast History: AMS Comparison: 07/01/2024 Technique: Using multidetector thin collimation helical acquisition technique, axial, coronal and sagittal CT images from the skull base to the vertex were obtained without intravenous contrast. Dose reduction techniques were achieved by using automatic exposure control and/or adjustment of mA and/or kV according to patient size and/or use of iterative reconstruction technique. Findings: No intracranial hemorrhage, mass-effect, or midline shift. The ventricles are proportionate to the cerebral sulci. The chatman to white matter differentiation of the cerebral hemispheres is preserved. The basal cisterns are patent. There is mild fluid scattered in the paranasal sinuses. Mastoid air cells are clear. Impression: No acute intracranial pathology. Electronically signed by Derek Cooley 09-14-2024 6:13 PM
--- NOTE | 2024-09-14 18:14 | CT Scan Report ---
EXAMINATION: CT of the abdomen and pelvis performed without contrast TECHNIQUE: Helical CT images from the lung bases through the symphysis pubis were obtained without contrast. Coronal and sagittal reformatted images were generated at a workstation for further assessment. Dose reduction techniques were achieved by using automatic exposure control and/or adjustment of mA and/or kV according to patient size and/or use of iterative reconstruction technique. COMPARISON: None HISTORY: Diarrhea. Weakness FINDINGS: Lower chest: No consolidation. No pleural effusion or pneumothorax. Trace pericardial effusion. Liver: No suspicious liver lesions. Gallbladder: Small volume of layered calcified gallstones. No evidence of acute cholecystitis. Spleen: Normal size. Pancreas: No suspicious pancreatic lesions. The pancreatic duct is not dilated. Adrenal glands: No adrenal nodules. Kidneys: No hydronephrosis or obstructing renal stones. Bladder / Pelvic organs: Unremarkable. Bowel: No bowel obstruction. No abnormal bowel wall thickening. The appendix is unremarkable. Sigmoid colonic diverticulosis without diverticulitis. Minimal colonic stool. Lymph nodes: No retroperitoneal, mesenteric, or pelvic lymphadenopathy. Peritoneum / Retroperitoneum: No free fluid or air within the abdomen. Vessels: No infrarenal aortic aneurysm. Moderate aortoiliac calcification. Bones and soft tissues: No suspicious lesion in the bones. Chronic deformities of the inferior and superior pubic rami bilaterally. IMPRESSION: Cholelithiasis. Trace pericardial effusion. Electronically signed by Derek Cooley 09-14-2024 6:13 PM
[2024-09-14 18:20] LABS: Prothrombin Time 10.8 Seconds (9.0-12.0)
--- NOTE | 2024-09-14 18:34 | XRay Report ---
Chest radiograph, one view History: Weakness Comparison: 07/01/2024 Findings: Single AP view of the chest performed. No focal consolidation or pleural effusion. No pneumothorax. The cardiomediastinal silhouette is within normal limits. Normal pulmonary vascularity. No evidence for lymphadenopathy. No visualized bony or soft tissue abnormality. Impression: Normal chest radiograph Electronically signed by Derek Cooley 09-14-2024 6:34 PM
[2024-09-14 18:38] LABS: Adenovirus PCR Not Detected (NotDetected); Bordetella parapertussis PCR Not Detected (NotDetected); Bordetella pertussis PCR Not Detected (NotDetected); Chlamydia pneumoniae PCR Not Detected (NotDetected); Coronavirus 229E PCR Not Detected (NotDetected); Coronavirus CoV-2 (COVID19)PCR Not Detected (NotDetected); Coronavirus HKU1 PCR Not Detected (NotDetected); Coronavirus NL63 PCR Not Detected (NotDetected); Coronavirus OC43PCR Not Detected (NotDetected); Human Metapneumovirus PCR Not Detected (NotDetected); Influenza A (H3) PCR DETECTED (NotDetected); Influenza B PCR Not Detected (NotDetected); Mycoplasma pneumoniae PCR Not Detected (NotDetected); Parainfluenza Virus 1 PCR Not Detected (NotDetected); Parainfluenza Virus 2 PCR Not Detected (NotDetected); Parainfluenza Virus 3 PCR Not Detected (NotDetected); Parainfluenza Virus 4 PCR Not Detected (NotDetected); Respiratory Syncytial VirusPCR Not Detected (NotDetected); Rhinovirus/Enterovirus PCR Not Detected (NotDetected)
[2024-09-14 18:55] LABS: Albumin Globulin Ratio 1.4 (0.9-2); Albumin Level 3.7 gm/dl (3.4-5.0); BUN Creatinine Ratio 12.8 (10-20); Calcium 9.2 mg/dl (8.6-10.3); Creatinine Clr Calc Pharmacy 72.5 ml/min; Globulin 2.7 gm/dl (2.5-4.0); Magnesium 1.9 mg/dl (1.7-2.4); Total Protein 6.4 gm/dl (6.0-8.3)
[2024-09-14 19:01] LABS: Troponin I High Sensitivity 13.5 pg/ml (0-14)
[2024-09-14 19:10] LABS: Thyroid Stimulating Hormone 4.152 uIu/ml (0.300-4.500)
[2024-09-14 19:15] LABS: Appearance Urine Cloudy (Clear); Bacteria Urine Automated 4+ (None Seen); Bilirubin Urine Negative (Negative); Blood Urine Negative (Negative); Color Urine Yellow; Epithelial Cell Urine Auto 0-2 /hpf (0-2); Glucose Urine UA Negative (Negative); Ketones Urine 2+ (Negative); Leukocyte Esterase Urine 1+ (Negative); Nitrite Urine Positive (Negative); Protein Urine Trace (Negative); RBC Urine Automated 0-2 /hpf (0-2); Specific Gravity Urine 1.021 (1.000-1.030); Urobilinogen Urine Negative (Negative); WBC Urine Automated 21-50 /hpf (0-5); pH Urine 6.5 (4.5-7.5)
[2024-09-14] MEDS: SODIUM CHLORIDE 0.9% 1,000 ML IV ONE (20:26)
[2024-09-14] MEDS: cefTRIAXone SODIUM 2,000 MG/50 ML BAG IV STA (20:26)
[2024-09-14] MEDS: OSELTAMIVIR PHOSPHATE 75 MG CAP PO ONE (20:27)
--- NOTE | 2024-09-14 22:19 | History & Physical Report ---
Date of Service September 14, 2024 Assessment & Plan (1) Encephalopathy: Plan: Encephalopathy History intellectual impairment Multifactorial Complicated UTI, no sepsis for now Influenza illness Multiple neuropsychotropic medications contributory hypertension, stable hyperlipidemia, on statin Rx DM2 on oral medications, suboptimal control as of recent hemoglobin A1c of 7.8 last year chronic neutropenia/chronic anemia, patient refused bone marrow aspiration biopsy recommended by hematology hypothyroidism, euthyroid as of today's TSH Admit to medical telemetry Urine CS, ceftriaxone Tamiflu course Hold neuropsychotropic medications for now resume once mentation back to baseline Basal bolus insulin, ISS BG goal 1 10-1 40, carb count coverage DVT prophylaxis. Lovenox subcu Full code Text document was generated using [employer] voice recognition software. It may contain grammatical or spelling errors. Kindly contact undersigned for clarification of any documentation item in question. History of Present Illness Chief Complaint: Confusion as per records Primary Care Provider: Janessa Cardona History obtained from patient, ED provider, and records. Limited history from patient secondary to disorientation. Medical history significant for hypertension, hyperlipidemia, DM2 on oral medications, chronic neutropenia, chronic anemia (baseline hemoglobin of 10), hypothyroidism, schizoaffective disorder, mood disorder, intellectual impairment, past tobacco abuse' Last confinement June 2024 for psychosis and E. coli and Klebsiella UTI. Patient noted to be combative and disoriented at facility today. Diarrhea symptoms without abdominal pain complaints. Foul-smelling urine. Patient unable to answer questions regarding chest pain, cough, SOB symptoms. Ceftriaxone administered at the ER. Medical History as above Surgical History/Family History: Could not be fully obtained due to disorientation Personal/Social history : Past tobacco abuse, personal care facility resident Allergies Allergy/AdvReac Type Severity Reaction Status Date / Time No Known Allergies Allergy Unverified 09/14/24 18:08 Home Medications Medication Instructions Recorded Confirmed Type acetaminophen 325 mg tablet 650 mg PO QID PRN Pain 02/06/20 09/14/24 History atorvastatin 80 mg tablet 80 mg PO HS 02/06/20 09/14/24 History calcium carbonate (Oyster Shell 500 mg PO BID 02/06/20 09/14/24 History Calcium 500) cholecalciferol (vitamin D3) 50 50 mcg PO DAILY 02/06/20 09/14/24 History mcg (2,000 unit) capsule (Vitamin D3) docusate sodium 100 mg capsule 100 mg PO BID Constipation 02/06/20 09/14/24 History fluticasone propionate 50 1 spray intranasal BID 02/06/20 09/14/24 History mcg/actuation nasal spray,suspension glipizide 5 mg tablet, extended 10 mg PO DAILY 02/06/20 09/14/24 History release 24 hr lurasidone 120 mg tablet (Latuda) 160 mg PO DAILY 02/06/20 09/14/24 History amlodipine 10 mg tablet (Norvasc) 10 mg PO DAILY #30 tabs 02/09/20 09/14/24 Rx aspirin 81 mg tablet,delayed 81 mg PO HS #90 tabs 02/09/20 09/14/24 Rx release losartan 50 mg tablet 50 mg PO QAM #30 tabs 02/09/20 09/14/24 Rx metoprolol tartrate 25 mg tablet 25 mg PO BID #60 tabs 02/09/20 09/14/24 Rx amantadine HCl 100 mg tablet 50 mg PO BID 06/28/24 09/14/24 History biotin 1,000 mcg chewable tablet 1,000 mcg PO DAILY 06/28/24 09/14/24 History cyanocobalamin (vitamin B-12) 1,000 mcg PO DAILY 06/28/24 09/14/24 History 1,000 mcg tablet dextromethorphan-guaifenesin 10 10 ml PO Q4H PRN Cough 06/28/24 09/14/24 History mg-100 mg/5 mL oral syrup (Tussin DM) diphenhydramine HCl 25 mg capsule 25 mg PO HS 06/28/24 09/14/24 History (Banophen) glipizide 5 mg tablet 2.5 mg PO DAILY 06/28/24 09/14/24 History haloperidol 10 mg tablet 10 mg PO HS 06/28/24 09/14/24 History haloperidol 2 mg tablet 2 mg PO DAILY 06/28/24 09/14/24 History haloperidol 5 mg tablet 5 mg PO QAM 06/28/24 09/14/24 History loperamide 2 mg capsule 2 mg PO Q4H PRN loose stools 06/28/24 09/14/24 History melatonin 5 mg tablet 5 mg PO HS 06/28/24 09/14/24 History nystatin 100,000 unit/gram topical 1 applic topical BID PRN Rash 06/28/24 09/14/24 History cream divalproex 125 mg capsule,delayed 250 mg (2 x 125 mg) PO QAM #60 caps 07/22/24 09/14/24 Rx release sprinkle divalproex 125 mg capsule,delayed 500 mg (4 x 125 mg) PO QPM 30 days 07/22/24 09/14/24 Rx release sprinkle #120 caps ferrous sulfate 325 mg (65 mg 325 mg PO QAM #30 tabs 07/22/24 09/14/24 Rx iron) tablet,delayed release calcium carbonate (Calcium Antacid) 400 mg PO TID PRN 09/14/24 09/14/24 History heartburn/indigestion levothyroxine 175 mcg tablet 175 mcg PO DAILYBB 09/14/24 09/14/24 History lorazepam 1 mg tablet 1 mg PO Q4 PRN Anxiety 09/14/24 09/14/24 History multivitamin,tx-minerals 1 tab PO DAILY 09/14/24 09/14/24 History trazodone 50 mg tablet 50 mg PO HS 09/14/24 09/14/24 History Past Med/Surg History Problem List (Updated 09/15/24 @ 12:00 by Ian Avila MD) Encephalopathy Altered behavior (Acute) Diarrhea (Acute) Influenza A (Acute) Acute UTI (Acute) Aggressive behavior (Acute) Thought disorder (Acute) Elevated troponin (Acute) Acute electrocardiogram changes (Acute) Hallucinations Schizoaffective disorder Abnormal EKG Mental health disorder Hypertension (Acute) DM2 (diabetes mellitus, type 2) Leukopenia (Acute) Hypothyroidism Obesity (Acute) DVT prophylaxis Hypertensive urgency Surgical history unknown Chest pain (Acute) Schizophrenia Bipolar disorder Family History Unknown Unknown family medical history Social History Smoking Status: Former smoker Tobacco Type: Cigarettes Hx Alcohol Use: No Hx Substance Use: No Preferred Language: Bahamian Communication Ability: Impaired Communication Ability Comment: speech difficulty at times Dog [employer] Manager Required: No Beliefs That Will Affect Care: None marital status: Single Current Living Situation: Personal Care Facility How many Children do You have: 0 Other Information That Helps Us Care for You: No Feels Safe at Home: Yes Safety Concerns: Feels Safe At This Time Assistive Devices: Walker Review of Systems Review of Systems: Could not be reliably obtained secondary to disorientation Physical Exam Physical Exam: GENERAL: Disoriented, hard of hearing, obese, no respiratory distress SKIN: Normal color, warm HEENT: [place] palpebral conjunctivae, no ptosis, dry buccal mucosa NECK : Supple, short neck, no tenderness CHEST : Decreased breath sounds, no tenderness HEART : RRR, systolic murmur ABDOMEN: Some distention, nontender EXTREMITIES : Minimal LE swelling without LE tenderness, palpable pulses, no other conspicuous deformities noted NEUROLOGIC : Disoriented, no facial asymmetry, hard of hearing, gait and stance not assessed Results & Data Results & Data Vital Signs (Past 12 Hours) Vital Signs Temp Pulse Pulse Resp BP BP Pulse Ox 09/14/24 22:12 77 22 09/14/24 21:51 89 18 09/14/24 21:41 94 09/14/24 21:39 89 18 176/76 H 09/14/24 21:31 83 09/14/24 21:09 74 22 09/14/24 20:54 78 17 09/14/24 20:45 84 16 09/14/24 20:33 76 17 09/14/24 20:06 78 16 09/14/24 19:42 78 24 97 09/14/24 19:39 81 26 H 115/82 97 09/14/24 19:24 83 23 94 09/14/24 19:00 135/89 09/14/24 18:57 71 24 93 09/14/24 18:54 72 20 150/74 H 94 09/14/24 17:51 77 09/14/24 17:14 37 C 76 20 140/64 96 O2 Del Method 09/14/24 22:12 09/14/24 21:51 09/14/24 21:41 Room Air 09/14/24 21:39 09/14/24 21:31 09/14/24 21:09 09/14/24 20:54 09/14/24 20:45 09/14/24 20:33 09/14/24 20:06 09/14/24 19:42 Room Air 09/14/24 19:39 Room Air 09/14/24 19:24 09/14/24 19:00 09/14/24 18:57 Room Air 09/14/24 18:54 Room Air 09/14/24 17:51 09/14/24 17:14 Room Air Laboratory Results Laboratory Results WBC 2.25 K/ul (4.8-10.8) L 09/14/24 17:33 RBC 4.32 M/uL (4.20-5.40) 09/14/24 17:33 Hgb 12.6 g/dl (12.0-16.0) 09/14/24 17: Hct 37.9 % (37.0-47.0) 09/14/24 17: MCV 87.7 fL (80.0-100.0) 09/14/24 17: MCH 29.2 pg (25.0-34.0) 09/14/24 17: MCHC 33.2 g/dL (32.0-36.0) 09/14/24 17: RDW Std Deviation 41.4 fL (36.4-46.3) 09/14/24: RDW Coeff of Joe 12.9 % (11.5-14.5) 09/14/24 17: Plt Count 230 K/uL (130-400) 09/14/24 17: MPV 9.6 fL (9.4-12.4) 09/14/24 17: Immature Gran % (Auto) 0.4 % 09/14/24: Neut % (Auto) 29.4 % 09/14/24 17: Lymph % (Auto) 36.9 % 09/14/24 17: [place] % (Auto) 23.1 % 09/14/24 17: Eos % (Auto) 9.3 % 09/14/24 17: Baso % (Auto) 0.9 % 09/14/24: Neut # (Auto) 0.66 K/uL (1.40-6.50) L* 09/14/24 17: Lymph # (Auto) 0.83 K/uL (1.20-3.40) L 09/14/24 17:33 [place] # (Auto) 0.52 K/uL (0.11-0.59) 09/14/24 17: Eos # (Auto) 0.21 K/uL (0.00-0.50) 09/14/24 17:33 Baso # (Auto) 0.02 K/uL (0.00-0.20) 09/14/24 17:33 Immature Gran # (Auto) 0.01 K/uL (0.01-0.20) 09/14/24 17:33 PT 10.8 Seconds (9.0-12.0) 09/14/24 17:33 INR 1.0 (0.9-1.1) 09/14/24 17:33 Sodium 136 mmol/L (136-145) 09/14/24 18:28 Potassium 4.0 mmol/L (3.5-5.1) 09/14/24 18:28 Chloride 106 mmol/L (98-107) 09/14/24 18: Carbon Dioxide 24 mmol/L (21-32) 09/14/24 18:28 Anion Gap 6 (3-11) 09/14/24 18:28 BUN 10 mg/dl (6-23) 09/14/24 18: Creatinine 0.78 mg/dl (0.6-1.2) 09/14/24 18:28 Est Cr Clr Drug Dosing 72.5 ml/min 09/14/24 18:28 eGFR 81.15 09/14/24 18:28 BUN/Creatinine Ratio 12.8 (10-20) 09/14/24 18:28 Glucose 136 mg/dl (70-99(Fasting)) H 09/14/24 18:28 Lactate 0.8 mmol/L (0.4-2.0) 09/14/24 19:50 Calcium 9.2 mg/dl (8.6-10.3) 09/14/24 18:28 Magnesium 1.9 mg/dl (1.7-2.4) 09/14/24 18:28 Total Bilirubin 1.0 mg/dl (0.2-1.0) 09/14/24 18:28 AST 14 U/L (13-39) 09/14/24 18:28 ALT 12 U/L (7-52) 09/14/24 18:28 Alkaline Phosphatase 82 U/L (34-104) 09/14/24 18:28 Ammonia 22.0 umol/L (18-72) 09/14/24 19:50 Troponin I High Sens 13.5 pg/ml (0-14) 09/14/24 18: Total Protein 6.4 gm/dl (6.0-8.3) 09/14/24 18: Albumin 3.7 gm/dl (3.4-5.0) 09/14/24 18: Globulin 2.7 gm/dl (2.5-4.0) 09/14/24 18: Albumin/Globulin Ratio 1.4 (0.9-2) 09/14/24 18: Procalcitonin < 0.02 ng/ml (0-0.5) 09/14/24 17:33 TSH 4.152 uIu/ml (0.300-4.500) 09/14/24 18:28 Urine Color Yellow 09/14/24 18:49 Urine Appearance Cloudy (Clear) A 09/14/24 18:49 Urine pH 6.5 (4.5-7.5) 09/14/24 18:49 Ur Specific [place] 1.021 (1.000-1.030) 09/14/24 18:49 Urine Protein Trace (Negative) H 09/14/24 18:49 Urine Glucose (UA) Negative (Negative) 09/14/24 18:49 Urine Ketones 2+ (Negative) H 09/14/24 18:49 Urine Blood Negative (Negative) 09/14/24 18:49 Urine Nitrite Positive (Negative) A 09/14/24 18:49 Urine Bilirubin Negative (Negative) 09/14/24 18:49 Urine Urobilinogen Negative (Negative) 09/14/24 18:49 Ur Leukocyte Esterase 1+ (Negative) H 09/14/24 18:49 Urine WBC (Auto) 21-50 /hpf (0-5) H 09/14/24 18:49 Urine RBC (Auto) 0-2 /hpf (0-2) 09/14/24 18:49 U Hyaline Cast (Auto) 3-5 /lpf (0-2) H 09/14/24 18:49 U Epithel Cells (Auto) 0-2 /hpf (0-2) 09/14/24 18:49 Urine Bacteria (Auto) 4+ (None Seen) H 09/14/24 18:49 Valproic Acid 24 mcg/ml (50-100) L 09/14/24 17:33 Adenovirus (PCR) Not Detected (NotDetected) 09/14/24 17:33 B. pertussis DNA (PCR) Not Detected (NotDetected) 09/14/24 17:33 B.parapertussis DNA PCR Not Detected (NotDetected) 09/14/24 17:33 C. pneumoniae DNA (PCR) Not Detected (NotDetected) 09/14/24 17:33 Coronavirus OC43 (PCR) Not Detected (NotDetected) 09/14/24 17:33 Coronavirus HKU1 (PCR) Not Detected (NotDetected) 09/14/24 17:33 Coronavirus 229E (PCR) Not Detected (NotDetected) 09/14/24 17:33 SARS-CoV-2 (PCR) Not Detected (NotDetected) 09/14/24 17:33 Coronavirus NL63 (PCR) Not Detected (NotDetected) 09/14/24 17:33 Human Metapneumovir PCR Not Detected (NotDetected) 09/14/24 17:33 Influenza A (H3) PCR DETECTED (NotDetected) A 09/14/24 17:33 Influenza Type B (PCR) Not Detected (NotDetected) 09/14/24 17:33 M. pneumoniae (PCR) Not Detected (NotDetected) 09/14/24 17:33 Parainfluenza 1 (PCR) Not Detected (NotDetected) 09/14/24 17:33 Parainfluenza 2 (PCR) Not Detected (NotDetected) 09/14/24 17:33 Parainfluenza 3 (PCR) Not Detected (NotDetected) 09/14/24 17:33 Parainfluenza 4 (PCR) Not Detected (NotDetected) 09/14/24 17:33 RSV (PCR) Not Detected (NotDetected) 09/14/24 17:33 Entero/Rhino (PCR) Not Detected (NotDetected) 09/14/24 17:33 Impressions Abdomen/Pelvis CT 09/14/24 17:26 EXAMINATION: CT of the abdomen and pelvis performed without contrast TECHNIQUE: Helical CT images from the lung bases through the symphysis pubis were obtained without contrast. Coronal and sagittal reformatted images were generated at a workstation for further assessment. Dose reduction techniques were achieved by using automatic exposure control and/or adjustment of mA and/or kV according to patient size and/or use of iterative reconstruction technique. COMPARISON: None HISTORY: Diarrhea. Weakness FINDINGS: Lower chest: No consolidation. No pleural effusion or pneumothorax. Trace pericardial effusion. Liver: No suspicious liver lesions. Gallbladder: Small volume of layered calcified gallstones. No evidence of acute cholecystitis. Spleen: Normal size. Pancreas: No suspicious pancreatic lesions. The pancreatic duct is not dilated. Adrenal glands: No adrenal nodules. Kidneys: No hydronephrosis or obstructing renal stones. Bladder / Pelvic organs: Unremarkable. Bowel: No bowel obstruction. No abnormal bowel wall thickening. The appendix is unremarkable. Sigmoid colonic diverticulosis without diverticulitis. Minimal colonic stool. Lymph nodes: No retroperitoneal, mesenteric, or pelvic lymphadenopathy. Peritoneum / Retroperitoneum: No free fluid or air within the abdomen. Vessels: No infrarenal aortic aneurysm. Moderate aortoiliac calcification. Bones and soft tissues: No suspicious lesion in the bones. Chronic deformities of the inferior and superior pubic rami bilaterally. IMPRESSION: Cholelithiasis. Trace pericardial effusion. Electronically signed by Derek Cooley 09-14-2024 6:13 PM Chest X-Ray 09/14/24 17:26 Chest radiograph, one view History: Weakness Comparison: 07/01/2024 Findings: Single AP view of the chest performed. No focal consolidation or pleural effusion. No pneumothorax. The cardiomediastinal silhouette is within normal limits. Normal pulmonary vascularity. No evidence for lymphadenopathy. No visualized bony or soft tissue abnormality. Impression: Normal chest radiograph Electronically signed by Derek Cooley 09-14-2024 6:[address] 09/14/24 17:27 CT head without contrast History: AMS Comparison: 07/01/2024 Technique: Using multidetector thin collimation helical acquisition technique, axial, coronal and sagittal CT images from the skull base to the vertex were obtained without intravenous contrast. Dose reduction techniques were achieved by using automatic exposure control and/or adjustment of mA and/or kV according to patient size and/or use of iterative reconstruction technique. Findings: No intracranial hemorrhage, mass-effect, or midline shift. The ventricles are proportionate to the cerebral sulci. The chatman to white matter differentiation of the cerebral hemispheres is preserved. The basal cisterns are patent. There is mild fluid scattered in the paranasal sinuses. Mastoid air cells are clear. Impression: No acute intracranial pathology. Electronically signed by Derek Cooley 09-14-2024 6:13 PM Diagnostic Findings EKG as per my interpretation :Rate 75, NSR, normal axis, diffuse T wave abnormalities
[2024-09-14] MEDS ORDERED: PROMETHAZINE 6.25 MG/50.25 ML BAG IV PRN (22:24)
[2024-09-15] MEDS ORDERED: GLUCOSE 10 TAB/TUBE PO PRN (00:36)
[2024-09-15] MEDS ORDERED: GLUCOSE 40% GEL 15 GM TUBE PO PRN (00:36)
[2024-09-15] MEDS ORDERED: GLUCAGON FOR INJ 1 MG VIAL SQ PRN (00:36)
[2024-09-15] MEDS ORDERED: CARBOHYDRATES FOR HYPOGLYCEMIA PO PRN (00:36)
[2024-09-15] MEDS ORDERED: DEXTROSE 50% 50 ML SYRINGE IV PRN (00:36)
[2024-09-15] MEDS: METOPROLOL TARTRATE 25 MG TAB PO SCH (01:10)
[2024-09-15] MEDS: INSULIN ASPART PER UNIT CHARGE SC SCH (01:10)
[2024-09-15] MEDS: DIVALPROEX SODIUM SPRINKLE/DEL-REL 125 MG CAP PO SCH ×2 (01:14→08:37)
[2024-09-15 03:41] LABS: Hematocrit (blood only) 32.4 % (37.0-47.0); Hemoglobin 10.9 g/dl (12.0-16.0); Mean Corpuscular Hemoglobin 29.6 pg (25.0-34.0); Mean Corpuscular Hgb Conc 33.6 g/dL (32.0-36.0); Mean Platelet Volume 9.6 fL (9.4-12.4); Platelet Count 231 K/uL (130-400); RDW Coefficient of Variation 12.8 % (11.5-14.5); RDW Standard Deviation 41.5 fL (36.4-46.3); Red Blood Count 3.68 M/uL (4.20-5.40); White Blood Count 2.65 K/ul (4.8-10.8)
[2024-09-15 03:57] LABS: BUN Creatinine Ratio 13.8 (10-20); Calcium 8.5 mg/dl (8.6-10.3); Creatinine Clr Calc Pharmacy 70.7 ml/min; Potassium 3.6 mmol/L (3.5-5.1)
[2024-09-15 04:25] LABS: Basophils # (auto) 0.02 K/uL (0.00-0.20); Basophils % (auto) 0.8 %; Eosinophils # (auto) 0.26 K/uL (0.00-0.50); Eosinophils % (auto) 9.8 %; Lymphocytes # (auto) 1.03 K/uL (1.20-3.40); Lymphocytes % (auto) 38.9 %; Monocytes # (auto) 0.67 K/uL (0.11-0.59); Monocytes % (auto) 25.3 %; Neutrophils # (auto) 0.67 K/uL (1.40-6.50); Neutrophils % (auto) 25.2 %
[2024-09-15] MEDS: LEVOTHYROXINE SODIUM 175 MCG TABLET PO SCH (06:30)
[2024-09-15] MEDS: AMANTADINE HCL SYRUP 50 MG/5 ML UDP PO SCH (08:37)
[2024-09-15] MEDS: amLODIPine BESYLATE 5 MG TAB PO SCH (08:37)
[2024-09-15] MEDS: CEROVITE ADV FORMULA TAB PO SCH (08:38)
[2024-09-15] MEDS: LOSARTAN POTASSIUM 50 MG TAB PO SCH (08:38)
[2024-09-15] MEDS: CYANOCOBALAMIN (B-12) 500 MCG TABLET PO SCH (08:38)
[2024-09-15] MEDS: OSELTAMIVIR PHOSPHATE 75 MG CAP PO SCH (08:38)
[2024-09-15] MEDS: FLUTICASONE PROPIONATE NA SPR 16 GM BTL SCH (11:04)
--- NOTE | 2024-09-15 15:27 | Electrocardiogram Report ---
Test Reason : Blood Pressure : */* mmHG Vent. Rate : 74 BPM Atrial Rate : 74 BPM P-R Int : 182 ms QRS Dur : 80 ms QT Int : 384 ms P-R-T Axes : 57 63 122 degrees QTcB Int : 426 ms Normal sinus rhythm T wave abnormality, consider anterolateral ischemia Abnormal ECG When compared with ECG of 14-Jul-2024 10:44, No significant change was found Confirmed by Espinoza Mcgraw ([id number]) on 09/15/2024 3:26:44 PM Referred By: Brendan Riddle [place] Confirmed By: Espinoza Mcgraw
--- NOTE | 2024-09-15 16:10 | Hospitalist Progress Note ---
Date of Service September 15, 2024 Assessment & Plan (1) Encephalopathy: Plan: Acute metabolic encephalopathy encephalopathy H/O Intellectual impairment Likely due to UTI, influenza infection --CT head:No acute intracranial pathology. Reorient frequently to minimize delirium Check VBG to rule out hypercarbia Complicated UTI Influenza A infection --CXR:Normal chest radiograph -- Blood cultures pending --Urine culture preliminary growing Klebsiella Received IV fluids Continue Rocephin Continue Tamiflu Chronic leukopenia Chronic anemia Patient refused bone marrow aspiration biopsy in the past per record Monitor neutrophil counts Follow-up as outpatient Hypertension Continue amlodipine, losartan, metoprolol Monitor blood pressure Hyperlipidemia Continue statin next DM II last HbA1c 7.8 Continue insulin per protocol Monitor blood glucose levels Hypothyroidism Continue levothyroxine Schizophrenia and bipolar disorder Continue home medications DVT Px: Heparin SQ Code Status Full code Admission and Anticipated Discharge Date Admission Date: September 14, 2024 Subjective Patient is seen and examined at bedside Unable to obtain much history due to intellectual disability Noted coughing during my encounter No distress on exam Review of Systems Review of Systems: Unobtainable due to cognitive status Physical Exam Physical Exam: Physical Exam: Vitals signs as noted above General Appearance:Obese, no apparent distress Head: normocephalic, Atraumatic Eyes: normal inspection, EOMI Neck: supple, Trachea midline Respiratory/Chest: Decreased breath sounds, CTA, No accessory muscle use Cardiovascular: S1, S2, +murmur Abdomen/GI:Soft, Non tender, Bowel sounds present Extremities/Musculoskeletal:normal inspection, Trace edema Neurologic/Psych:Alert, awake, Confused, grossly moves all extremities Skin: normal color, warm Results & Data Results & Data Vital Signs (Past 12 Hours) Vital Signs Temp Pulse Pulse Resp BP Pulse Ox O2 Del Method 09/15/24 15:37 66 09/15/24 13:00 71 18 139/69 96 Room Air 09/15/24 08:00 37.1 C 67 18 135/75 95 Room Air 09/15/24 07:31 62 Laboratory Results Short CBC 09/14/24 09/15/24 Range/Units 17:33 03:13 WBC 2.25 L 2.65 L (4.8-10.8) K/ul Hgb 12.6 10.9 L (12.0-16.0) g/dl Hct 37.9 32.4 L (37.0-47.0) % Plt Count 230 231 (130-400) K/uL BMP 09/14/24 09/15/24 18:28 03:13 Sodium 136 134 L Potassium 4.0 3.6 Chloride 106 106 Carbon Dioxide 24 24 BUN 10 11 Creatinine 0.78 0.80 Glucose 136 H 154 H Calcium 9.2 8.5 L Liver Function 09/14/24 Range/Units 18:28 Total Bilirubin 1.0 (0.2-1.0) mg/dl AST 14 (13-39) U/L ALT 12 (7-52) U/L Alkaline Phosphatase 82 (34-104) U/L Albumin 3.7 (3.4-5.0) gm/dl Urine 09/14/24 Range/Units 18:49 Urine Color Yellow Urine Appearance Cloudy A (Clear) Urine pH 6.5 (4.5-7.5) Ur Specific [place] 1.021 (1.000-1.030) Urine Protein Trace H (Negative) Urine Glucose (UA) Negative (Negative)
[2024-09-15] MEDS: LURASIDONE HCL 20 MG TAB PO SCH (18:03)
[2024-09-15] MEDS: ATORVASTATIN 40 MG TAB PO SCH (20:20)
[2024-09-15] MEDS: ASPIRIN 81 MG ECTAB PO SCH (20:20)
[2024-09-15] MEDS: HEPARIN SOD 5,000 UNIT/0.5 ML VIAL SQ SCH (20:23)
[2024-09-15] MEDS: ACETAMINOPHEN 325 MG TAB PO PRN (20:23)
[2024-09-15] MEDS: cefTRIAXone SODIUM 2,000 MG/50 ML BAG IV SCH (20:37)
[2024-09-16 05:49] LABS: Base Excess VBG 0 mEq/L; HCO3 VBG 25 mmol/L; Oxygen Saturation VBG 78.1 %; PCO2 VBG 40 mmHg (38-50); PO2 VBG 45 mmHg
[2024-09-16 06:07] LABS: BUN Creatinine Ratio 19.7 (10-20); Calcium 8.8 mg/dl (8.6-10.3); Creatinine Clr Calc Pharmacy 85.7 ml/min
[2024-09-16 06:32] LABS: Hematocrit (blood only) 33.9 % (37.0-47.0); Hemoglobin 11.5 g/dl (12.0-16.0); Mean Corpuscular Hemoglobin 29.4 pg (25.0-34.0); Mean Corpuscular Hgb Conc 33.9 g/dL (32.0-36.0); Mean Corpuscular Volume 86.7 fL (80.0-100.0); Mean Platelet Volume 9.7 fL (9.4-12.4); Platelet Count 236 K/uL (130-400); RDW Coefficient of Variation 12.9 % (11.5-14.5); RDW Standard Deviation 40.9 fL (36.4-46.3); Red Blood Count 3.91 M/uL (4.20-5.40); White Blood Count 2.35 K/ul (4.8-10.8)
[2024-09-16 07:32] LABS: RBC Morphology Unremarkable
[2024-09-16 07:33] LABS: Basophils # (auto) 0.01 K/uL (0.00-0.20); Basophils % (auto) 0.4 %; Eosinophils % (auto) 8.5 %; Lymphocytes # (auto) 1.39 K/uL (1.20-3.40); Lymphocytes % (auto) 59.1 %; Monocytes # (auto) 0.42 K/uL (0.11-0.59); Monocytes % (auto) 17.9 %; Neutrophils % (auto) 14.1 %
[2024-09-16 10:26] LABS: Neutrophils # (auto) 0.33 K/uL (1.40-6.50)
--- NOTE | 2024-09-16 16:16 | Hospitalist Progress Note ---
Date of Service September 16, 2024 Assessment & Plan (1) Encephalopathy: Plan: Acute metabolic encephalopathy encephalopathy H/O Intellectual impairment Likely due to UTI, influenza infection --CT head:No acute intracranial pathology. -- VBG showed no hypercarbia Reorient frequently to minimize delirium Mental status improving Complicated UTI Influenza A infection --CXR:Normal chest radiograph -- Blood cultures negative to date --Urine culture grew pansensitive Klebsiella Variicola Received IV fluids Continue Rocephin Continue Tamiflu Chronic leukopenia/neutropenia Chronic anemia Patient refused bone marrow aspiration biopsy in the past per record Evaluated by hematology last admission thought to be benign neutropenia Neutropenic precautions Monitor CBC we will check vitamin B12, iron, peripheral smear, folate levels May need filgrastim Needs follow-up with hematology as outpatient Hypertension Continue amlodipine, losartan, metoprolol Monitor blood pressure Hyperlipidemia Continue statin next DM II last HbA1c 7.8 Continue insulin per protocol Monitor blood glucose levels Hypothyroidism Continue levothyroxine Schizophrenia and bipolar disorder Continue home medications DVT Px: Heparin SQ Code Status Full code Admission and Anticipated Discharge Date Admission Date: September 14, 2024 Subjective Patient is seen and examined at bedside Unable to obtain much history due to intellectual disability Mental status seem to be improving today Patient eager to get discharged Denies any chest pain, dyspnea today No distress during my encounter Review of Systems Review of Systems: All systems reviewed & are unremarkable except as noted in Subjective Physical Exam Physical Exam: Physical Exam: Vitals signs as noted above General Appearance:Obese, no apparent distress Head: normocephalic, Atraumatic Eyes: normal inspection, EOMI Neck: supple, Trachea midline Respiratory/Chest: Decreased breath sounds, CTA, No accessory muscle use Cardiovascular: S1, S2, +murmur Abdomen/GI:Soft, Non tender, Bowel sounds present Extremities/Musculoskeletal:normal inspection, Trace edema Neurologic/Psych:Alert, awake, Confused, grossly moves all extremities Skin: normal color, warm Results & Data Results & Data Vital Signs (Past 12 Hours) Vital Signs Temp Pulse Pulse Resp BP Pulse Ox O2 Del Method 09/16/24 15:41 36.7 C 74 20 138/71 93 Room Air 09/16/24 13:15 70 09/16/24 12:31 36.6 C 65 16 124/76 95 Room Air 09/16/24 08:20 71 14 126/81 97 Room Air 09/16/24 07:30 Room Air Laboratory Results Short CBC 09/16/24 Range/Units 05:29 WBC 2.35 L (4.8-10.8) K/ul Hgb 11.5 L (12.0-16.0) g/dl Hct 33.9 L (37.0-47.0) % Plt Count 236 (130-400) K/uL BMP 09/16/24 05:29 Sodium 136 Potassium 4.0 Chloride 107 Carbon Dioxide 25 BUN 13 Creatinine 0.66 Glucose 132 H Calcium 8.8
[2024-09-17 07:32] LABS: Hematocrit (blood only) 34.4 % (37.0-47.0); Hemoglobin 11.6 g/dl (12.0-16.0); Mean Corpuscular Hemoglobin 29.2 pg (25.0-34.0); Mean Corpuscular Hgb Conc 33.7 g/dL (32.0-36.0); Mean Corpuscular Volume 86.6 fL (80.0-100.0); Mean Platelet Volume 9.5 fL (9.4-12.4); Platelet Count 239 K/uL (130-400); RDW Coefficient of Variation 12.9 % (11.5-14.5); RDW Standard Deviation 40.5 fL (36.4-46.3); Red Blood Count 3.97 M/uL (4.20-5.40); White Blood Count 2.52 K/ul (4.8-10.8)
[2024-09-17 07:46] LABS: BUN Creatinine Ratio 18.8 (10-20); Calcium 8.6 mg/dl (8.6-10.3); Creatinine Clr Calc Pharmacy 86.4 ml/min; Magnesium 1.8 mg/dl (1.7-2.4); Potassium 3.9 mmol/L (3.5-5.1)
[2024-09-17 08:06] LABS: Ferritin 376.6 ng/ml (8-388)
[2024-09-17 08:11] LABS: Folate (Folic Acid),Ser orPlas > 22.30 ng/ml (>5.38)
[2024-09-17 08:13] LABS: Vitamin B12 > 1500 pg/ml (180-914)
[2024-09-17 09:00] LABS: Basophils # (auto) 0.02 K/uL (0.00-0.20); Basophils % (auto) 0.8 %; Eosinophils # (auto) 0.19 K/uL (0.00-0.50); Eosinophils % (auto) 7.5 %; Lymphocytes # (auto) 1.16 K/uL (1.20-3.40); Monocytes % (auto) 15.9 %; Neutrophils # (auto) 0.75 K/uL (1.40-6.50); Neutrophils % (auto) 29.8 %
--- NOTE | 2024-09-17 10:54 | Hospitalist Progress Note ---
Date of Service September 17, 2024 Assessment & Plan (1) Encephalopathy: Plan: Acute metabolic encephalopathy encephalopathy H/O Intellectual impairment Likely due to UTI, influenza infection --CT head:No acute intracranial pathology. -- VBG showed no hypercarbia Reorient frequently to minimize delirium Mental status improving Complicated UTI Influenza A infection --CXR:Normal chest radiograph -- Blood cultures negative to date --Urine culture grew pansensitive Klebsiella Variicola Received IV fluids Continue Rocephin Continue Tamiflu Chronic leukopenia/neutropenia Chronic anemia Patient refused bone marrow aspiration biopsy in the past per record Evaluated by hematology last admission thought to be benign neutropenia Neutropenic precautions Monitor CBC we will check vitamin B12, iron, peripheral smear, folate levels B12, folate levels high May need filgrastim Needs follow-up with hematology as outpatient Will consult w/ hematology Hypertension Continue amlodipine, losartan, metoprolol Monitor blood pressure Hyperlipidemia Continue statin next DM II last HbA1c 7.8 Continue insulin per protocol Monitor blood glucose levels Hypothyroidism Continue levothyroxine Schizophrenia and bipolar disorder Continue home medications DVT Px: Heparin SQ Code Status Full code Admission and Anticipated Discharge Date Admission Date: September 14, 2024 Subjective Pt seen in follow up - AMS, + Flu, UTI Patient is seen and examined at bedside Unable to obtain much history due to intellectual disability Mental status seem to be improving. She says she knows she is in the hospital. And was asking about her boyfriend. Denies any chest pain, dyspnea today Review of Systems Review of Systems: All systems reviewed & are unremarkable except as noted in Subjective Physical Exam Physical Exam: General Appearance: Obese, no apparent distress Head: normocephalic, Atraumatic Eyes: normal inspection, EOMI Neck: supple Respiratory/Chest: Decreased breath sounds, CTA, No accessory muscle use Cardiovascular: S1, S2, +murmur Abdomen/GI:Soft, Non tender, Bowel sounds present Extremities/Musculoskeletal:normal inspection, Trace edema Neurologic/Psych:Alert, awake, Confused, grossly moves all extremities Skin: normal color, warm Results & Data Results & Data Vital Signs (Past 12 Hours) Vital Signs Temp Pulse Resp BP BP Pulse Ox O2 Del Method 09/17/24 08:08 36.7 C 78 16 163/90 H 95 Room Air 09/17/24 05:36 36.3 C L 73 18 157/79 H 97 Room Air 09/17/24 00:21 36.8 C 59 L 20 139/99 97 Room Air Laboratory Results 09/17/24 09/17/24 09/16/24 Range/Units 08:22 06:53 19:30 WBC 2.52 L (4.8-10.8) K/ul RBC 3.97 L (4.20-5.40) M/uL Hgb 11.6 L (12.0-16.0) g/dl Hct 34.4 L (37.0-47.0) % MCV 86.6 (80.0-100.0) fL MCH 29.2 (25.0-34.0) pg MCHC 33.7 (32.0-36.0) g/dL RDW Std Deviation 40.5 (36.4-46.3) fL RDW Coeff of Joe 12.9 (11.5-14.5) % Plt Count 239 (130-400) K/uL MPV 9.5 (9.4-12.4) fL Immature Gran % (Auto) 0.0 % Neut % (Auto) 29.8 % Lymph % (Auto) 46.0 % [place] % (Auto) 15.9 % Eos % (Auto) 7.5 % Baso % (Auto) 0.8 % Neut # (Auto) 0.75 L* (1.40-6.50) K/uL Lymph # (Auto) 1.16 L (1.20-3.40) K/uL [place] # (Auto) 0.40 (0.11-0.59) K/uL Eos # (Auto) 0.19 (0.00-0.50) K/uL Baso # (Auto) 0.02 (0.00-0.20) K/uL Immature Gran # (Auto) 0.00 L (0.01-0.20) K/uL Peripher Smr Path Cons Sodium 137 (136-145) mmol/L Potassium 3.9 (3.5-5.1) mmol/L Chloride 107 (98-107) mmol/L Carbon Dioxide 24 (21-32) mmol/L Anion Gap 6 (3-11) BUN 12 (6-23) mg/dl Creatinine 0.64 (0.6-1.2) mg/dl Est Cr Clr Drug Dosing 86.4 ml/min eGFR 94.42 BUN/Creatinine Ratio 18.8 (10-20) Glucose 140 H (70-99(Fasting)) mg/dl POC Glucose 129 H 155 H (70-99) mg/dl Calcium 8.6 (8.6-10.3) mg/dl Magnesium 1.8 (1.7-2.4) mg/dl Iron 69 (35-150) mcg/dl Ferritin 376.6 (8-388) ng/ml Vitamin B12 > 1500 H (180-914) pg/ml Folate > 22.30 (>5.38) ng/ml 09/16/24 09/16/24 Range/Units 17:06 12:02 WBC (4.8-10.8) K/ul RBC (4.20-5.40) M/uL Hgb (12.0-16.0) g/dl Hct (37.0-47.0) % MCV (80.0-100.0) fL MCH (25.0-34.0) pg MCHC (32.0-36.0) g/dL RDW Std Deviation (36.4-46.3) fL RDW Coeff of Joe (11.5-14.5) % Plt Count (130-400) K/uL MPV (9.4-12.4) fL Immature Gran % (Auto) % Neut % (Auto) % Lymph % (Auto) % [place] % (Auto) % Eos % (Auto) % Baso % (Auto) % Neut # (Auto) (1.40-6.50) K/uL Lymph # (Auto) (1.20-3.40) K/uL [place] # (Auto) (0.11-0.59) K/uL Eos # (Auto) (0.00-0.50) K/uL Baso # (Auto) (0.00-0.20) K/uL Immature Gran # (Auto) (0.01-0.20) K/uL Peripher Smr Path Cons Sodium (136-145) mmol/L Potassium (3.5-5.1) mmol/L Chloride (98-107) mmol/L Carbon Dioxide (21-32) mmol/L Anion Gap (3-11) BUN (6-23) mg/dl Creatinine (0.6-1.2) mg/dl Est Cr Clr Drug Dosing ml/min eGFR BUN/Creatinine Ratio (10-20) Glucose (70-99(Fasting)) mg/dl POC Glucose 102 H 173 H (70-99) mg/dl Calcium (8.6-10.3) mg/dl Magnesium (1.7-2.4) mg/dl Iron (35-150) mcg/dl Ferritin (8-388) ng/ml Vitamin B12 (180-914) pg/ml Folate (>5.38) ng/ml Medications Administered Current Inpatient Medications Acetaminophen (Acetaminophen 325 Mg Tab) 650 mg PO QID PRN PRN Reason: pain/fever Stop: 10/14/24 22:23 Last Admin: 09/16/24 16:45 Dose: 650 mg Amantadine HCl (Amantadine Hcl Syrup 50 Mg/5 Ml Udp) 50 mg PO BID@0600,1300 [facility] Stop: 10/15/24 05:59 Last Admin: 09/17/24 05:39 Dose: 50 mg Amlodipine Besylate (Amlodipine Besylate 5 Mg Tab) 10 mg PO DAILY [facility] Stop: 10/15/24 08:59 Last Admin: 09/17/24 08:40 Dose: 10 mg Aspirin (Aspirin 81 Mg Ectab) 81 mg PO HS [facility] Stop: 10/15/24 20:59 Last Admin: 09/16/24 21:19 Dose: 81 mg Atorvastatin Calcium (Atorvastatin 40 Mg Tab) 80 mg PO HS [facility] Stop: 10/15/24 20:59 Last Admin: 09/16/24 21:19 Dose: 80 mg Cyanocobalamin (Cyanocobalamin (B-12) 500 Mcg Tablet) 1,000 mcg PO DAILY [facility] Stop: 10/15/24 08:59 Last Admin: 09/17/24 08:40 Dose: 1,000 mcg Dextrose (Dextrose 50% 50 Ml Syringe) 25 - 50 ml IV UD PRN; Protocol PRN Reason: Hypoglycemia Protocol Stop: 10/15/24 00:35 Divalproex Sodium (Divalproex Sodium Sprinkle/Del-Rel 125 Mg Cap) 250 mg PO QAM [facility] Stop: 10/15/24 08:59 Last Admin: 09/17/24 08:41 Dose: 250 mg Divalproex Sodium (Divalproex Sodium Sprinkle/Del-Rel 125 Mg Cap) 500 mg PO QPM [facility] Stop: 10/15/24 00:35 Last Admin: 09/16/24 21:19 Dose: 500 mg Fluticasone Propionate (Fluticasone Propionate Na Spr 16 Gm Btl) 1 sprays NA BID [facility] Stop: 10/15/24 08:59 Last Admin: 09/17/24 08:41 Dose: 1 sprays Glucagon (Glucagon For Inj 1 Mg Vial) 1 mg SQ UD PRN; Protocol PRN Reason: Hypoglycemia Protocol Stop: 10/15/24 00:35 Glucose (Glucose 40% Gel 15 Gm Tube) 15 - 30 gm PO UD PRN; Protocol PRN Reason: Hypoglycemia Protocol Stop: 10/15/24 00:35 Glucose (Glucose 10 Tab/Tube) 4 - 8 tab PO UD PRN; Protocol PRN Reason: Hypoglycemia Protocol Stop: 10/15/24 00:35 Heparin Sodium (Porcine) (Heparin Sod 5,000 Unit/0.5 Ml Vial) 5,000 units SQ Q12 [facility] Stop: 10/15/24 20:59 Last Admin: 09/17/24 08:36 Dose: 5,000 units Ceftriaxone Sodium (Rocephin) 2,000 mg in 50 mls @ 100 mls/hr IV Q24H [facility] Stop: 09/25/24 19:59 Last Infusion: 09/16/24 21:34 Dose: Infused Promethazine HCl (Phenergan) 6.25 mg in 50.25 mls @ 201 mls/hr IV Q6H PRN PRN Reason: Nausea And Vomiting Stop: 10/14/24 22:23 Insulin Aspart (Insulin Aspart Per Unit Charge) 0 units SC ACHS [facility] Stop: 10/15/24 00:35 Last Admin: 09/17/24 08:51 Dose: 2 units Levothyroxine Sodium (Levothyroxine Sodium 175 Mcg Tablet) 175 mcg PO DAILYBB [facility] Stop: 10/15/24 06:29 Last Admin: 09/17/24 05:39 Dose: 175 mcg Losartan Potassium (Losartan Potassium 50 Mg Tab) 50 mg PO QAM [facility] Stop: 10/15/24 08:59 Last Admin: 09/17/24 08:41 Dose: 50 mg Lurasidone HCl (Lurasidone Hcl 20 Mg Tab) 160 mg PO QDD [facility] Stop: 10/15/24 16:29 Last Admin: 09/16/24 18:16 Dose: 160 mg Metoprolol Tartrate (Metoprolol Tartrate 25 Mg Tab) 25 mg PO BID [facility] Stop: 10/15/24 00:35 Last Admin: 09/17/24 08:41 Dose: 25 mg Miscellaneous (Carbohydrates For Hypoglycemia ) 15 - 30 gm PO UD PRN PRN Reason: Hypoglycemia Protocol Stop: 10/15/24 00:35 Multivitamins/Minerals (Cerovite Adv Formula Tab) 1 tab PO DAILY [facility] Stop: 10/15/24 08:59 Last Admin: 09/17/24 08:41 Dose: 1 tab Oseltamivir Phosphate (Oseltamivir Phosphate 75 Mg Cap) 75 mg PO BID [facility]; Protocol Stop: 09/20/24 08:59 Last Admin: 09/17/24 08:42 Dose: 75 mg
[2024-09-18 06:24] LABS: Hematocrit (blood only) 33.7 % (37.0-47.0); Hemoglobin 11.5 g/dl (12.0-16.0); Mean Corpuscular Hemoglobin 29.6 pg (25.0-34.0); Mean Corpuscular Hgb Conc 34.1 g/dL (32.0-36.0); Mean Corpuscular Volume 86.6 fL (80.0-100.0); Mean Platelet Volume 9.4 fL (9.4-12.4); Platelet Count 252 K/uL (130-400); RDW Coefficient of Variation 12.8 % (11.5-14.5); RDW Standard Deviation 40.5 fL (36.4-46.3); Red Blood Count 3.89 M/uL (4.20-5.40); White Blood Count 3.18 K/ul (4.8-10.8)
[2024-09-18 06:44] LABS: BUN Creatinine Ratio 18.6 (10-20); Calcium 8.7 mg/dl (8.6-10.3); Creatinine Clr Calc Pharmacy 78.9 ml/min; Magnesium 1.8 mg/dl (1.7-2.4); Phosphorus 3.9 mg/dl (2.5-4.9); Potassium 3.8 mmol/L (3.5-5.1)
[2024-09-18 07:07] LABS: Basophils # (auto) 0.02 K/uL (0.00-0.20); Basophils % (auto) 0.6 %; Eosinophils # (auto) 0.29 K/uL (0.00-0.50); Eosinophils % (auto) 9.1 %; Immature Granulocytes # (auto) 0.01 K/uL (0.01-0.20); Immature Granulocytes % (auto) 0.3 %; Lymphocytes # (auto) 1.53 K/uL (1.20-3.40); Lymphocytes % (auto) 48.1 %; Monocytes # (auto) 0.48 K/uL (0.11-0.59); Monocytes % (auto) 15.1 %; Neutrophils # (auto) 0.85 K/uL (1.40-6.50); Neutrophils % (auto) 26.8 %
--- NOTE | 2024-09-18 08:14 | Oncology Consultation ---
Date of Consultation September 18, 2024 Assessment & Plan (1) Influenza A: (2) Acute UTI: (3) Neutropenia: Plan -Chronic neutropenia likely benign. No other significant cytopenias to suggest hematologic malignancy. Could obtain bone marrow biopsy inpatient/outpatient to rule out hematologic malignancy. -Can give GCSF if ANC is below 500 -Outpatient hematology follow up Please feel free to call if you have any questions History of Present Illness Reason for Consultation: Neutropenia Attending Physician: Chris Stauffer MD History of Present Illness Patient with multiple comorbidities admitted with worsening in baseline mental status though to be due to UTI, influenza infection. Patient has a history of chronic neutropenia and was evaluated by me during last admission where she received GCSF with improvement in ANC. Hematology consulted for neutropenia with ANC of 330 on 09/16/2024. ANC has improved to 850 today. Allergies Allergy/AdvReac Type Severity Reaction Status Date / Time No Known Allergies Allergy Unverified 09/14/24 18:08 Home Medications Medication Instructions Recorded Confirmed Type acetaminophen 325 mg tablet 650 mg PO QID PRN Pain 02/06/20 09/14/24 History atorvastatin 80 mg tablet 80 mg PO HS 02/06/20 09/14/24 History calcium carbonate (Oyster [place] 500 mg PO BID 02/06/20 09/14/24 History Calcium 500) cholecalciferol (vitamin D3) 50 50 mcg PO DAILY 02/06/20 09/14/24 History mcg (2,000 unit) capsule (Vitamin D3) docusate sodium 100 mg capsule 100 mg PO BID Constipation 02/06/20 09/14/24 History fluticasone propionate 50 1 spray intranasal BID 02/06/20 09/14/24 History mcg/actuation nasal spray,suspension glipizide 5 mg tablet, extended 10 mg PO DAILY 02/06/20 09/14/24 History release 24 hr lurasidone 120 mg tablet (Latuda) 160 mg PO DAILY 02/06/20 09/14/24 History amlodipine 10 mg tablet (Norvasc) 10 mg PO DAILY #30 tabs 02/09/20 09/14/24 Rx aspirin 81 mg tablet,delayed 81 mg PO HS #90 tabs 02/09/20 09/14/24 Rx release losartan 50 mg tablet 50 mg PO QAM #30 tabs 02/09/20 09/14/24 Rx metoprolol tartrate 25 mg tablet 25 mg PO BID #60 tabs 02/09/20 09/14/24 Rx amantadine HCl 100 mg tablet 50 mg PO BID 06/28/24 09/14/24 History biotin 1,000 mcg chewable tablet 1,000 mcg PO DAILY 06/28/24 09/14/24 History cyanocobalamin (vitamin B-12) 1,000 mcg PO DAILY 06/28/24 09/14/24 History 1,000 mcg tablet dextromethorphan-guaifenesin 10 10 ml PO Q4H PRN Cough 06/28/24 09/14/24 History mg-100 mg/5 mL oral syrup (Tussin DM) diphenhydramine HCl 25 mg capsule 25 mg PO HS 06/28/24 09/14/24 History (Banophen) glipizide 5 mg tablet 2.5 mg PO DAILY 06/28/24 09/14/24 History haloperidol 10 mg tablet 10 mg PO HS 06/28/24 09/14/24 History haloperidol 2 mg tablet 2 mg PO DAILY 06/28/24 09/14/24 History haloperidol 5 mg tablet 5 mg PO QAM 06/28/24 09/14/24 History loperamide 2 mg capsule 2 mg PO Q4H PRN loose stools 06/28/24 09/14/24 History melatonin 5 mg tablet 5 mg PO HS 06/28/24 09/14/24 History nystatin 100,000 unit/gram topical 1 applic topical BID PRN Rash 06/28/24 09/14/24 History cream divalproex 125 mg capsule,delayed 250 mg (2 x 125 mg) PO QAM #60 caps 07/22/24 09/14/24 Rx release sprinkle divalproex 125 mg capsule,delayed 500 mg (4 x 125 mg) PO QPM 30 days 07/22/24 09/14/24 Rx release sprinkle #120 caps ferrous sulfate 325 mg (65 mg 325 mg PO QAM #30 tabs 07/22/24 09/14/24 Rx iron) tablet,delayed release calcium carbonate (Calcium Antacid) 400 mg PO TID PRN 09/14/24 09/14/24 History heartburn/indigestion levothyroxine 175 mcg tablet 175 mcg PO DAILYBB 09/14/24 09/14/24 History lorazepam 1 mg tablet 1 mg PO Q4 PRN Anxiety 09/14/24 09/14/24 History multivitamin,tx-minerals 1 tab PO DAILY 09/14/24 09/14/24 History trazodone 50 mg tablet 50 mg PO HS 09/14/24 09/14/24 History Patient History Family History Unknown Unknown family medical history Social History Smoking Status: Former smoker Tobacco Type: Cigarettes Hx Alcohol Use: No Hx Substance Use: No Preferred Language: Kyr[place]z Communication Ability: Effective Communication Ability Comment: speech difficulty at times Family Partner Required: No Beliefs That Will Affect Care: None marital status: Single Current Living Situation: Personal Care Facility How many Children do You have: 0 Other Information That Helps Us Care for You: No Feels Safe at Home: Yes Safety Concerns: Feels Safe At This Time Assistive Devices: Walker Results & Data Vital Signs (Past 12 Hours) Vital Signs Temp Pulse Pulse Resp BP BP Pulse Ox 09/18/24 08:04 36.8 C 66 17 154/80 H 95 09/18/24 02:20 37.0 C 78 18 149/83 H 95 09/17/24 22:41 36.8 C 69 18 141/71 H 93 09/17/24 22:09 68 O2 Del Method 09/18/24 08:04 Room Air 09/18/24 02:20 Room Air 09/17/24 22:41 Room Air 09/17/24 22:09
--- NOTE | 2024-09-18 17:02 | Hospitalist Progress Note ---
Date of Service September 18, 2024 Assessment & Plan (1) Encephalopathy: Plan: Acute metabolic encephalopathy encephalopathy H/O Intellectual impairment Likely due to UTI, influenza infection --CT head:No acute intracranial pathology. -- VBG showed no hypercarbia Reorient frequently to minimize delirium Mental status improving Complicated UTI Influenza A infection --CXR:Normal chest radiograph -- Blood cultures negative to date --Urine culture grew pansensitive Klebsiella Variicola Received IV fluids Continue Rocephin Continue Tamiflu Chronic leukopenia/neutropenia Chronic anemia Patient refused bone marrow aspiration biopsy in the past per record Evaluated by hematology last admission thought to be benign neutropenia Neutropenic precautions Monitor CBC we will check vitamin B12, iron, peripheral smear, folate levels B12, folate levels high ANC improving 850 today Needs follow-up with hematology as outpatient Will consult w/ hematology Hypertension Continue amlodipine, losartan, metoprolol Monitor blood pressure Hyperlipidemia Continue statin next DM II last HbA1c 7.8 Continue insulin per protocol Monitor blood glucose levels Hypothyroidism Continue levothyroxine Schizophrenia and bipolar disorder Continue home medications DVT Px: Heparin SQ Code Status: Full code Admission and Anticipated Discharge Date Admission Date: September 14, 2024 Subjective Pt seen in follow up - AMS, + Flu, UTI Patient is seen and examined at bedside Unable to obtain much history due to intellectual disability Mental status seem to be improving. She says she knows she is in the hospital. Seen w/ RN at the bedside Denies any chest pain, dyspnea today Review of Systems Review of Systems: All systems reviewed & are unremarkable except as noted in Subjective Physical Exam Physical Exam: General Appearance: Obese, no apparent distress Head: normocephalic, Atraumatic Eyes: normal inspection, EOMI Neck: supple Respiratory/Chest: Decreased breath sounds, CTA, No accessory muscle use Cardiovascular: S1, S2, +murmur Abdomen/GI:Soft, Non tender, Bowel sounds present Extremities/Musculoskeletal:normal inspection, Trace edema Neurologic/Psych: Alert, awake, confused, grossly moves all extremities Skin: normal color, warm Results & Data Results & Data Vital Signs (Past 12 Hours) Vital Signs Temp Pulse Pulse Resp BP BP Pulse Ox 09/18/24 16:02 37 C 77 19 110/60 94 09/18/24 15:16 68 09/18/24 11:35 36.7 C 63 18 119/74 94 09/18/24 10:44 74 09/18/24 08:25 09/18/24 08:04 36.8 C 66 17 154/80 H 95 O2 Del Method 09/18/24 16:02 Room Air 09/18/24 15:16 09/18/24 11:35 Room Air 09/18/24 10:44 09/18/24 08:25 Room Air 09/18/24 08:04 Room Air Laboratory Results 09/18/24 09/18/24 09/18/24 Range/Units 12:17 08:11 06:05 WBC 3.18 L (4.8-10.8) K/ul RBC 3.89 L (4.20-5.40) M/uL Hgb 11.5 L (12.0-16.0) g/dl Hct 33.7 L (37.0-47.0) % MCV 86.6 (80.0-100.0) fL MCH 29.6 (25.0-34.0) pg MCHC 34.1 (32.0-36.0) g/dL RDW Std Deviation 40.5 (36.4-46.3) fL RDW Coeff of Joe 12.8 (11.5-14.5) % Plt Count 252 (130-400) K/uL MPV 9.4 (9.4-12.4) fL Immature Gran % (Auto) 0.3 % Neut % (Auto) 26.8 % Lymph % (Auto) 48.1 % [place] % (Auto) 15.1 % Eos % (Auto) 9.1 % Baso % (Auto) 0.6 % Neut # (Auto) 0.85 L* (1.40-6.50) K/uL Lymph # (Auto) 1.53 (1.20-3.40) K/uL [place] # (Auto) 0.48 (0.11-0.59) K/uL Eos # (Auto) 0.29 (0.00-0.50) K/uL Baso # (Auto) 0.02 (0.00-0.20) K/uL Immature Gran # (Auto) 0.01 (0.01-0.20) K/uL Sodium 136 (136-145) mmol/L Potassium 3.8 (3.5-5.1) mmol/L Chloride 106 (98-107) mmol/L Carbon Dioxide 25 (21-32) mmol/L Anion Gap 5 (3-11) BUN 13 (6-23) mg/dl Creatinine 0.70 (0.6-1.2) mg/dl Est Cr Clr Drug Dosing 78.9 ml/min eGFR 92.41 BUN/Creatinine Ratio 18.6 (10-20) Glucose 139 H (70-99(Fasting)) mg/dl POC Glucose 153 H 144 H (70-99) mg/dl Calcium 8.7 (8.6-10.3) mg/dl Phosphorus 3.9 (2.5-4.9) mg/dl Magnesium 1.8 (1.7-2.4) mg/dl 09/17/24 09/17/24 Range/Units 20:00 17:11 WBC (4.8-10.8) K/ul RBC (4.20-5.40) M/uL Hgb (12.0-16.0) g/dl Hct (37.0-47.0) % MCV (80.0-100.0) fL MCH (25.0-34.0) pg MCHC (32.0-36.0) g/dL RDW Std Deviation (36.4-46.3) fL RDW Coeff of Joe (11.5-14.5) % Plt Count (130-400) K/uL MPV (9.4-12.4) fL Immature Gran % (Auto) % Neut % (Auto) % Lymph % (Auto) % [place] % (Auto) % Eos % (Auto) % Baso % (Auto) % Neut # (Auto) (1.40-6.50) K/uL Lymph # (Auto) (1.20-3.40) K/uL [place] # (Auto) (0.11-0.59) K/uL Eos # (Auto) (0.00-0.50) K/uL Baso # (Auto) (0.00-0.20) K/uL Immature Gran # (Auto) (0.01-0.20) K/uL Sodium (136-145) mmol/L Potassium (3.5-5.1) mmol/L Chloride (98-107) mmol/L Carbon Dioxide (21-32) mmol/L Anion Gap (3-11) BUN (6-23) mg/dl Creatinine (0.6-1.2) mg/dl Est Cr Clr Drug Dosing ml/min eGFR BUN/Creatinine Ratio (10-20) Glucose (70-99(Fasting)) mg/dl POC Glucose 138 H 119 H (70-99) mg/dl Calcium (8.6-10.3) mg/dl Phosphorus (2.5-4.9) mg/dl Magnesium (1.7-2.4) mg/dl Medications Administered Current Inpatient Medications Acetaminophen (Acetaminophen 325 Mg Tab) 650 mg PO QID PRN PRN Reason: pain/fever Stop: 10/14/24 22:23 Last Admin: 09/16/24 16:45 Dose: 650 mg Amantadine HCl (Amantadine Hcl Syrup 50 Mg/5 Ml Udp) 50 mg PO BID@0600,1300 [facility] Stop: 10/15/24 05:59 Last Admin: 09/18/24 14:05 Dose: 50 mg Amlodipine Besylate (Amlodipine Besylate 5 Mg Tab) 10 mg PO DAILY [facility] Stop: 10/15/24 08:59 Last Admin: 09/18/24 09:49 Dose: 10 mg Aspirin (Aspirin 81 Mg Ectab) 81 mg PO HS [facility] Stop: 10/15/24 20:59 Last Admin: 09/17/24 20:23 Dose: 81 mg Atorvastatin Calcium (Atorvastatin 40 Mg Tab) 80 mg PO HS [facility] Stop: 10/15/24 20:59 Last Admin: 09/17/24 20:23 Dose: 80 mg Cyanocobalamin (Cyanocobalamin (B-12) 500 Mcg Tablet) 1,000 mcg PO DAILY [facility] Stop: 10/15/24 08:59 Last Admin: 09/18/24 09:48 Dose: 1,000 mcg Dextrose (Dextrose 50% 50 Ml Syringe) 25 - 50 ml IV UD PRN; Protocol PRN Reason: Hypoglycemia Protocol Stop: 10/15/24 00:35 Divalproex Sodium (Divalproex Sodium Sprinkle/Del-Rel 125 Mg Cap) 250 mg PO QAM [facility] Stop: 10/15/24 08:59 Last Admin: 09/18/24 09:47 Dose: 250 mg Divalproex Sodium (Divalproex Sodium Sprinkle/Del-Rel 125 Mg Cap) 500 mg PO QPM [facility] Stop: 10/15/24 00:35 Last Admin: 09/17/24 20:23 Dose: 500 mg Fluticasone Propionate (Fluticasone Propionate Na Spr 16 Gm Btl) 1 sprays NA BID [facility] Stop: 10/15/24 08:59 Last Admin: 09/18/24 09:45 Dose: 1 sprays Glucagon (Glucagon For Inj 1 Mg Vial) 1 mg SQ UD PRN; Protocol PRN Reason: Hypoglycemia Protocol Stop: 10/15/24 00:35 Glucose (Glucose 40% Gel 15 Gm Tube) 15 - 30 gm PO UD PRN; Protocol PRN Reason: Hypoglycemia Protocol Stop: 10/15/24 00:35 Glucose (Glucose 10 Tab/Tube) 4 - 8 tab PO UD PRN; Protocol PRN Reason: Hypoglycemia Protocol Stop: 10/15/24 00:35 Heparin Sodium (Porcine) (Heparin Sod 5,000 Unit/0.5 Ml Vial) 5,000 units SQ Q12 [facility] Stop: 10/15/24 20:59 Last Admin: 09/18/24 09:45 Dose: 5,000 units Ceftriaxone Sodium (Rocephin) 2,000 mg in 50 mls @ 100 mls/hr IV Q24H [facility] Stop: 09/25/24 19:59 Last Infusion: 09/17/24 20:54 Dose: Infused Promethazine HCl (Phenergan) 6.25 mg in 50.25 mls @ 201 mls/hr IV Q6H PRN PRN Reason: Nausea And Vomiting Stop: 10/14/24 22:23 Insulin Aspart (Insulin Aspart Per Unit Charge) 0 units SC ACHS [facility] Stop: 10/15/24 00:35 Last Admin: 09/18/24 13:15 Dose: 4 units Levothyroxine Sodium (Levothyroxine Sodium 175 Mcg Tablet) 175 mcg PO DAILYBB [facility] Stop: 10/15/24 06:29 Last Admin: 09/18/24 05:48 Dose: 175 mcg Losartan Potassium (Losartan Potassium 50 Mg Tab) 50 mg PO QAM [facility] Stop: 10/15/24 08:59 Last Admin: 09/18/24 09:49 Dose: 50 mg Lurasidone HCl (Lurasidone Hcl 20 Mg Tab) 160 mg PO QDD [facility] Stop: 10/15/24 16:29 Last Admin: 09/18/24 16:06 Dose: 160 mg Metoprolol Tartrate (Metoprolol Tartrate 25 Mg Tab) 25 mg PO BID [facility] Stop: 10/15/24 00:35 Last Admin: 09/18/24 09:48 Dose: 25 mg Miscellaneous (Carbohydrates For Hypoglycemia ) 15 - 30 gm PO UD PRN PRN Reason: Hypoglycemia Protocol Stop: 10/15/24 00:35 Multivitamins/Minerals (Cerovite Adv Formula Tab) 1 tab PO DAILY [facility] Stop: 10/15/24 08:59 Last Admin: 09/18/24 09:48 Dose: 1 tab Oseltamivir Phosphate (Oseltamivir Phosphate 75 Mg Cap) 75 mg PO BID [facility]; Protocol Stop: 09/20/24 08:59 Last Admin: 09/18/24 09:48 Dose: 75 mg
[2024-09-19 08:53] VITALS: O2SAT 95
--- NOTE | 2024-09-19 09:51 | Discharge Summary ---
Date of Service September 19, 2024 Admission HPI Per Admitting Provider History obtained from patient, ED provider, and records. Limited history from patient secondary to disorientation. Medical history significant for hypertension, hyperlipidemia, DM2 on oral medications, chronic neutropenia, chronic anemia (baseline hemoglobin of 10), hypothyroidism, schizoaffective disorder, mood disorder, intellectual impairment, past tobacco abuse' Last confinement June 2024 for psychosis and E. coli and Klebsiella UTI. Patient noted to be combative and disoriented at facility today. Diarrhea symptoms without abdominal pain complaints. Foul-smelling urine. Patient unable to answer questions regarding chest pain, cough, SOB symptoms. Ceftriaxone administered at the ER. Medical History as above Surgical History/Family History: Could not be fully obtained due to disorientation Personal/Social history : Past tobacco abuse, personal care facility resident Admission Exam Per Admitting Provider GENERAL: Disoriented, hard of hearing, obese, no respiratory distress SKIN: Normal color, warm HEENT: [place] palpebral conjunctivae, no ptosis, dry buccal mucosa NECK : Supple, short neck, no tenderness CHEST : Decreased breath sounds, no tenderness HEART : RRR, systolic murmur ABDOMEN: Some distention, nontender EXTREMITIES : Minimal LE swelling without LE tenderness, palpable pulses, no other conspicuous deformities noted NEUROLOGIC : Disoriented, no facial asymmetry, hard of hearing, gait and stance not assessed Principal Diagnosis UTI + influenza infection Encephalopathy secondary to above Discharge Exam General Appearance: Obese, no apparent distress Head: normocephalic, Atraumatic Eyes: normal inspection, EOMI Neck: supple Respiratory/Chest: Decreased breath sounds, CTA, No accessory muscle use Cardiovascular: S1, S2, +murmur Abdomen/GI:Soft, Non tender, Bowel sounds present Extremities/Musculoskeletal:normal inspection, Trace edema Neurologic/Psych: Alert, awake, confused, grossly moves all extremities Skin: normal color, warm Discharge Data Allergies Allergy/AdvReac Type Severity Reaction Status Date / Time No Known Allergies Allergy Unverified 09/14/24 18:08 Consultations 09/14/24 19:25 ED Decision to Admit Stat 09/17/24 08:31 Consult Hematology Routine Ordered Studies 09/14/24 17:26 CT abd pelvis wo con Stat FINDINGS: Lower chest: No consolidation. No pleural effusion or pneumothorax. Trace pericardial effusion. Liver: No suspicious liver lesions. Gallbladder: Small volume of layered calcified gallstones. No evidence of acute cholecystitis. Spleen: Normal size. Pancreas: No suspicious pancreatic lesions. The pancreatic duct is not dilated. Adrenal glands: No adrenal nodules. Kidneys: No hydronephrosis or obstructing renal stones. Bladder / Pelvic organs: Unremarkable. Bowel: No bowel obstruction. No abnormal bowel wall thickening. The appendix is unremarkable. Sigmoid colonic diverticulosis without diverticulitis. Minimal colonic stool. Lymph nodes: No retroperitoneal, mesenteric, or pelvic lymphadenopathy. Peritoneum / Retroperitoneum: No free fluid or air within the abdomen. Vessels: No infrarenal aortic aneurysm. Moderate aortoiliac calcification. Bones and soft tissues: No suspicious lesion in the bones. Chronic deformities of the inferior and superior pubic rami bilaterally. IMPRESSION: Cholelithiasis. Trace pericardial effusion. 09/14/24 17:27 CT head/brain wo con Stat Findings: No intracranial hemorrhage, mass-effect, or midline shift. The ventricles are proportionate to the cerebral sulci. The chatman to white matter differentiation of the cerebral hemispheres is preserved. The basal cisterns are patent. There is mild fluid scattered in the paranasal sinuses. Mastoid air cells are clear. Impression: No acute intracranial pathology. Hospital Course (1) Encephalopathy: Acute metabolic encephalopathy encephalopathy - resolved H/O Intellectual impairment Likely due to UTI, influenza infection --CT head:No acute intracranial pathology. -- VBG showed no hypercarbia Reorient frequently to minimize delirium Mental status improved - back to baseline Complicated UTI Influenza A infection --CXR:Normal chest radiograph -- Blood cultures negative to date --Urine culture grew pansensitive Klebsiella Variicola Received IV fluids Continued Rocephin while inpt, will DC on cefuroxime to finish abx course Continue Tamiflu Chronic leukopenia/neutropenia Chronic anemia Patient refused bone marrow aspiration biopsy in the past per record Evaluated by hematology last admission thought to be benign neutropenia Neutropenic precautions Monitor CBC we will check vitamin B12, iron, peripheral smear, folate levels B12, folate levels high ANC improved 850 Consulted w/ hematology - benign, improving ->Needs follow-up with hematology as outpatient Hypertension Continue amlodipine, losartan, metoprolol Monitor blood pressure Hyperlipidemia Continue statin next DM II last HbA1c 7.8 Continue insulin per protocol Monitor blood glucose levels Hypothyroidism Continue levothyroxine Schizophrenia and bipolar disorder Continue home medications Total Time Total Time Spent Total Time Spent (In Minutes): 40 Discharge Plan Discharge Items Patient Disposition: Home - Home Health Services Reason For Visit: AMS, COMP UTI Discharge Diagnosis: UTI + influenza infection Encephalopathy secondary to above Activity: Per Instructions section Non-emergency contact: Primary Care Provider Call non-emergency contact if: you have any medication questions and your symptoms worsen Follow-up/Referrals: Brendan Larios [Primary Care Provider] - Diet: Carb Consistent or DM2 and Heart Healthy Addtl Attending Provider Instructions: Follow up with your primary care doctor within 1 week. Finish Tamiflu and antibiotic (cefuroxime) as prescribed. Pending Studies at Discharge: No Stand-Alone Forms: My [facility] [employer], Smoking Cessation Medications and DC Order Prescriptions: New oseltamivir [Tamiflu] 75 mg Capsule 75 mg PO BID Qty: 2 0RF cefuroxime axetil 250 mg tablet 250 mg PO BID 3 Days Qty: 6 0RF Continued atorvastatin 80 mg Tablet 80 mg PO HS acetaminophen 325 mg Tablet 650 mg PO QID MDD 3g PRN (Reason: Pain) glipizide 5 mg tablet extended release 24hr 10 mg PO DAILY calcium carbonate [Oyster Shell Calcium 500] 500 mg calcium (1,250 mg) Tablet 500 mg PO BID docusate sodium 100 mg Capsule 100 mg PO BID fluticasone propionate 50 mcg/actuation spray,suspension 1 spray INTRANASAL BID cholecalciferol (vitamin D3) [Vitamin D3] 50 mcg (2,000 unit) Capsule 50 mcg PO DAILY lurasidone [Latuda] 120 mg tablet 160 mg PO DAILY Rx Instructions: take after dinner metoprolol tartrate 25 mg Tablet 25 mg PO BID Qty: 60 1RF amlodipine [Norvasc] 10 mg tablet 10 mg PO DAILY Qty: 30 1RF losartan 50 mg Tablet 50 mg PO QAM Qty: 30 1RF aspirin 81 mg Tablet,Delayed Release (Dr/Ec) 81 mg PO HS Qty: 90 1RF ferrous sulfate 325 mg (65 mg iron) Tablet,Delayed Release (Dr/Ec) 325 mg PO QAM Qty: 30 1RF divalproex 125 mg Capsule, Delayed Rel Sprinkle 250 mg PO QAM Qty: 60 1RF divalproex 125 mg Capsule, Delayed Rel Sprinkle 500 mg PO QPM 30 Days Qty: 120 1RF levothyroxine 175 mcg tablet 175 mcg PO DAILYBB trazodone 50 mg tablet 50 mg PO HS Thera M Tablet 1 tab PO DAILY lorazepam 1 mg Tablet 1 mg PO Q4 PRN (Reason: Anxiety) calcium carbonate [Calcium Antacid] 200 mg calcium (500 mg) Tablet,Chewable 400 mg PO TID PRN (Reason: heartburn/indigestion) amantadine HCl 100 mg tablet 50 mg PO BID Rx Instructions: 0600, 1300 haloperidol 5 mg tablet 5 mg PO QAM loperamide 2 mg Capsule 2 mg PO Q4H PRN (Reason: loose stools) Rx Instructions: administer after each loose stool until symptoms controlled; do not exceed 8 mg per 24 hrs cyanocobalamin (vitamin B-12) 1,000 mcg Tablet 1,000 mcg PO DAILY dextromethorphan-guaifenesin [Tussin DM] 10-100 mg/5 mL Syrup 10 ml PO Q4H PRN (Reason: Cough) diphenhydramine HCl [Banophen] 25 mg Capsule 25 mg PO HS nystatin 100,000 unit/gram Cream 1 applic TOPICAL BID PRN (Reason: Rash) haloperidol 10 mg tablet 10 mg PO HS haloperidol 2 mg tablet 2 mg PO DAILY Rx Instructions: 1300 glipizide 5 mg tablet 2.5 mg PO DAILY melatonin 5 mg Tablet 5 mg PO HS biotin 1,000 mcg Tablet,Chewable 1,000 mcg PO DAILY Discharge Orders: Discharge Order (Routine); Ordered 09/19/24 Ordered By: Chris Stauffer Admission Data Admit Date/Time: 09/14/24 22:22 Attending Provider: Chris Stauffer Admit Provider: Ian Avila Primary Care Provider: Brendan Larios Other Providers: Ian Avila; Elvis Carlos; Jocelyn Rodrigues
[2024-09-19 12:51] VITALS: BP 117/76; PULSE 69; RESP 18; TEMP 98.1
== END 2024-09-19 12:59 | disposition home or self-care (01) | DRG 689 ==
LOC: ED 17:10 → SUATTDRO 22:22 → EDINP 22:22 → 2W 09-15 00:35